=== PATIENT | female | born 1995 | race Caucasian/White ===

== ENCOUNTER 2019-08-25 16:43 | Emergency (ER) | payer OTHER, SELFPAY ==
[2019-08-25 16:43] VITALS: BP 146/80; PULSE 95; RESP 16; TEMP 36.7; O2SAT 99; BMI 40.5
[2019-08-25] MEDS: Oxymetazoline 0.05% 1 SPRAY SPRAY.BTL 2 SPRAY NASAL (17:22)
[2019-08-25] MEDS: 0.9% Normal Saline 1,000 ML 999 ML IV (17:22)
--- NOTE | 2019-08-25 17:24 | ED.VIS.GEN ---
History of Present Illness Informant: Patient Onset: Today Context: Sudden Onset Timing: Lasts - 30 minutes Quality: nosebleed Location: left nostril Current Severity: - - gone. Maximum Severity: Severe Worsened by: nothing Relieved by: manual pressure Associated Symptoms: lightheadedness Narrative: 23-year-old female who denies any significant past medical history presents to the emergency department with lightheadedness. She had a nosebleed prior to arrival that lasted 30 minutes out of her left nostril resolved with manual pressure. Since that time she has felt continually lightheaded and dizzy feeling like she is going to pass out. She has not actually lost consciousness. Prior to the nosebleed she felt well. She has no headache. She denies trauma. She is not on anticoagulation. She has no other symptoms of bleeding. No family history of coagulopathy. Denies chest pain or shortness of breath. Denies any recent illness or hospitalization. She has not had fevers chills night sweats or weight loss. No rash. Rest review of systems negative Prior similar symptoms: No Recent Illness/Hospitalization: No <Checo Esposito - Last Filed: 08/25/19 18:09> <Bry Simmons - Last Filed: 08/26/19 00:45> Chief Complaint: Nosebleed Past Medical History Prior records reviewed: Yes Past Medical History: None Surgical History: no surgical history Lives: With Family Smoking Status: Never smoker Alcohol: Occasional Drugs: None <Checo Esposito - Last Filed: 08/25/19 18:09> <Bry Simmons - Last Filed: 08/26/19 00:45> - Allergies and Home Meds Allergies/Adverse Reactions: Allergies No Known Allergies Allergy (Verified 08/25/19 16:44) Primary Care Physician: Howard Arana MD [STAFF PHYSICIAN] - As Needed Review of Systems All systems negative except as indicated General: Denies: Chills, Fever, Malaise Eyes: Denies: Visual changes - bilaterally, Blurred Vision - bilaterally, Diplopia ENT: Reports: - - epistaxis. Denies: Bilateral ear pain, Left ear pain, Right ear pain, Rhinorrhea, Sore throat Cardiovascular: Denies: Chest pain, Palpitations, Heart racing Respiratory: Denies: Dyspnea, Cough, Sputum Gastrointestinal: Denies: Abdominal pain, Nausea, Vomiting, Diarrhea Genitourinary: Denies: Dysuria, Hematuria, Frequency Musculoskeletal: Denies: Swelling, Extremity Pain Skin: Denies: Rash, Abscess, Abrasions, Wounds Neurological: Denies: Headache, Weakness, Parasthesia, Numbness Hematologic: Denies: Easy bruising, Easy bleeding, Lymphadenopathy Allergy: Denies: Uticaria, Swelling of the mouth, Swelling of the tongue <Checo Esposito - Last Filed: 08/25/19 18:09> Physical Exam Vital Signs/Narrative: Vital Signs Temp Pulse Resp BP Pulse Ox 08/25/19 16:43 98.1 F 95 16 146/80 H 99 Inital Vital Signs reviewed: Yes General: Well nourished, Well developed, No Acute Distress Head: Normocephalic, Atraumatic Eyes: Perrl, EOMI ENT: Moist mucous membranes, No rhinorrhea, TM's clear, - - She has dried blood in the left nostril. There is no active bleeding. There is no swelling. There is normal inspection of the right nostril. There is normal inspection of the posterior oropharynx. There is no facial swelling or bruising or signs of trauma or injury or rash. Neck: Supple, Nontender, No lymphadenopathy, No JVD Cardiovascular: Regular rate, Regular rhythm, No murmurs Respiratory: No distress, CTA bilaterally, Chest nontender Abdomen: Soft, Nontender, Nondistended, Normal bowel sounds, No masses Back: Nontender, Normal Inspection Extremities: Nontender, No edema Skin: Normal color, No rash, No Trauma. Negative for: Pallor Neurological: Alert, Oriented x3, Cranial nerves II-XII grossly intact, Normal Strength, Normal Sensation, Normal Gait Psychological: Normal affect, Normal Mood <Checo Esposito - Last Filed: 08/25/19 18:09> Vital Signs/Narrative: Vital Signs Temp Pulse Pulse Pulse Pulse Resp BP 08/25/19 17:43 82 94 99 08/25/19 16:43 98.1 F 95 16 146/80 H BP BP BP Pulse Ox 08/25/19 17:43 120/72 118/71 128/83 H 08/25/19 16:43 99 <Bry Simmons - Last Filed: 08/26/19 00:45> Diagnostic/Tx/Re-eval - Medical Decision Making Patient's orthostatic vital signs were negative. Patient has normal hemogram and her labs are unremarkable. She has not had any further bleeding in the ED. I did discuss with her I think this was likely a vasovagal reaction from the nosebleed. I do feel she is safe for discharge. She will use saline nasal spray and follow-up with her doctor <Checo Esposito - Last Filed: 08/25/19 18:09> - Medical Decision Making I supervised the PA and have performed my own pertinent history and physical. Results and treatment plan were discussed. HPI: Patient reports she has bloody nose tonight the last approximately 3 hours. She feels lightheaded. She is concerned that she needs to have blood transfusion. PE: Dried tissue in her nares bilaterally. There is no active bleeding. Cardiovascular regular rhythm with no murmur. Respiratory exam is clear to station bilaterally. Emergency Department course: CBC is normal. Patient is resting comfortably. Treatment Plan: Discussed methods to prevent nosebleeds in the future including humidifier and antibiotic ointment in her nose. Return to the emergency department for any worsening symptoms. This note was generated with [employer] dictation software. It may contain incorrect words, spelling, and punctuation that were not noted in review of the chart prior to signing. <Bry Simmons - Last Filed: 08/26/19 00:45> ED Disposition <Checo Esposito - Last Filed: 08/25/19 18:09> <Bry Simmons - Last Filed: 08/26/19 00:45> - Plan for ED Patient: Disposition: Home or Assisted Living Instructions: Nosebleed Referrals: Howard Arana MD [STAFF PHYSICIAN] - As Needed
[2019-08-25 17:43] VITALS: BP 118/71; BP 120/72; BP 128/83; PULSE 82; PULSE 94; PULSE 99
[2019-08-25 17:54] LABS: Absolute Neutrophil Count 4.6 X10^3/uL (2.0-7.7); Basophil# 0.03 X10^3/uL; Basophil% 0.4 % (0-1); Eosinophils% 1.2 % (0-5); Hematocrit 41.6 % (37-47); Lymphocyte % 34.5 % (19-41); Mean Corp Hgb Conc 33.7 g/dL (32-36); Mean Corpuscular Hgb 29.7 pg (27.0-32.0); Mean Corpuscular Volume 88.1 fL (81-99); Mean Platelet Vol. 9.5 fl (6.2-12.0); Monocyte# 0.56 X10^3/uL; Monocyte% 6.9 % (0-10); NRBC Flagged by Analyzer 0 % (0-5); Neutrophil # 4.59 X10^3/uL (2.7-7.7); Neutrophil % 56.6 % (47-70); Platelet Count 279 K/mm3 (150-450); RBC Distribution Width CV 11.9 % (11.6-14.6); RBC Distribution Width SD 38.2 fl (35.1-43.9); Red Blood Count 4.72 M/mm3 (4.2-5.4); White Blood Count 8.1 K/mm3 (4.4-11.0)
[2019-08-25 18:03] LABS: Anion Gap 8 (5-15); BUN 12 mg/dL (7-18); BUN/Creat Ratio 15.8 RATIO (10-20); Calcium,Total 9.2 mg/dL (8.5-10.1); Chloride 107 mmol/L (98-107); Creatinine, Serum 0.76 mg/dL (0.55-1.02); EST Glomerular Filtration Rate 101 mL/min (>60); Est Glom Filt Rate - Afr Amer 123 mL/min (>60); Estimated Creatinine Clearance 92.61 ml/min; Glucose 85 mg/dL (74-106); Potassium 3.4 mmol/L (3.5-5.1); Sodium Level 141 mmol/L (136-145)
== END 2019-08-25 18:45 | disposition home or self-care (01) ==
LOC: ED 17:55
PROVIDERS: Emergency Provider Physician Assistant Medical
DX: R04.0 Epistaxis (principal); R42 Dizziness and giddiness
CPT/HCPCS: 80048; 85025; 96360; 99283; J7030

== ENCOUNTER → 2020-06-04 | Outpatient (CLI) | payer OTHER, SELFPAY | END | disposition home or self-care (01) | LOC: MFPLAB 14:02 → LABSPEC 14:04 | PROVIDERS: PCP Family Medicine; Referring Provider Family Medicine; Visit Provider Family Medicine | DX: Z20.828 Contact with and (suspected) exposure to other viral communicable diseases (principal) | CPT/HCPCS: 87635; U0003 ==

== ENCOUNTER → 2020-12-17 | Outpatient (CLI) | payer OTHER, SELFPAY | END | disposition home or self-care (01) | LOC: LABSPEC 10:34 | PROVIDERS: PCP Family Medicine; Referring Provider Family Medicine; Visit Provider Family Medicine | DX: Z20.822 Contact with and (suspected) exposure to COVID-19 (principal) | CPT/HCPCS: 87635; U0005; U0003 ==

== ENCOUNTER → 2021-02-19 12:24 | Outpatient (CLI) | payer OTHER, SELFPAY ==
--- NOTE | 2021-02-19 12:33 | RAD_ITS ---
STUDY: X-RAY - RIGHT ANKLE REASON FOR EXAM: Female, 25 years old. Hit ankle against metal gate. Pain. TECHNIQUE: 3 view(s) of the ankle. COMPARISON: None. FINDINGS: Normal visualized distal tibia and fibula. Normal medial and lateral malleoli. Normal tibiotalar articulation and ankle mortise. Normal visualized talus and calcaneus. The visualized subtalar, talonavicular, calcaneocuboid and tarsal articulations are normal. Minimal anterior soft tissue swelling. RAD/Ankle min 3 Views IMPRESSION: No acute fracture or dislocation. Electronically Signed: Tom Sierra DO at 17:34 EDT Tel [phone], Service support ,
== END ==
PROVIDERS: PCP Family Medicine; Referring Provider Family Medicine; Visit Provider Family Medicine
DX: S93.401A Sprain of unspecified ligament of right ankle, initial encounter (principal)
CPT/HCPCS: 73610

== ENCOUNTER → 2022-12-06 | Outpatient (CLI) | payer OTHER, SELFPAY | END | disposition home or self-care (01) | LOC: LABSPEC 12:17 | PROVIDERS: PCP Family Medicine; Referring Provider Family Medicine; Visit Provider Family Medicine | DX: L03.011 Cellulitis of right finger (principal) | CPT/HCPCS: 87070; 87205 ==

== ENCOUNTER → 2024-07-09 | Outpatient (CLI) | payer OTHER, SELFPAY ==
[2024-07-09 17:46] LABS: Absolute Lymphocyte Count 2.58 X10^3/uL (0.83-4.51); Absolute Neutrophil Count 5.1 X10^3/uL (2.0-7.7); Basophil# 0.05 X10^3/uL; Basophil% 0.6 % (0-1); Eosinophil# 0.12 X10^3/uL; Eosinophils% 1.4 % (0-5); Hematocrit 41.1 % (37-47); Hemoglobin 13.7 g/dL (12.0-15.0); Lymphocyte # 2.58 X10^3/ul (0.83-4.51); Lymphocyte % 30.5 % (19-41); Mean Corp Hgb Conc 33.3 g/dL (32-36); Mean Corpuscular Volume 90.1 fL (81-99); Mean Platelet Vol. 9.8 fl (6.2-12.0); Monocyte# 0.61 X10^3/uL; Monocyte% 7.2 % (0-10); NRBC Flagged by Analyzer 0 % (0-5); Neutrophil # 5.07 X10^3/uL (2.7-7.7); Neutrophil % 59.8 % (47-70); Platelet Count 323 K/mm3 (150-450); RBC Distribution Width CV 12.5 % (11.6-14.6); RBC Distribution Width SD 40.8 fl (35.1-43.9); Red Blood Count 4.56 M/mm3 (4.2-5.4); White Blood Count 8.5 K/mm3 (4.4-11.0)
[2024-07-09 19:02] LABS: AST(SGOT) 21 U/L (15-37); Alanine Aminotransfer ALT/SGPT 43 U/L (13-56); Albumin, Serum 3.6 g/dL (3.2-5.0); Alkaline Phosphatase 97 U/L (45-117); Anion Gap 2 (5-15); BUN 12 mg/dL (7-18); BUN/Creat Ratio 16.8 RATIO (10-20); Chloride 106 mmol/L (98-107); Creatinine, Serum 0.72 mg/dL (0.55-1.02); EST Glomerular Filtration Rate 104 mL/min (>60); Est Glom Filt Rate - Afr Amer 126 mL/min (>60); Globulin 3.7 g/dL (2.2-4.2); Glucose 87 mg/dL (74-106); Potassium 3.8 mmol/L (3.5-5.1); Protein, Total 7.3 g/dL (6.4-8.2); Sodium Level 138 mmol/L (136-145)
== END | disposition home or self-care (01) ==
LOC: MFPLAB 15:12
PROVIDERS: PCP Family Medicine; Referring Provider Family Medicine; Visit Provider Family Medicine
DX: R00.2 Palpitations (principal)
CPT/HCPCS: 36415; 80053; 84443; 85025

== ENCOUNTER 2024-12-08 13:50 | Outpatient (CLI) | payer SELFPAY ==
--- OUTSIDE RECORDS SUMMARY | 2024-12-08 14:09 | XMS RPT_ITS | CCD ---
Author Organization [facility] Care Team Providers Care Supply Chain Generalist Name Role Phone Judith, Mago Sarah Primary Care Provider GAETANO PIERSON Attending Unavailable JOLLIFF, MAGO SARAH Primary Care Unavailable Jolliff, Mago Sarah Primary Care Provider Judith, Mago S Referring Unavailable Jolliff, Mago S Attending Unavailable Jolliff, Mago S Primary Care Unavailable PLOTTS, MATILDE Referring Unavailable JOLLIFF, MAGO SARAH Primary Care Unavailable PLOTTS, MATILDE Referring Unavailable JOLLIFF, MAGO SARAH Primary Care Unavailable PLOTTS, MATILDE Referring Unavailable JOLLIFF, MAGO SARAH Primary Care Unavailable PLOTTS, MATILDE Attending Unavailable JOLLIFF, MAGO SARAH Primary Care Unavailable JOLLIFF, MAGO SARAH Primary Care Unavailable ANGELIC BUTLER Attending Unavailable JOLLIFF, MAGO SARAH Primary Care Unavailable JOJO SAEZ Attending Unavailable CARRIE, ANGELIC L Referring Unavailable JOLLIFF, MAGO SARAH Primary Care Unavailable CARRIE, ANGELIC L Referring Unavailable JOLLIFF, MAGO SARAH Primary Care Unavailable JOJO SAEZ Attending Unavailable CARRIE, ANGELIC L Referring Unavailable JOLLIFF, MAGO SARAH Primary Care Unavailable CARRIE, ANGELIC L Referring Unavailable JOLLIFF, MAGO SARAH Primary Care Unavailable CARRIE, ANGELIC L Referring Unavailable JOLLIFF, MAGO SARAH Primary Care Unavailable CHRISTY HARVEY Attending Unavail able PLOTTS, MATILDE Referring Unavailable JOLLIFF, MAGO SARAH Primary Care Unavailable PLOTTS, MATILDE Referring Unavailable JOLLIFF, MAGO SARAH Primary Care Unavailable CARRIE ANGELIC L Attending Unavailable JOLLIFF, MAGO SARAH Primary Care Unavailable Medications Current Medications Medication Drug Class(es) Dates Sig (Normalized) Sig (Original) aspirin 81 mg delayed release oral tablet (15 sources) Platelet Aggregation Inhibitor, Nonsteroidal Anti-inflammatory Drug Start: 09-23-2024 End: 10-08-2024 take 2 tablets by mouth once daily aspirin, enteric coated (ECOTRIN LOW STRENGTH) 81 mg EC tablet Take 2 tablets by mouth once daily. 180 tablet 2 10/08/2024 Active Start: 08-12-2024 End: 09-23-2024 take 1 tablet by mouth once daily aspirin, enteric coated (ECOTRIN LOW STRENGTH) 81 mg EC tablet Indications: with uncertain dates, antepartum (HCC) , Encounter for care in first trimester of first (HCC) Take 1 tablet by mouth once daily. 90 tablet 3 08/12/2024 09/23/2024 Discontinued metroNIDAZOLE 500 mg oral tablet (1 source) Nitroimidazole Antimicrobial Start: 02-08-2024 End: 02-15-2024 take 1 tablet by mouth twice daily metroNIDAZOLE (FLAGYL) 500 mg tablet Take 1 tablet by mouth two times a day for 7 days. 14 tablet 0 02/08/2024 02/15/2024 Active PNV no.95/ferrous fum/folic ac ( ORAL) (14 sources) PNV no.95/ferrou s fum/folic ac ( ORAL) Take by mouth. Active Completed/Discontinued Medications Medication Drug Class(es) Dates Sig (Normalized) Sig (Original) 21 day ethinyl estradiol 0.881085 mg/hr / etonogestrel 0.005 mg/hr vaginal system (15 sources) Progestin, Estrogen Start: 08-24-2021 End: 08-12-2024 Etonogestrel-Ethiny l Estradiol (NUVARING) 0.12-0.015 mg/24 hr vaginal ring Use 1 Each vaginally as directed. leave ring for 24 days, remove and insert new ring. Take a 4 day break and insert a new ring when you get breakthrough bleeding 1 Each 11 08/30/2023 08/12/2024 Discontinued (Discontinued by Patient) Start: 08-25-2019 Etonogestrel-E thinyl Estradiol Active 1 EACH VG EVERY WEEK August 25, 2019 1:00am Comment on above: Use 1 Each vaginally as directed. leave ring for 24 days, remove and insert new ring. Take a 4 day break and insert a new ring when you get breakthrough bleeding nystatin 100 unt/mg / triamcinolone acetonide 0.001 mg/mg topical ointment (4 sources) Polyene Antifungal, Corticosteroid Start: 02-07-2024 End: 08-12-2024 nystatin-triamcinolone (MYCOLOG) ointment Indications: Vaginal itching Apply sparingly to perineum twice daily for irritation/infection. 30 g 02/07/2024 08/12/2024 Discontinued (Discontinued by Patient) Problems Active Problems Problem Classification Problem Date Documented Date Episodic/Chronic Cardiac dysrhythmias (1 source) Palpitations; Translations: [Palpitations] Onset: 09-20-2024 Episodic Contraceptive and procreative management (1 source) Contraception status; Translations: [Encounter for surveillance of vaginal ring hormonal contraceptive device] 12-15-2023 Episodic Headache; including migraine (1 source) Headache associated with sexual activity ; Translations: [Headache associated with sexual activity] 03-01-2023 Episodic Hypertension complicating ; childbirth and the puerperium (12 sources) Pre-existing hypertension in obstetric context; Translations: [Unspecified pre-existing hypertension complicating , unspecified trimester] Onset: 09-23-2024 09-23-2024 Chronic Immunizations and screening for infectious disease (4 sources) Patient encounter status; Translations: [Encounter for screening for infections with a predominantly sexual mode of transmission] Episodic Menstrual disorders (1 source) Irregular periods; Translations: [Irregular menstruation, unspecified] 01-02-2023 Chronic Other circulatory disease (1 source) Elevated blood-pressure reading without diagnosis of hypertension; Translations: [Elevated blood-pressure reading, without diagnosis of hypertension] 09-23-2024 Episodic Other circulatory disease (1 source) Elevated blood-pressure reading, without diagnosis of hypertension; Translations: [Elevated blood pressure reading without diagnosis of hypertension] Onset: 09-23-2024 Episodic Other complications of (20 sources) Maternal obesity complicating , childbirth and the puerperium, antepartum; Translations: [Obesity complicating , first trimester] Onset: 08-12-2024 08-12-2024 Chronic Other complications of (1 source) Obesity complicating , third trimester; Translations: [Obesity affecting in third trimester, unspecified obesity type (HCC)] Onset: 11-19-2024 Chronic Other complications of (1 source) Obesity complicating , first trimester; Translations: [Obesity affecting in first trimester, unspecified obesity type (HCC)] Onset: 08-12-2024 Chronic Other complications of (9 sources) High risk ; Translations: [Supervision of high risk , unspecified, first trimester] 09-10-2024 Episodic Other complications of (1 source) Supervision of high risk , unspecified, second trimester; Translations: [Supervision of high risk in second trimester ([facility])] Onset: 11-19-2024 Episodic Other complications of (1 source) Supervision of high risk , unspecified, third trimester; Translations: [Supervision of high risk in third trimester ([facility])] Onset: 11-19-2024 Episodic Other complications of (1 source) Supervision of high risk , unspecified, first trimester; Translations: [Supervision of high risk in first trimester (HCC)] Onset: 10-22-2024 Episodic Other endocrine disorders (1 source) Polycystic ovary syndrome; Translations: [Polycystic ovarian syndrome] 12-15-2023 Chronic Other female genital disorders (1 source) Pruritus of vagina; Translations: [Other specified noninflammatory disorders of vagina] 02-07-2024 Episodic Other female genital disorders (1 source) Vaginal discharge; Translations: [Other specified noninflammatory disorders of vagina] 02-07-2024 Episodic Other nutritional; endocrine; and metabolic disorders (1 source) Severe obesity; Translations: [Morbid (severe) obesity due to excess calories] 12-15-2023 Chronic Other nutritional; endocrine; and metabolic disorders (5 sources) Body mass index 40+ - severely obese; Translations: [Body mass index (BMI) 40.0-44.9, adult] 09-10-2024 Chronic Other nutritional; endocrine; and metabolic disorders (1 source) Body mass index (BMI) 40.0-44.9, adult; Translations: [BMI 40.0-44.9, adult ([facility])] Onset: 11-19-2024 Chronic Other screening for suspected conditions (not mental disorders or infectious disease) (2 sources) Cancer cervix screening status; Translations: [Encounter for screening for malignant neoplasm of cervix] Onset: 11-19-2024 12-15-2023 Episodic Residual codes; unclassified (2 sources) Gestation period, 10 weeks; Translations: [10 weeks gestation of ] 09-10-2024 Episodic Residual codes; unclassified (2 sources) Gestation period, 11 weeks; Translations: [11 weeks gestation of ] 09-23-2024 Episodic Residual codes; unclassified (2 sources) Gestation period, 16 weeks; Translations: [16 weeks gestation of ] 10-22-2024 Episodic Residual codes; unclassified (2 sources) Gestation period, 20 weeks; Translations: [20 weeks gestation of ] 11-19-2024 Episodic Residual codes; unclassified (1 source) 20 weeks gestation of ; Translations: [20 weeks gestation of (HCC)] Onset: 11-19-2024 Episodic Residual codes; unclassified (1 source) 16 weeks gestation of ; Translations: [16 weeks gestation of (HCC)] Onset: 10-22-2024 Episodic Residual codes; unclassified (1 source) 10 weeks gestation of ; Translations: [10 weeks gestation of (HCC)] Onset: 09-23-2024 Episodic Sexually transmitted infections (not HIV or hepatitis) (1 source) Human papilloma virus deoxyribonucleic acid test positive, high risk on vaginal specimen; Translations: [Vaginal high risk human papillomavirus (HPV) DNA test positive] 12-15-2023 Episodic Skin and subcutaneous tissue infections (1 source) Cellulitis of right upper limb; Translations: [Cellulitis of right upper extremity] Onset: 12-06-2022 Episodic Unclassified (14 sources) [facility] Onset: 08-12-2024 08-12-2024 Past or Other Problems Problem Classification Problem Date Documented Da te Episodic/Chronic Appendicitis and other appendiceal conditions (19 sources) Acute appendicitis; Translations: [Unspecified acute appendicitis] Onset: 01-01-2009 Resolved: 08-24-2021 08-24-2021 Episodic Hemorrhage during ; abruptio placenta; placenta previa (15 sources) Threatened miscarriage in first trimester; Translations: [Threatened ] Onset: 08-12-2024 08-12-2024 Episodic Other and delivery including normal (20 sources) with uncertain dates; Translations: [First trimester ] Onset: 08-12-2024 Resolved: 09-10-2024 08-12-2024 Episodic Results Test Name Value Interpretation Reference Range Facil ity Examination level ultrasound on 11-19-2024 Indication Detailed anatomic survey Maternal obesity, BMI >40 Impression The patient is referred for a detailed anatomic survey. - Single, live, intrauterine . - biometry is consistent with the established gestational age. - No malformations were visualized on a complete detailed anatomic survey. - The amniotic fluid volume is normal amount. - The placenta is posterior, fundal. - The Transabdominal cervical length measures 41.5 mm with no evidence of funneling or other dynamic changes. - Not all structural malformations can be detected by ultrasound examination. Recommendations - growth every 4 weeks starting at 28 weeks. - Additional follow up as clinically indicated. Maternal Assessment Height 160 cm Height (ft) 5 ft Height (in) 3 in Physical Exam Initial weight (lb) 227 lb Initial BMI 40.21 kg/m Maternal assessment other: 1 Para 0 Method Transabdominal ultrasound examination. View: Suboptimal view: limited by maternal body habitus Melgoza . Number of fetuses: 1 Dating LMP on: 06/15/2024 GA by LMP 22 w + 3 d SPENCER by LMP: 03/22/2025 GA by prior assessment 20 w + 0 d SPENCER by prior assessment: 04/08/2025 Ultrasound examination on: 11/19/2024 GA by U/S based upon: AC, BPD, Femur, HC GA by U/S 19 w + 5 d SPENCER by U/S: 04/10/2025 Assigned: based on stated SPENCER, selected on 11/19/2024 Assigned GA 20 w + 0 d Assigned SPENCER: 04/08/2025 General Evaluation Cardiac activity present. FHR 149 bpm. movements: present. Presentation: transverse head left Placenta: Placental site: posterior, fundal Umbilical cord: Cord vessels: 3 vessel cord Amniotic fluid: Amount of AF: normal amount. MVP 5.4 cm Growth Overview Exam date GA BPD (mm) HC (mm) AC (mm) FL (mm) HL (mm) EFW (g) 10/22/2024 16w 0d 33.5 66% 124.2 45% 102.1 59% 22 79% 19.2 37% 152 62% 11/19/2024 20w 0d 44 22% 169.9 37% 148.7 49% 31.4 55% 31.2 69% 318 39% Biometry Standard BPD 44.0 mm 19w 2d 22% Hadlock OFD 61.4 mm 19w 6d 64% Nicolaides HC 169.9 mm 19w 4d 37% Devonte Cerebellum tr 21.7 mm 20w 3d 87% Hill Nuchal fold 4.9 mm AC 148.7 mm 20w 1d 49% Hadlock Femur 31.4 mm 19w 6d 55% Devonte Humerus 31.2 mm 20w 3d 69% Devonte EFW 318 g 19w 5d 39% Hadlock EFW (lb) 0 lb EFW (oz) 11 oz EFW by: Hadlock (HC-AC-FL) Extended Manager Of Finance 6.6 mm CM 4.3 mm 28% Nicolaides Extremities / Bony Struc FL / HC 0.18 26% Hadlock Other Structures FHR 149 bpm Anatomy Cranium: normal Lateral ventricles: normal Choroid plexus: normal Midline falx: normal Cavum septi pellucidi: normal Cerebellum: normal Cisterna magna: normal Head / Neck Vermis: normal Neck: normal Nuchal fold: normal Lips: normal Profile: normal Nose: normal Face Maxilla: normal Mandible: normal Orbits: normal Lens: normal 4-chamber view: normal RVOT view: normal LVOT view: normal 3-vessel view: normal [id number] view: normal Heart / Thorax Situs: situs solitus (normal) Aortic arch view: normal SVC: normal IVC: normal Cardiac axis: normal Rt lung: normal Lt lung: normal Diaphragm: normal Cord insertion: normal Stomach: normal Kidneys: normal Bladder: normal Genitals: normal Abdomen Abdom. wall: normal Cervical spine: normal Thoracic spine: normal Lumbar spine: normal Sacral spine: normal Arms: normal Legs: normal Rt upper arm: normal Rt forearm: normal Rt hand: normal Rt fingers: normal Lt upper arm: normal Lt forearm: normal Lt hand: normal Lt fingers: normal Rt upper leg: normal Rt lower leg: normal Rt foot: normal Lt upper leg: normal Lt lower leg: normal Lt foot: normal sex: male Wants to know sex: yes Maternal Structures Uterus / Cervix Uterus: Visualized Cervix: Visualized Approach: Transabdominal Cervical length 41.5 mm Other: Patient declined transvaginal ultrasound for cervical length. Ovaries / Tubes / Adnexa Rt ovary: Visualized Lt ovary: Visualized Performed By: Rita Martinez RDMS, RVT Read By: Antonia Michelle, M.D. MATERNAL MEDICINE [facility] Radiology Study observation (narrative) [facility] Examination level ultrasound on 10-22-2024 Indication Early anatomic survey Maternal obesity, BMI >40 Impression The patient is referred for an early anatomic survey because of identified risk factors. - Single, live, intrauterine . - biometry is consistent with the established gestational age. - No malformations were visualized on an early anatomic assessment, although some anatomical structures were suboptimally seen as detailed below. - The amniotic fluid volume is normal amount. - The placenta is posterior, fundal. - Not all structural malformations can be detected by ultrasound examination. Recommendations Return around 20 weeks for anatomic survey Maternal Assessment Height 160 cm Height (ft) 5 ft Height (in) 3 in Physical Exam Initial weight (lb) 227 lb Initial BMI 40.21 kg/m Maternal assessment other: 1 Para 0 Method Transabdominal ultrasound examination Melgoza . Number of fetuses: 1 Dating LMP on: 06/15/2024 GA by LMP 18 w + 3 d SPENCER by LMP: 03/22/2025 GA by prior assessment 16 w + 0 d SPENCER by prior assessment: 04/08/2025 Ultrasound examination on: 10/22/2024 GA by U/S based upon: AC, BPD, Femur, HC GA by U/S 16 w + 2 d SPENCER by U/S: 04/06/2025 Assigned: based on stated SPENCER, selected on 10/22/2024 Assigned GA 16 w + 0 d Assigned SPENCER: 04/08/2025 General Evaluation Cardiac activity present. FHR 152 bpm. movements: present. Presentation: cephalic Placenta: Placental site: posterior, fundal Umbilical cord: Cord vessels: 3 vessel cord Amniotic fluid: Amount of AF: normal amount. MVP 3.8 cm Biometry Standard BPD 33.5 mm 16w 3d 66% Hadlock OFD 43.8 mm 15w 3d 43% Nicolaides HC 124.2 mm 15w 6d 45% Devonte Cerebellum tr 15.7 mm 16w 2d 38% Hill Nuchal fold 2.8 mm AC 102.1 mm 16w 1d 59% Hadlock Femur 22.0 mm 16w 4d 79% Devonte Humerus 19.2 mm 15w 4d 37% Devonte EFW 152 g 16w 1d 62% Hadlock EFW (lb) 0 lb EFW (oz) 5 oz EFW by: Hadlock (HC-AC-FL) Extended Manager Of Finance 5.8 mm CM 3.5 mm 34% Nicolaides Extremities / Bony Struc FL / HC 0.18 95% Hadlock Other Structures FHR 152 bpm Anatomy Cranium: normal Lateral ventricles: normal Choroid plexus: normal Midline falx: normal Cerebellum: normal Cisterna magna: normal Lips: normal 4-chamber view: normal RVOT view: normal LVOT view: normal 3-vessel view: suboptimally visualized 8-[id number] view: suboptimally visualized Heart / Thorax Diaphragm: normal Cord insertion: normal Stomach: normal Kidneys: normal Bladder: normal Cervical spine: normal Thoracic spine: normal Lumbar spine: normal Sacral spine: normal Arms: normal Legs: normal Rt upper arm: normal Rt forearm: normal Rt hand: normal Lt upper arm: normal Lt forearm: normal Lt hand: normal Rt upper leg: normal Rt lower leg: normal Rt foot: normal Lt upper leg: normal Lt lower leg: normal Lt foot: normal sex: male Wants to know sex: yes Maternal Structures Uterus / Cervix Uterus: Visualized Cervix: Visualized Approach: Transabdominal Cervical length 35.9 mm Ovaries / Tubes / Adnexa Rt ovary: Visualized Lt ovary: Visualized Performed By: Rita Martinez RDMS, RVT Read By: Antonia Michelle M.D. MATERNAL MEDICINE [facility] Radiology Study observation (narrative) [facility] metabolic 2000 panelOrdered By: Eliza Sparks on 09-23-2024 Albumin [Mass/Vol] 4 g/dL 3.9 - 4.9 g/dL [facility] ALP [Catalytic activity/Vol] 72 U/L 34 - 123 U/L [facility] ALT [Catalytic activity/Vol] 14 U/L 7 - 38 U/L [facility] Anion gap [Moles/Vol] 11 mmol/L 8 - 15 mmol/L [facility] AST [Catalytic activity/Vol] 15 U/L 13 - 35 U/L [facility] Bilirubin [Mass/Vol] mg/dL Low 0.2 - 1.3 mg/dL [facility] Calcium [Mass/Vol] 9.5 mg/dL 8.5 - 10.2 mg/dL [facility] Chloride [Moles/Vol] 104 mmol/L 98 - 107 mmol/L [facility] CO2 [Moles/Vol] 22 mmol/L 22 - 30 mmol/L [place] Creatinine [Mass/Vol] 0.49 mg/dL Low 0.58 - 0.96 mg/dL [facility] GFR/1.73 sq M.predicted among non-blacks MDRD (S/P/Bld) [Vol rate/Area] 133 mL/min/{1.73_m2} - PINF [facility] Comment on above: Estimated Glomerular Filtration Rate (eGFR) is calculated using the 2020 CKD-EPI creatinine equation. This equation utilizes serum creatinine, sex, and age as parameters. The creatinine assay has traceable calibration to isotope dilution-mass spectrometry. Refer to KDIGO guidelines for clinical interpretation. In patients with unstable renal function, e.g. those with acute kidney injury, the eGFR may not accurately reflect actual GFR. Glucose [Mass/Vol] 96 mg/dL 74 - 99 mg/dL [facility] Comment on above: The Stateless Diabete s Association (ADA) provides guidance for cutoff values for fasting glucose and random glucose. The ADA defines fasting as no caloric intake for at least 8 hours. Fasting plasma glucose results between 100 to 125 mg/dL indicate increased risk for diabetes (prediabetes). Fasting plasma glucose results greater than or equal to 126 mg/dL meet the criteria for diagnosis of diabetes. In the absence of unequivocal hyperglycemia, results should be confirmed by repeat testing. In a patient with classic symptoms of hyperglycemia or hyperglycemic crisis, random plasma glucose results greater than or equal to 200 mg/dL meet the criteria for diagnosis of diabetes. Reference: Standards of Medical Care in Diabetes 2016, Stateless Diabetes Association. Diabetes Care. 2016.39(Suppl 1). Interpretation and review of laboratory results Abnormal [facility] Potassium [Moles/Vol] 3.9 mmol/L 3.7 - 5.1 mmol/L [facility] Protein [Mass/Vol] 6.9 g/dL 6.3 - 8.0 g/dL [facility] Sodium [Moles/Vol] 137 mmol/L 136 - 144 mmol/L [facility] Urea nitrogen [Mass/Vol] 9 mg/dL 7 - 21 mg/dL [facility] Comprehensive metabolic 2000 panelon 09-23-2024 Albumin [Mass/Vol] 4.0 g/dL Normal 3.9-4.9 [facility] Comment on above: Order Comment: Speci men Type: BLOOD SPECIMENOrdering Facility: [facility] Address: [address] [place] [address] Performed By: #### 2 4323-8 ####[facility] MILLTOWNCLIA [id number] [place] [address] [place] ALP [Catalytic activity/Vol] 72 U/L Normal 34-123 [facility] Comment on above: Order Comment: Speci men Type: BLOOD SPECIMENOrdering Facility: [facility] Address: [address] [place] [address] Performed By: #### 2 4323-8 ####[facility] MILLTOWNCLIA [id number] [place] [address] [place] ALT [Catalytic activity/Vol] 14 U/L Normal 7-38 [facility] Comment on above: Order Comment: Speci men Type: BLOOD SPECIMENOrdering Facility: [facility] Address: [address] [place] [address] Performed By: #### 2 4323-8 ####[facility] MILLTOWNCLIA [id number] [place] [address] [place] Anion gap [Moles/Vol] 11 mmol/L Normal 8-15 [facility] Comment on above: Order Comment: Speci men Type: BLOOD SPECIMENOrdering Facility: [facility] Address: [address] [place] [address] Performed By: #### 2 4323-8 ####[facility] MILLTOWNCLIA [id number] [place] [address] [place] AST [Catalytic activity/Vol] 15 U/L Normal 13-35 [facility] Comment on above: Order Comment: Speci men Type: BLOOD SPECIMENOrdering Facility: [facility] Address: [address] [place] [address] Performed By: #### 2 4323-8 ####[facility] MILLTOWNCLIA [id number] [place] [address] [place] Bilirubin [Mass/Vol] mg/dL Low 0.2-1.3 [facility] Comment on above: Order Comment: Speci men Type: BLOOD SPECIMENOrdering Facility: [facility] Address: [address] [place] [address] Performed By: #### 2 4323-8 ####[facility] MILLWNCLIA [id number] [place] [address] [place] Calcium [Mass/Vol] 9.5 mg/dL Normal 8.5-10.2 [facility] Comment on above: Order Comment: Speci men Type: BLOOD SPECIMENOrdering Facility: [facility] Address: [address] [place] [address] Performed By: #### 2 4323-8 ####[facility] [id number] [place] [address] [place] Chloride [Moles/Vol] 104 mmol/L Normal 98-107 [facility] Comment on above: Order Comment: Speci men Type: BLOOD SPECIMENOrdering Facility: [facility] Address: [address] [place] [address] Performed By: #### 2 4323-8 ####[facility] [id number] [place] [address] [place] CO2 [Moles/Vol] 22 mmol/L Normal 22-30 [facility] Comment on above: Order Comment: Speci men Type: BLOOD SPECIMENOrdering Facility: [facility] Address: [address] [place] [address] Performed By: #### 2 4323-8 ####[facility] MILLTOWNCLIA [id number] [place] [address] [place] Creatinine [Mass/Vol] 0.49 mg/dL Low 0.58-0.96 [facility] Comment on above: Order Comment: Sheryl reyes Type: BLOOD SPECIMENOrdering Facility: [facility] Address: [address] [place] [address] Performed By: #### 2 4323-8 ####[facility] [id number] [place] [address] [place] Creatinine and Glomerular filtration rate.predicted panel (S/P/Bld) 133 mL/min/1.73m??? Normal >=60 [facility] Comment on above: Order Comment: Sheryl reyes Type: BLOOD SPECIMENOrdering Facility: [facility] Address: [address] [place] [address] Result Comment: Jossie mated Glomerular Filtration Rate (eGFR) is calculated using the 2020 CKD-EPI creatinine equation. This equation utilizes serum creatinine, sex, and age as parameters. The creatinine assay has traceable calibration to isotope dilution-mass spectrometry. Refer to KDIGO guidelines for clinical interpretation. In patients with unstable renal function, e.g. those with acute kidney injury, the eGFR may not accurately reflect actual GFR. Performed By: #### 2 4323-8 ####[facility] [id number] [place] [address] [place] Glucose [Mass/Vol] 96 mg/dL Normal 74-99 [facility] Comment on above: Order Comment: Sheryl reyes Type: BLOOD SPECIMENOrdering Facility: [facility] Address: [address] [place] [address] Result Comment: The Stateless Diabetes Association (ADA) provides guidance for cutoff values for fasting glucose and random glucose. The ADA defines fasting as no caloric intake for at least 8 hours. Fasting plasma glucose results between 100 to 125 mg/dL indicate increased risk for diabetes (prediabetes). Fasting plasma glucose results greater than or equal to 126 mg/dL meet the criteria for diagnosis of diabetes. In the absence of unequivocal hyperglycemia, results should be confirmed by repeat testing. In a patient with classic symptoms of hyperglycemia or hyperglycemic crisis, random plasma glucose results greater than or equal to 200 mg/dL meet the criteria for diagnosis of diabetes. Reference: Standards of Medical Care in Diabetes 2016, Stateless Diabetes Association. Diabetes Care. 2016.39(Suppl 1). Performed By: #### 2 4323-8 ####[facility] MILLTOWNCLIA [id number] [place] [address] [place] Potassium [Moles/Vol] 3.9 mmol/L Normal 3.7-5.1 [facility] Comment on above: Order Comment: Speci men Type: BLOOD SPECIMENOrdering Facility: [facility] Address: [address] [place] [address] Performed By: #### 2 4323-8 ####[facility] [id number] [place] [address] [place] Protein [Mass/Vol] 6.9 g/dL Normal 6.3-8.0 [facility] Comment on above: Order Comment: Speci men Type: BLOOD SPECIMENOrdering Facility: [facility] Address: [address] [place] [address] Performed By: #### 2 4323-8 ####[facility]ITAL[facility] [id number] [place] [address] [place] Sodium [Moles/Vol] 137 mmol/L Normal 136-144 [facility] Comment on above: Order Comment: Speci men Type: BLOOD SPECIMENOrdering Facility: [facility] Address: [address] [place] [address] Performed By: #### 2 4323-8 ####[facility] MILLTOWNCLIA [id number] [place] [address] [place] Urea nitrogen [Mass/Vol] 9 mg/dL Normal 7-21 [facility] Comment on above: Order Comment: Speci men Type: BLOOD SPECIMENOrdering Facility: [facility] Address: [address] [place] [address] Performed By: #### 2 4323-8 ####[facility] MILLTOWNCLIA [id number] [place] [address] [place] Examination level ultrasound on 09-23-2024 Indication First trimester anatomic survey Maternal obesity, BMI >40 Impression REMOTE READ The patient is referred for a first trimester anatomy scan including nuchal translucency measurement as clinically indicated. - Single, live, intrauterine . - [place] rump length measurement is consistent with the established gestational age. - A qualitative screen of the nuchal translucency and other anatomic structures was unremarkable on an incomplete first trimester anatomic assessment. - Not all structural malformations can be detected by ultrasound examination. Maternal Structures: Right Ovary: Size 23 mm x 24 mm x 23 mm Left Ovary: Size 31 mm x 22 mm x 19 mm Recommendations - A standard anatomic survey at 16 weeks can be offered and a detailed exam at 20 weeks is recommended for increased risk. Maternal Assessment Height 160 cm Height (ft) 5 ft Height (in) 3 in Physical Exam Initial weight (lb) 227 lb Initial BMI 40.21 kg/m Maternal assessment other: 1 Para 0 Method Transabdominal ultrasound examination Melgoza . Number of fetuses: 1 Dating LMP on: 06/15/2024 GA by LMP 14 w + 2 d SPENCER by LMP: 03/22/2025 GA by prior assessment 11 w + 6 d SPENCER by prior assessment: 04/08/2025 Ultrasound examination on: 09/23/2024 GA by U/S based upon: CRL GA by U/S 12 w + 0 d SPENCER by U/S: 04/07/2025 Assigned: based on stated SPENCER, selected on 09/23/2024 Assigned GA 11 w + 6 d Assigned SPENCER: 04/08/2025 General Evaluation Cardiac activity present Placenta: posterior Cord vessels: 3 vessel cord Amniotic fluid: normal amount Biometry Standard FHR 167 bpm CRL 52.4 mm 12w 0d 36% Hadlock First Trimester Anatomy Calvarium: normal Falx cerebri: normal Choroid plexus: normal Profile: normal Nasal bone: normal Retronasal triangle: normal Maxilla: normal Mandible: normal Nuchal translucency: Unremarkable Situs: normal Cardiac position: normal Cardiac axis: normal 4-chamber view: suboptimal 4-chamber view with color: suboptimal 6-[id number] view: suboptimal Abdominal cord insertion: normal Stomach: normal Kidneys: normal Bladder: normal Color doppler of perivesical umbilical arteries: normal Vertebral alignment: normal Arms: normal Hands: normal Legs: normal Feet: normal Maternal Structures Uterus / Cervix Uterus: Visualized Uterus length 131 mm Uterus width 80 mm Uterus height 68 mm Uterus Vol 371.3 cm Ovaries / Tubes / Adnexa Rt ovary: Visualized Rt ovary D1 23 mm Rt ovary D2 24 mm Rt ovary D3 23 mm Rt ovary Vol 6.6 cm Lt ovary: Visualized Lt ovary D1 31 mm Lt ovary D2 22 mm Lt ovary D3 19 mm Lt ovary Vol 6.9 cm Performed By: Rita Martinez RDMS, RVT Read By: Antonia Michelle M.D. MATERNAL MEDICINE [facility] Radiology Study observation (narrative) [facility] [id number] PLUSon 09-23-2024 Cell-free DNA./Cell-free DNA.total Dosage of chromosome-specific cfDNA (cfDNA) [Molar fraction] 12% Normal [facility] Comment on above: Order Comment: Speci men Type: BLOOD SPECIMENOrdering Facility: [facility] Address: [address] [place] [address] Performed By: #### M AT21 ####[facility] LABCLIA [id number] [place] [address] Chr 13+18+21+X+Y aneuploidy Dosage of chromosome-specific cfDNA Ql (cfDNA) Negative Normal [facility] Comment on above: Order Comment: Speci men Type: BLOOD SPECIMENOrdering Facility: [facility] Address: [address] [place] [address] Performed By: #### M AT21 ####[facility] LABCLIA [id number] [place] [address] Chr 21 trisomy Dosage of chromosome-specific cfDNA Ql (cfDNA) Negative Normal [facility] Comment on above: Order Comment: Speci men Type: BLOOD SPECIMENOrdering Facility: [facility] Address: [address] [place] [address] Performed By: #### M AT21 ####[facility] LABCLIA [id number] [place] [address] Chr X and Y aneuploidy risk Sequencing Ql (cfDNA) [Interp] Not detected Normal [facility] Comment on above: Order Comment: Speci men Type: BLOOD SPECIMENOrdering Facility: [facility] Address: [address] [place] [address] Result Comment: Not Detected Not Detected Performed By: #### M AT21 ####[facility] LABCLIA [id number] [place] [address] Citation Shaquille (Reference lab test) Comment Normal [facility] Comment on above: Order Comment: Speci men Type: BLOOD SPECIMENOrdering Facility: [facility] Address: [address] [place] [address] Result Comment: 1. P maik ALEXIS, et al. Krystle Med. 2012;14(3):296-305. 2. Adamaris SONG et al. Prenat Diag. 2013;33(6):591-597. 3. Anjel Rodriguez, et al. Clin Chem. 2015 Apr;61(4):608-616. 4. Ailyn ALEXIS, et al. Krystle Med. 2011;13(11):913-920. 5. ACOG/SMFM Practice Bulletin No. 226, Mar 2020. Performed By: #### M AT21 ####[facility] LABCLIA [id number] [place] [address] Gestational age Estimated from conception date Melgoza Normal [facility] Comment on above: Order Comment: Speci men Type: BLOOD SPECIMENOrdering Facility: [facility] Address: [address] [place] [address] Performed By: #### M AT21 ####[facility] LABCLIA [id number] [place] [address] GESTATIONALAGE AGE > OR = 9W Yes Normal [facility] Comment on above: Order Comment: Speci men Type: BLOOD SPECIMENOrdering Facility: [facility] Address: [address] [place] [address] Performed By: #### M AT21 ####[facility] LABCLIA [id number] [place] [address] Laboratory comment Shaquille (Report) Comment Normal [facility] Comment on above: Order Comment: Speci men Type: BLOOD SPECIMENOrdering Facility: [facility] Address: [address] [place] [address] Result Comment: The MaterniT(R) 21 PLUS laboratory-developed test (LDT) analyzes circulating cell-free DNA from a maternal blood sample. This test is used for screening purposes and not diagnostic. Clinical correlation is recommended. Validation data on twin pregnancies is limited and the ability of this test to detect aneuploidy in higher multiple gestations has not yet been validated. Performed By: #### M AT21 ####ipsyIA [id number] [place] [address] director banking name Nom (Provider) Comment Normal [facility] Comment on above: Order Comment: Sheryl reyes Type: BLOOD SPECIMENOrdering Facility: [facility] Address: [address] [place] [address] Result Comment: This specimen showed an expected representation of chromosome 21, 18 and 13 material. Clinical correlation is suggested. Comment Kendell Real MD, PhD, Director, [employer] Performed By: #### M AT21 ####[facility] LABCLIA [id number] [place] [address] LIMITATIONS OF THE TEST Comment Normal [facility] Comment on above: Order Comment: Sheryl reyes Type: BLOOD SPECIMENOrdering Facility: [facility] Address: [address] [place] [address] Result Comment: Donte roque the results of these tests are highly reliable, discordant results, including inaccurate sex prediction, may occur due to placental, maternal, or mosaicism or neoplasm; vanishing twin; prior maternal organ transplant; or other causes. These tests are screening tests and not diagnostic; they do not replace the accuracy and precision of diagnosis with CVS or amniocentesis. A patient with a positive test result should be referred for genetic counseling and offered invasive diagnosis for confirmation of test results.[5] The results of this testing, including the benefits and limitations, should be discussed with a qualified healthcare provider. management decisions, including termination of the , should not be based on the results of these tests alone. The healthcare provider is responsible for the use of this information in the management of their patient. Sex chromosomal aneuploidies are not reportable for known multiple gestations. A negative result does not ensure an unaffected nor does it exclude the possibility of other chromosomal abnormalities or defects which are not a part of these tests. An uninformative result may be reported, the causes of which may include, but are not limited to, insufficient sequencing coverage, noise or artifacts in the region, amplification or sequencing bias, or insufficient fraction. These tests are not intended to identify pregnancies at risk for neural tube defects or ventral wall defects. Testing for whole chromosome abnormalities (including sex chromosomes) and for subchromosomal abnormalities could lead to the potential discovery of both and maternal genomic abnormalities that could have major, minor, or no, clinical significance. Evaluating the significance of a positive or a non-reportable result may involve both invasive testing and additional studies on the mother. Such investigations may lead to a diagnosis of maternal chromosomal or subchromosomal abnormalities, which on occasion may be associated with benign or malignant maternal neoplasms. These tests may not accurately identify triploidy, balanced rearrangements, or the precise location of subchromosomal duplications or deletions; these may be detected by diagnosis with CVS or amniocentesis. The ability to report results may be impacted by maternal BMI, maternal weight, maternal systemic lupus erythematosus (SLE) and/or by certain pharmaceutical agents such as low molecular weight heparin (for example: Lovenox(R), Xaparin(R), Clexane(R) and Fragmin(R)). Performed By: #### M AT21 ####[employer] LABConcorde SolutionsIA [id number] [place] [address] Monosomy X risk Dosage of chromosome-specific cfDNA Ql (Plasma cell-free+WBC DNA) [Interp] Not detected Normal [facility] Comment on above: Order Comment: Speci men Type: BLOOD SPECIMENOrdering Facility: [facility] Address: [address] [place] [address] Performed By: #### M AT21 ####[facility] LABCLIA [id number] [place] [address] NEGATIVE PREDICTIVE VALUE Note Normal [facility] Comment on above: Order Comment: Speci men Type: BLOOD SPECIMENOrdering Facility: [facility] Address: [address] [id number] Result Comment: The Negative Predictive Value (NPV) for trisomy 21, 18, and 13 is greater than 99%. The NPV for SCA and ESS cannot be calculated as SCA and ESS are only reported when an abnormality is detected. Performed By: #### M AT21 ####[facility] LABCLIA [id number] [place] [address] PERFORMANCE CHARACTERISTICS Note Normal [facility] Comment on above: Order Comment: Sheryl reyes Type: BLOOD SPECIMENOrdering Facility: [facility] Address: [address] [place] [address] Result Comment: ! Sex ! Accuracy: 99.4% ! ! ! ! Region (associated syndrome) ! Est. Sens# ! Est. Spec ! ! ! ! Trisomy 21 (Down Syndrome) ! 99.1% ! 99.9% ! ! ! ! Trisomy 18 (Pierre Syndrome) ! >99.9% ! 99.6% ! ! ! ! Trisomy 13 ([place]u Syndrome) ! 91.7% ! 99.7% ! ! ! ! Sex Chromosome Aneuploidies## ! 96.2% ! 99.7% ! ! ! * As reported in [facility] database nstd37 [https://www.ncbi.nlm.nih.gov/dbvar/studies/nstd37/ ] # Estimated Sensitivity. Sensitivity estimated across the observed size distribution of each syndrome [per ISCA database nstd37] and across the range of fractions observed in routine clinical NIPT. Actual sensitivity can also be influenced by other factors such as the size of the event, total sequence counts, amplification bias, or sequence bias. ## Melgoza gestation only. Performed By: #### M AT21 ####[employer] [id number] [place] [address] POSITIVE PREDICTIVE VALUE N/A Normal [facility] Comment on above: Order Comment: Sheryl reyes Type: BLOOD SPECIMENOrdering Facility: [facility] Address: [address] [id number] Performed By: #### M AT21 ####ipsyIA [id number] [place] [address] Reference Lab Test Method Comment Normal [facility] Comment on above: Order Comment: Sheryl reyes Type: BLOOD SPECIMENOrdering Facility: [facility] Address: [address] [id number] Result Comment: See Notes Circulating cell-free DNA was purified from the plasma component of maternal blood. The extracted DNA was then converted into a genomic DNA library for aneuploidy analysis of chromosomes 21, 18, and 13 via next generation sequencing.[1] Optional findings based on the test order include sex chromosome aneuploidy (SCA)[2], and enhanced sequencing series (ESS)[3], which will only be reported on as an additional finding when an abnormality is detected. SCA testing includes information on X and Y representation, while ESS testing includes deletions in selected regions (22q, 15q, 11q, 8q, 5p, 4p, 1p) and trisomy of chromosomes 16 and 22. Performed By: #### M AT21 ####[facility] LABCLIA [id number] [place] [address] Service comment (Unsp spec) [Interp] Comment Normal [facility] Comment on above: Order Comment: Speci men Type: BLOOD SPECIMENOrdering Facility: [facility] Address: [address] [place] [address] Result Comment: See Notes [employer] is a subsidiary of [employer], using the brand [employer]. This test was developed and its performance characteristics determined by [employer]. It has not been cleared or approved by the Food and Drug Administration. This laboratory is certified under the Clinical Laboratory Improvement Amendments (CLIA) as qualified to perform high complexity clinical laboratory testing and accredited by the College of Stateless Pathologists (CAP). If there is future clinical need for adding MaterniT GENOME testing, this specimen will be available until term. [facility] samples will not be retained beyond 60 days. [facility] patients will have to send a new sample for re-sequencing ([facility] Test Code: [id number]). Performed By: #### M AT21 ####[facility] LABCLIA [id number] [place] [address] Sex Dosage of chromosome-specific cfDNA Nom (cfDNA) Comment Normal [facility] Comment on above: Order Comment: Speci men Type: BLOOD SPECIMENOrdering Facility: [facility] Address: [address] [place], [place] [id number] Result Comment: Cons istent with Male Performed By: #### M AT21 ####[facility] LABCLIA [id number] [place] [address] Test performance information Shaquille (Unsp spec) Comment Normal [facility] Comment on above: Order Comment: Speci men Type: BLOOD SPECIMENOrdering Facility: [facility] Address: [address] [place] [address] Result Comment: The performance characteristics of the MaterniT(R) 21 PLUS laboratory-developed test (LDT) have been determined in a clinical validation study with women at increased risk for chromosomal aneuploidy.[1-4] Performed By: #### M AT21 ####[facility] LABCLIA [id number] [place] [address] Trisomy 13 risk Dosage of chromosome-specific cfDNA Ql (cfDNA) [Interp] Negative Normal [facility] Comment on above: Order Comment: Speci men Type: BLOOD SPECIMENOrdering Facility: [facility] Address: [address] [place] [address] Performed By: #### M AT21 ####[facility] LABCLIA [id number] [place] [address] Trisomy 18 risk Dosage of chromosome-specific cfDNA Ql (Plasma cell-free+WBC DNA) [Interp] Negative Normal [facility] Comment on above: Order Comment: Michellei amy Type: BLOOD SPECIMENOrdering Facility: [facility] Address: [address] [place] [address] Performed By: #### M AT21 ####[facility] LABCLIA [id number] [place] [address] Prot/Creat Uron 09-23-2024 Protein/Creatinine (U) [Mass ratio] 0.07 mg/mg Normal <0.15 [facility] Comment on above: Order Comment: Speci men Type: URINE SPECIMENOrdering Facility: [facility] Address: [address] [place] [address] Result Comment: Adul t Proteinuria Categories: <0.15 mg/mg is considered normal to mildly increased 0.15 - 0.50 mg/mg is considered moderately increased >0.50 mg/mg is considered severely increased KDIGO. (2013). KDIGO 2012 Clinical Practice Guideline for the Evaluation and Management of Chronic Kidney Disease. Official Journal of the International Society of Nephrology, 3(1), 1-150. Performed By: #### 2 890-2 ####[facility] LABIA [id number] [address] [id number] [place] Protein/Creatinine (U) [Mass ratio]on 09-23-2024 Creatinine (U) [Mass/Vol] 82.1 mg/dL Normal 20.0-300.0 [facility] Comment on above: Order Comment: Speci men Type: URINE SPECIMENOrdering Facility: [facility] Address: [address] [place] [address] Performed By: #### 2 890-2 ####[facility] LABIA [id number] [place] [id number] [facility] Protein (U) [Mass/Vol] 6 mg/dL Normal 0-20 [facility] Comment on above: Order Comment: Speci men Type: URINE SPECIMENOrdering Facility: [facility] Address: [address] [place] [address] Performed By: #### 2 890-2 ####[facility] LABIA [id number] [place] [id number] [facility] Examination level ultrasound on 08-31-2024 Indication dating Impression - Single, live, intrauterine . - An intrauterine gestational sac with a yolk sac and pole is present. - [place] rump length measurement is NOT consistent with the dating provided. Therefore, dating is now based on today?s crown rump length. The final EDC is 04/08/2025 - heart rate is within normal limits. Recommendations - First trimester anatomic survey at 13 weeks with nuchal translucency measurement as clinically indicated. - Additional follow up as clinically indicated. Method Transabdominal ultrasound examination. View: Adequate visualization Melgoza . Number of embryos: 1 Dating LMP on: 06/15/2024 GA by LMP 10 w + 6 d SPENCER by LMP: 03/22/2025 GA by prior assessment 8 w + 3 d SPENCER by prior assessment: 04/08/2025 Ultrasound examination on: 08/30/2024 GA by U/S based upon: CRL GA by U/S 8 w + 3 d SPENCER by U/S: 04/08/2025 Assigned: based on ultrasound (CRL), selected on 08/30/2024 Assigned GA 8 w + 3 d Assigned SPENCER: 04/08/2025 Assessment Gestational sac: visualized Location: intrauterine Yolk sac: visualized YS 2.9 mm <1% Gr[place] Embryo: visualized CRL 18.6 mm 8w 3d 69% Hadlock Cardiac activity: present FHR 167 bpm Placenta: posterior Maternal Structures Uterus / Cervix Uterus: Visualized Uterus position: anteverted Description of uterine malformations: none Myometrium: normal Uterus length 126 mm Uterus width 76 mm Uterus height 53 mm Uterus Vol 265.0 cm Endometrium: normal Cervix: Visualized Cervix details: normal Ovaries / Tubes / Adnexa Rt ovary: Visualized Rt ovary D1 29 mm Rt ovary D2 31 mm Rt ovary D3 21 mm Rt ovary Vol 9.7 cm Rt ovarian corpus luteum: hemorrhagic Lt ovary: Visualized Lt ovary morphology: premenopausal normal follicular Lt ovary D1 33 mm Lt ovary D2 13 mm Lt ovary D3 17 mm Lt ovary Vol 3.8 cm Cul de Sac / Bladder / Kidneys / Other Cul de Sac: Visualized Free fluid: no free fluid visualized Performed By: Dolores Monahan RDMS Read By: Bianca Melo M.D. MATERNAL MEDICINE [facility] Examination level ultrasound on 08-30-2024 Radiology Study observation (narrative) [facility]CG [facility] 5 [place] [address].0 m[IU]/mL High <5.0 [facility] Comment on above: Order Comment: Speci men Type: BLOOD SPECIMENOrdering Facility: [facility] Address: [address] [place] [address] Result Comment: EN TITATIVE HCG NORMAL RANGES Weeks of Gestation (Weeks Since LMP) 3 Weeks (5.8-71.2 mIU/mL) 4 Weeks (9.5-750 mIU/mL) 5 Weeks (217-7138 mIU/mL) 6 Weeks (158-91231 mIU/mL) 7 Weeks (3697-915832 mIU/mL) 8 Weeks (31032-345621 mIU/mL) 9 Weeks (84715-876104 mIU/mL) 10 Weeks (10082-423466 mIU/mL) 12 Weeks (34630-215680 mIU/mL) Referenced to 4th IS of BS Performed By: #### 2 1198-7 ####[facility] LABIA [id number] [place] [address] [place] B-HCG SerPl-[place]Cncon 5 [place] [address].0 m[IU]/mL High <5.0 [facility] Comment on above: Order Comment: Speci men Type: BLOOD SPECIMENOrdering Facility: [facility] Address: [address] [place] [address] Result Comment: EN TITATIVE HCG NORMAL RANGES Weeks of Gestation (Weeks Since LMP) 3 Weeks (5.8-71.2 mIU/mL) 4 Weeks (9.5-750 mIU/mL) 5 Weeks (217-7138 mIU/mL) 6 Weeks (158-29915 mIU/mL) 7 Weeks (3697-890107 mIU/mL) 8 Weeks (98592-316365 mIU/mL) 9 Weeks (76301-598985 mIU/mL) 10 Weeks (97609-728917 mIU/mL) 12 Weeks (70947-323270 mIU/mL) Referenced to 4th IS of [facility] Performed By: #### 2 1198-7 ####[facility] LABIA [id number] [place] [address] [place] Bacteria Ur Culton 5 Bacteria identified Cx Nom (U) ORGANISM ID: 1 50,000-<100,000 CFU/ml Normal urogenital dejah Normal [facility] Comment on above: Performed By: #### 6 30-4 ####[facility] [id number] [place] [address] [place] C. trachomatis+N. gonorrhoea e DNA HADLEY+probe Ql (Unsp spec)on 08-12-2024 C. trachomatis rRNA HADLEY+probe Ql (Unsp spec) Not detected Normal Not detected [facility] Comment on above: Order Comment: Speci men Type: SWABOrdering Facility: [facility] Address: [address] [place] [address] Performed By: #### 3 6902-5, TRVAMP ####[facility] LABIA [id number] [place] [address] [place] N. gonorrhoeae rRNA HADLEY+probe Ql (Unsp spec) Not detected Normal Not detected [facility] Comment on above: Order Comment: Speci men Type: SWABOrdering Facility: [facility] Address: [address] [place] [address] Performed By: #### 3 6902-5, TRVAMP ####[facility] LABIA [id number] [place] [address] [place] CBC W Auto Differential pane l (Bld)on 08-12-2024 Basophils (Bld) [#/Vol] 0.03 10*3/uL Normal <0.11 [facility] Comment on above: Order Comment: Speci men Type: BLOOD SPECIMENOrdering Facility: [facility] Address: [address] [place] [address] Performed By: #### 5 7021-8 ####[facility] [id number] [place] [address] [place] Basophils/100 WBC (Bld) 0.3 % Normal [facility] Comment on above: Order Comment: Speci men Type: BLOOD SPECIMENOrdering Facility: [facility] Address: [address] [place] [address] Performed By: #### 5 7021-8 ####[facility] [id number] [place] [address] [place] Differential cell count method Nom (Bld) Auto Normal [facility] Comment on above: Order Comment: Speci men Type: BLOOD SPECIMENOrdering Facility: [facility] Address: [address] [place] [address] Performed By: #### 5 7021-8 ####[facility]WNJLIA [id number] [place] [address] [place] Eosinophils (Bld) [#/Vol] 0.06 10*3/uL Normal <0.46 [facility] Comment on above: Order Comment: Speci men Type: BLOOD SPECIMENOrdering Facility: [facility] Address: [address] [place] [address] Performed By: #### 5 7021-8 ####[facility]ENTERLIA [id number] [place] [address] [place] Eosinophils/100 WBC (Bld) 0.6 % Normal [facility] Comment on above: Order Comment: Speci men Type: BLOOD SPECIMENOrdering Facility: [facility] Address: [address] [place] [address] Performed By: #### 5 7021-8 ####[facility] [id number] [place] [address] [place] Erythrocyte distribution width (RBC) [Ratio] 12.5 % Normal 11.5-15.0 [facility] Comment on above: Order Comment: Speci men Type: BLOOD SPECIMENOrdering Facility: [facility] Address: [address] [place] [address] Performed By: #### 5 7021-8 ####[facility] [id number] [place] [address] [place] Hematocrit (Bld) [Volume fraction] 41.8 % Normal 36.0-46.0 [facility] Comment on above: Order Comment: Speci men Type: BLOOD SPECIMENOrdering Facility: [facility] Address: [address] [place] [address] Performed By: #### 5 7021-8 ####[facility]ITAL[facility]CLIA [id number] [place] [address] [place] Hemoglobin (Bld) [Mass/Vol] 14.5 g/dL Normal 11.5-15.5 [facility] Comment on above: Order Comment: Speci men Type: BLOOD SPECIMENOrdering Facility: [facility] Address: [address] [place] [address] Performed By: #### 5 7021-8 ####[facility]ITALN[facility] [id number] [place] [address] [place] Immature granulocytes (Bld) [#/Vol] 0.09 10*3/uL Normal <0.10 [facility] Comment on above: Order Comment: Speci men Type: BLOOD SPECIMENOrdering Facility: [facility] Address: [address] [place] [address] Performed By: #### 5 7021-8 ####[facility] [id number] [place] [address] [place] Immature granulocytes/100 WBC (Bld) 0.9 % Normal [facility] Comment on above: Order Comment: Speci men Type: BLOOD SPECIMENOrdering Facility: [facility] Address: [address] [place] [address] Performed By: #### 5 7021-8 ####[facility] [id number] [place] [address] [place] Lymphocytes (Bld) [#/Vol] 2.44 10*3/uL Normal 1.00-4.00 [facility] Comment on above: Order Comment: Speci men Type: BLOOD SPECIMENOrdering Facility: [facility] Address: [address] [place] [address] Performed By: #### 5 7021-8 ####[facility] [id number] [place] [address] [place] Lymphocytes/100 WBC (Bld) 24.6 % Normal [facility] Comment on above: Order Comment: Speci men Type: BLOOD SPECIMENOrdering Facility: [facility] Address: [address] [place] [address] Performed By: #### 5 7021-8 ####[facility] [id number] [address] MCH (RBC) [Entitic mass] 30.0 pg Normal 26.0-34.0 [facility] Comment on above: Order Comment: Speci men Type: BLOOD SPECIMENOrdering Facility: [facility] Address: [address] [place] [address] Performed By: #### 5 7021-8 ####[facility] [id number] [address] [place] MCHC (RBC) [Mass/Vol] 34.7 g/dL Normal 30.5-36.0 [facility] Comment on above: Order Comment: Speci men Type: BLOOD SPECIMENOrdering Facility: [facility] Address: [address] [place] [address] Performed By: #### 5 7021-8 ####[facility] [id number] [place] [address] [place] MCV (RBC) [Entitic vol] 86.4 fL Normal 80.0-100.0 [facility] Comment on above: Order Comment: Speci men Type: BLOOD SPECIMENOrdering Facility: [facility] Address: [address] [place] [address] Performed By: #### 5 7021-8 ####[facility] [id number] [place] [address] [facility] [place] Monocytes (Bld) [#/Vol] 0.48 10*3/uL Normal <0.87 [facility] Comment on above: Order Comment: Speci men Type: BLOOD SPECIMENOrdering Facility: [facility] Address: [address] [place] [address] Performed By: #### 5 7021-8 ####[facility] SIMAWNCLIA [id number] [place] [address] [place] Monocytes/100 WBC (Bld) 4.8 % Normal [facility] Comment on above: Order Comment: Speci men Type: BLOOD SPECIMENOrdering Facility: [facility] Address: [address] [place] [address] Performed By: #### 5 7021-8 ####[facility] [id number] [place] [address] [place] Neutrophils (Bld) [#/Vol] 6.83 10*3/uL Normal 1.45-7.50 [facility] Comment on above: Order Comment: Speci men Type: BLOOD SPECIMENOrdering Facility: [facility] Address: [address] [place] [address] Performed By: #### 5 7021-8 ####[facility] [id number] [place] [address] [place] Neutrophils/100 WBC (Bld) 68.8 % Normal [facility] Comment on above: Order Comment: Speci men Type: BLOOD SPECIMENOrdering Facility: [facility] Address: [address] [place] [address] Performed By: #### 5 7021-8 ####[facility] HOSPITALNCA [id number] [place] [address] [place] Nucleated RBC (Bld) [#/Vol] 10*3/uL Normal <0.01 [facility] Comment on above: Order Comment: Speci men Type: BLOOD SPECIMENOrdering Facility: [facility] Address: [address] [place] [address] Performed By: #### 5 7021-8 ####[facility]ITALNCLIA [id number] [place] [address] [place] Nucleated RBC/100 WBC (Bld) [Ratio] 0.0 /100 WBC Normal [facility] Comment on above: Order Comment: Speci men Type: BLOOD SPECIMENOrdering Facility: [facility] Address: [address] [place] [address] Performed By: #### 5 7021-8 ####[facility]ITALNCP[facility] [id number] [place] [address] [place] Platelet mean volume (Bld) [Entitic vol] 9.1 fL Normal 9.0-12.7 [facility] Comment on above: Order Comment: Speci men Type: BLOOD SPECIMENOrdering Facility: [facility] Address: [address] [place] [address] Performed By: #### 5 7021-8 ####[facility] [id number] [place] [address] [place] Platelets (Bld) [#/Vol] 292 10*3/uL Normal 150-400 [facility] Comment on above: Order Comment: Speci men Type: BLOOD SPECIMENOrdering Facility: [facility] Address: [address] [place] [address] Performed By: #### 5 7021-8 ####[facility] [id number] [place] [address] [place] WBC (Bld) [#/Vol] 9.93 10*3/uL Normal 3.70-11.00 [facility] Comment on above: Order Comment: Speci men Type: BLOOD SPECIMENOrdering Facility: [facility] Address: [address] [place] [address] Performed By: #### 5 7021-8 ####[facility]ENTERLI [id number] [place] [address] [place] Vlad 08-12-2024 SAFIA Telephone (OBGYWM) OTILIA MEZA ([id number]) 1995 F Date Time Provider Department 08/12/24 MATILDE SOSA During your visit today, we recorded the following information about you: Manda Delgado, GERALD 08/12/2024 12:28 PM Signed Pt saw CP 08/12/24-----POC US completed. US tech to room for verification. Gestational sac and yolk sac visible. Small pole measuring 5 w 6 days. HCG levels ordered-1st drawn 08/12/24. Leave open for f/u on results. GERALD Lugo Trisha, RN 08/16/2024 12:02 PM Signed [employer] message was sent to patient by CP on 08/15, stating levels increased appropriately. hCG Quantitative, Blood (mIU/mL) Date Value 08/14/2024 35,704.0 08/12/2024 21,796.0 Nadiya Bernard RN Allergies As of Date: 08/12/2024 (No Known Allergies) Date Reviewed: 08/12/2024 Reviewed by: Matilde Sosa APRN.CNM - Fully Assessed Prescriptions as of 08/16/2024 - PNV no.95/ferrous fum/folic ac ( ORAL) Take by mouth. - aspirin, enteric coated (ECOTRIN LOW STRENGTH) 81 mg EC tablet Take 1 tablet by mouth once daily. Problem List As Of Date 08/12/2024 Noted Resolved APPENDICITIS ACUTE [K35.80] 01/01/2009 08/24/2021 Threatened miscarriage in early [O20.*08/12/2024 with uncertain dates, antepartum [Z34*08/12/2024 Encounter for care in first trimester *08/12/2024 Obesity complicating , first trimester*08/12/2024 Encounter Status:Closed by NADIYA BERNARD on 08/16/24 [facility] HBV surface Ag Ser Qlon 07-27 HBV surface Ag Ql (S) Negative Normal Negative [facility] Comment on above: Order Comment: Speci men Type: BLOOD SPECIMENOrdering Facility: [facility] Address: [address] [place] [address] Performed By: #### 5 195-3, 38845-3, 44119-1 ####[facility] LABCLIA [id number] [place] [address] [place] HCV Ab Ser Qlon 08-12-2024 HCV Ab Ql (S) Negative Normal Negative [facility] Comment on above: Order Comment: Speci men Type: BLOOD SPECIMENOrdering Facility: [facility] Address: [address] [place] [address] Result Comment: The result suggests no evidence of active infection with Hepatitis C virus. Should recent infection be suspected, repeat testing may be considered 4-6 weeks after this draw. Performed By: #### 1 6128-1 ####[facility] LABCLIA [id number] [place] [address] [place] HGB ELECTROPHORESIS FOR EVAL (LAB ORDER)on 08-12-2024 Hemoglobin A (Bld) [Mass fraction] 97.7 % Normal 96.2-98.0 [facility] Comment on above: Order Comment: Speci men Type: BLOOD SPECIMENOrdering Facility: [facility] Address: [address] [place] [address] Performed By: #### L [id number], HGBELEV ####[facility] LABCLIA [id number] [place] [address] [place] Hemoglobin A2 (Bld) [Mass fraction] 2.3 % Normal 2.0-3.1 [facility] Comment on above: Order Comment: Speci men Type: BLOOD SPECIMENOrdering Facility: [facility] Address: [address] [place] [address] Performed By: #### L [id number], HGBELEV ####[facility] LABCLIA [id number] [place] [address] [place] Hemoglobin Unsp Elph (Bld) [Mass fraction] No abnormal hemoglobin identified. Normal No abnormal hemoglobin identified. [facility] Comment on above: Order Comment: Speci men Type: BLOOD SPECIMENOrdering Facility: [facility] Address: [address] [place] [address] Performed By: #### L [id number], HGBELEV ####[facility] LABCLIA [id number] [place] [address] [place] HGB EVALUATION CASCADE INTER Howard 08-12-2024 Hemoglobin pattern (Bld) [Interp] Reviewed by Bertha Joseph MD, PhD Normal [facility] Comment on above: Order Comment: Speci men Type: BLOOD SPECIMENOrdering Facility: [facility] Address: [address] [place] [address] Performed By: #### L [id number], HGBELEV ####[facility] LABIA [id number] [place] [address] [place] INTERPRETATION (HGB EVAL) Normal [facility] Comment on above: Order Comment: Speci men Type: BLOOD SPECIMENOrdering Facility: [facility] Address: [address] [place] [address] Result Comment: Hemo globins were analyzed by capillary electrophoresis and CBC red cell parameters were reviewed. No abnormal hemoglobin is identified. There is a normal hemoglobin capillary electrophoresis pattern. Performed By: #### L [id number], HGBELEV ####[facility] LABCLIA [id number] [place] [address] [place] HIV 1+2 Ab IA Qlon 5 HIV 1 and 2 Ab IA.rapid Nom (S/P/Bld) Normal [facility] Comment on above: Order Comment: Speci men Type: BLOOD SPECIMENOrdering Facility: [facility] Address: [address] [place] [address] Result Comment: Test not indicated. Performed By: #### 5 195-3, 82919-4, 86896-0 ####[facility] [id number] [place] [address] [place] HIV 1+2 Ab+HIV1 p24 Ag IA Ql Non-Reactive Normal Nonreactive [facility] Comment on above: Order Comment: Speci men Type: BLOOD SPECIMENOrdering Facility: [facility] Address: [address] [place] [address] Performed By: #### 5 195-3, 25618-0, 02626-9 ####[facility] [id number] [place] [address] [place] HIV immunoassay testing algorithm interpretation (S/P/Bld) [Interp] Normal [facility] Comment on above: Order Comment: Speci men Type: BLOOD SPECIMENOrdering Facility: [facility] Address: [address] [place] [address] Result Comment: No e vidence of HIV-1 or HIV-2 infection. Should recent infection be suspected, repeat testing may be considered 2-3 weeks after this draw. [place] Rev. Code 3701.243(E): This information has been disclosed to you from confidential records protected from disclosure by state law. ???You shall make no further disclosure of this information without the specific, written, and informed release of the individual to whom it pertains or as otherwise permitted by state law. A general authorization for the release of medical or other information is not sufficient for the purpose of the release of HIV test results or diagnoses. Performed By: #### 5 195-3, 08873-6, 18243-5 ####[facility] [id number] [place] [address] [place] HbA1c (Bld)on 08-12-2024 Average glucose Estimated from glycated hemoglobin (Bld) [Mass/Vol] 85 mg/dL Normal [facility] Comment on above: Order Comment: Speci men Type: BLOOD SPECIMENOrdering Facility: [facility] Address: [address] [place] [address] Result Comment: eAG: (Estimated average glucose) is a calculated value from HgbA1c and is nutrition representative of the average blood glucose level in the last 2-3 month period. Performed By: #### 5 5454-3 ####[facility] LABIA [id number] [address] [place] [facility] HbA1c (Bld) [Mass fraction] 4.6 % Normal 4.3-5.6 [facility] Comment on above: Order Comment: Speci men Type: BLOOD SPECIMENOrdering Facility: [facility] Address: [address] [place] [address] Result Comment: [place] Diabetes Association guidelines indicate that patients with HgbA1c in the range 5.7-6.4% are at increased risk for development of diabetes, and intervention by lifestyle modification may be beneficial. HgbA1c greater or equal to 6.5% is considered diagnostic of diabetes. Performed By: #### 5 5454-3 ####[facility] LABIA [id number] [address] [place] POC PASTRY COOK APPRENTICE ULTRASOUNDon 08-12-19 25 Indication Viability; confirm cardiac activity Impression Single intrauterine gestational sac, CRL indicates discrepancy from clinical dates, SPENCER based on today's ultrasound Recommendations Follow up for repeat ultrasound in at least 14 days to confirm viability Method Transvaginal ultrasound examination Melgoza . Number of fetuses: 1 Dating LMP on: 06/15/2024 GA by LMP 8 w + 2 d SPENCER by LMP: 03/22/2025 Ultrasound examination on: 08/12/2024 GA by U/S based upon: CRL GA by U/S 5 w + 6 d SPENCER by U/S: 04/08/2025 Biometry Standard CRL 2.6 mm 5w 6d Hadlock Assessment CRL 2.6 mm 5w 6d Hadlock Performed By: Matilde Sosa CNM Read By: Matilde Sosa CNM MATERNAL MEDICINE [facility] Radiology Study observation (narrative) [facility] RBC PARAMETERS FOR HB IDon 0 08-12-2024 Erythrocyte distribution width (RBC) [Ratio] 12.6 % Normal 11.5-15.0 [facility] Comment on above: Order Comment: Michellei men Type: BLOOD SPECIMENOrdering Facility: [facility] Address: [address] [place] [address] Performed By: #### L [id number] ####[facility] LABCLIA [id number] [place] [address] [place] Hematocrit (Bld) [Volume fraction] 42.9 % Normal 36.0-46.0 [facility] Comment on above: Order Comment: Speci men Type: BLOOD SPECIMENOrdering Facility: [facility] Address: [address] [place] [address] Performed By: #### L [id number] ####[facility] LABIA [id number] [place] [address] [place] Hemoglobin (Bld) [Mass/Vol] 14.4 g/dL Normal 11.5-15.5 [facility] Comment on above: Order Comment: Speci men Type: BLOOD SPECIMENOrdering Facility: [facility] Address: [address] [place] [address] Performed By: #### L [id number] ####[facility] LABCLIA [id number] [place] [address] [place] MCH (RBC) [Entitic mass] 29.8 pg Normal 26.0-34.0 [facility] Comment on above: Order Comment: Speci men Type: BLOOD SPECIMENOrdering Facility: [facility] Address: [address] [place] [address] Performed By: #### L [id number] ####[facility] LABCLIA [id number] [place] [address] [place] MCHC (RBC) [Mass/Vol] 33.6 g/dL Normal 30.5-36.0 [facility] Comment on above: Order Comment: Speci men Type: BLOOD SPECIMENOrdering Facility: [facility] Address: [address] [place] [address] Performed By: #### L [id number] ####[facility] LABCLIA [id number] [place] [address] [place] MCV (RBC) [Entitic vol] 88.6 fL Normal 80.0-100.0 [facility] Comment on above: Order Comment: Speci men Type: BLOOD SPECIMENOrdering Facility: [facility] Address: [address] [place] [address] Performed By: #### L [id number] ####[facility] [id number] [place] [address] [place] RBC (Bld) [#/Vol] 4.84 10*6/uL Normal 3.90-5.20 [facility] Comment on above: Order Comment: Speci men Type: BLOOD SPECIMENOrdering Facility: [facility] Address: [address] [place] [address] Performed By: #### L [id number] ####[facility] [id number] [address] [place] Performed By: #### 5 7021-8 ####[facility] [id number] [place] [address] [place] RUBELLA IGG ANTIBODYon 08-12 RUBELLA IGG AB, QUAL Positive Normal Positive [facility] Comment on above: Order Comment: Speci men Type: BLOOD SPECIMENOrdering Facility: [facility] Address: [address] [place] [address] Result Comment: The result suggests recent or past exposure to Rubella virus or history of Rubella vaccination. Positive result may also be seen due to presence of passively-transferred antibodies. Please correlate with patient's history. Performed By: #### R UBIGG ####[facility] LABIA [id number] [address] [place] Reagin and Treponema pallidu m IgG and IgM [Interp]on 08-12-2024 T. pallidum IgG+IgM IA Ql (S) Non-Reactive Normal Nonreactive [facility] Comment on above: Order Comment: Speci men Type: BLOOD SPECIMENOrdering Facility: [facility] Address: [address] [place] [address] Performed By: #### 5 195-3, 31157-4, 52141-6 ####[facility] LABCLIA [id number] [place] [address] [place] Reagin+T pallidum IgG+IgM Se rPl-Impon 08-12-2024 Reagin and Treponema pallidum IgG and IgM [Interp] Cannot exclude recent Treponemal infection if specimen collected within 7-10 days after appearance of suspect lesions or 2-3 weeks after an exposure. Clinical correlation is required. Normal [facility] Comment on above: Order Comment: Speci men Type: BLOOD SPECIMENOrdering Facility: [facility] Address: [address] [place] [address] Performed By: #### 5 195-3, 51859-0, 97478-6 ####[facility] LABCLIA [id number] [place] [address] [place] TRICHOMONAS VAGINALIS NAATon 08-12-2024 T. vaginalis DNA HADLEY+probe Ql (Unsp spec) Not detected Normal Not detected [facility] Comment on above: Order Comment: Speci men Type: SWABOrdering Facility: [facility] Address: [address] [place] [address] Performed By: #### 3 6902-5, TRVAMP ####[facility] LABCLIA [id number] [place] [address] [place] TYPE + SCREEN PRENATALon ABO O Normal [facility] Comment on above: Order Comment: Speci men Type: BLOOD SPECIMEN Ordering Facility: [facility] Address: [address] [place] [address] Performed By: #### T SPN #### [facility] CLIA [id number] [address] [place] [id number] [place] Rh Nom (Bld) Negative Normal [facility] Comment on above: Order Comment: Speci men Type: BLOOD SPECIMEN Ordering Facility: [facility] Address: [address] [place] [address] Performed By: #### T SPN #### [facility] CLIA [id number] [address] [place] [address] [place] TYPE AND SCREEN EXPIRATION 08/15/2024 23:59 Normal [facility] Comment on above: Order Comment: Speci men Type: BLOOD SPECIMEN Ordering Facility: [facility] Address: [address] [place] [address] Performed By: #### T SPN #### [facility] CLIA [id number] [address] [place] [address] [place] CBC W/Diff, Automatedon 06-26 Absolute Lymph 2.58 X10 3/uL Normal 0.83-4.51 [facility] Comment on above: Performed By: #### L 501.9520, L500.4050, L100.0100 #### [facility] [address] [place], [address] Absolute Neut 5.1 X10 3/uL Normal 2.0-7.7 [facility] Comment on above: Performed By: #### L 501.9520, L500.4050, L100.0100 #### [facility] [address] [place], [address] Basophils/100 WBC (Bld) 0.6 % Normal 0-1 [facility] Comment on above: Performed By: #### L 501.9520, L500.4050, L100.0100 #### [facility] [address] [place], [address] Eosinophils/100 WBC (Bld) 1.4 % Normal 0-5 [facility] Comment on above: Performed By: #### L 501.9520, L500.4050, L100.0100 #### [facility] [address] [place], [address] Erythrocyte distribution width (RBC) [Ratio] 12.5 % Normal 11.6-14.6 [facility] Comment on above: Performed By: #### L 501.9520, L500.4050, L100.0100 #### [facility] [address] [place], [address] Hematocrit (Bld) [Volume fraction] 41.1 % Normal 37-47 [facility] Comment on above: Performed By: #### L 501.9520, L500.4050, L100.0100 #### [facility] [address] [place], [address] Hemoglobin (Bld) [Mass/Vol] 13.7 g/dL Normal 12.0-15.0 [facility] Comment on above: Performed By: #### L 501.9520, L500.4050, L100.0100 #### [facility] [address] [place], [address] IG% 0.500 Normal 0.0-0.9 [facility] Comment on above: Result Comment: IG% - Immature Granulocytes (promyelocytes, myelocytes and metamyelocytes) > 1% indicates that a LEFT SHIFT is Present. Performed By: #### L 501.9520, L500.4050, L100.0100 #### [facility] [address] [place], [address] Lymphocytes/100 WBC (Bld) 30.5 % Normal 19-41 [facility] Comment on above: Performed By: #### L 501.9520, L500.4050, L100.0100 #### [facility] [address] [place], [address] MCH (RBC) [Entitic mass] 30.0 pg Normal 27.0-32.0 [facility] Comment on above: Performed By: #### L 501.9520, L500.4050, L100.0100 #### [facility] [address] [place], [address] MCHC (RBC) [Mass/Vol] 33.3 g/dL Normal 32-36 [facility] Comment on above: Performed By: #### L 501.9520, L500.4050, L100.0100 #### [facility] [address] [place], [address] MCV (RBC) [Entitic vol] 90.1 fL Normal 81-99 [facility] Comment on above: Performed By: #### L 501.9520, L500.4050, L100.0100 #### [facility] [address] [place], [address] Monocytes/100 WBC (Bld) 7.2 % Normal 0-10 [facility] Comment on above: Performed By: #### L 501.9520, L500.4050, L100.0100 #### [facility] [address] [place], [address] Neutrophils/100 WBC (Bld) 59.8 % Normal 47-70 [facility] Comment on above: Performed By: #### L 501.9520, L500.4050, L100.0100 #### [facility] [address] [place], [address] Nucleated RBC (Bld) [#/Vol] 0 10*3/uL Normal 0-5 [facility] Comment on above: Performed By: #### L 501.9520, L500.4050, L100.0100 #### [facility] [address] [place], [address] Platelet mean volume (Bld) [Entitic vol] 9.8 fL Normal 6.2-12.0 [facility] Comment on above: Performed By: #### L 501.9520, L500.4050, L100.0100 #### [facility] [address] [place], [address] Platelets (Bld) [#/Vol] 323 10*3/uL Normal 150-450 [facility] Comment on above: Performed By: #### L 501.9520, L500.4050, L100.0100 #### [facility] [address] [place], [address] RBC (Bld) [#/Vol] 4.56 10*6/uL Normal 4.2-5.4 [facility] Comment on above: Performed By: #### L 501.9520, L500.4050, L100.0100 #### [facility] [address] [place], [address] RDW SD 40.8 fl Normal 35.1-43.9 [facility] Comment on above: Performed By: #### L 501.9520, L500.4050, L100.0100 #### [facility] [address] [place], [address] WBC (Bld) [#/Vol] 8.5 10*3/uL Normal 4.4-11.0 [facility] Comment on above: Performed By: #### L 501.9520, L500.4050, L100.0100 #### [facility] [address] [place], [address] Comprehensive Metabolic Prof ilon 07-09-2024 Albumin [Mass/Vol] 3.6 g/dL Normal 3.2-5.0 [facility] Comment on above: Performed By: #### L 501.9520, L500.4050, L100.0100 #### [facility] [address] [place], [address] Albumin/Globulin [Mass ratio] 1.0 {ratio} Normal 0.9-2.4 [facility] Comment on above: Performed By: #### L 501.9520, L500.4050, L100.0100 #### [facility] [address] [place], [address] ALK P 97 U/L Normal 45-117 [facility] Comment on above: Performed By: #### L 501.9520, L500.4050, L100.0100 #### [facility] [address] [place], [address] ALT [Catalytic activity/Vol] 43 U/L Normal 13-56 [facility] Comment on above: Performed By: #### L 501.9520, L500.4050, L100.0100 #### [facility] [address] [place], [address] AST [Catalytic activity/Vol] 21 U/L Normal 15-37 [facility] Comment on above: Performed By: #### L 501.9520, L500.4050, L100.0100 #### [facility] [address] [place], [address] Bilirubin [Mass/Vol] 0.30 mg/dL Normal 0.20-1.00 [facility] Comment on above: Result Comment: For patients on eltrombopag therapy, use of Dimension [place] TBIL is not recommended. Performed By: #### L 501.9520, L500.4050, L100.0100 #### [facility] [address] [place], [address] BUN/CRE 16.8 RATIO Normal 10-20 [facility] Comment on above: Performed By: #### L 501.9520, L500.4050, L100.0100 #### [facility] [address] [place], [address] CA,Total 9.0 mg/dL Normal 8.5-10.1 [facility] Comment on above: Performed By: #### L 501.9520, L500.4050, L100.0100 #### [facility] [address] [place], [address] Chloride [Moles/Vol] 106 mmol/L Normal 98-107 [facility] Comment on above: Performed By: #### L 501.9520, L500.4050, L100.0100 #### [facility] [address] [place], [address] CO2 [Moles/Vol] 30.0 mmol/L Normal 21.0-32.0 [facility] Comment on above: Performed By: #### L 501.9520, L500.4050, L100.0100 #### [facility] [address] [place], [address] Creatinine [Mass/Vol] 0.72 mg/dL Normal 0.55-1.02 [facility] Comment on above: Result Comment: The validity of the calculated GFR GFRAA in patients over 70 years has not been determined. Clinical correlation is essential. Performed By: #### L 501.9520, L500.4050, L100.0100 #### [facility] [address] [place], [address] EST GFR - AA 126 mL/min Normal >60 [facility] Comment on above: Result Comment: Afri can Stateless GFR Calc Performed By: #### L 501.9520, L500.4050, L100.0100 #### [facility] [address] [place], [address] GAP 2 Low 5-15 [facility] Comment on above: Performed By: #### L 501.9520, L500.4050, L100.0100 #### [facility] [address] [place], [address] GFR/1.73 sq M.predicted among non-blacks MDRD (S/P/Bld) [Vol rate/Area] 104 mL/min/{1.73_m2} Normal >60 [facility] Comment on above: Result Comment: Non- GFR Calc Performed By: #### L 501.9520, L500.4050, L100.0100 #### [facility] [address] [place], [address] Globulin (S) [Mass/Vol] 3.7 g/dL Normal 2.2-4.2 [facility] Comment on above: Performed By: #### L 501.9520, L500.4050, L100.0100 #### [facility] [address] [place], [address] Glucose [Mass/Vol] 87 mg/dL Normal 74-106 [facility] Comment on above: Performed By: #### L 501.9520, L500.4050, L100.0100 #### [facility] [address] [place], [address] Potassium [Moles/Vol] 3.8 mmol/L Normal 3.5-5.1 [facility] Comment on above: Performed By: #### L 501.9520, L500.4050, L100.0100 #### [facility] [address] [place], [address] Sodium [Moles/Vol] 138 mmol/L Normal 136-145 [facility] Comment on above: Performed By: #### L 501.9520, L500.4050, L100.0100 #### [facility] [address] [place], [address] T PROT 7.3 g/dL Normal 6.4-8.2 [facility] Comment on above: Performed By: #### L 501.9520, L500.4050, L100.0100 #### [facility] [address] [place], [place], [address] Urea nitrogen [Mass/Vol] 12 mg/dL Normal 7-18 [facility] Comment on above: Performed By: #### L 501.9587, L500.4050, L100.0100 #### [facility] [address] [place], [place], [address] Thyroid Stim Hormone (TSH)on 07-09-2024 TSH 1.470 uIU/mL Normal 0.358-3.740 [facility] Comment on above: Performed By: #### L 501.9520, L500.4050, L100.0100 #### [facility] [address] [place], [place], [address] CNPNon 06-17-2024 CNPN Telephone (OBGYWM) OTILIA MEZA ([id number]) 1995 F Date Time Provider Department 06/17/24 ANGELIC BUTLER OBGYWM During your visit today, we recorded the following information about you: Rita Bernal RN 06/17/2024 1:42 PM Signed Patient calling with concerns of heavy vaginal bleeding and pain. Patient has not had a period since October. She was using Nuvaring and she would keep in for 24 days and remove for 4 days and then insert a new ring. While doing this she never had a period. Patient removed her last Nuvaring in March and never inserted a new one as she no longer wanted control and she had not had a period until yesterday. Patient states she is changing a regular tampon every 2-3 hours. States she is having abdominal cramping and lower back pain that she rates at a 7-8 out of 10. Patient states she has tried heat and that help. Patient has also taken Tylenol. Discussed with patient trying Motrin and alternating with Tylenol as well with the heat. Discussed with patient bleeding precautions and when to go to the ER. Patient is going to switch to pads to measure bleeding more accurately. Patient aware Dr. Butler is out of the office this afternoon. Do you have any other recommendations for the patient? GERALD Chow Jessica, APRN.CNM 06/17/2024 3:58 PM Signed Recommend Ibuprofen 600mg PO every 6 hr, warm bath/heating pad. Continue to monitor at this time. If bleeding does no stop and no improvement in pain after this period recommend follow up visit in office. Otherwise see how she does with next menses as her body adjusts after stopping control. BRIDGETT Lombardo Jennifer, RN 06/17/2024 4:07 PM Signed Patient notified. Ofelia Driscoll RN Allergies As of Date: 06/17/2024 (No Known Allergies) Date Reviewed: 02/07/2024 Reviewed by: Fifi Lovelace LPN - Fully Assessed Reason for Visit: Irregular Menstrual Cycle [278] Prescriptions as of 06/20/2024 - nystatin-triamcinolo ne (MYCOLOG) ointment Apply sparingly to perineum twice daily for irritation/infection . - Etonogestrel-Ethinyl Estradiol (NUVARING) 0.12-0.015 mg/24 hr vaginal ring Use 1 Each vaginally as directed. leave ring for 24 days, remove and insert new ring. Take a 4 day break and insert a new ring when you get breakthrough bleeding Problem List As Of Date 06/17/2024 Noted Resolved APPENDICITIS ACUTE [K35.80] 01/01/2009 08/24/2021 Encounter Status:Closed by OFELIA DRISCOLL on 06/17/24 Normal [facility] BACTERIAL VAGINOSIS NAATon 0 - Lactobacillus crispatus+gasseri+je nsenii + Gardnerella vaginalis + Atopobium vaginae rRNA HADLEY+probe Ql (Vag fld) Positive Abnormal Negative for bacterial vaginosis [facility] Comment on above: Order Comment: Speci men Type: SWABOrdering Facility: [facility] Address: [address] [place] [address] Performed By: #### C VTV, BVAMP ####[facility] LABCLIA [id number] [place] [address] [place] KATIE/TRICHOMONAS NAATon 0 02-07-2024 C. glabrata RNA HADLEY+probe Ql (Vag fld) Negative Normal Negative for Katie glabrata [facility] Comment on above: Order Comment: Speci men Type: SWABOrdering Facility: [facility] Address: [address] [place] [address] Performed By: #### C VTV, BVAMP ####[facility] LABCLIA [id number] [address] OF [place] Katie sp DNA HADLEY+probe Ql (Vag fld) Positive Abnormal Negative for Katie species [facility] Comment on above: Order Comment: Speci men Type: SWABOrdering Facility: [facility] Address: [address] [place] [address] Performed By: #### C VTV, BVAMP ####[facility] LABCLIA [id number] [place] [address] [place] T. vaginalis DNA HADLEY+probe Ql (Unsp spec) Negative Normal Negative for Trichomonas vaginalis by amplification [facility] Comment on above: Order Comment: Speci men Type: SWABOrdering Facility: [facility] Address: [address] [place] [address] Performed By: #### C VTV, BVAMP ####[facility] LABCLIA [id number] [place] [address] [place] CNOVon 02-07-2024 CNOV Office Visit (UCWSTR) OTILIA MEZA ([id number]) 1995 F Date Time Provider Department 02/07/24 12:45 PM NOLAN JARA [facility] During your visit today, we recorded the following information about you: Temperature Pulse Respiration Blood pressure 98.9 degrees 101/minute 18/minute 110/72 Weight 98.3 kg Nolan Jara APRN.[facility] 02/07/2024 12:57 PM Signed CC: Patient presents with: Vaginal Problem: Possible yeast infection with itching, discharge and odor x 3 days Patient did take a Diflucan at home. Says it has alleviated some symptoms just not all the symptoms. HPI Otilia Meza is a 28 year old female who presents with complaint of possible UTI. These symptoms have been present for 3 days. Associated symptoms: abnormal vaginal discharge and vaginal itching Denies: burning, backpain, hematuria, pressure, chills, sweats, and abdominal pain Treatments: nothing The ROS was otherwise negative. PMH, Medications, labs, allergies, and recent past visits with PCP were reviewed and updated as able. PHYSICAL EXAM: BP 110/72 Pulse 101 Temp 37.2 ?C (98.9 ?F) (Tympanic) Resp 18 Wt 98.3 kg (216 lb 11.4 oz) LMP 11/08/2023 (Within Days) SpO2 98% BMI 38.39 kg/m? General: Well appearing and alert CV: Regular rate and rhythm without obvious murmur Lungs: clear to auscultation bilaterally Back: straight and symmetric Abdomen: soft, nontender, nondistended Patient wants to self swab does not want a pelvic exam. PAST MEDICAL HISTORY 01/01/2009: APPENDICITIS ACUTE 07/17/2019: Pap smear abnormality of cervix/human papillomavirus (HPV) positive 07/17/2019: Pap smear of cervix with ASCUS, cannot exclude HGSIL PAST SURGICAL HISTORY 12/23/08: LAPAROSCOPIC APPENDECTOMY 2006: TONSILLECTOMY AND ADENOIDECTOMY HX ALLERGIES Patient has no known allergies. MEDICATIONS Etonogestrel-Ethinyl Estradiol (NUVARING) 0.12-0.015 mg/24 hr vaginal ring Use 1 Each vaginally as directed. leave ring for 24 days, remove and insert new ring. Take a 4 day break and insert a new ring when you get breakthrough bleeding nystatin-triamcinolo ne (MYCOLOG) ointment Apply sparingly to perineum twice daily for irritation/infection . FAMILY HISTORY Problem Relation Age of Onset Hypertension Father Heart Sister WPW Social History Tobacco Use Smoking status: Never Smokeless tobacco: Never Vaping Use Vaping Use: Never used Substance Use Topics Alcohol use: Not Currently Drug use: No ASSESSMENT/PLAN: 1. Vaginal itching - ICD9: 698.1, ICD10: N89.8 (primary diagnosis) - BACTERIAL VAGINOSIS NAAT - KATIE/TRICHOMONAS NAAT - NYSTATIN-TRIAMCINOLO NE 100,000 UNIT/GRAM-0.1 % TOPICAL OINTMENT 2. Vaginal discharge - ICD9: 623.5, ICD10: N89.8 - BACTERIAL VAGINOSIS NAAT - KATIE/TRICHOMONAS NAAT Patient was educated that the Diflucan she took at home could take a few days to have full effects. If anything else comes back positive please treat accordingly. If patient is still having symptoms of yeast infection we can call in 1 more Diflucan for her to take 3 days after she took the initial Diflucan. Prescription instructions reviewed with patient as applicable. Potential red flag symptoms discussed with the patient. Reviewed appropriate action plan to take if red flag symptoms occur. Patient agreeable to treatment plan. Nolan Jara APRN.CELL OPERATOR Allergies As of Date: 02/07/2024 (No Known Allergies) Date Reviewed: 02/07/2024 Reviewed by: Fifi Lovelace LPN - Fully Assessed Reason for Visit: Vaginal Problem [117] Cmt: Possible yeast infection with itching, discharge and odor x 3 days Primary Visit Diagnosis:Vaginal itching [N89.8] Other Visit Diagnosis:Vaginal discharge [N89.8] Order(s):BACTERIAL VAGINOSIS NAAT [SQBVAMP] Order #: [id number]. #:[id number] KATIE/TRICHOMONAS NAAT [SQCVTV] Order #: [id number]. #:[id number] nystatin-triamcinolo ne (MYCOLOG) ointmentApply sparingly to perineum twice daily for irritation/infection .Disp: 30 gRfl: 0 Prescriptions as of 02/07/2024 - nystatin-triamcinolo ne (MYCOLOG) ointment Apply sparingly to perineum twice daily for irritation/infection . - Etonogestrel-Ethinyl Estradiol (NUVARING) 0.12-0.015 mg/24 hr vaginal ring Use 1 Each vaginally as directed. leave ring for 24 days, remove and insert new ring. Take a 4 day break and insert a new ring when you get breakthrough bleeding Problem List As Of Date 02/07/2024 Noted Resolved APPENDICITIS ACUTE [K35.80] 01/01/2009 08/24/2021 Prescriptions ordered this encounter Disp Refills Start End NYSTATIN-TRIAMCINOLO NE 100,000 UNIT/* 30 g 0 02/07/2024 Sig: Apply sparingly to perineum twice daily for irritation/infection . Encounter Status:Closed by NOLAN JARA on 02/07/24 Normal [facility] CNOVon 12-15-2023 CNOV Office Visit (OBGYWM) OTILIA MEZA ([id number]) 1995 F Date Time Provider Department 12/15/23 8:40 AM ANGELIC BUTLER OBGYWM During your visit today, we recorded the following information about you: Blood pressure Weight Height Last Period 124/82 98.4 kg 1.6 m 11/08/23 Angelic Butler MD 12/15/2023 9:06 AM Signed Otilia is a 28 year old who presents for an annual gynecologic exam without complaints. Considiring in the future so some questions there. Menses: rare w/ nuvaring. 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 Director History Comments: Sexual Activity: Yes; Male; nuvaring Contraception: Inserts PAST MEDICAL HISTORY Diagnosis Date APPENDICITIS ACUTE 01/01/2009 Pap smear abnormality of cervix/human papillomavirus (HPV) positive 07/17/2019 Pap smear of cervix with ASCUS, cannot exclude HGSIL 07/17/2019 PAST SURGICAL HISTORY Procedure Laterality Date LAPAROSCOPIC APPENDECTOMY 12/23/08 TONSILLECTOMY AND ADENOIDECTOMY HX 2006 FAMILY HISTORY Problem Relation Age of Onset Hypertension Father Heart Sister WPW SOCIAL HISTORY Social History Tobacco Use Smoking status: Never Smokeless tobacco: Never Vaping Use Vaping Use: Never used Substance Use Topics Alcohol use: Not Currently Drug use: No REVIEW OF SYSTEMS Abdomen: No abdominal pain, nausea, vomiting, diarrhea, or constipation. No bloating, early satiety, indigestion, or increased flatulence. Bladder: No dysuria, gross hematuria, urinary frequency, urinary urgency, or incontinence. Breast: No breast lumps, nipple d/c, overlying skin changes, redness or skin retraction. Allergies and current medication updated:Yes EXAM: BP 124/82 Ht 5' 3 (1.60m) Wt 217 lb (98.4kg) LMP 11/08/2023 BMI 38.45 kg/(m2). GENERAL: pleasant, female in no apparent distress HEENT: Normocephalic, atraumatic, mucus membranes moist, and no lesions NECK: Supple, full range of motion, no adenopathy, and thyroid normal DERMATOLOGY: Normal, without lesions, non-icteric, and non-hirsute BREAST: soft, non-tender, symmetric, no dominant mass, normal nipple-areolar complex, no lymphadenopathy, and no nipple discharge CHEST: Normal inspiratory effort ABDOMEN: soft, non-tender, and no masses PELVIC: external genitalia normal, normal Bartholin's glands, urethra, Natoma's glands, no vulvar lesions, no cervical lesions, good vaginal support, physiologic discharge present, normal appearing perineal body and perianal region BIMANUAL: uterus normal size, shape and consistency, no adnexal masses, and non-tender RECTOVAGINAL: deferred. NEURO: alert and oriented x3,exam grossly non-focal EXTREMITIES: normal ASSESSMENT/PLAN: 1) Health maintenance: Pap done with reflex HPV. Mammogram starting age 40. 2) Contraception: Nuva Ring. Contraceptive options reviewed and information provided. 3) STD screening: Declined STD check. 4) Follow up one year or sooner as needed PReconceptual counseling. D/ wher recommendations, strt PNV, offered rubella titer and carrier screen panel. Will consider Recommend wt loss. Angelic Butler MD Allergies As of Date: 12/15/2023 (No Known Allergies) Date Reviewed: 12/15/2023 Reviewed by: Angelic Butler MD - Fully Assessed Reason for Visit: Yearly Exam [187] Primary Visit Diagnosis:Encounter for gynecological examination (general) (routine) without abnormal findings [Z01.419] Other Visit Diagnoses:Screening for cervical cancer [Z12.4] Vaginal high risk human papillomavirus (HPV) DNA test positive [R87.811] Encounter for surveillance of vaginal ring hormonal contraceptive device [Z30.44] Order(s):PAP TEST [[id number]] Order #: [id number] Prescriptions as of 12/15/2023 - Etonogestrel-Ethinyl Estradiol (NUVARING) 0.12-0.015 mg/24 hr vaginal ring Use 1 Each vaginally as directed. leave ring for 24 days, remove and insert new ring. Take a 4 day break and insert a new ring when you get breakthrough bleeding Problem List As Of Date 12/15/2023 Noted Resolved APPENDICITIS ACUTE [K35.80] 01/01/2009 08/24/2021 Disposition: Return in 1 year (on 12/14/2024) for Annual Exam. Follow-up and Disposition History for Encounter Date Provider Department Center 12/15/2023 [id number] BUTLER Encounter Status:Closed by ANGELIC BUTLER on 12/15/23 Normal [facility] PAP TESTon 12-15-2023 ADEQUACY Satisfactory for interpretation. Normal [facility] Comment on above: Order Comment: Speci men Type: FLUID SPECIMENOrdering Facility: [facility] Address: [address] [place] [address] Performed By: #### L [id number] ####[facility] LABCLIA [id number] [facility] [id number], [place] [address] [place] CASE REPORT Normal [facility] Comment on above: Order Comment: Speci men Type: FLUID SPECIMENOrdering Facility: [facility] Address: [address] [place] [address] Result Comment: Gyne cologic Cytology Report Case: [id number] Authorizing Provider: Angelic Butler MD Collected: 12/15/2023 09:24 AM Ordering Location: OB/Gynecology Received: 12/15/2023 12:26 PM First Screen: Brian, Jojo, CT, ASCP Specimen: Pap Test, ThinPrep, Cervix Performed By: #### L [id number] ####[facility] LABCLIA [id number] [place] [address] [place] CLINICAL HISTORY, CYTOLOGY, GASOLINE TESTER Previous ASCUS Normal [facility] Comment on above: Order Comment: Speci men Type: FLUID SPECIMENOrdering Facility: [facility] Address: [address] [place] [address] Result Comment: Posi tive HPV Performed By: #### L [id number] ####[facility] LABCLIA [id number] [place] [address] [place] FINAL PERFORMING LAB Normal [facility] Comment on above: Order Comment: Speci men Type: FLUID SPECIMENOrdering Facility: [facility] Address: [address] [place] [address] Result Comment: Tech nical component, wreath and garland maker hand screening performed at [facility], [address] [place] [address] CLIA# [id number] Diagnostic interpretation performed at [facility], [address] [place], [place] [id number] CLIA# [id number] Body Trimmer: Vic Rubin M.D. Performed By: #### L [id number] ####[facility] LABCLIA [id number] [place] [address] [place] HPV REFLEX HPV if Atypical Normal [facility] Comment on above: Order Comment: Speci men Type: FLUID SPECIMENOrdering Facility: [facility] Address: [address] [place] [address] Performed By: #### L [id number] ####[facility] LABCLIA [id number] [place] [address] [place] INTERPRETATION, CYTOLOGY, GASOLINE TESTER Normal [facility] Comment on above: Order Comment: Speci men Type: FLUID SPECIMENOrdering Facility: [facility] Address: [address] [place] [address] Result Comment: Nega tive for intraepithelial lesion or malignancy. Performed By: #### L [id number] ####[facility] LABCLIA [id number] [place] [address] [place] LMP 11/08/2023 Normal [facility] Comment on above: Order Comment: Speci men Type: FLUID SPECIMENOrdering Facility: [facility] Address: [address] [place] [address] Performed By: #### L [id number] ####[facility] LABCLIA [id number] [place] [address] [place] PAP DISCLAIMER COMMENT The Pap Smear is a screening test for cervical cancer. False negative results occur with all screening tests, emphasizing the need for rescreening at recommended intervals, and clinical correlation. Normal [facility] Comment on above: Order Comment: Speci men Type: FLUID SPECIMENOrdering Facility: [facility] Address: [address] [place] [address] Performed By: #### L [id number] ####[facility] LABCLIA [id number] [place] [id number] [place] Routine wound cultureOrdered By: Dr. Wong on 12-09-2022 Bacteria identified Cx Nom (Wound) No growth aerobically. [facility] Gram stain for investigation of transfusion reactionOrdered By: Dr. Wong on 12-07-2022 Microscopic observation Gram stain Nom (Unsp spec) [facility] ALLIED HEALTHon 12-06-2022 ALLIED HEALTH HNO ID: [id number] Author: RT Bree(R) Service: Radiology Author Type: Technologist Type: Allied Health Filed: 12/06/2022 3:43 PM Note Text: Radiology Service Progress Note PATIENT NAME: Otilia Meza DATE OF SERVICE: December 06, 2022 TIME: 3:43 PM PATIENT IDENTITY VERIFICATION COMPLETED USING TWO (2) IDENTIFIERS: Name and Date of confirmed by patient verbally and Name and Date of confirmed by identification band. FALL SCREENING: Has the patient had 2 falls in the last year or 1 fall with injury or currently using an Ambulatory Assistive Device (Walker, Cane, Wheelchair, Crutches, etc.)? Emergency Room Patient: Screened in ED PATIENT GENDER DATA: Female. status: : No status: NO. PATIENT RELEVANT IMPLANT DATA REVIEWED: Not Applicable RADIOLOGY DEPARTMENT: General X-ray: Exam(s) Completed: Upper Extremity X-Ray(s): Fingers/Thumb, right PERIPHERAL IV DATA: Not applicable SIGNED BY: RT Bree(R) December 06, 2022 3:43 PM Normal [facility] Basic metabolic 2000 panelon 12-06-2022 Anion gap [Moles/Vol] 8 mmol/L Low 9-18 [facility] Comment on above: Order Comment: Sheryl reyes Type: BLOOD SPECIMEN Ordering Facility: [facility] Address: [address] [place] [address] Performed By: #### 2 4321-2 #### [facility] CLIA [id number] [address] [place] [address] [place] Calcium [Mass/Vol] 9.6 mg/dL Normal 8.6-10.3 [facility] Comment on above: Order Comment: Sheryl reyes Type: BLOOD SPECIMEN Ordering Facility: [facility] Address: [address] [place] [address] Performed By: #### 2 4321-2 #### [facility] CLIA [id number] [address] [place], [place] [address] [place] Chloride [Moles/Vol] 106 mmol/L Normal 101-111 [facility] Comment on above: Order Comment: Speci men Type: BLOOD SPECIMEN Ordering Facility: [facility] Address: [address] [address] Performed By: #### 2 4321-2 #### [facility] CLIA [id number] [address] [place], [place] [address] [place] CO2 [Moles/Vol] 25 mmol/L Normal 21-31 [facility] Comment on above: Order Comment: Speci men Type: BLOOD SPECIMEN Ordering Facility: [facility] Address: [address] [address] Performed By: #### 2 4321-2 #### [facility] CLIA [id number] [address] [place] [address] STATES [facility] Creatinine [Mass/Vol] 0.68 mg/dL Normal 0.60-1.30 [facility] Comment on above: Order Comment: Speci men Type: BLOOD SPECIMEN Ordering Facility: [facility] Address: [address] [place] [address] Result Comment: Use of this assay is not recommended for patients undergoing treatment with phenindione, due to the potential for falsely depressed results. Performed By: #### 2 4321-2 #### [facility] CLIA [id number] [address] [place] [address] STATES OF [facility] ESTIMATED GLOMERULAR FILTRATION RATE 124 mL/min/1.73m??? Normal >=60 [facility] Comment on above: Order Comment: Speccyn reyes Type: BLOOD SPECIMEN Ordering Facility: [facility] Address: [address] [place] [address] Result Comment: Jossie mated Glomerular Filtration Rate (eGFR) is calculated using the 2020 CKD-EPI creatinine equation. This equation utilizes serum creatinine, sex, and age as parameters. The creatinine assay has traceable calibration to isotope dilution-mass spectrometry. Refer to KDIGO guidelines for clinical interpretation. In patients with unstable renal function, e.g. those with acute kidney injury, the eGFR may not accurately reflect actual GFR. Performed By: #### 2 4321-2 #### [facility] CLIA [id number] [address] [place] [address] [place] Glucose [Mass/Vol] 79 mg/dL Normal 74-99 [facility] Comment on above: Order Comment: Sheryl reyes Type: BLOOD SPECIMEN Ordering Facility: [facility] Address: [address] [place] [address] Result Comment: The Stateless Diabetes Association (ADA) provides guidance for cutoff values for fasting glucose and random glucose. The ADA defines fasting as no caloric intake for at least 8 hours. Fasting plasma glucose results between 100 to 125 mg/dL indicate increased risk for diabetes (prediabetes). Fasting plasma glucose results greater than or equal to 126 mg/dL meet the criteria for diagnosis of diabetes. In the absence of unequivocal hyperglycemia, results should be confirmed by repeat testing. In a patient with classic symptoms of hyperglycemia or hyperglycemic crisis, random plasma glucose results greater than or equal to 200 mg/dL meet the criteria for diagnosis of diabetes. Reference: Standards of Medical Care in Diabetes 2016, Stateless Diabetes Association. Diabetes Care. 2016.39(Suppl 1). Performed By: #### 2 4321-2 #### [facility] CLIA [id number] [address] [place] [address] [place] Potassium [Moles/Vol] 3.7 mmol/L Normal 3.6-5.1 [facility] Comment on above: Order Comment: Sheryl reyes Type: BLOOD SPECIMEN Ordering Facility: [facility] Address: [address] [place] [address] Performed By: #### 2 4321-2 #### [facility] CLIA [id number] [address] [place], [place] [address] [place] Sodium [Moles/Vol] 139 mmol/L Normal 136-144 [facility] Comment on above: Order Comment: Sheryl reyes Type: BLOOD SPECIMEN Ordering Facility: [facility] Address: [address] [place] [address] Performed By: #### 2 4321-2 #### [facility] CLIA [id number] [address] [place] [address] [place] Urea nitrogen [Mass/Vol] 12 mg/dL Normal 7-25 [facility] Comment on above: Order Comment: Speci men Type: BLOOD SPECIMEN Ordering Facility: [facility] Address: [address] [address] Performed By: #### 2 4321-2 #### [facility] CLIA [id number] [address] [place] [address] [place] CBC W Auto Differential pane l (Bld)on 12-06-2022 Basophils (Bld) [#/Vol] 10*3/uL Normal <0.11 [facility] Comment on above: Order Comment: Speci men Type: BLOOD SPECIMEN Ordering Facility: [facility] Address: [address] [address] Performed By: #### 5 7021-8 #### [facility] CLIA [id number] [address] [place] [address] [place] Basophils/100 WBC (Bld) 0.3 % Normal [facility] Comment on above: Order Comment: Speci men Type: BLOOD SPECIMEN Ordering Facility: [facility] Address: [address] [address] Performed By: #### 5 7021-8 #### [facility] CLIA [id number] [address] [place] [address] [place] Differential cell count method Nom (Bld) Auto Normal [facility] Comment on above: Order Comment: Speci men Type: BLOOD SPECIMEN Ordering Facility: [facility] Address: [address] [address] Performed By: #### 5 7021-8 #### [facility] CLIA [id number] [address] [place], [place] [id number] [place] Eosinophils (Bld) [#/Vol] 0.14 10*3/uL Normal <0.46 [facility] Comment on above: Order Comment: Speci men Type: BLOOD SPECIMEN Ordering Facility: [facility] Address: [address] [address] Performed By: #### 5 7021-8 #### [facility] CLIA [id number] [address] [place] [address] [place] Eosinophils/100 WBC (Bld) 1.9 % Normal [facility] Comment on above: Order Comment: Speci men Type: BLOOD SPECIMEN Ordering Facility: [facility] Address: [address] [place] [address] Performed By: #### 5 7021-8 #### [facility] CLIA [id number] [address] [place] [address] [place] Erythrocyte distribution width (RBC) [Ratio] 11.7 % Normal 11.5-15.0 [facility] Comment on above: Order Comment: Speci men Type: BLOOD SPECIMEN Ordering Facility: [facility] Address: [address] [place] [address] Performed By: #### 5 7021-8 #### [facility] CLIA [id number] [address] [place] [address] [place] Hematocrit (Bld) [Volume fraction] 43.1 % Normal 36.0-46.0 [facility] Comment on above: Order Comment: Speci men Type: BLOOD SPECIMEN Ordering Facility: [facility] Address: [address] [place] [address] Performed By: #### 5 7021-8 #### [facility] CLIA [id number] [address] [place] [address] [place] Hemoglobin (Bld) [Mass/Vol] 14.5 g/dL Normal 11.5-15.5 [facility] Comment on above: Order Comment: Speci men Type: BLOOD SPECIMEN Ordering Facility: [facility] Address: [address] [address] Performed By: #### 5 7021-8 #### [facility] CLIA [id number] [address] [place] [address] [place] Immature granulocytes (Bld) [#/Vol] 10*3/uL Normal <0.10 [facility] Comment on above: Order Comment: Speci men Type: BLOOD SPECIMEN Ordering Facility: [facility] Address: [address] [place] [address] Performed By: #### 5 7021-8 #### [facility] CLIA [id number] [address] [place], [place] [id number] [place] Immature granulocytes/100 WBC (Bld) 0.3 % Normal [facility] Comment on above: Order Comment: Speci men Type: BLOOD SPECIMEN Ordering Facility: [facility] Address: [address] [place] [address] Performed By: #### 5 7021-8 #### [facility] CLIA [id number] [address] [place] [address] [place] Lymphocytes (Bld) [#/Vol] 2.97 10*3/uL Normal 1.00-4.00 [facility] Comment on above: Order Comment: Speci men Type: BLOOD SPECIMEN Ordering Facility: [facility] Address: [address] [place] [address] Performed By: #### 5 7021-8 #### [facility] CLIA [id number] [address] [place] [address] Lymphocytes/100 WBC (Bld) 40.4 % Normal [facility] Comment on above: Order Comment: Speci men Type: BLOOD SPECIMEN Ordering Facility: [facility] Address: [address] [place] [address] Performed By: #### 5 7021-8 #### [facility] CLIA [id number] [address] [place], [place] [phone] [place] MCH (RBC) [Entitic mass] 29.8 pg Normal 26.0-34.0 [facility] Comment on above: Order Comment: Speci men Type: BLOOD SPECIMEN Ordering Facility: [facility] Address: [address] [place] [address] Performed By: #### 5 7021-8 #### [facility] CLIA [id number] [address] [place] [address] [place] MCHC (RBC) [Mass/Vol] 33.6 g/dL Normal 30.5-36.0 [facility] Comment on above: Order Comment: Speci men Type: BLOOD SPECIMEN Ordering Facility: [facility] Address: [address] [address] Performed By: #### 5 7021-8 #### [facility] CLIA [id number] [address] [place] [address] [place] MCV (RBC) [Entitic vol] 88.5 fL Normal 80.0-100.0 [facility] Comment on above: Order Comment: Speci men Type: BLOOD SPECIMEN Ordering Facility: [facility] Address: [address] [place] [address] Performed By: #### 5 7021-8 #### [facility] CLIA [id number] [address] [place] [address] [place] Monocytes (Bld) [#/Vol] 0.60 10*3/uL Normal <0.87 [facility] Comment on above: Order Comment: Speci men Type: BLOOD SPECIMEN Ordering Facility: [facility] Address: [address] [place] [address] Performed By: #### 5 7021-8 #### [facility] CLIA [id number] [address] [place] [address] [place] Monocytes/100 WBC (Bld) 8.2 % Normal [facility] Comment on above: Order Comment: Speci men Type: BLOOD SPECIMEN Ordering Facility: [facility] Address: [address] [place] [address] Performed By: #### 5 7021-8 #### [facility] CLIA [id number] [address] [place] [address] [place] Neutrophils (Bld) [#/Vol] 3.60 10*3/uL Normal 1.45-7.50 [facility] Comment on above: Order Comment: Speci men Type: BLOOD SPECIMEN Ordering Facility: [facility] Address: [address] [place] [address] Performed By: #### 5 7021-8 #### [facility] CLIA [id number] [address] [place], [place] [id number] [place] Neutrophils/100 WBC (Bld) 48.9 % Normal [facility] Comment on above: Order Comment: Speci men Type: BLOOD SPECIMEN Ordering Facility: [facility] Address: [address] [address] Performed By: #### 5 7021-8 #### [facility] CLIA [id number] [address] [place] [address] [place] Nucleated RBC (Bld) [#/Vol] Normal [facility] Comment on above: Order Comment: Speci men Type: BLOOD SPECIMEN Ordering Facility: [facility] Address: [address] Performed By: #### 5 7021-8 #### [facility] CLIA [id number] [address] [place] [address] [place] Nucleated RBC/100 WBC (Bld) [Ratio] Normal [facility] Comment on above: Order Comment: Speci men Type: BLOOD SPECIMEN Ordering Facility: [facility] Address: [address] Performed By: #### 5 7021-8 #### [facility] CLIA [id number] [address] [place], [place] [id number] [place] Platelet mean volume (Bld) [Entitic vol] 9.1 fL Normal 9.0-12.7 [facility] Comment on above: Order Comment: Speci men Type: BLOOD SPECIMEN Ordering Facility: [facility] Address: [address] Performed By: #### 5 7021-8 #### [facility] CLIA [id number] [address] [place], [place] [address] [place] Platelets (Bld) [#/Vol] 285 10*3/uL Normal 150-400 [facility] Comment on above: Order Comment: Speci men Type: BLOOD SPECIMEN Ordering Facility: [facility] Address: [address] Performed By: #### 5 7021-8 #### [facility] CLIA [id number] [address] [place] [address] [place] RBC (Bld) [#/Vol] 4.87 10*6/uL Normal 3.90-5.20 [facility] Comment on above: Order Comment: Speccyn reyes Type: BLOOD SPECIMEN Ordering Facility: [facility] Address: [address] [place], [place] [address] Performed By: #### 5 7021-8 #### [facility] CLIA [id number] [address] [place], [place] [address] [facility] WBC (Bld) [#/Vol] 7.35 10*3/uL Normal 3.70-11.00 [facility] Comment on above: Order Comment: Speccyn reyes Type: BLOOD SPECIMEN Ordering Facility: [facility] Address: [address] [place] [address] Performed By: #### 5 7021-8 #### [facility] CLIA [id number] [address] [place], [place] [id number] [facility] ED NOTEon 12-06-2022 ED NOTE HNO ID: [id number] Author: Loren Rodríguez RN Service: ? Author Type: Registered Nurse Type: ED Notes Filed: 12/06/2022 1:31 PM Note Text: Pt to ED for infection to R ring finger x 1-2 weeks, redness and swelling worsened overnight, pt currently on Doxy. Normal [facility] ED PROV NOTEon 12-06-2022 ED PROV NOTE HNO ID: [id number] Author: Gaetano Pierson DO Service: Emergency Medicine Author Type: Physician Type: ED Provider Notes Filed: 12/15/2022 9:25 AM Note Text: Attending Note I have personally performed a face to face assessment of the patient and have reviewed the YI note. I performed a substantive portion of the visit including all aspects of the following. My rivas findings include: 27-year-old presenting with a lesion to her right fourth digit. Started about a week ago with what looked like a small pustule. Has gradually enlarged with some hemorrhagic area surrounding it particularly over the last few days. 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 There is a viral illness they get called orf that they think this may be. They consulted the CDC website. She saw her PCP this morning who tried to IANDD the area but really did not get any drainage from it. They did do a swab to send for culture. Patient's had some very mild expanding erythema from the area. No symptoms at the wrist elbow or shoulder. A mild area of soreness at the medial right bicep without any erythema or tenderness to palpation that she has noticed. No fevers. No nausea or vomiting. Patient was recently started on doxycycline but has only taken 2 doses. Patient afebrile blood pressure 135/80 pulse 95 respirations 18 sat 100% on room air Heart regular no murmurs rubs or gallops Lungs clear Focused exam right upper extremity shows a lesion on the right ring finger with a central pustular looking area surrounded by a hemorrhagic base. No real tenderness with range of motion but unable to fully flex the digit due to stiffness. Cap refill good. Full range of motion otherwise in the wrist elbow and shoulder. Some mild surrounding erythema that extends past to the MCP joint. No further streaking up the arm. No tenderness to palpation. Plan labs, dose of IV antibiotics and discuss with hand GAETANO PIERSON 12/15/22 0925 Normal [facility] ED PROV NOTE HNO ID: [id number] Author: Gaetano Pierson DO Service: Emergency Medicine Author Type: Physician Type: ED Provider Notes Filed: 12/15/2022 9:25 AM Note Text: ED Provider Note Patient Name: Otilia Meza : 1995 SERVICE DATE: 12/06/22 History Patient presents with: Finger Pain: R ring HPI 27-year-old female presents for a wound check. Patient states that about 2 weeks ago she noticed a papular lesion over the dorsum of her right ring finger. States that it started to grow larger and over the past 2 days has become more painful. She states that she had a virtual visit with urgent care yesterday and was prescribed doxycycline. She has had 2 doses of the doxycycline but her symptoms have not improved. She was seen by her PCP today and they try to take a culture from the lesion and also outlined the area of redness over her hand but she states that the erythema is spreading slightly beyond the marked region. The patient denies fever, chills, nausea or vomiting. 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 PAST MEDICAL HISTORY Diagnosis Date APPENDICITIS ACUTE 01/01/2009 Pap smear abnormality of cervix/human papillomavirus (HPV) positive 07/17/2019 Pap smear of cervix with ASCUS, cannot exclude HGSIL 07/17/2019 PAST SURGICAL HISTORY Procedure Laterality Date LAPAROSCOPIC APPENDECTOMY 12/23/08 TONSILLECTOMY AND ADENOIDECTOMY HX 2006 FAMILY HISTORY Problem Relation Age of Onset Hypertension Father Heart Sister WPW Social History Tobacco Use Smoking status: Never Smokeless tobacco: Never Vaping Use Vaping Use: Never used Substance and Sexual Activity Alcohol use: Not Currently Drug use: No Sexual activity: Yes Partners: Male control/protection: Inserts Comment: nuvaring ALLERGIES No Known Allergies Review of Systems Constitutional: Negative for appetite change, chills and fever. Respiratory: Negative for cough and shortness of breath. Cardiovascular: Negative for chest pain and leg swelling. Gastrointestinal: Negative for abdominal pain, diarrhea, nausea and vomiting. Musculoskeletal: Positive for arthralgias and joint swelling. Skin: Positive for color change. + wound check Neurological: Negative for dizziness, syncope, weakness, light-headedness, numbness and headaches. All other systems reviewed and are negative. Physical Exam Vitals BP Pulse Temp Temp src Resp SpO2 Weight Height 12/06/22 1330 12/06/22 1330 12/06/22 1329 12/06/22 1329 12/06/22 1330 12/06/22 1330 12/06/22 1330 -- 135/80 (!) 95 36.2 ?C (97.2 ?F) Temporal 18 100 % 93.9 kg (207 lb) Physical Exam Vitals and nursing note reviewed. Constitutional: General: She is not in acute distress. Appearance: Normal appearance. She is well-developed. She is not ill-appearing or toxic-appearing. HENT: Head: Normocephalic and atraumatic. Right Ear: External ear normal. Left Ear: External ear normal. Nose: Nose normal. Mouth/Throat: Mouth: Mucous membranes are moist. Eyes: Conjunctiva/sclera: Conjunctivae normal. Pupils: Pupils are equal, round, and reactive to light. Cardiovascular: Rate and Rhythm: Normal rate and regular rhythm. Pulses: Normal pulses. Heart sounds: Normal heart sounds. No murmur heard. Pulmonary: Effort: Pulmonary effort is normal. No respiratory distress. Breath sounds: Normal breath sounds. No stridor. No wheezing, rhonchi or rales. Abdominal: General: There is no distension. Palpations: Abdomen is soft. Tenderness: There is no abdominal tenderness. Musculoskeletal: General: No deformity. Normal range of motion. Cervical back: Normal range of motion and neck supple. Comments: Right ring finger: papular lesion over the dorsal PIP joint without fluctuance or drainage with swelling of the digit and red streaking extending into the hand. ROM slightly limited. No pain with palpation over the flexor tendon. 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 Skin: General: Skin is warm and dry. Capillary Refill: Capillary refill takes less than 2 seconds. Neurological: General: No focal deficit present. Mental Status: She is alert and oriented to person, place, and time. Gait: Gait normal. Psychiatric: Mood and Affect: Mood normal. Behavior: Behavior normal. Thought Content: Thought content normal. Judgment: Judgment normal. Diagnostic Testing ED Labs Ordered and Reviewed - No data to display Procedures ED Course / Clinical Impression Pt presents with right ring finger pain. On exam she has a papular lesion over the right ring finger with findings concerning for cellulitis. 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 Although Orf is a self-limiting disease, given findings concerning for secondary cellulitis, workup was obtained and labs are unremarkable (more content not included)... Normal [facility] XR DIGIT 3V FRONTAL/LAT/OBL RTon 12-06-2022 XR DIGIT 3V FRONTAL/LAT/OBL RT * * *Final Report* * * DATE OF EXAM: Dec 06 2022 3:43PM [id number] - XR DIGIT 3V FRONTAL/LAT/OBL RT / PROCEDURE REASON: Fracture, hand * * * * Physician Interpretation * * * * EXAMINATION: XR DIGIT 3V FRONTAL/LAT/OBL RT HISTORY: Fracture, hand, right ring finger infection x 1-2 weeks, worsening TECHNIQUE: XR DIGIT 3V FRONTAL/LAT/OBL RT Laterality: RIGHT Number of different views (projections): 3 COMPARISON: None RESULT: Mild soft tissue edema about the proximal interphalangeal joint, more so on the dorsal aspect. No underlying periosteal reaction. No cortical erosion. No acute fracture or dislocation. Joint spaces are maintained. No destructive osseous lesion. No unexpected radiopaque foreign object. IMPRESSION: Mild soft tissue edema about the proximal interphalangeal joint. No acute osseous finding or radiographic findings of osteomyelitis. Personnel Worker: PSCB Transcribe Date/Time: Dec 06 2022 3:44P Dictated by : DAVID WILLIAMSON MD This examination was interpreted and the report reviewed and electronically signed by: DAVID WILLIAMSON MD on Dec 06 2022 3:46PM EST [id number] CN Normal [facility] Vital Signs Date Time Vital Sign Value Performing Clinician Faci lity 11-19-2024 14:04-0400 Body mass index (BMI) [Ratio] 41.98 kg/m2 Jojo Saez DRAFTER REFRIGERATION.CNM Work Phone: [facility] 11-19-2024 14:04-0400 Body weight 107.5 kg Jojo Saez DRAFTER REFRIGERATION.CNM Work Phone: [facility] 11-19-2024 14:04-0400 Diastolic blood pressure 74 mm[Hg] Jojo Saez DRAFTER REFRIGERATION.CNM Work Phone: [facility] 11-19-2024 14:04-0400 Systolic blood pressure 126 mm[Hg] Jojo Saez DRAFTER REFRIGERATION.CNM Work Phone: [facility] 10-22-2024 13:39-0400 Body mass index (BMI) [Ratio] 41.45 kg/m2 Jojo Saez DRAFTER REFRIGERATION.CNM Work Phone: [facility] 10-22-2024 13:39-0400 Body weight 106.14 kg Jojo Saez DRAFTER REFRIGERATION.CNM Work Phone: [facility] 10-22-2024 13:39-0400 Diastolic blood pressure 74 mm[Hg] Jojo Saez DRAFTER REFRIGERATION.CNM Work Phone: [facility] 10-22-2024 13:39-0400 Systolic blood pressure 124 mm[Hg] Jojo Saez DRAFTER REFRIGERATION.CNM Work Phone: [facility] 09-23-2024 11:38-0400 Body mass index (BMI) [Ratio] 40.57 kg/m2 Christy aFirchild MD Work Phone: [facility] 09-23-2024 11:38-0400 Body weight 103.87 kg Christy Fairchild MD Work Phone: [facility] 09-23-2024 11:38-0400 Diastolic blood pressure 80 mm[Hg] Christy Fairchild MD Work Phone: [facility] 09-23-2024 11:38-0400 Systolic blood pressure 138 mm[Hg] Christy Fairchild MD Work Phone: [facility] 09-10-2024 10:32-0400 Body mass index (BMI) [Ratio] 41.1 kg/m2 Angelic Butler MD Work Phone: [facility] 09-10-2024 10:32-0400 Body weight 105.23 kg Angelic Butler MD Work Phone: [facility] 09-10-2024 10:32-0400 Diastolic blood pressure 84 mm[Hg] Angelic Butler MD Work Phone: [facility] 09-10-2024 10:32-0400 Systolic blood pressure 132 mm[Hg] Angelic Butler MD Work Phone: [facility] 08-12-2024 08:40-0500 Body height 160 cm Matilde Sosa DRAFTER REFRIGERATION.CNM Work Phone: [facility] 08-12-2024 08:40-0500 Body mass index (BMI) [Ratio] 40.39 kg/m2 Matilde Sosa DRAFTER REFRIGERATION.CNM Work Phone: [facility] 08-12-2024 08:40-0500 Body weight 103.42 kg Matilde Sosa DRAFTER REFRIGERATION.CNM Work Phone: [facility] 08-12-2024 08:40-0500 Diastolic blood pressure 78 mm[Hg] Matilde Sosa DRAFTER REFRIGERATION.CNM Work Phone: [facility] 08-12-2024 08:40-0500 Systolic blood pressure 126 mm[Hg] Matilde Sosa ALYCEM Work Phone: [facility] 02-07-2024 12:43-0400 Body mass index (BMI) [Ratio] 38.39 kg/m2 Nolan Jara APRN.CELL OPERATOR Work Phone: [facility] 02-07-2024 12:43-0400 Body temperature 98.91 [degF] Nolan Jara APRN.CELL OPERATOR Work Phone: [facility] 02-07-2024 12:43-0400 Body weight 98.3 kg Nolan Jara APRN.CELL OPERATOR Work Phone: [facility] 02-07-2024 12:43-0400 Diastolic blood pressure 72 mm[Hg] Nolan Jara APRN.CELL OPERATOR Work Phone: [facility] 02-07-2024 12:43-0400 Heart rate 101 /min Nolan Jara APRN.CELL OPERATOR Work Phone: [facility] 02-07-2024 12:43-0400 Respiratory rate 18 /min Nolan Jara APRN.CELL OPERATOR Work Phone: [facility] 02-07-2024 12:43-0400 SaO2% (BldA) [Mass fraction] 98 % Nolan Jara APRN.CELL OPERATOR Work Phone: [facility] 02-07-2024 12:43-0400 Systolic blood pressure 110 mm[Hg] Nolan Jara APRN.CELL OPERATOR Work Phone: [facility] 12-15-2023 08:35-0400 Body height 160 cm Angelic Butler MD Work Phone: [facility] 12-15-2023 08:35-0400 Body mass index (BMI) [Ratio] 38.44 kg/m2 Angelic Butler MD Work Phone: [facility] 12-15-2023 08:35-0400 Body weight 98.43 kg Angelic Butler MD Work Phone: [facility] 12-15-2023 08:35-0400 Diastolic blood pressure 82 mm[Hg] Angelic Butler MD Work Phone: [facility] 12-15-2023 08:35-0400 Systolic blood pressure 124 mm[Hg] Angelic Butler MD Work Phone: [facility] 09-08-2022 08:39-0400 Body height 160 cm Angelic Butler MD Work Phone: [facility] 09-08-2022 08:39-0400 Body weight 94.35 kg Angelic Butler MD Work Phone: [facility] 09-08-2022 08:39-0400 Diastolic blood pressure 78 mm[Hg] Angelic Butler MD Work Phone: [facility] 09-08-2022 08:39-0400 Systolic blood pressure 122 mm[Hg] Angelic Butler MD Work Phone: [facility] Encounters Encounter Date Encounter Type Care Provider Facility Start: 11-19-2024 End: 11-19-2024 ambulatory ANGELIC BUTLER Facility:[facility] Start: 11-19-2024 End: 11-19-2024 Patient encounter procedure Whi Tech 1 Electrochemist Mfm [facility]str [facility] Comment on above: Encounter for anatomic survey (HCC) (Primary Dx); Obesity affecting in first trimester, unspecified obesity type (HCC); BMI 40.0-44.9, adult (HCC); 20 weeks gestation of (HCC) Supervision of high risk in second trimester (HCC) (Primary Dx); 20 weeks gestation of (HCC); Supervision of high risk in third trimester (HCC); Obesity affecting in third trimester, unspecified obesity type (HCC) Start: 11-04-2024 End: 11-25-2024 ambulatory Jojo Saez APRN.CNM Work Phone: OB/Gynecology Comment on above: Blood pressure readi ngs Start: 10-22-2024 End: 10-22-2024 Patient encounter procedure Jojo Saez APRN.CNM Work Phone: OB/Gynecology Comment on above: Supervision of high risk in second trimester (HCC) (Primary Dx); 16 weeks gestation of (HCC); Chronic hypertension in (HCC) Encounter for anatomic survey (HCC) (Primary Dx); Obesity affecting in first trimester, unspecified obesity type (HCC); BMI 40.0-44.9, adult ([facility]); 16 weeks gestation of (HCC) Start: 10-22-2024 End: 10-22-2024 ambulatory ANGELIC BUTLER Facility:[facility] Start: 10-08-2024 End: 10-08-2024 Refill Christy Fairchild MD Work Phone: OB/Gynecology Comment on above: Refill Request Start: 09-30-2024 End: 11-30-2024 Follow-up encounter Karlee Owen APRN.CNP Work Phone: OB/Gynecology Start: 09-23-2024 End: 09-23-2024 ambulatory ANGELIC BUTLER Facility:[facility] Start: 09-23-2024 End: 09-23-2024 Patient encounter procedure Christy Fairchild MD Work Phone: OB/Gynecology Comment on above: Supervision of high risk in first trimester (Primary Dx); Elevated blood pressure reading without diagnosis of hypertension; Chronic hypertension in ; 11 weeks gestation of Encounter for antena miguel screening for malformation using ultrasound (Primary Dx); 11 weeks gestation of Start: 09-10-2024 End: 09-10-2024 ambulatory ANGELIC BUTLER Facility:[facility] Start: 09-10-2024 End: 09-10-2024 Patient encounter procedure Angelic Butler MD Work Phone: OB/Gynecology Comment on above: Supervision of high risk in first trimester (Primary Dx); Obesity affecting in first trimester, unspecified obesity type; 10 weeks gestation of ; BMI 40.0-44.9, adult (HCC) Start: 08-30-2024 End: 08-30-2024 ambulatory MATILDE SOSA Facility:[facility] Start: 08-30-2024 End: 08-30-2024 Patient encounter procedure Electrochemist Wstr [facility] Work Phone: OB/Gynecology Comment on above: with uncer tain dates, antepartum Start: 08-14-2024 End: 08-14-2024 ambulatory [facility] Facility:[facility] Start: 08-12-2024 End: 09-05-2024 Follow-up encounter Matilde Sosa DRAFTER REFRIGERATION.CNM Work Phone: OB/Gynecology Start: 08-12-2024 End: 08-16-2024 Telephone encounter Matilde Sosa DRAFTER REFRIGERATION.CNM Work Phone: OB/Gynecology Start: 08-12-2024 End: 08-12-2024 ambulatory [facility] Facility:[facility] Start: 08-12-2024 End: 08-12-2024 ambulatory [facility] Facility:[facility] Start: 08-12-2024 End: 08-12-2024 Patient encounter procedure Matilde Sosa DRAFTER REFRIGERATION.CNM Work Phone: OB/Gynecology Comment on above: with uncer tain dates, antepartum (Primary Dx); Encounter for care in first trimester of first ; Threatened miscarriage in early ; Obesity affecting in first trimester, unspecified obesity type Start: 07-09-2024 End: 07-09-2024 ambulatory Mago Wong Facility:[facility] Start: 06-17-2024 End: 06-17-2024 Telephone encounter Angelic Butler MD Work Phone: OB/Gynecology Comment on above: Irregular Menstrual Cycle Start: 02-08-2024 Orders Only Becki solis DRAFTER REFRIGERATION.CELL OPERATOR Work Phone: [facility] Start: 02-07-2024 End: 02-07-2024 ambulatory MAGO WONG Facility:[facility] Start: 02-07-2024 End: 02-07-2024 Patient encounter procedure Nolan Jara DRAFTER REFRIGERATION.CELL OPERATOR Work Phone: [facility] Comment on above: Vaginal itching (Almita luis Dx); Vaginal discharge Start: 12-15-2023 End: 12-15-2023 ambulatory Angelic Butler MD Work Phone: OB/Gynecology Comment on above: PCOS Assistance Start: 12-15-2023 End: 12-15-2023 Patient encounter procedure Angelic Butler MD Work Phone: OB/Gynecology Comment on above: Encounter for gyneco logical examination (general) (routine) without abnormal findings (Primary Dx); Screening for cervical cancer; Vaginal high risk human papillomavirus (HPV) DNA test positive; Encounter for surveillance of vaginal ring hormonal contraceptive device Start: 12-15-2023 End: 12-15-2023 Patient encounter status Angelic Butler MD Work Phone: [facility] Start: 08-29-2023 Refill Angelic nj MD Work Phone: OB/Gynecology Comment on above: Refill Request Start: 03-01-2023 ambulatory Angelic nj MD Work Phone: OB/Gynecology Comment on above: Headache During Sex Start: 01-01-2023 ambulatory Angelic nj MD Work Phone: OB/Gynecology Comment on above: Possible Start: 12-06-2022 End: 12-06-2022 Emergency department patient visit [facility] Facility:[facility] Start: 12-06-2022 End: 12-06-2022 ambulatory [facility] Work Phone: Start: 12-06-2022 End: 12-06-2022 Patient encounter procedure [facility], Specimen Start: 09-08-2022 End: 09-08-2022 Patient encounter procedure Angelic Butler MD Work Phone: OB/Gynecology Comment on above: Encounter for gyneco logical examination (general) (routine) without abnormal findings (Primary Dx); Screen for STD (sexually transmitted disease) Start: 09-08-2022 End: 09-08-2022 Patient encounter status Angelic Butler MD Work Phone: OB/Gynecology Start: 09-05-2022 Refill Angelic nj MD Work Phone: OB/Gynecology Comment on above: Refill Request Procedures Date Procedure Procedure Detail Performing Clinician Start: 11-19-2024 Us preg uterus after 1st trimest 1/ gestation Angelic Butler MD Work Phone: Start: 10-22-2024 Us preg uterus after 1st trimest 1/ gestation Angelic Butler MD Work Phone: Start: 09-23-2024 Us preg uterus after 1st trimest 1/ gestation Matilde Sosa DRAFTER REFRIGERATION.CNM Work Phone: Start: 08-30-2024 Us preg uterus after 1st trimest 1/1st gestation Matilde oSsa DRAFTER REFRIGERATION.CNM Work Phone: Start: 08-12-2024 Antibody screen LORY SOSA Comment on above: Order Comment: Speci men Type: BLOOD SPECIMEN Ordering Facility: [facility] Address: [address] [place] [address] Performed By: #### T SPN #### [facility] CLIA [id number] [address] [place] [address] [place] Start: 08-12-2024 Us uterus l imited 1/> fetuses Matilde Sosa DRAFTER REFRIGERATION.CNM Work Phone: Investigation of transfusion reaction Microbial culture, routine Plan of Treatment Date Care Activity Detail Author Start: 09-28-2039 PAP TESTING PAP TESTING [facility] Start: 05-04-2030 Urine microalbumin profile [facility] Start: 12-14-2026 Screening for malign ant neoplasm of cervix Cervical Cancer Screening [facility] Start: 03-25-2025 End: 03-25-2025 Patient encounter procedure OB/Gynecology Comment on above: NST NST/OB Start: 03-18-2025 End: 03-18-2025 Patient encounter procedure OB/Gynecology Comment on above: NST NST/OB Start: 03-11-2025 End: 03-11-2025 Patient encounter procedure [facility] Comment on above: Growth Growth/ OB Start: 03-04-2025 End: 03-04-2025 Patient encounter procedure OB/Gynecology Comment on above: NST/OB Start: 02-25-2025 End: 02-25-2025 Patient encounter procedure OB/Gynecology Comment on above: NST/OB Start: 02-24-2025 Influenza vaccination Influenz a Vaccine (Season Ended) [facility] Start: 02-24-2025 RSV Vaccine (1 - Ris k 1-dose series) RSV Vaccine (1 - Risk 1-dose series) [facility] Start: 02-18-2025 End: 02-18-2025 Patient encounter procedure OB/Gynecology Comment on above: NST/ OB Start: 02-11-2025 End: 02-11-2025 Patient encounter procedure [facility]aternal [facility] Comment on above: Growth OB Start: 01-28-2025 End: 01-28-2025 Patient encounter procedure 01/28/2025 1:30 PM EDT Routine Office Visit OB/Gynecology [address] [place] [address] Angelic Butler MD [address] [place] [address] OB OB/Gynecology Comment on above: OB Start: 01-15-2025 End: 01-15-2025 Patient encounter procedure [facility]aternal [facility] Comment on above: Growth/ Glucose OB/ Glucose Start: 12-17-2024 End: 12-17-2024 Patient encounter procedure 12/17/2024 1:30 PM EDT Routine Office Visit OB/Gynecology [address] [place] [address] Laine Jara MD [address] [place] [address] OB OB/Gynecology Comment on above: OB Start: 12-16-2024 End: 12-16-2024 Patient encounter procedure 12/16/2024 8:40 AM EDT Office Visit OB/Gynecology [address] [place] [address] Angelic Butler MD [address] [place] [address] Annual OB/Gynecology Comment on above: Annual Start: 11-19-2024 End: 11-19-2024 Patient encounter procedure [facility]aternal [facility] Comment on above: Anatomy Anatomy/OB Start: 10-22-2024 End: 10-22-2024 Patient encounter procedure [facility] Comment on above: Early Anatomy Early Anatomy/OB Start: 09-23-2024 End: 12-23-2024 Protein/Creatinine [Mass Ratio] in Urine [facility] Work Phone: Comment on above: Expected: 09/23/2024 , Expires: 12/23/2024 Start: 09-23-2024 End: 09-23-2024 Patient encounter procedure [facility]aternal Medicine Comment on above: Nuchal OB Routine Start: 09-10-2024 End: 12-10-2024 Chromosome 21 trisomy [Presence] in Blood or Tissue by Cytogenetics [id number] PLUS Lab Routine Obesity affecting in first trimester, unspecified obesity type 10 weeks gestation of Expected: 09/10/2024, Expires: 12/10/2024 [facility] Work Phone: Comment on above: Expected: 09/10/2024 , Expires: 12/10/2024 Start: 09-10-2024 End: 09-10-2025 OBSTETRIC ULTRASOUND WHI OBSTETRIC ULTRASOUND [facility]I Anc Imaging Routine Obesity affecting in first trimester, unspecified obesity type Supervision of high risk in first trimester BMI 40.0-44.9, adult (HCC) Expected: 09/10/2024, Expires: 09/10/2025 [facility] Comment on above: Expected: 09/10/2024 , Expires: 09/10/2025 Start: 09-10-2024 End: 09-10-2024 Patient encounter procedure 09/10/2024 10:20 AM EDT Routine Office Visit OB/Gynecology [address] [place], [place] [id number] Angelic Butler MD [address] [place] [id number] 1st OB - LMP 06/15/25 OB/Gynecology Comment on above: 1st OB - LMP 5 Start: 08-30-2024 End: 08-30-2024 Patient encounter procedure 08/30/2024 1:00 PM EST Routine Office Visit [facility]aternal Medicine [address] [place] [address] Early OB US [facility] Comment on above: Early OB US Start: 08-24-2024 PAP TESTING PAP TESTING [facility] Start: 08-24-2024 Screening for malign ant neoplasm of cervix [facility] Start: 08-12-2024 End: 11-11-2024 ANEMIA REFLEX PANEL [facility] Work Phone: Comment on above: Expected: 08/12/2024 , Expires: 11/11/2024 Start: 08-12-2024 End: 11-11-2024 Hemoglobin A1c in Blood [facility] Comment on above: Expected: 08/12/2024 , Expires: 11/11/2024 Start: 08-12-2024 End: 11-11-2024 HEMOGLOBIN EVALUATION CASCADE [facility] Comment on above: Expected: 08/12/2024 , Expires: 11/11/2024 Start: 08-12-2024 End: 11-11-2024 Hepatitis B virus surface Ag [Presence] in Serum [facility] Comment on above: Expected: 08/12/2024 , Expires: 11/11/2024 Start: 08-12-2024 End: 11-11-2024 Hepatitis C virus Ab [Presence] in Serum [facility] Comment on above: Expected: 08/12/2024 , Expires: 11/11/2024 Start: 08-12-2024 End: 11-11-2024 HIV 1+2 Ab [Presence] in Serum or Plasma by Immunoassay [facility] Comment on above: Expected: 08/12/2024 , Expires: 11/11/2024 Start: 08-12-2024 End: 08-12-2025 OBSTETRIC ULTRASOUND WHI [facility] Comment on above: Expected: 08/12/2024 , Expires: 08/12/2025 Start: 08-12-2024 End: 11-11-2024 RUBELLA IGG ANTIBODY [facility] Comment on above: Expected: 08/12/2024 , Expires: 11/11/2024 Start: 08-12-2024 End: 11-11-2024 SYPHILIS TREPONEMAL W/REFLEX [facility] Comment on above: Expected: 08/12/2024 , Expires: 11/11/2024 Start: 08-12-2024 End: 11-11-2024 TYPE + SCREEN [facility] Comment on above: Expected: 08/12/2024 , Expires: 11/11/2024 Start: 03-08-2024 End: 03-08-2024 Patient encounter procedure 03/08/2024 8:00 AM EDT Office Visit OB/Gynecology [address] [place] [address] Mago Nunez APRN.CELL OPERATOR [address] [place] [address] Weight management OB/Gynecology Comment on above: Weight management Start: 02-25-2024 Covid-19 Vaccine ( season) Covid-19 Vaccine () [facility] Start: 02-25-2024 Influenza vaccination [facility] Start: 06-26-2023 Behavioral Health Screening Behavioral Health Screening [facility] Start: 06-26-2023 [facility] Start: 02-24-2023 Covid-19 Vaccine ( season) Covid-19 Vaccine ( season) [facility] Start: 02-24-2023 Influenza vaccination [facility] Start: 01-02-2023 End: 03-04-2023 Choriogonadotropin.beta subunit [Units/volume] in Serum or Plasma HCG QUANTITATIVE Lab Routine Irregular menstrual cycle Expected: 01/02/2023, Expires: 03/04/2023 [facility] Work Phone: Comment on above: Expected: 01/02/2023 , Expires: 03/04/2023 Start: 06-26-2022 DEPRESSION ASSESSMENT DEPRESSION ASS ESSMENT [facility] Start: 02-24-2022 Influenza vaccination INFLUENZA (#1) [facility] Start: 09-28-2015 Anxiety Screening Anxiety Screening [facility] Start: 09-28-2015 Depression Screening Depression Scre ening [facility] Start: 09-28-2015 HEPATITIS C SCREENING HEPATITIS C SC JOCE [facility] Start: 09-28-2015 Hepatitis C screening Hepatitis C Sc joce [facility] Start: 09-28-2015 HIV SCREENING HIV SCREENING [facility] Start: 09-28-2015 HIV screening HIV Screening [facility] Start: 2012 HPV Vaccine (1 - 3-d ose series) HPV Vaccine (1 - 3-dose series) [facility] Start: 09-28-2011 PEDS TO ADULT TRANSITION ANNUAL ASSESSMENT PEDS TO ADULT TRANSITION ANNUAL ASSESSMENT [facility] Start: 2009 PEDS TO ADULT TRANSITION INITIAL DISCUSSION PEDS TO ADULT TRANSITION INITIAL DISCUSSION [facility] Start: 2008 HPV VACCINE (1 - 2-d ose series) HPV VACCINE (1 - 2-dose series) [facility] Start: 09-28-2007 MENINGOCOCCAL B: Consider based on risk (1 of 2 - Risk Bexsero 2-dose series) MENINGOCOCCAL B: Consider based on risk (1 of 2 - Risk Bexsero 2-dose series) [facility] Start: 2006 HPV VACCINE (1 - 2-d ose series) HPV VACCINE (1 - 2-dose series) [facility] Start: 03-29-1998 COVID-19 VACCINE (#1) COVID-19 VACCI NE (#1) [facility] Bacteria identified in Urine by Culture BACTERIAL CULTURE, URINE Microbiology Routine with uncertain dates, antepartum Encounter for care in first trimester of first 08/12/2024 9:57 AM EST [facility] BACTERIAL VAGINOSIS NAAT BACTERIAL VAGINOSIS NAAT Lab Routine Vaginal itching Vaginal discharge 02/07/2024 1:07 PM EDT [facility] Work Phone: KATIE/TRICHOMONAS NAAT KATIE/TRICHOMONAS NAAT Lab Routine Vaginal itching Vaginal discharge 02/07/2024 1:07 PM EDT [facility] Chlamydia trachomatis+Neisseria gonorrhoeae DNA [Presence] in Unspecified specimen by HADLEY with probe detection GC/CHLAMYDIA DNA DET Lab Routine Encounter for gynecological examination (general) (routine) without abnormal findings Screen for STD (sexually transmitted disease) Ordered: 09/08/2022 [facility] Work Phone: Comment on above: Ordered: 09/08/2022 Chlamydia trachomatis+Neisseria gonorrhoeae DNA [Presence] in Unspecified specimen by HADLEY with probe detection GONORRHEA/CHLAMYDIA NAAT Lab Routine with uncertain dates, antepartum Encounter for care in first trimester of first 08/12/2024 9:57 AM [facility]: 09-09-2024 Choriogonadotropin.beta subunit [Units/volume] in Serum or Plasma HCG QUANTITATIVE Lab Routine with uncertain dates, antepartum Encounter for care in first trimester of first 2x per week for 8 Occurrences starting 08/12/2024 until 09/09/2024 [facility] Comment on above: 2x per week for 8 Oc currences starting 08/12/2024 until 09/09/2024 Choriogonadotropin.b eta subunit [Units/volume] in Serum or Plasma HCG QUANTITATIVE Lab Routine with uncertain dates, antepartum Encounter for care in first trimester of first 08/12/2024 9:55 AM [facility]: 11-09-2025 nonstress test NON-STRESS TEST Procedures Routine Supervision of high risk in third trimester (HCC) Obesity affecting in third trimester, unspecified obesity type (HCC) Once per week for 7 Occurrences starting 11/19/2024 until 11/09/2025 [facility] Work Phone: Comment on above: Once per week for 7 Occurrences starting 11/19/2024 until 11/09/2025 End: 03-29-2025 OBSTETRIC ULTRASOUND WHI OBSTETRIC ULTRASOUND WHI Anc Imaging Routine Obesity affecting in first trimester, unspecified obesity type 10 weeks gestation of Supervision of high risk in first trimester BMI 40.0-44.9, adult (HCC) Once per month for 6 Occurrences starting 09/10/2024 until 03/29/2025 [facility] Comment on above: Once per month for 6 Occurrences starting 09/10/2024 until 03/29/2025 End: 11-03-2025 OBSTETRIC ULTRASOUND WHI OBSTETRIC ULTRASOUND WHI Anc Imaging Routine Supervision of high risk in third trimester (HCC) Obesity affecting in third trimester, unspecified obesity type (HCC) Once per month for 3 Occurrences starting 11/19/2024 until 11/03/2025 [facility] Comment on above: Once per month for 3 Occurrences starting 11/19/2024 until 11/03/2025 PAP TEST PAP TEST Lab Radha parisi Encounter for gynecological examination (general) (routine) without abnormal findings Screening for cervical cancer Vaginal high risk human papillomavirus (HPV) DNA test positive 12/15/2023 9:24 AM EDT [facility] Work Phone: T VAGINALIS AMPLIFICATION T VAGINALIS AMPLIFICATION Lab Routine Encounter for gynecological examination (general) (routine) without abnormal findings Screen for STD (sexually transmitted disease) Ordered: 09/08/2022 [facility] Work Phone: Comment on above: Ordered: 09/08/2022 TRICHOMONAS VAGINALI S NAAT TRICHOMONAS VAGINALIS NAAT Lab Routine with uncertain dates, antepartum 08/12/2024 9:57 AM EST [facility] Immunizations Immunization Date Immunization Notes Care Provider Fa cili 05-04-2020 tetanus toxoid, redu basilio diphtheria toxoid, and acellular pertussis vaccine, adsorbed Angelic Butler MD Work Phone: [facility] Work Phone: 01-25-2010 tetanus toxoid, redu basilio diphtheria toxoid, and acellular pertussis vaccine, adsorbed Angelic Butler MD Work Phone: [facility] Work Phone: 11-11-2002 diphtheria, tetanus toxoids and acellular pertussis vaccine, unspecified formulation Angelic Butler MD Work Phone: [facility] Work Phone: 11-11-2002 measles, mumps and rubella virus vaccine Angelic Butler MD Work Phone: [facility] Work Phone: 11-11-2002 poliovirus vaccine, inactivated Angelic Butler MD Work Phone: [facility] Work Phone: 05-29-2000 varicella virus vaccine Maryanne Butler MD Work Phone: [facility] Work Phone: 01-04-1999 diphtheria, tetanus toxoids and acellular pertussis vaccine, unspecified formulation Angelic Butler MD Work Phone: [facility] Work Phone: 01-04-1999 haemophilus influenz ae type b vaccine, HbOC conjugate Angelic Butler MD Work Phone: [facility] Work Phone: 01-04-1999 trivalent poliovirus vaccine, live, oral Angelic Butler MD Work Phone: [facility] Work Phone: 09-28-1998 measles, mumps and rubella virus vaccine Angelic Butler MD Work Phone: [facility] Work Phone: 04-01-1998 diphtheria, tetanus toxoids and acellular pertussis vaccine, unspecified formulation Angelic Butler MD Work Phone: [facility] Work Phone: 04-01-1998 haemophilus influenz ae type b vaccine, HbOC conjugate Angelic Butler MD Work Phone: [facility] Work Phone: 04-01-1998 hepatitis B vaccine, pediatric or pediatric/adolescent dosage Angelic Butler MD Work Phone: [facility] Work Phone: 01-21-1998 diphtheria, tetanus toxoids and acellular pertussis vaccine, unspecified formulation Angelic Butler MD Work Phone: [facility] Work Phone: 01-21-1998 haemophilus influenz ae type b vaccine, HbOC conjugate Angelic Butler MD Work Phone: [facility] Work Phone: 01-21-1998 trivalent poliovirus vaccine, live, oral Angelic Butler MD Work Phone: [facility] Work Phone: 1997 diphtheria, tetanus toxoids and acellular pertussis vaccine, unspecified formulation Angelic Butler MD Work Phone: [facility] Work Phone: 1997 haemophilus influenz ae type b vaccine, HbOC conjugate Angelic Butler MD Work Phone: [facility] Work Phone: 1997 hepatitis B vaccine, pediatric or pediatric/adolescent dosage Angelic Butler MD Work Phone: [facility] Work Phone: 1997 trivalent poliovirus vaccine, live, oral Angelic Butler MD Work Phone: [facility] Work Phone: 1997 hepatitis B vaccine, pediatric or pediatric/adolescent dosage Angelic Butler MD Work Phone: [facility] Work Phone: Payers Date Payer Category Payer Blue [facility] PPO [id number] 2024 Unknown [id number] 2024 Self-pay [id number] 2023 Private Health Insurance [id number] 2023 Unknown [id number] 2017 Unknown [id number] 2017 Unknown [id number] Unknown [id number] Social History Date Type Detail Facility Start: 03-06-2018 End: 09-08-2022 Tobacco smoking status NHIS Never smoked tobacco [facility] Start: 03-06-2018 End: 09-08-2022 Tobacco use and exposure Smokeless tobacco non-user [facility] Start: 08-24-2021 Alcohol intake Current drinke r of alcohol (finding) [facility] Start: 07-17-2019 Alcohol Comment social [facility] Start: 1997 Sex Assigned At Female [facility] Start: 09-08-2022 End: 09-23-2024 Alcohol intake Ex-drinker (finding) [facility] Start: 08-25-2019 Tobacco smoking stat us NHIS Unknown if ever smoked [facility] Start: 08-25-2019 Occasional [facility] Start: 08-25-2019 None [facility] Start: 08-25-2019 With Family [facility] Start: 10-11-2022 End: 08-12-2024 History of Social function [facility] Start: 10-11-2022 End: 08-12-2024 Tobacco use panel [facility] National Score (1-10 0), lower number is lower risk 51 [facility] Start: 08-05-2019 Gender identity Identifies as female gender (finding) [facility] Start: 08-05-2019 Sexual orientation Heterosexual (jurgen singh) [facility] Start: 08-09-2024 Education 17 [facility] Start: 07-16-2024 [facility] Goals Date Patient Goal Desired Activity /State Personal health goal Functional Status Date Assessment Result Facility 06-27-2014 Are you deaf, or do you have serious difficulty hearing No 06/27/2014 4:36 PM Merna Rayo RN No [facility] 06-27-2014 Are you blind, or do you have serious difficulty seeing, even when wearing glasses No 06/27/2014 4:36 PM Merna Rayo RN No [facility] 06-27-2014 Do you have serious difficulty walking or climbing stairs No 06/27/2014 4:36 PM Merna Rayo RN No [facility] 06-27-2014 Because of a physica l, mental, or emotional condition, do you have difficulty doing errands alone such as visiting a physician's office or shopping No 06/27/2014 4:36 PM Merna Rayo RN No [facility] Mental Status Date Assessment Result Facility 06-27-2014 Because of a physica l, mental, or emotional condition, do you have serious difficulty concentrating, remembering, or making decisions No 06/27/2014 4:36 PM Merna Rayo RN No [facility] Clinical Notes 01-01-2009 to 11-25-2024 Telephone Encounter - Lita Reeves MD - 11/25/2024 1:07 PM EDTTelephone Encounter - Lita Reeves MD - 11/25/2024 1:07 PM EDTTelephone Encounter - Nadiya Bernard RN - 11/25/2024 9:35 AM EDT Note Date & Type Note Facility 11-25-2024 Telephone encounter Note BP's normal thanks [facility] Work Phone: 11-25-2024 Miscellaneous Notes BP's normal thanks 20w6d Next visit 12/17 with KJ. Nadiya Bernard RN Patient has appointment in office today. Rita Bernal RN 18w0d Next appointment is 11/19 BP's normal keep scheduled follow up 17w6d Next OB visit 11/19 with JC. Nadiya Bernard RN documented in this encounter [facility] 11-25-2024 Telephone encounter Note 20w6d Next visit 12/17 with KJ. Nadiya Bernard RN [facility] 11-19-2024 Progress note Formatting of t his note might be different from the original. Anatomy ultrasound reviewed. No abnormalities identified. Follow up as clinically indicated. Please place copy in ob chart. Angelic Butler MD [facility] 11-19-2024 Miscellaneous Notes Anatomy ultrasound reviewed. No abnormalities identified. Follow up as clinically indicated. Please place copy in ob chart. Angelic Butler MD documented in this encounter [facility] 11-19-2024 Telephone encounter Note Patient has appointment in office today. Rita Bernal RN [facility] 11-19-2024 Instructions Tori Merchant MA - 11/19/2024 2:04 PM EDT SEQUENTIAL SCREENINGS The [facility] offers sequential screenings for women who are interested in screenings for chromosomal abnormalities and certain defects during a . The sequential screen combines ultrasound and blood tests to determine the risk of chromosomal abnormalities, including Down's Syndrome (Trisomy 21) and Trisomy 18, as well as open neural tube defects including spina bifida. Ultrasound examination is performed between 11 weeks and 13 weeks gestational age. Blood tests are drawn after the ultrasound and again later in the between 15 and 21 weeks gestational age. Please let your physician know if you are interested in this testing. It will require an appointment with our automobile technician. This is not an ultrasound performed by a physician in our office during a routine visit. SIGNS AND SYMPTOMS OF LABOR 1. Contractions every 10 minutes or more often 2. Clear, pink, or brownish fluid (water) leaking from vagina 3. Feeling that baby is pushing down, pressure 4. Low, dull backache 5. Cramps that feel like a period 6. Cramps with or without diarrhea If you notice any of the above symptoms, contact our office at [phone] and ask to speak with a nurse. After hours, you can call doctors registry at [phone] OR call [facility] at [phone] and ask to have the doctor marketing automation specialist paged. If you consider this an emergency, dial 2-4-1 or go to your nearest emergency department. NEED HELP? Are you dealing with a violent or abusive relationship? Are you a victim of rape or sexual assult? Call [facility] ([place]) 24 hour Crisis Hotline: 351.588.2761 or 332-848-2112. MANUAL Your Guide to a Healthy manual is now on-line. Visit [email or web address] to download your free copy documented in this encounter [facility] 11-19-2024 Progress note Formatting of t his note might be different from the original. COSME-S: Oitlia Meza is a 29 year old female who presents at 20w0d with SPENCER:04/08/2025, by Ultrasound for a routine visit. Denies headache, visual changes, chest pain, shortness of breath, vaginal bleeding, leakage of fluid, or dysuria. Feeling well, no complaints. O: See flow sheet Gen: No apparent distress Abd: Gravid, nontender BP log for review, all normal range ASSESSMENT/PLAN: 1. Supervision of high risk in first trimester -Continue PNV 2. 20 weeks gestation of 3. Chronic hypertension in -Growth US every 4 weeks at 28 weeks per new [facility] guidelines -No testing as long as BP remains stable -IOL 38-39 weeks -Keep BP log weekly and send via [employer] -Continue ASA 162mg PO once daily -Baseline labs normal 4. Obesity affecting in first trimester, unspecified obesity type -Growth US every 4 weeks at 32 weeks -NST weekly at 32 weeks -IOL at 39 weeks PTL precautions reviewed and when to call RTO in 4 weeks Jojo Saez APRN.CNM [facility] 11-19-2024 Miscellaneous Notes COSME-S: Otilia Meza is a 29 year old female who presents at 20w0d with SPENCER:04/08/2025, by Ultrasound for a routine visit. Denies headache, visual changes, chest pain, shortness of breath, vaginal bleeding, leakage of fluid, or dysuria. Feeling well, no complaints. O: See flow sheet Gen: No apparent distress Abd: Gravid, nontender BP log for review, all normal range ASSESSMENT/PLAN: 1. Supervision of high risk in first trimester -Continue PNV 2. 20 weeks gestation of 3. Chronic hypertension in -Growth US every 4 weeks at 28 weeks per new [facility] guidelines -No testing as long as BP remains stable -IOL 38-39 weeks -Keep BP log weekly and send via [employer] -Continue ASA 162mg PO once daily -Baseline labs normal 4. Obesity affecting in first trimester, unspecified obesity type -Growth US every 4 weeks at 32 weeks -NST weekly at 32 weeks -IOL at 39 weeks PTL precautions reviewed and when to call RTO in 4 weeks Jojo Saez APRN.CNM documented in this encounter [facility] 11-05-2024 Telephone encounter Note 18w0d Next appointment is 11/19 [facility] 11-04-2024 Telephone encounter Note BP's normal keep scheduled follow up [facility] 11-04-2024 Telephone encounter Note 17w6d Next OB visit 11/19 with JC. Nadiya Bernard, RN [facility] 10-22-2024 Progress note Formatting of t his note might be different from the original. COSME-S: Otilia Meza is a 29 year old female who presents at 16w0d with SPENCER:04/08/2025, by Ultrasound for a routine visit. Denies headache, visual changes, chest pain, shortness of breath, vaginal bleeding, leakage of fluid, or dysuria. Feeling well, no complaints. O: See flow sheet Gen: No apparent distress Abd: Gravid, nontender ASSESSMENT/PLAN: 1. Supervision of high risk in first trimester -Continue PNV 2. 16 weeks gestation of 3. Chronic hypertension in -Growth US every 4 weeks at 32 weeks -No testing as long as BP remains stable -IOL 38-39 weeks -Keep BP log weekly and send via [employer] -Continue ASA 162mg PO once daily -Baseline labs normal 4. Obesity affecting in first trimester, unspecified obesity type -Growth US every 4 weeks at 32 weeks -NST weekly at 32 weeks -IOL at 39 weeks PTL precautions reviewed and when to call RTO in 4 weeks Jojo Saez APRN.CNM [facility] 10-22-2024 Miscellaneous Notes COSME-S: Otilia Meza is a 29 year old female who presents at 16w0d with SPENCER:04/08/2025, by Ultrasound for a routine visit. Denies headache, visual changes, chest pain, shortness of breath, vaginal bleeding, leakage of fluid, or dysuria. Feeling well, no complaints. O: See flow sheet Gen: No apparent distress Abd: Gravid, nontender ASSESSMENT/PLAN: 1. Supervision of high risk in first trimester -Continue PNV 2. 16 weeks gestation of 3. Chronic hypertension in -Growth US every 4 weeks at 32 weeks -No testing as long as BP remains stable -IOL 38-39 weeks -Keep BP log weekly and send via [employer] -Continue ASA 162mg PO once daily -Baseline labs normal 4. Obesity affecting in first trimester, unspecified obesity type -Growth US every 4 weeks at 32 weeks -NST weekly at 32 weeks -IOL at 39 weeks PTL precautions reviewed and when to call RTO in 4 weeks Jojo Saez APRN.CNM COSME- documented in this encounter [facility] 10-22-2024 Progress note Formatting of t his note might be different from the original. COSME- [facility] 10-22-2024 Note HNO ID: [id number] Author: JOJO SAEZ APRN.CNM Service: ? Author Type: Conduit Worker Type: Progress Notes Filed: 10/22/2024 13:52 Note Text: COSME- [facility] 10-22-2024 History of Presen t illness Narrative COSME- documented in this encounter [facility] 10-08-2024 Telephone encounter Note 14w0d Aspirin increased to 162mg at last visit per DM's note and only updated via med update. New rx was not sent in. Please file. Requested Prescriptions Pending Prescriptions Disp Refills aspirin, enteric coated (ECOTRIN LOW STRENGTH) 81 mg EC tablet 180 tablet 3 Sig: Take 2 tablets by mouth once daily. Nadiya Bernard RN [facility] 10-08-2024 Miscellaneous Notes 14w0d Aspirin increased to 162mg at last visit per DM's note and only updated via med update. New rx was not sent in. Please file. Requested Prescriptions Pending Prescriptions Disp Refills aspirin, enteric coated (ECOTRIN LOW STRENGTH) 81 mg EC tablet 180 tablet 3 Sig: Take 2 tablets by mouth once daily. Nadiya Bernard RN documented in this encounter [facility] 09-23-2024 Note HNO ID: [id number] Author: CHRISTY HARVEY MD Service: ? Author Type: Physician Type: Progress Notes Filed: 09/23/2024 11:58 Note Text: DM-Pt doing well. Denies vaginal Bleeding, Leaking fluid, or regular Cramping. Physical Exam: Gen: female in no apparent distress Abd: soft, Gravid. Non tender to palpation. See flow sheet @ 11.6 weeks Assessment AND Plan Supervision of high risk in first trimester (HCC) Elevated blood pressure reading without diagnosis of hypertension Orders: COMPREHENSIVE METABOLIC PANEL; Future PROTEIN / CREATININE RATIO; Future Chronic hypertension in (HCC) Based on two elevated BP >130/80s suspect CHTN in . Increased ASA to 162mg in evening. 11 weeks gestation of ([facility]) Anatomy us scheduled RTO 4 wks Maternity 21 to be drawn Christy Zimmerman MD [facility] 09-23-2024 History of Presen t illness Narrative DM-Pt doing well. Denies vaginal Bleeding, Leaking fluid, or regular Cramping. Physical Exam: Gen: female in no apparent distress Abd: soft, Gravid. Non tender to palpation. See flow sheet @ 11.6 weeks Assessment & Plan Supervision of high risk in first trimester (HCC) Elevated blood pressure reading without diagnosis of hypertension Orders: COMPREHENSIVE METABOLIC PANEL; Future PROTEIN / CREATININE RATIO; Future Chronic hypertension in (HCC) Based on two elevated BP >130/80s suspect CHTN in . Increased ASA to 162mg in evening. 11 weeks gestation of ([facility]) Anatomy us scheduled RTO 4 wks Maternity 21 to be drawn Christy Zimmerman MD documented in this encounter [facility] 09-23-2024 Instructions Marion Benton MA - 09/23/2024 11:10 AM EDT SEQUENTIAL SCREENINGS The [facility] offers sequential screenings for women who are interested in screenings for chromosomal abnormalities and certain defects during a . The sequential screen combines ultrasound and blood tests to determine the risk of chromosomal abnormalities, including Down's Syndrome (Trisomy 21) and Trisomy 18, as well as open neural tube defects including spina bifida. Ultrasound examination is performed between 11 weeks and 13 weeks gestational age. Blood tests are drawn after the ultrasound and again later in the between 15 and 21 weeks gestational age. Please let your physician know if you are interested in this testing. It will require an appointment with our automobile technician. This is not an ultrasound performed by a physician in our office during a routine visit. SIGNS AND SYMPTOMS OF LABOR 1. Contractions every 10 minutes or more often 2. Clear, pink, or brownish fluid (water) leaking from vagina 3. Feeling that baby is pushing down, pressure 4. Low, dull backache 5. Cramps that feel like a period 6. Cramps with or without diarrhea If you notice any of the above symptoms, contact our office at [phone] and ask to speak with a nurse. After hours, you can call doctors registry at [phone] OR call [facility] at [phone] and ask to have the doctor marketing automation specialist paged. If you consider this an emergency, dial 9-1-5 or go to your nearest emergency department. NEED HELP? Are you dealing with a violent or abusive relationship? Are you a victim of rape or sexual assult? Call [facility] 24 hour Crisis Hotline: 791.865.8997 or 655-884-5747. MANUAL Your Guide to a Healthy manual is now on-line. Visit [email or web address] Claudine to download your free copy documented in this encounter [facility] 09-10-2024 Note Addended by: ANGELIC BUTLER on: 09/10/2024 04:05 PM Modules accepted: Orders [facility] 09-10-2024 Miscellaneous Notes Addended by: ANGELIC BUTLER on: 09/10/2024 04:05 PM Modules accepted: Orders Addended by: ANGELIC BUTLER on: 09/10/2024 04:04 PM Modules accepted: Orders Addended by: TORI MERCHANT on: 09/10/2024 11:13 AM Modules accepted: Orders RR- VB No. LOF No. CTXS No. Movement: present. Other c/o: No. Medication list reviewed. SENSITIVE EXAM: Sensitive exam not performed. Physical Exam See Flow Sheet Abd: soft, nontender, gravid A/P 10w0d Estimated Date of Delivery: 04/08/25 Assessment & Plan Obesity affecting in first trimester, unspecified obesity type Orders: [id number] PLUS; Future OBSTETRIC ULTRASOUND WHI; Future 10 weeks gestation of Orders: [id number] PLUS; Future Supervision of high risk in first trimester Orders: OBSTETRIC ULTRASOUND WHI; Future BMI 40.0-44.9, adult (HCC) Orders: OBSTETRIC ULTRASOUND WHI; Future 16 and 20 week US, first trimester scan aneuploidy screening next visit start asa porophylaxis after next visit Angelic Butler M.D. documented in this encounter [facility] 09-10-2024 Note Addended by: ANGELIC BUTLER on: 09/10/2024 04:04 PM Modules accepted: Orders [facility] 09-10-2024 Note Addended by: Maryanne MERCHANT on: 09/10/2024 11:13 AM Modules accepted: Orders T [facility] 09-10-2024 Progress note Formatting of maryanne his note might be different from the original. RR- VB No. LOF No. CTXS No. Movement: present. Other c/o: No. Medication list reviewed. SENSITIVE EXAM: Sensitive exam not performed. Physical Exam See Flow Sheet Abd: soft, nontender, gravid A/P 10w0d Estimated Date of Delivery: 04/08/25 Assessment & Plan Obesity affecting in first trimester, unspecified obesity type Orders: [id number] PLUS; Future OBSTETRIC ULTRASOUND WHI; Future 10 weeks gestation of Orders: [id number] PLUS; Future Supervision of high risk in first trimester Orders: OBSTETRIC ULTRASOUND WHI; Future BMI 40.0-44.9, adult (HCC) Orders: OBSTETRIC ULTRASOUND WHI; Future 16 and 20 week US, first trimester scan aneuploidy screening next visit start asa porophylaxis after next visit Angelic Butler M.D. T [facility] 09-10-2024 Instructions Tori Merchant MA - 09/10/2024 10:20 AM EDT SEQUENTIAL SCREENINGS The [facility] offers sequential screenings for women who are interested in screenings for chromosomal abnormalities and certain defects during a . The sequential screen combines ultrasound and blood tests to determine the risk of chromosomal abnormalities, including Down's Syndrome (Trisomy 21) and Trisomy 18, as well as open neural tube defects including spina bifida. Ultrasound examination is performed between 11 weeks and 13 weeks gestational age. Blood tests are drawn after the ultrasound and again later in the between 15 and 21 weeks gestational age. Please let your physician know if you are interested in this testing. It will require an appointment with our automobile technician. This is not an ultrasound performed by a physician in our office during a routine visit. SIGNS AND SYMPTOMS OF LABOR 1. Contractions every 10 minutes or more often 2. Clear, pink, or brownish fluid (water) leaking from vagina 3. Feeling that baby is pushing down, pressure 4. Low, dull backache 5. Cramps that feel like a period 6. Cramps with or without diarrhea If you notice any of the above symptoms, contact our office at [phone] and ask to speak with a nurse. After hours, you can call doctors registry at [phone] OR call [facility] at [phone] and ask to have the doctor marketing automation specialist paged. If you consider this an emergency, dial 9-1-4 or go to your nearest emergency department. NEED HELP? Are you dealing with a violent or abusive relationship? Are you a victim of rape or sexual assult? Call [facility] ([place]) 24 hour Crisis Hotline: 729.146.1357 or 063-650-9408. MANUAL Your Guide to a Healthy manual is now on-line. Visit the [email or web address] to download your free copy documented in this encounter [facility] 08-31-2024 Note HNO ID: [id number] Author: BIANCA MELO MD Service: ? Author Type: Physician Type: Progress Notes Filed: 08/31/2024 03:35 Note Text: The patient presents for requested ultrasound. Full report available in the Imaging tab in Liquid Grids. Bianca Melo MD [facility] 08-31-2024 History of Presen t illness Narrative The patient presents for requested ultrasound. Full report available in the Imaging tab in [employer]. Bianca Melo MD documented in this encounter [facility] 08-16-2024 Telephone encounter Note [employer]asc[employer] message was sent to patient by CP on 08/15, stating levels increased appropriately. hCG Quantitative, Blood (mIU/mL) Date Value 08/14/2024 35,704.0 08/12/2024 21,796.0 Nadiya Bernard RN [facility] 08-16-2024 Miscellaneous Notes At[employer] message was sent to patient by CP on 08/15, stating levels increased appropriately. hCG Quantitative, Blood (mIU/mL) Date Value 08/14/2024 35,704.0 08/12/2024 21,796.0 Nadiya Bernard RN Pt saw CP 08/12/24-----POC US completed. US tech to room for verification. Gestational sac and yolk sac visible. Small pole measuring 5 w 6 days. HCG levels ordered-1st drawn 08/12/24. Leave open for f/u on results. Manda Delgado RN documented in this encounter [facility] 08-12-2024 Telephone encounter Note Pt saw CP 08/12/24-----POC US completed. US tech to room for verification. Gestational sac and yolk sac visible. Small pole measuring 5 w 6 days. HCG levels ordered-1st drawn 08/12/24. Leave open for f/u on results. Manda Delgado RN [facility] 08-12-2024 Note HNO ID: [id number] Author: TORI MERCHANT MA Service: ? Author Type: Pulverizer Operator Type: Progress Notes Filed: 08/12/2024 10:09 Note Text: OB point of care ultrasound was performed. See imaging tab for details. Tori Merchant MA [facility] 08-12-2024 History of Presen t illness Narrative OB point of care ultrasound was performed. See imaging tab for details. Tori Merchant MA INITIAL OB ASSESSMENT HPI: Otilia is a 28 year old White Female here to establish Obstetrical Care. Patient's last menstrual period was 06/15/2024. from OB Dating Form. was unplanned but accepted Complaints: (!) Abdominal pain; Heart racing or skipping beats OB History Gravida1 Para0 Term0 Preterm0 AB0 Living0 SAB0 IAB0 Ectopic0 Multiple0 Live Births0 Previous history: Prior : never History of 4th degree laceration: NA History of shoulder dystocia: No History of Hypertensive disorders including pre-eclampsia or gestational hypertension: NA History of gestational diabetes: NA Patient's Risk Screening for delivery: Have you had a prior melgoza between 20w and 36w6d? No How many pregnancies have you had before? 0 Did you have a previous baby with a GBS Infection? No Please select all that apply for any prior : N/A MEDICAL/PSYCHOSOCIAL HISTORY: History of hemorrhage or bleeding concerns: No Thyroid Disease: No History of chronic hypertension: No History of pre-existing diabetes: No No results found for: ABORHD BMI 40.39 kg/(m^2) Last Pap: 12/27/2023 History of abnormal pap: Yes Prior treatment for cervical dysplasia: Colposcopy 2019 Last HPV: 07/24/2019 History of STDs: Chlamydia Partner History of STDs: None Did you have a partner with Herpes? No Tobacco use: No E-Cigarette/Vaping Use: No Caffeine use: Yes Drug use: No Alcohol use: No Multivitamin with Folic acid: No Would refuse blood transfusion if medically necessary: No Social Needs: How often does this describe you? I don't have enough money to pay my bills: Never Within the past 12 months, have you worried that your food would run out before you had money to buy more? Never In the past 12 months, has lack of reliable transportation kept you from going to medical appointments or work, or from getting things needed for daily living? Never In the past 12 months, have you had any concerns about having a place to live, or about the condition or quality of your housing? Never Would you like more information on any of the following (please check all that apply)? Centering (group care classes) Social History: Do you have any history of depression, anxiety, PTSD, or other mood problems? No Do you have a history of abuse or trauma that may impact your experience? No Are you currently employed? Yes Depression/Anxiety Screening: denies symptoms of depression. OB Depression and Anxiety Screening- This Encounter (since 08/11/2024) Over the past 2 weeks have you felt down, depressed, or hopeless? Negative Over the past two weeks, have you felt little interest or pleasure in doing things? Negative Feeling nervous, anxious or on edge 1-Several days Not being able to stop or control worrying 1-Several days Anxiety Pre-Screening Total (If >/= 3 additional questions will be reviewed) 2 Genetic Screening: Partner present: No Patient verbalized knowledge of partner family health history: Yes Do you or your partner have any personal or family history of defects not previously discussed: No Do you have history of a complicated by anomaly, genetic condition, or demise: No Preeclampsia Risk Screening: Screening for prevention of preeclampsia: High risk factors: None Moderate risk ractors: Obesity (body mass index greater than 30) OB Risk Screening: Completed, no positive findings documented. 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 nystatin-triamcinolone (MYCOLOG) ointment Apply sparingly to perineum twice daily for irritation/infection. (Patient not taking: Reported on 08/12/2024) 30 g 0 Etonogestrel-Ethinyl Estradiol (NUVARING) 0.12-0.015 mg/24 hr vaginal ring Use 1 Each vaginally as directed. leave ring for 24 days, remove and insert new ring. Take a 4 day break and insert a new ring when you get breakthrough bleeding (Patient not taking: Reported on 08/12/2024) 1 Each 11 No current facility-administered medications for this visit. Allergies As of Date: 08/12/2024 (No Known Allergies) Fully Assessed 08/12/2024 Does patient have penicillin allergy: No REVIEW OF SYSTEMS: GENERAL: Negative for: Fever or Chills HEENT: Negative for: Headache, Impaired Vision, Ringing in Ears, Nosebleeds NECK: Negative for: Swelling, Pain, Stiffness RESPIRATORY: Negative for: Cough, Shortness of breath, Wheezing GASTROINTESTINAL: Positive for: Constipation, Positive for: Nausea and Vomiting, and Positive for: Heartburn MUSCULOSKELETAL: Negative for: Muscle or joint pain, stiffness, Joint swelling NEUROLOGIC/PSYCHIATRIC: Negative for: Weakness, Paralysis, Numbness, Tingling, Tremor, Anxiety, Depression, Memory loss SKIN: Negative for: Rash, Itching GENITOURINARY: Negative for: vaginal itching, vaginal discharge, hematuria or dysuria and Positive for: urinary frequency SENSITIVE EXAM: The sensitive examination was discussed with the Patient or Patient's Authorized Shrub Grower. As applicable, any other physician, advance practice provider, medical student, or other health professional student that will be observing or involved in the sensitive examination for educational or training purposes was discussed with the Patient or Authorized Shrub Grower. The Patient or Authorized Shrub Grower has agreed to proceed with the sensitive examination. (Sensitive examination includes inspection and/or palpation of the breasts, pelvis, prostate and anorectal regions). PHYSICAL EXAM: BP 126/78 Ht 5' 3 (1.60m) Wt 228 lb (103.4kg) LMP 06/15/2024 BMI 40.40 kg/(m^2). GENERAL: pleasant in no apparent distress DERMATOLOGY: Normal, without lesions, non-icteric, and non-hirsute NECK: Supple and full range of motion CHEST: Normal inspiratory effort BREAST: soft, non-tender, symmetric, no dominant mass, normal nipple-areolar complex, no lymphadenopathy, and no nipple discharge ABDOMEN: soft, non-tender, and no masses NEURO: alert and oriented x3,exam grossly non-focal PELVIS: External genitalia normal without lesions. Perineal body intact. No vaginal or cervical lesions. No adnexal masses or tenderness. Clinical Pelvimetry: Pelvimetry clinically assessed as adequate TVUS- Gestational sac, Yolk sac, and small pole measuring 5w6d. LCira SwiftMatrinez to room for verification and TVUS. ASSESSMENT/PLAN: 1. with uncertain dates, antepartum - ICD9: V22.1, ICD10: Z34.90 (primary diagnosis) 2. Encounter for care in first trimester of first 3. Threatened miscarriage in early 4. Obesity affecting in first trimester, unspecified obesity type PLAN: 1) Patient oriented to practice. Discussed nutrition, folic acid supplementation, dietary guidelines, exercise, smoking, alcohol, caffeine, and drug use. Discussed routine OB labs including STD/HIV. Discussed how to access Your guide to a health and the Linen Manager. Discussed hemoglobin electrophoresis. Patient: Accepts 2) Screening: Hemoglobin A1C: ordered Baby Aspirin: The patient has been counseled about the potential benefits of low dose aspirin in and our recommendation that this be offered to all patients, regardless of whether they meet the high risk criteria specified above. She Accepts Aneuploidy Screening: Discussed aneuploidy screening, nuchal translucency/first trimester early anatomy ultrasound and NIPT. The risks/benefits and limitations of NIPT/aneuploidy screening were reviewed including the potential for false negative and false positive results. The availability of genetic counseling was reviewed. Information on aneuploidy screening was provided. The patient chooses to proceed with First trimester early anatomy ultrasound (12-13w6d) and NIPT (10 weeks) Myriad Carrier Screening: Discussed myriad carrier screening. We discussed the availability of professional-society guided carrier screening and reviewed the conditions screened and limitations of screening. The availability of genetic counseling was reviewed. Information on carrier screening was provided. The patient Declines 3) Patient offered option of Virtual Visits. Patient prefers in person visits. - Reviewed TVUS findings with patient and partner. Discussed possibility of early dates vs. Miscarriage. HGC levels ordered. Bleeding precautions reviewed and when to call office. Follow up in 2 weeks for dating US and JT or sooner prn. Matilde Sosa APRN.CNM documented in this encounter [facility] 08-09-2024 Note HNO ID: [id number] Author: MATILDE SOSA APRN.CNM Service: ? Author Type: Conduit Worker Type: Progress Notes Filed: 08/12/2024 10:47 Note Text: INITIAL OB ASSESSMENT HPI: Otilia is a 28 year old White Female here to establish Obstetrical Care. Patient's last menstrual period was 06/15/2024. from OB Dating Form. was unplanned but accepted Complaints: (!) Abdominal pain; Heart racing or skipping beats OB History Gravida1 Para0 Term0 Preterm0 AB0 Living0 SAB0 IAB0 Ectopic0 Multiple0 Live Births0 Previous history: Prior : never History of 4th degree laceration: NA History of shoulder dystocia: No History of Hypertensive disorders including pre-eclampsia or gestational hypertension: NA History of gestational diabetes: NA Patient's Risk Screening for delivery: Have you had a prior melgoza between 20w and 36w6d? No How many pregnancies have you had before? 0 Did you have a previous baby with a GBS Infection? No Please select all that apply for any prior : N/A MEDICAL/PSYCHOSOCIAL HISTORY: History of hemorrhage or bleeding concerns: No Thyroid Disease: No History of chronic hypertension: No History of pre-existing diabetes: No No results found for: ABORHD BMI 40.39 kg/(m2) Last Pap: 12/27/2023 History of abnormal pap: Yes Prior treatment for cervical dysplasia: Colposcopy 2019 Last HPV: 07/24/2019 History of STDs: Chlamydia Partner History of STDs: None Did you have a partner with Herpes? No Tobacco use: No E-Cigarette/Vaping Use: No Caffeine use: Yes Drug use: No Alcohol use: No Multivitamin with Folic acid: No Would refuse blood transfusion if medically necessary: No Social Needs: How often does this describe you? I don't have enough money to pay my bills: Never Within the past 12 months, have you worried that your food would run out before you had money to buy more? Never In the past 12 months, has lack of reliable transportation kept you from going to medical appointments or work, or from getting things needed for daily living? Never In the past 12 months, have you had any concerns about having a place to live, or about the condition or quality of your housing? Never Would you like more information on any of the following (please check all that apply)? Centering (group care classes) Social History: Do you have any history of depression, anxiety, PTSD, or other mood problems? No Do you have a history of abuse or trauma that may impact your experience? No Are you currently employed? Yes Depression/Anxiety Screening: denies symptoms of depression. OB Depression and Anxiety Screening- This Encounter (since 08/11/2024) Over the past 2 weeks have you felt down, depressed, or hopeless? Negative Over the past two weeks, have you felt little interest or pleasure in doing things?? Negative Feeling nervous, anxious or on edge 1-Several days Not being able to stop or control worrying 1-Several days Anxiety Pre-Screening Total (If >/= 3 additional questions will be reviewed) 2 Genetic Screening: Partner present: No Patient verbalized knowledge of partner family health history: Yes Do you or your partner have any personal or family history of defects not previously discussed: No Do you have history of a complicated by anomaly, genetic condition, or demise: No Preeclampsia Risk Screening: Screening for prevention of preeclampsia: High risk factors: None Moderate risk ractors: Obesity (body mass index greater than 30) OB Risk Screening: Completed, no positive findings documented. 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 nystatin-triamcinolone (MYCOLOG) ointment Apply sparingly to perineum twice daily for irritation/infection. (Patient not taking: Reported on 08/12/2024) 30 g 0 Etonogestrel-Ethinyl Estradiol (NUVARING) 0.12-0.015 mg/24 hr vaginal ring Use 1 Each vaginally as directed. leave ring for 24 days, remove and insert new ring. Take a 4 day break and insert a new ring when you get breakthrough bleeding (Patient not taking: Reported on 08/12/2024) 1 Each 11 No current facility-administered medications for this visit. Allergies As of Date: 08/12/2024 (No Known Allergies) Fully Assessed 08/12/2024 Does patient have pe (more content not included)... [facility] 08-09-2024 Instructions Tori Merchant MA - 08/09/2024 1:32 PM EST Please select the following link to access the [facility] Your Guide to a Healthy . [email or web address] Please select the following link to access the [facility] Your Guide to a Healthy . [email or web address] documented in this encounter [facility] 06-17-2024 Telephone encounter Note Patient notified. Ofelia Driscoll RN [facility] 06-17-2024 Miscellaneous Notes Patient notified. Ofelia Driscoll RN Recommend Ibuprofen 600mg PO every 6 hr, warm bath/heating pad. Continue to monitor at this time. If bleeding does no stop and no improvement in pain after this period recommend follow up visit in office. Otherwise see how she does with next menses as her body adjusts after stopping control. Jojo Saez APRN.CNM Patient calling with concerns of heavy vaginal bleeding and pain. Patient has not had a period since October. She was using Nuvaring and she would keep in for 24 days and remove for 4 days and then insert a new ring. While doing this she never had a period. Patient removed her last Nuvaring in March and never inserted a new one as she no longer wanted control and she had not had a period until yesterday. Patient states she is changing a regular tampon every 2-3 hours. States she is having abdominal cramping and lower back pain that she rates at a 7-8 out of 10. Patient states she has tried heat and that help. Patient has also taken Tylenol. Discussed with patient trying Motrin and alternating with Tylenol as well with the heat. Discussed with patient bleeding precautions and when to go to the ER. Patient is going to switch to pads to measure bleeding more accurately. Patient aware Dr. Butler is out of the office this afternoon. Do you have any other recommendations for the patient? Rita Bernal RN documented in this encounter [facility] 06-17-2024 Telephone encounter Note Recommend Ibuprofen 600mg PO every 6 hr, warm bath/heating pad. Continue to monitor at this time. If bleeding does no stop and no improvement in pain after this period recommend follow up visit in office. Otherwise see how she does with next menses as her body adjusts after stopping control. Jojo Saez APRN.CNM [facility] Work Phone: 06-17-2024 Telephone encounter Note Patient calling with concerns of heavy vaginal bleeding and pain. Patient has not had a period since October. She was using Nuvaring and she would keep in for 24 days and remove for 4 days and then insert a new ring. While doing this she never had a period. Patient removed her last Nuvaring in March and never inserted a new one as she no longer wanted control and she had not had a period until yesterday. Patient states she is changing a regular tampon every 2-3 hours. States she is having abdominal cramping and lower back pain that she rates at a 7-8 out of 10. Patient states she has tried heat and that help. Patient has also taken Tylenol. Discussed with patient trying Motrin and alternating with Tylenol as well with the heat. Discussed with patient bleeding precautions and when to go to the ER. Patient is going to switch to pads to measure bleeding more accurately. Patient aware Dr. Butler is out of the office this afternoon. Do you have any other recommendations for the patient? Rita Bernal RN [facility] 02-07-2024 Note HNO ID: [id number] Author: NOLAN JARA APRN.CELL OPERATOR Service: ? Author Type: Nurse Practitioner Type: Progress Notes Filed: 02/07/2024 12:57 Note Text: CC: Patient presents with: Vaginal Problem: Possible yeast infection with itching, discharge and odor x 3 days Patient did take a Diflucan at home. Says it has alleviated some symptoms just not all the symptoms. HPI Otilia Meza is a 28 year old female who presents with complaint of possible UTI. These symptoms have been present for 3 days. Associated symptoms: abnormal vaginal discharge and vaginal itching Denies: burning, backpain, hematuria, pressure, chills, sweats, and abdominal pain Treatments: nothing The ROS was otherwise negative. PMH, Medications, labs, allergies, and recent past visits with PCP were reviewed and updated as able. PHYSICAL EXAM: BP 110/72 Pulse 101 Temp 37.2 ?C (98.9 ?F) (Tympanic) Resp 18 Wt 98.3 kg (216 lb 11.4 oz) LMP 11/08/2023 (Within Days) SpO2 98% BMI 38.39 kg/m? General: Well appearing and alert CV: Regular rate and rhythm without obvious murmur Lungs: clear to auscultation bilaterally Back: straight and symmetric Abdomen: soft, nontender, nondistended Patient wants to self swab does not want a pelvic exam. PAST MEDICAL HISTORY 01/01/2009: APPENDICITIS ACUTE 07/17/2019: Pap smear abnormality of cervix/human papillomavirus (HPV) positive 07/17/2019: Pap smear of cervix with ASCUS, cannot exclude HGSIL PAST SURGICAL HISTORY 12/23/08: LAPAROSCOPIC APPENDECTOMY 2006: TONSILLECTOMY AND ADENOIDECTOMY HX ALLERGIES Patient has no known allergies. MEDICATIONS Etonogestrel-Ethinyl Estradiol (NUVARING) 0.12-0.015 mg/24 hr vaginal ring Use 1 Each vaginally as directed. leave ring for 24 days, remove and insert new ring. Take a 4 day break and insert a new ring when you get breakthrough bleeding nystatin-triamcinolone (MYCOLOG) ointment Apply sparingly to perineum twice daily for irritation/infection. FAMILY HISTORY Problem Relation Age of Onset Hypertension Father Heart Sister WPW Social History Tobacco Use Smoking status: Never Smokeless tobacco: Never Vaping Use Vaping Use: Never used Substance Use Topics Alcohol use: Not Currently Drug use: No ASSESSMENT/PLAN: 1. Vaginal itching - ICD9: 698.1, ICD10: N89.8 (primary diagnosis) - BACTERIAL VAGINOSIS NAAT - KATIE/TRICHOMONAS NAAT - NYSTATIN-TRIAMCINOLONE 100,000 UNIT/GRAM-0.1 % TOPICAL OINTMENT 2. Vaginal discharge - ICD9: 623.5, ICD10: N89.8 - BACTERIAL VAGINOSIS NAAT - KATIE/TRICHOMONAS NAAT Patient was educated that the Diflucan she took at home could take a few days to have full effects. If anything else comes back positive please treat accordingly. If patient is still having symptoms of yeast infection we can call in 1 more Diflucan for her to take 3 days after she took the initial Diflucan. Prescription instructions reviewed with patient as applicable. Potential red flag symptoms discussed with the patient. Reviewed appropriate action plan to take if red flag symptoms occur. Patient agreeable to treatment plan. Nolan Jara APRN.[facility] 02-07-2024 History of Presen t illness Narrative CC: Patient presents with: Vaginal Problem: Possible yeast infection with itching, discharge and odor x 3 days Patient did take a Diflucan at home. Says it has alleviated some symptoms just not all the symptoms. HPI Otilia Meza is a 28 year old female who presents with complaint of possible UTI. These symptoms have been present for 3 days. Associated symptoms: abnormal vaginal discharge and vaginal itching Denies: burning, backpain, hematuria, pressure, chills, sweats, and abdominal pain Treatments: nothing The ROS was otherwise negative. PMH, Medications, labs, allergies, and recent past visits with PCP were reviewed and updated as able. PHYSICAL EXAM: BP 110/72 Pulse 101 Temp 37.2 C (98.9 F) (Tympanic) Resp 18 Wt 98.3 kg (216 lb 11.4 oz) LMP 11/08/2023 (Within Days) SpO2 98% BMI 38.39 kg/m General: Well appearing and alert CV: Regular rate and rhythm without obvious murmur Lungs: clear to auscultation bilaterally Back: straight and symmetric Abdomen: soft, nontender, nondistended Patient wants to self swab does not want a pelvic exam. PAST MEDICAL HISTORY 01/01/2009: APPENDICITIS ACUTE 07/17/2019: Pap smear abnormality of cervix/human papillomavirus (HPV) positive 07/17/2019: Pap smear of cervix with ASCUS, cannot exclude HGSIL PAST SURGICAL HISTORY 12/23/08: LAPAROSCOPIC APPENDECTOMY 2005: TONSILLECTOMY AND ADENOIDECTOMY HX ALLERGIES Patient has no known allergies. MEDICATIONS Etonogestrel-Ethinyl Estradiol (NUVARING) 0.12-0.015 mg/24 hr vaginal ring Use 1 Each vaginally as directed. leave ring for 24 days, remove and insert new ring. Take a 4 day break and insert a new ring when you get breakthrough bleeding nystatin-triamcinolone (MYCOLOG) ointment Apply sparingly to perineum twice daily for irritation/infection. FAMILY HISTORY Problem Relation Age of Onset Hypertension Father Heart Sister WPW Social History Tobacco Use Smoking status: Never Smokeless tobacco: Never Vaping Use Vaping Use: Never used Substance Use Topics Alcohol use: Not Currently Drug use: No ASSESSMENT/PLAN: 1. Vaginal itching - ICD9: 698.1, ICD10: N89.8 (primary diagnosis) - BACTERIAL VAGINOSIS NAAT - KATIE/TRICHOMONAS NAAT - NYSTATIN-TRIAMCINOLONE 100,000 UNIT/GRAM-0.1 % TOPICAL OINTMENT 2. Vaginal discharge - ICD9: 623.5, ICD10: N89.8 - BACTERIAL VAGINOSIS NAAT - KATIE/TRICHOMONAS NAAT Patient was educated that the Diflucan she took at home could take a few days to have full effects. If anything else comes back positive please treat accordingly. If patient is still having symptoms of yeast infection we can call in 1 more Diflucan for her to take 3 days after she took the initial Diflucan. Prescription instructions reviewed with patient as applicable. Potential red flag symptoms discussed with the patient. Reviewed appropriate action plan to take if red flag symptoms occur. Patient agreeable to treatment plan. Nolan Jara APRN.TANA documented in this encounter [facility] 12-15-2023 Note HNO ID: [id number] Author: ANGELIC BUTLER MD Service: ? Author Type: Physician Type: Progress Notes Filed: 12/15/2023 09:06 Note Text: Otilia is a 28 year old who presents for an annual gynecologic exam without complaints. Considiring in the future so some questions there. Menses: rare w/ nuvaring. 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 Director History Comments: Sexual Activity: Yes; Male; nuvaring Contraception: Inserts PAST MEDICAL HISTORY Diagnosis Date APPENDICITIS ACUTE 01/01/2009 Pap smear abnormality of cervix/human papillomavirus (HPV) positive 07/17/2019 Pap smear of cervix with ASCUS, cannot exclude HGSIL 07/17/2019 PAST SURGICAL HISTORY Procedure Laterality Date LAPAROSCOPIC APPENDECTOMY 12/23/08 TONSILLECTOMY AND ADENOIDECTOMY HX 2006 FAMILY HISTORY Problem Relation Age of Onset Hypertension Father Heart Sister WPW SOCIAL HISTORY Social History Tobacco Use Smoking status: Never Smokeless tobacco: Never Vaping Use Vaping Use: Never used Substance Use Topics Alcohol use: Not Currently Drug use: No REVIEW OF SYSTEMS Abdomen: No abdominal pain, nausea, vomiting, diarrhea, or constipation. No bloating, early satiety, indigestion, or increased flatulence. Bladder: No dysuria, gross hematuria, urinary frequency, urinary urgency, or incontinence. Breast: No breast lumps, nipple d/c, overlying skin changes, redness or skin retraction. Allergies and current medication updated:Yes EXAM: BP 124/82 Ht 5' 3 (1.60m) Wt 217 lb (98.4kg) LMP 11/08/2023 BMI 38.45 kg/(m2). GENERAL: pleasant, female in no apparent distress HEENT: Normocephalic, atraumatic, mucus membranes moist, and no lesions NECK: Supple, full range of motion, no adenopathy, and thyroid normal DERMATOLOGY: Normal, without lesions, non-icteric, and non-hirsute BREAST: soft, non-tender, symmetric, no dominant mass, normal nipple-areolar complex, no lymphadenopathy, and no nipple discharge CHEST: Normal inspiratory effort ABDOMEN: soft, non-tender, and no masses PELVIC: external genitalia normal, normal Bartholin's glands, urethra, Natoma's glands, no vulvar lesions, no cervical lesions, good vaginal support, physiologic discharge present, normal appearing perineal body and perianal region BIMANUAL: uterus normal size, shape and consistency, no adnexal masses, and non-tender RECTOVAGINAL: deferred. NEURO: alert and oriented x3,exam grossly non-focal EXTREMITIES: normal ASSESSMENT/PLAN: 1) Health maintenance: Pap done with reflex HPV. Mammogram starting age 40. 2) Contraception: Nuva Ring. Contraceptive options reviewed and information provided. 3) STD screening: Declined STD check. 4) Follow up one year or sooner as needed PReconceptual counseling. D/ wher recommendations, strt PNV, offered rubella titer and carrier screen panel. Will consider Recommend wt loss. Angelic Butler MD [facility] 12-15-2023 History of Presen t illness Narrative Otilia is a 28 year old who presents for an annual gynecologic exam without complaints. Considiring in the future so some questions there. Menses: rare w/ nuvaring. 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 Director History Comments: Sexual Activity: Yes; Male; nuvaring Contraception: Inserts PAST MEDICAL HISTORY Diagnosis Date APPENDICITIS ACUTE 01/01/2009 Pap smear abnormality of cervix/human papillomavirus (HPV) positive 07/17/2019 Pap smear of cervix with ASCUS, cannot exclude HGSIL 07/17/2019 PAST SURGICAL HISTORY Procedure Laterality Date LAPAROSCOPIC APPENDECTOMY 12/23/08 TONSILLECTOMY AND ADENOIDECTOMY HX 2006 FAMILY HISTORY Problem Relation Age of Onset Hypertension Father Heart Sister WPW SOCIAL HISTORY Social History Tobacco Use Smoking status: Never Smokeless tobacco: Never Vaping Use Vaping Use: Never used Substance Use Topics Alcohol use: Not Currently Drug use: No REVIEW OF SYSTEMS Abdomen: No abdominal pain, nausea, vomiting, diarrhea, or constipation. No bloating, early satiety, indigestion, or increased flatulence. Bladder: No dysuria, gross hematuria, urinary frequency, urinary urgency, or incontinence. Breast: No breast lumps, nipple d/c, overlying skin changes, redness or skin retraction. Allergies and current medication updated:Yes EXAM: BP 124/82 Ht 5' 3 (1.60m) Wt 217 lb (98.4kg) LMP 11/08/2023 BMI 38.45 kg/(m^2). GENERAL: pleasant, female in no apparent distress HEENT: Normocephalic, atraumatic, mucus membranes moist, and no lesions NECK: Supple, full range of motion, no adenopathy, and thyroid normal DERMATOLOGY: Normal, without lesions, non-icteric, and non-hirsute BREAST: soft, non-tender, symmetric, no dominant mass, normal nipple-areolar complex, no lymphadenopathy, and no nipple discharge CHEST: Normal inspiratory effort ABDOMEN: soft, non-tender, and no masses PELVIC: external genitalia normal, normal Bartholin's glands, urethra, Natoma's glands, no vulvar lesions, no cervical lesions, good vaginal support, physiologic discharge present, normal appearing perineal body and perianal region BIMANUAL: uterus normal size, shape and consistency, no adnexal masses, and non-tender RECTOVAGINAL: deferred. NEURO: alert and oriented x3,exam grossly non-focal EXTREMITIES: normal ASSESSMENT/PLAN: 1) Health maintenance: Pap done with reflex HPV. Mammogram starting age 40. 2) Contraception: Nuva Ring. Contraceptive options reviewed and information provided. 3) STD screening: Declined STD check. 4) Follow up one year or sooner as needed PReconceptual counseling. D/ wher recommendations, strt PNV, offered rubella titer and carrier screen panel. Will consider Recommend wt loss. Angelic Butler MD documented in this encounter [facility] 08-29-2023 Miscellaneous Notes Pt calling and stated that she is needing a refill on below medication sent to her pharmacy. Pt has scheduled upcoming yearly exam. Call only if problems. Margret Flores LPN documented in this encounter [facility] 09-08-2022 Miscellaneous Notes Addended by: ANGELIC BUTLER on: 09/08/2022 11:09 AM Modules accepted: Orders Addended by: TORI MERCHANT MA on: 09/08/2022 10:49 AM Modules accepted: Orders Addended by: TORI MERCHANT MA on: 09/08/2022 09:25 AM Modules accepted: Orders documented in this encounter [facility] 09-08-2022 History of Presen t illness Narrative Otilia is a 26 year old who presents for an annual gynecologic exam without complaints. 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 Director History Comments: Sexual Activity: Yes; Male; nuvaring Contraception: Inserts PAST MEDICAL HISTORY Diagnosis Date APPENDICITIS ACUTE 01/01/2009 Pap smear abnormality of cervix/human papillomavirus (HPV) positive 07/17/2019 Pap smear of cervix with ASCUS, cannot exclude HGSIL 07/17/2019 PAST SURGICAL HISTORY Procedure Laterality Date LAPAROSCOPIC APPENDECTOMY 12/23/08 TONSILLECTOMY AND ADENOIDECTOMY HX 2006 FAMILY HISTORY Problem Relation Age of Onset Hypertension Father Heart Sister WPW SOCIAL HISTORY Social History Tobacco Use Smoking status: Never Smokeless tobacco: Never Vaping Use Vaping Use: Never used Substance Use Topics Alcohol use: Not Currently Drug use: No REVIEW OF SYSTEMS Abdomen: No abdominal pain, nausea, vomiting, diarrhea, or constipation. No bloating, early satiety, indigestion, or increased flatulence. Bladder: No dysuria, gross hematuria, urinary frequency, urinary urgency, or incontinence. Breast: No breast lumps, nipple d/c, overlying skin changes, redness or skin retraction. Allergies and current medication updated:Yes EXAM: BP 122/78 Ht 5' 3 (1.60m) Wt 208 lb (94.3kg) LMP 08/10/2022 BMI 36.85 kg/(m^2). GENERAL: pleasant, female in no apparent distress HEENT: Normocephalic, atraumatic, mucus membranes moist, and no lesions NECK: Supple, full range of motion, no adenopathy, and thyroid normal DERMATOLOGY: Normal, without lesions, non-icteric, and non-hirsute BREAST: soft, non-tender, symmetric, no dominant mass, normal nipple-areolar complex, no lymphadenopathy, and no nipple discharge CHEST: Normal inspiratory effort ABDOMEN: soft, non-tender, and no masses PELVIC: external genitalia normal, normal Bartholin's glands, urethra, Natoma's glands, no vulvar lesions, no cervical lesions, good vaginal support, physiologic discharge present, normal appearing perineal body and perianal region BIMANUAL: uterus normal size, shape and consistency, no adnexal masses, and non-tender RECTOVAGINAL: deferred. NEURO: alert and oriented x3,exam grossly non-focal EXTREMITIES: normal ASSESSMENT/PLAN: 1) Health maintenance: pap up to date reviewed and encouraged HPV vaccine, will contact office if desires to get this 2) Contraception: Nuva Ring. Contraceptive options reviewed and information provided. 3) STD screening: Accepted STD check for Gonorrhea and Chlamydia. and trich 4) Follow up one year or sooner as needed Angelic Butler MD documented in this encounter [facility] 09-05-2022 Miscellaneous Notes Patient had appointment on 09/08/2022 & called stating that she will need 1 refill of Nuvaring prior to appointment documented in this encounter [facility] 01-01-2009 History of Past i llness Narrative Problem Noted Date Resolved Date APPENDICITIS ACUTE 01/01/2009 08/24/2021 documented as of this encounter (statuses as of 09/05/2022) [facility] History of Past illness Narrative* Problem Noted Date Resolved Date APPENDICITIS ACUTE 01/01/2009 08/24/2021 documented as of this encounter (statuses as of 09/08/2022) [facility] History of Past illness Narrative* Problem Noted Date Diagnosed Date Resolved Date APPENDICITIS ACUTE 01/01/2009 2 documented as of this encounter (statuses as of 01/02/2023) [facility] History of Past illness Narrative* Problem Noted Date Diagnosed Date Resolved Date APPENDICITIS ACUTE 01/01/2009 2 documented as of this encounter (statuses as of 03/02/2023) [facility] History of Past illness Narrative* Problem Noted Date Diagnosed Date Resolved Date APPENDICITIS ACUTE 01/01/2009 2 documented as of this encounter (statuses as of 08/30/2023) [facility] Diagnosis Encounter for gynecological examination (general) (routine) without abnormal findings- Primary Screen for STD (sexually transmitted disease) Screening examination for venereal disease [facility] noteNo assessment information availableWAs[facility] Work Phone: Evaluation note* Diagnosis Irregular menstrual cycle- Primary [facility] Diagnosis Orgasmic headache- Primary Headache associated with sexual activity documented in this encounter [facility] note* Diagnosis Encounter for gynecological examination (general) (routine) without abnormal findings- Primary Screening for cervical cancer Screening for malignant neoplasm of the cervix Vaginal high risk human papillomavirus (HPV) DNA test positive Encounter for surveillance of vaginal ring hormonal contraceptive device documented in this encounter [facility] note* Diagnosis Class 2 severe obesity due to excess calories with serious comorbidity and body mass index (BMI) of 38.0 to 38.9 in adult ([facility])- Primary PCOS (polycystic ovarian syndrome) Polycystic ovaries documented in this encounter [facility] note* Diagnosis Vaginal itching- Primary Pruritus of genital organs Vaginal discharge Leukorrhea, not specified as infective documented in this encounter [facility] note* Diagnosis with uncertain dates, antepartum- Primary state, incidental Encounter for care in first trimester of first Threatened miscarriage in early Threatened , unspecified as to episode of care Obesity affecting in first trimester, unspecified obesity type documented in this encounter [facility] note* Diagnosis with uncertain dates, antepartum state, incidental documented in this encounter [facility] note* Diagnosis Supervision of high risk in first trimester- Primary Unspecified high-risk Obesity affecting in first trimester, unspecified obesity type 10 weeks gestation of state, incidental BMI 40.0-44.9, adult ([facility]) Body Mass Index 40.0-44.9, adult * Assessment & Plan Note - Angelic Butler MD - 09/10/2024 10:48 AM EDT Associated Problem(s): Obesity complicating , first trimester Orders: [id number] PLUS; Future OBSTETRIC ULTRASOUND WHI; Future documented in this encounter [facility] note* Diagnosis Supervision of high risk in first trimester (HCC)- Primary Unspecified high-risk Obesity affecting in first trimester, unspecified obesity type ([facility]) 10 weeks gestation of ([facility]) state, incidental BMI 40.0-44.9, adult ([facility]) Body Mass Index 40.0-44.9, adult Supervision of high risk in first trimester ([facility])- Primary Unspecified high-risk Elevated blood pressure reading without diagnosis of hypertension Chronic hypertension in (HCC) Benign essential hypertension complicating , childbirth, and the puerperium, unspecified as to episode of care 11 weeks gestation of ([facility]) state, incidental * Assessment & Plan Note - Christy Harvey MD - 09/23/2024 11:58 AM EDTAssociated Problem(s): Chronic hypertension in Based on two elevated BP >130/80s suspect CHTN in . Increased ASA to 162mg in evening. documented in this encounter [facility] note* Diagnosis Supervision of high risk in first trimester ([facility])- Primary Unspecified high-risk Obesity affecting in first trimester, unspecified obesity type ([facility]) 10 weeks gestation of ([facility]) state, incidental BMI 40.0-44.9, adult ([facility]) Body Mass Index 40.0-44.9, adult Encounter for screening for malformation using ultrasound ([facility])- Primary 11 weeks gestation of ([facility]) state, incidental Supervision of high risk in first trimester ([facility])- Primary Unspecified high-risk Elevated blood pressure reading without diagnosis of hypertension Chronic hypertension in (HCC) Benign essential hypertension complicating , childbirth, and the puerperium, unspecified as to episode of care 11 weeks gestation of ([facility]) state, incidental documented in this encounter [facility] note* Diagnosis Supervision of high risk in first trimester (HCC)- Primary Unspecified high-risk Obesity affecting in first trimester, unspecified obesity type (HCC) 10 weeks gestation of ([facility]) state, incidental BMI 40.0-44.9, adult ([facility]) Body Mass Index 40.0-44.9, adult Supervision of high risk in first trimester ([facility])- Primary Unspecified high-risk Elevated blood pressure reading without diagnosis of hypertension Chronic hypertension in (HCC) Benign essential hypertension complicating , childbirth, and the puerperium, unspecified as to episode of care 11 weeks gestation of ([facility]) state, incidental Supervision of high risk in second trimester ([facility])- Primary Unspecified high-risk 16 weeks gestation of ([facility]) state, incidental Chronic hypertension in ([facility]) Benign essential hypertension complicating , childbirth, and the puerperium, unspecified as to episode of care [facility] Diagnosis Supervision of high risk in first trimester ([facility])- Primary Unspecified high-risk Obesity affecting in first trimester, unspecified obesity type ([facility]) 10 weeks gestation of ([facility]) state, incidental BMI 40.0-44.9, adult ([facility]) Body Mass Index 40.0-44.9, adult Supervision of high risk in first trimester ([facility])- Primary Unspecified high-risk Elevated blood pressure reading without diagnosis of hypertension Chronic hypertension in ([facility]) Benign essential hypertension complicating , childbirth, and the puerperium, unspecified as to episode of care 11 weeks gestation of ([facility]) state, incidental Encounter for anatomic survey ([facility])- Primary Encounter for anatomic survey Obesity affecting in first trimester, unspecified obesity type ([facility]) BMI 40.0-44.9, adult ([facility]) Body Mass Index 40.0-44.9, adult 16 weeks gestation of ([facility]) state, incidental documented in this encounter [facility]* Diagnosis Supervision of high risk in first trimester ([facility])- Primary Unspecified high-risk Obesity affecting in first trimester, unspecified obesity type ([facility]) 10 weeks gestation of ([facility]) state, incidental BMI 40.0-44.9, adult ([facility]) Body Mass Index 40.0-44.9, adult Supervision of high risk in first trimester ([facility])- Primary Unspecified high-risk Elevated blood pressure reading without diagnosis of hypertension Chronic hypertension in ([facility]) Benign essential hypertension complicating , childbirth, and the puerperium, unspecified as to episode of care 11 weeks gestation of ([facility]) state, incidental Encounter for anatomic survey ([facility])- Primary Encounter for anatomic survey Obesity affecting in first trimester, unspecified obesity type ([facility]) BMI 40.0-44.9, adult ([facility]) Body Mass Index 40.0-44.9, adult 20 weeks gestation of ([facility]) state, incidental documented in this encounter [facility] note* Diagnosis Supervision of high risk in first trimester (HCC)- Primary Unspecified high-risk Obesity affecting in first trimester, unspecified obesity type (HCC) 10 weeks gestation of (HCC) state, incidental BMI 40.0-44.9, adult (HCC) Body Mass Index 40.0-44.9, adult Supervision of high risk in first trimester (HCC)- Primary Unspecified high-risk Elevated blood pressure reading without diagnosis of hypertension Chronic hypertension in ([facility]) Benign essential hypertension complicating , childbirth, and the puerperium, unspecified as to episode of care 11 weeks gestation of (HCC) state, incidental Supervision of high risk in second trimester (HCC)- Primary Unspecified high-risk 20 weeks gestation of (HCC) state, incidental Supervision of high risk in third trimester (HCC) Unspecified high-risk Obesity affecting in third trimester, unspecified obesity type ([facility]) [facility]* Diagnostic Procedure Only (Routine) - Closed Specialty Diagnoses / Procedures Referred By Lew madden Referred To Contact [facility] [place] Diagnoses with uncertain dates, antepartum Procedures OBSTETRIC ULTRASOUND WHI US PREG UTERUS AFTER 1ST TRIMEST GESTATION Matilde Sosa APRN.[facility] [address] [place] [address] Phone: tel: fax: [address] [phone] Referral ID Status Reason Start Date Expiration Date V isits Requested Visits Authorized [id number] Closed Auto-Generate d Referral 08/12/2024 08/12/2025 1 1 [facility] Chief Complaint and Reason for Visit Chief Complaint Cellulitis of right finger Advance Directives Advance Directive Response Recorded Date/ Time Living Will No August 25, 2019 6:25pm Power of Ecmo Specialist No August 24 6:25pm Summary Purpose Family History No Family History Records FoundNo Family History Records FoundNo Family History Records Found Reason for Referral Specialty Diagnoses / Procedures Referred By Lew madden Referred To Contact Neurology Diagnoses Orgasmic headache Procedures CONSULT TO NEUROLOGY OFFICE/OUTPATIENT NEW HIGH MDM 60-74 MINUTES Angelic Butler MD [address] [place] [address] Referral ID Status Reason Start Date Expiration Date Visits Requested Visits Authorized [id number] Authorized PCP Requested Referral 03/01/2023 02/29/2024 1 1 Specialty Diagnoses / Procedures Referred By Lew madden Referred To Contact Diagnoses Class 2 severe obesity due to excess calories with serious comorbidity and body mass index (BMI) of 38.0 to 38.9 in adult (HCC) PCOS (polycystic ovarian syndrome) Procedures CONSULT TO [facility] PRO[facility] OFFICE/OUTPATIENT [facility] 60 MINUTES Angelic Butler MD [address] [place] [address] Referral ID Status Reason Start Date Expiration Date Visits Requested Visits Authorized [id number] Authorized PCP Requested Referral Auto-Generate d Referral 12/15/2023 12/14/2024 1 1 Additional Source Comments Source Comments (unrecognize d section and content) In the event this informatio n is protected by the Federal Confidentiality of Alcohol and Drug Abuse Patient Records regulations: The Federal rules restrict any use of the information to criminally investigate or prosecute any alcohol or drug abuse patient.[facility] the event this information is protected by the Federal Confidentiality of Alcohol and Drug Abuse Patient Records regulations: The Federal rules restrict any use of the information to criminally investigate or prosecute any alcohol or drug abuse patient.[facility] HospitalIn the event this information is protected by the Federal Confidentiality of Alcohol and Drug Abuse Patient Records regulations: The Federal rules restrict any use of the information to criminally investigate or prosecute any alcohol or drug abuse patient.[facility] HospitalIn the event this information is protected by the Federal Confidentiality of Alcohol and Drug Abuse Patient Records regulations: The Federal rules restrict any use of the information to criminally investigate or prosecute any alcohol or drug abuse patient.[facility] HospitalIn the event this information is protected by the Federal Confidentiality of Alcohol and Drug Abuse Patient Records regulations: The Federal rules restrict any use of the information to criminally investigate or prosecute any alcohol or drug abuse patient.[facility] HospitalIn the event this information is protected by the Federal Confidentiality of Alcohol and Drug Abuse Patient Records regulations: The Federal rules restrict any use of the information to criminally investigate or prosecute any alcohol or drug abuse patient.[facility] HospitalIn the event this information is protected by the Federal Confidentiality of Alcohol and Drug Abuse Patient Records regulations: The Federal rules restrict any use of the information to criminally investigate or prosecute any alcohol or drug abuse patient.[facility] HospitalIn the event this information is protected by the Federal Confidentiality of Alcohol and Drug Abuse Patient Records regulations: The Federal rules restrict any use of the information to criminally investigate or prosecute any alcohol or drug abuse patient.[facility] HospitalIn the event this information is protected by the Federal Confidentiality of Alcohol and Drug Abuse Patient Records regulations: The Federal rules restrict any use of the information to criminally investigate or prosecute any alcohol or drug abuse patient.[facility] HospitalIn the event this information is protected by the Federal Confidentiality of Alcohol and Drug Abuse Patient Records regulations: The Federal rules restrict any use of the information to criminally investigate or prosecute any alcohol or drug abuse patient.[facility] HospitalIn the event this information is protected by the Federal Confidentiality of Alcohol and Drug Abuse Patient Records regulations: The Federal rules restrict any use of the information to criminally investigate or prosecute any alcohol or drug abuse patient.[facility] HospitalIn the event this information is protected by the Federal Confidentiality of Alcohol and Drug Abuse Patient Records regulations: The Federal rules restrict any use of the information to criminally investigate or prosecute any alcohol or drug abuse patient.[facility] HospitalIn the event this information is protected by the Federal Confidentiality of Alcohol and Drug Abuse Patient Records regulations: The Federal rules restrict any use of the information to criminally investigate or prosecute any alcohol or drug abuse patient.[facility] HospitalIn the event this information is protected by the Federal Confidentiality of Alcohol and Drug Abuse Patient Records regulations: The Federal rules restrict any use of the information to criminally investigate or prosecute any alcohol or drug abuse patient.[facility] HospitalIn the event this information is protected by the Federal Confidentiality of Alcohol and Drug Abuse Patient Records regulations: The Federal rules restrict any use of the information to criminally investigate or prosecute any alcohol or drug abuse patient.[facility] HospitalIn the event this information is protected by the Federal Confidentiality of Alcohol and Drug Abuse Patient Records regulations: The Federal rules restrict any use of the information to criminally investigate or prosecute any alcohol or drug abuse patient.[facility] HospitalIn the event this information is protected by the Federal Confidentiality of Alcohol and Drug Abuse Patient Records regulations: The Federal rules restrict any use of the information to criminally investigate or prosecute any alcohol or drug abuse patient.[facility] HospitalIn the event this information is protected by the Federal Confidentiality of Alcohol and Drug Abuse Patient Records regulations: The Federal rules restrict any use of the information to criminally investigate or prosecute any alcohol or drug abuse patient.[facility] HospitalIn the event this information is protected by the Federal Confidentiality of Alcohol and Drug Abuse Patient Records regulations: The Federal rules restrict any use of the information to criminally investigate or prosecute any alcohol or drug abuse patient.[facility] HospitalIn the event this information is protected by the Federal Confidentiality of Alcohol and Drug Abuse Patient Records regulations: The Federal rules restrict any use of the information to criminally investigate or prosecute any alcohol or drug abuse patient.[facility] HospitalIn the event this information is protected by the Federal Confidentiality of Alcohol and Drug Abuse Patient Records regulations: The Federal rules restrict any use of the information to criminally investigate or prosecute any alcohol or drug abuse patient.[facility] HospitalIn the event this information is protected by the Federal Confidentiality of Alcohol and Drug Abuse Patient Records regulations: The Federal rules restrict any use of the information to criminally investigate or prosecute any alcohol or drug abuse patient.[facility] HospitalIn the event this information is protected by the Federal Confidentiality of Alcohol and Drug Abuse Patient Records regulations: The Federal rules restrict any use of the information to criminally investigate or prosecute any alcohol or drug abuse patient.[facility] HospitalIn the event this information is protected by the Federal Confidentiality of Alcohol and Drug Abuse Patient Records regulations: The Federal rules restrict any use of the information to criminally investigate or prosecute any alcohol or drug abuse patient.[facility] Reason for Visit (unrecogniz ed section and content) Reason Onset Date Comments Refill Request 09/05/2022 Reason Onset Date Comments Refill Request 08/29/2023 Reason Comments Yearly Exam Reason Comments Vaginal Problem Possible yeast infec tion with itching, discharge and odor x 3 days Reason Comments Irregular Menstrual Cycle Reason Comments Initial OB Visit Reason Onset Date Comments Care 09/10/2024 Reason Onset Date Comments Care 09/23/2024 Reason Comments US Specialty Diagnoses / Procedures Referred By Lew madden Referred To Contact [facility] Diagnoses with uncertain dates, antepartum (HCC) Encounter for care in first trimester of first (HCC) Procedures OBSTETRIC ULTRASOUND WHI US PREG UTERUS AFTER 1ST TRIMEST GESTATION Matilde Sosa APRN.CNChloe [address] [place] [address] Phone: tel: fax: [address] [phone] Referral ID Status Reason Start Date Expiration Date V isits Requested Visits Authorized [id number] Closed Auto-Generate d Referral 08/12/2024 08/12/2025 1 1 Reason Onset Date Comments Refill Request 10/08/2024 Reason Comments Care Specialty Diagnoses / Procedures Referred By Contac t Referred To Contact [facility] Diagnoses Obesity affecting in first trimester, unspecified obesity type (HCC) 10 weeks gestation of (HCC) Supervision of high risk in first trimester (HCC) BMI 40.0-44.9, adult (HCC) Procedures OBSTETRIC ULTRASOUND WHI OBSTETRIC ULTRASOUND WHI US PREG UTERUS AFTER 1ST TRIMEST GESTATION Angelic Butler MD [address] [place] [address] Phone: tel: fax: [address] [phone] Referral ID Status Reason Start Date Expiration Date V isits Requested Visits Authorized [id number] Closed Auto-Generate d Referral 09/10/2024 09/10/2025 6 1 Specialty Diagnoses / Procedures Referred By Lew t Referred To Contact [facility] Diagnoses Obesity affecting in first trimester, unspecified obesity type (HCC) Supervision of high risk in first trimester (HCC) BMI 40.0-44.9, adult (HCC) Procedures OBSTETRIC ULTRASOUND WHI US PREG UTERUS AFTER 1ST TRIMEST GESTATION Angelic Butler MD [address] [place] [address] Phone: tel: fax: [address] [phone] Referral ID Status Reason Start Date Expiration Date V isits Requested Visits Authorized [id number] Closed Auto-Generate d Referral 09/10/2024 09/10/2025 1 1 Reason Onset Date Comments Care 11/19/2024 Care Teams (unrecognized sec tion and content) Supply Chain Generalist Relationship Specialty Start Date End Date Mago Wong PCP - General 01/01/09 Supply Chain Generalist Relationship Specialty Start Date End Date Mago Wong PCP - General 01/01/09 Team Status: Active Member Role Status Dates Dr. Mago Wong MD Primary Care Provider Active Team Status: Inactive Member Role Status Dates Dr. Mago Wong MD Primary Care Prov ider, Attending Provider, Referring Provider Active Supply Chain Generalist Relationship Specialty Start Date End Date Mago Wong Sarah PCP - General 01/01/09 Supply Chain Generalist Relationship Specialty Start Date End Date Mago Wong PCP - General 01/01/09 Supply Chain Generalist Relationship Specialty Start Date End Date Mago Wong Sarah PCP - General 01/01/09 Supply Chain Generalist Relationship Specialty Start Date End Date Mago Wong PCP - General 01/01/09 Supply Chain Generalist Relationship Specialty Start Date End Date Mago Wong Sarah PCP - General 01/01/09 Supply Chain Generalist Relationship Specialty Start Date End Date Mago Wong Sarah PCP - General 01/01/09 Supply Chain Generalist Relationship Specialty Start Date End Date Mago Wong Sarah PCP - General 01/01/09 Supply Chain Generalist Relationship Specialty Start Date End Date Leeleestuart Mago Sarah PCP - General 01/01/09 Supply Chain Generalist Relationship Specialty Start Date End Date Mago Wong PCP - General 01/01/09 Supply Chain Generalist Relationship Specialty Start Date End Date Mago Wong PCP - General 01/01/09 Supply Chain Generalist Relationship Specialty Start Date End Date Mago Wong PCP - General 01/01/09 Supply Chain Generalist Relationship Specialty Start Date End Date Mago Wong PCP - General 01/01/09 Supply Chain Generalist Relationship Specialty Start Date End Date Mago Wong PCP - General 01/01/09 Supply Chain Generalist Relationship Specialty Start Date End Date Mago Wong PCP - General 01/01/09 Supply Chain Generalist Relationship Specialty Start Date End Date Mago Wong PCP - General 01/01/09 Supply Chain Generalist Relationship Specialty Start Date End Date Mago Wong PCP - General 01/01/09 Supply Chain Generalist Relationship Specialty Start Date End Date Mago Wong PCP - General 01/01/09 Supply Chain Generalist Relationship Specialty Start Date End Date Mago Wong PCP - General 01/01/09 Supply Chain Generalist Relationship Specialty Start Date End Date Mago Wong PCP - General 01/01/09 Supply Chain Generalist Relationship Specialty Start Date End Date Mago Wong PCP - General 01/01/09 Supply Chain Generalist Relationship Specialty Start Date End Date Mago Wong PCP - General 01/01/09 Goals (unrecognized section and content) Goals may be documented in a n alternate section INFORMATION SOURCE (unrecogn ized section and content) DATE CREATED AUTHOR 12/16/2022 [facility] DATE CREATED AUTHOR AUTHOR'S ORGANIZ ATION 09/21/2024 [facility] DATE CREATED AUTHOR AUTHOR'S ORGANIZ ATION 11/22/2024 [facility] FOR RECORDS PERTAINING TO PATIENTS WHO ARE OR HAVE BEEN ENROLLED IN A CHEMICAL DEPENDENCY/SUBSTANCEABUSE PROGRAM, SOME INFORMATION MAY BE OMITTED. This clinical summary was aggregated from multiple sources. Caution should be exercised in using it in the provision of clinical care. This summary normalizes information from multiple sources, and as a consequence, information in this document may materially change the coding, format and clinical context of patient data. In addition, data may be omitted in some cases. CLINICAL DECISIONS SHOULD BE BASED ON THE PRIMARY CLINICAL RECORDS. [employer] [facility]. provides no warranty or guarantee of the accuracy or completeness of information in this document.
[2024-12-08 14:17] VITALS: BMI 42.5
[2024-12-08 14:21] VITALS: PULSE 52; O2SAT 96
[2024-12-08 14:22] VITALS: BP 136/66; PULSE 105; RESP 18; TEMP 37.2
[2024-12-08 14:41] LABS: Bacteria 0 SEEN /hpf (None Seen); Mucous, Urine 0 SEEN /hpf (<or=2+); Squamous Epithelial Cells - UA 0 SEEN /hpf (5-10)
[2024-12-08 15:17] LABS: Color, Urine Red (Yellow); Glucose, Dipstick Normal (Normal); Ketone-Dipstick 150 mg/dl (Negative); Leukocyte Esterase-Dipstick 100 /ul (Negative); Nitrite-Dipstick Negative (Negative); Occult Blood-Urine 250 /ul (Negative); Protein-Dipstick 500 mg/dl (Negative); Urine Bilirubin Dipstick Negative (Negative); Urine Clarity Turbid (Clear); Urine Urobilinogen Normal (Normal); Urine pH 6.5 (5.0 - 8.0)
[2024-12-08 15:23] LABS: Red Blood Cells-Urine > 100 SEEN /hpf (0-5); White Blood Cells 0-5 SEEN /hpf (0-5)
[2024-12-08] MEDS: Nitrofurantoin Macrocrystals 100 MG Capsule PO (15:31)
--- NOTE | 2024-12-08 19:29 | OB.TRI.NOTE ---
HPI - General HPI Narrative OTILIA MEZA, is a 29 F who presents at 22w5d G1. Presents with blood in urine that started today. Denies any vaginal bleeding, leakage of fluid, or pain. PFSH PFSH Home Medications ?Medication ?Instructions ?Recorded ?Last Taken ?Type aspirin 81 mg chewable tablet 2 tab PO DAILY 12/08/24 12/07/24 21:00 History (Children's Aspirin) 2 tabs vits no.130-ferrous fum 1 tab PO DAILY 12/08/24 12/08/24 08:00 History 27 mg iron-folic acid 800 mcg 1 TAB tablet ( Vitamin) Allergy/AdvReac Type Severity Reaction Status Date / Time No Known Allergies Allergy Verified 12/08/24 14:13 Social History Smoking Status: Never smoker NST FHR Rate Baby A Baseline: 152, no NST due to gestational age Assessment & Plan (1) Hematuria: (2) 22 weeks gestation of : PLAN: Plan 1) Hematuria, no signs of acute pain for pyelonephritis or kidney stones. Will get urine culture. Macrobid 100mg PO x1 and will send prescription to pharmacy. 2) Follow up outpatient 3) Macrobid 100mg PO x1 and will send prescription
== END 2024-12-08 15:44 | disposition home or self-care (01) ==
LOC: WPOUT 14:06 → WP 14:07
PROVIDERS: PCP Family Medicine; Visit Provider Advanced Practice Midwife
DX: O99.891 Other specified diseases and conditions complicating pregnancy (principal); R31.9 Hematuria, unspecified; Z3A.22 22 weeks gestation of pregnancy; Z79.82 Long term (current) use of aspirin
CPT/HCPCS: 81001; 87086; 87088; 99221; G0378

== ENCOUNTER 2025-03-12 17:57 | Inpatient (IN) | payer BC, SELFPAY ==
[2025-03-12] VITALS (54 sets, daily range): BP systolic 137–181; BP diastolic 73–100; PULSE 82–109; RESP 12–20; TEMP 36.3–37.1; O2SAT 77–100; BMI 50.3
[2025-03-12 16:39] LABS: Hematocrit 32.6 % (37-47); Hemoglobin 11.0 g/dL (12.0-15.0); Mean Corp Hgb Conc 33.7 g/dL (32-36); Mean Corpuscular Volume 88.1 fL (81-99); Mean Platelet Vol. 11.1 fl (6.2-12.0); Platelet Count 226 K/mm3 (150-450); RBC Distribution Width CV 13.7 % (11.6-14.6); RBC Distribution Width SD 43.8 fl (35.1-43.9); Red Blood Count 3.70 M/mm3 (4.2-5.4); White Blood Count 8.7 K/mm3 (4.4-11.0)
[2025-03-12 17:09] LABS: Creatinine, Urine (random) 113.00 mg/dL (28.00-217.00); Protein, Urine (Random) 42.9 mg/dL (0.0-12.0); Protein:Creat Ratio 380 mg/g CRE (0-200)
[2025-03-12 17:12] LABS: AST(SGOT) 24 U/L (<=31); Alanine Aminotransfer ALT/SGPT 16 U/L (<=34)
[2025-03-12] MEDS: Magnesium Sulfate 4gm/100mL 4 GM/100 ML IV.SOLN. IV (17:55)
[2025-03-12] MEDS: Lactated Ringers 1,000 ML 25 ML IV (18:00)
[2025-03-12 18:06] LABS: Uric Acid 6.2 mg/dL (2.6-6.0)
[2025-03-12] MEDS: Magnesium Sulfate 20 GM/500 ML BAG IV (18:23)
--- NOTE | 2025-03-12 18:53 | PCM.HP.OB ---
HPI - General General Date of Admission: 03/12/25 Date of Service: 03/12/25 Chief Complaint: Swelling and high BP HPI Narrative OTILIA MEZA, is a 29 F who presents excessive swelling and elevated BP. Sent from office with mild range BPs. No POTTER or vision changes. Has CHTN on labetalol. BP in triage in severe range. Pr/ cr 380. LFTs normal. Planned induction next week. Admit for severe pre E. Difficulty getting IV access. Procardia protocol started. Switched to labetalol once IV access established Maternal Data Information Final SPENCER: 04/08/25 Gestational age: 36+1 [facility] Medical History no medical history Home Medications ?Medication ?Instructions ?Recorded ?Last Taken ?Type aspirin 81 mg chewable tablet 2 tab PO DAILY 12/08/24 12/07/24 21:00 History (Children's Aspirin) 2 tabs vits no.130-ferrous fum 1 tab PO DAILY 12/08/24 12/08/24 08:00 History 27 mg iron-folic acid 800 mcg 1 TAB tablet ( Vitamin) Allergy/AdvReac Type Severity Reaction Status Date / Time No Known Allergies Allergy Verified 12/08/24 14:13 Family History Father Hypertension Mother Heart disease Family History no significant family his Surgical History no surgical history Social History Smoking Status: Never smoker History 1 Elective abortions Hx Para 0 Spontaneous abortions Hx # Term Pregnancies Ectopic pregnancies Hx # Pregnancies Multiple births # of living children NST FHR Rate Baby A Baseline: 140 Variability:: Moderate Decelerations:: None NST Reactive:: Yes ROS Constitutional Constitutional: Denies fatigue, fever(s) or malaise Eyes Eyes: Denies change in vision ENT HEENT: Denies dizziness or headache(s) Cardiovascular Cardiovascular: Denies chest pain, dyspnea or lightheadedness Respiratory/Chest Respiratory/Chest: Denies cough or dyspnea Gastrointestinal Gastrointestinal: Denies change in bowel habits Genitourinary Genitourinary: Denies burning urination or genital lesions Integumentary Integumentary: Denies rash Neurologic Neurologic: Denies confusion, dizziness, headache(s), numbness or weakness Vital Signs Vital Signs Vital Signs: 03/12/25 16:04 03/12/25 16:04 03/12/25 16:26 Temperature Temperature Source Pulse Rate 86 Respiratory Rate Respiratory Effort Respiratory Depth Respiratory Pattern Blood Pressure 164/97 H 166/93 H Blood Pressure Mean BP Systolic 164 166 BP Diastolic 97 93 Blood Pressure Source Blood Pressure Position Blood Pressure Location Pulse Ox Oxygen Delivery Method 03/12/25 16:26 03/12/25 16:45 03/12/25 16:45 Temperature Temperature Source Pulse Rate 93 91 Respiratory Rate Respiratory Effort Respiratory Depth Respiratory Pattern Blood Pressure 171/90 H Blood Pressure Mean BP Systolic 171 BP Diastolic 90 Blood Pressure Source Blood Pressure Position Blood Pressure Location Pulse Ox Oxygen Delivery Method 03/12/25 17:09 03/12/25 17:09 03/12/25 17:43 Temperature Temperature Source Temporal Pulse Rate 103 H Respiratory Rate Respiratory Effort Respiratory Depth Respiratory Pattern Blood Pressure 181/97 H Blood Pressure Mean BP Systolic 181 BP Diastolic 97 Blood Pressure Source Blood Pressure Position Blood Pressure Location Pulse Ox Oxygen Delivery Method 03/12/25 17:43 03/12/25 17:45 03/12/25 17:45 Temperature 98.1 F Temperature Source Temporal Pulse Rate 93 Respiratory Rate 18 Respiratory Effort Normal Respiratory Depth Normal Respiratory Pattern Normal Blood Pressure 174/100 H Blood Pressure Mean BP Systolic 174 BP Diastolic 100 Blood Pressure Source Monitor Blood Pressure Position Semi-Fowlers Blood Pressure Location Left Arm Pulse Ox Oxygen Delivery Method Room Air 03/12/25 18:09 03/12/25 18:09 03/12/25 18:13 Temperature Temperature Source Pulse Rate 95 Respiratory Rate Respiratory Effort Respiratory Depth Respiratory Pattern Blood Pressure 147/93 H Blood Pressure Mean BP Systolic 147 BP Diastolic 93 Blood Pressure Source Blood Pressure Position Blood Pressure Location Pulse Ox 97 Oxygen Delivery Method 03/12/25 18:13 03/12/25 18:13 03/12/25 18:13 Temperature 98.8 F Temperature Source Temporal Temporal Pulse Rate 94 93 Respiratory Rate 20 H Respiratory Effort Respiratory Depth Respiratory Pattern Blood Pressure 163/98 H Blood Pressure Mean 119 BP Systolic BP Diastolic Blood Pressure Source Monitor Blood Pressure Position Sitting Blood Pressure Location Left Arm Pulse Ox Oxygen Delivery Method Room Air 03/12/25 18:14 03/12/25 18:14 03/12/25 18:19 Temperature Temperature Source Pulse Rate 94 94 Respiratory Rate Respiratory Effort Respiratory Depth Respiratory Pattern Blood Pressure Blood Pressure Mean BP Systolic BP Diastolic Blood Pressure Source Blood Pressure Position Blood Pressure Location Pulse Ox 98 Oxygen Delivery Method 03/12/25 18:19 03/12/25 18:24 03/12/25 18:24 Temperature Temperature Source Pulse Rate 99 Respiratory Rate Respiratory Effort Respiratory Depth Respiratory Pattern Blood Pressure 163/98 H Blood Pressure Mean BP Systolic 163 BP Diastolic 98 Blood Pressure Source Blood Pressure Position Blood Pressure Location Pulse Ox 99 Oxygen Delivery Method 03/12/25 18:24 03/12/25 18:24 03/12/25 18:28 Temperature Temperature Source Temporal Pulse Rate 94 Respiratory Rate Respiratory Effort Respiratory Depth Respiratory Pattern Blood Pressure Blood Pressure Mean BP Systolic BP Diastolic Blood Pressure Source Blood Pressure Position Blood Pressure Location Pulse Ox 99 Oxygen Delivery Method 03/12/25 18:28 03/12/25 18:29 03/12/25 18:29 Temperature 98.8 F Temperature Source Temporal Pulse Rate 86 85 Respiratory Rate 18 Respiratory Effort Respiratory Depth Respiratory Pattern Blood Pressure 160/89 H 160/89 H Blood Pressure Mean 112 BP Systolic 160 BP Diastolic 89 Blood Pressure Source Monitor Blood Pressure Position Sitting Blood Pressure Location Left Arm Pulse Ox Oxygen Delivery Method Room Air 03/12/25 18:29 03/12/25 18:29 03/12/25 18:42 Temperature Temperature Source Pulse Rate 96 Respiratory Rate Respiratory Effort Respiratory Depth Respiratory Pattern Blood Pressure 163/91 H Blood Pressure Mean BP Systolic 163 BP Diastolic 91 Blood Pressure Source Blood Pressure Position Blood Pressure Location Pulse Ox 99 Oxygen Delivery Method 03/12/25 18:42 Temperature Temperature Source Pulse Rate 88 Respiratory Rate Respiratory Effort Respiratory Depth Respiratory Pattern Blood Pressure Blood Pressure Mean BP Systolic BP Diastolic Blood Pressure Source Blood Pressure Position Blood Pressure Location Pulse Ox Oxygen Delivery Method Weight Weight: 128.82 kg Body Mass Index (BMI) 50.3 Physical Exam Const alert and no apparent distress General Appearance: cooperative HEENT normocephalic Resp normal respiratory effort Cardio regular rate GI soft to palpation GI Narrative: gravid, nontender, appropriate for gestational age Extremity no calf tenderness Skin no wounds Rashes: No rashes noted Psych activity/motor behavior normal Labs Labs Labs: Blood Type Pending Antibody Screen Pending Hct, (37-47) 32.6 % L Hgb, (12.0-15.0) 11.0 g/dL L Syphilis Total Ab Pending Assessment & Plan (1) Severe pre-eclampsia affecting first : (2) 36 weeks gestation of : PLAN: Plan Magnesium IOL of labor cartwright/maribeth labetalol IV
[2025-03-12 19:35] LABS: Syphilis Antibodies Nonreactive (Nonreactive)
--- NOTE | 2025-03-12 19:58 | PCM.PN.OB ---
Subjective Subjective Attempted to place cartwright bulb. Cervix very high. Vtx verified. Unable to pass cartwright through cervix. Will try cytotec first. BP improved. Starting labetalol 300mg bid Objective Data Objective Data Vital Signs: Vital Signs Temp Pulse Resp BP Pulse Ox O2 Del Method 98.8 F 91 18 152/86 H 99 Room Air 03/12/25 18:28 03/12/25 19:24 03/12/25 18:28 03/12/25 19:24 03/12/25 18:29 03/12/25 18:28 Oxygen Delivery Method Room Air Weight: 128.82 kg Body Mass Index (BMI) 50.3 Intake & Output: Intake and Output for Last 24 Hours 03/10/25 03/11/25 03/12/25 23:59 23:59 23:59 Intake Total 21.67 / 21.67 Output Total 0 / 0 Balance 21.67 / 21.67 Lab / Micro Data 03/12/25 16:00 03/12/25 16:00 Labs: Laboratory Results - last 24 hr 03/12/25 16:00: WBC 8.7, RBC 3.70 L, Hgb 11.0 L, Hct 32.6 L, MCV 88.1, MCH 29.7, MCHC 33.7, RDW Std Deviation 43.8, RDW Coeff of Zoila 13.7, Plt Count 226, MPV 11.1, Creatinine 0.96, Est GFR (MDRD) Non-Af 84, Uric Acid 6.2 H, AST 24, ALT 16, U Random Total Protein 42.9 H, Urine Creatinine 113.00, Protein/Creatinin Ratio 380 H 03/12/25 18:20: Syphilis Total Ab Nonreactive, Blood Type O NEGATIVE NST FHR Rate Baby A Baseline: 150 Variability:: Moderate Accelerations:: 15 x 15 Decelerations:: None FHR Category:: Category I Assessment & Plan (1) Polyhydramnios affecting in third trimester: (2) 36 weeks gestation of : (3) Severe pre-eclampsia affecting first : PLAN: Plan Magnesium therapy Labetalol BID cytotec vaginal
--- OUTSIDE RECORDS SUMMARY | 2025-03-12 21:25 | XMS RPT_ITS | CCD ---
Author Organization [facility] Care Team Providers Care Lime Boiler Name Role Phone Trayiff, Mago Sarah Primary Care Provider GAETANO MATTHEW Attending Unavailable JOLLIFF, MAGO SARAH Primary Care Unavailable Jolliff, Mago Sarah Primary Care Provider [phone] Dr. Mago Wong MD Primary Care Provider Jojo Saez CNM Attending Provider [phone] Judith, Mago S Primary Care Unavailable Jojo Saez Attending Unavailable Jolliff, Mago S Referring Unavailable Jolliff, Mago S Attending Unavailable Jolliff, Mago S Primary Care Unavailable MATILDE ADLER Attending Unavailable JOLLIFF, MAGO SARAH Primary Care Unavailable JOLLIFF, MAGO SARAH Primary Care Unavailable CHRISTY RAMESH Referring Unavail able JOLLIFF, MAGO SARAH Primary Care Unavailable ANGELIC BUTLER Attending Unavailable JOLLIFF, MAGO SARAH Primary Care Unavailable KEYON JARA Attending Unavailable JOLLIFF, MAGO SARAH Primary Care Unavailable MATILDE ADLER Referring Unavailable CARRIE ANGELIC Rose Referring Unavailable JOJO SAEZ Attending Unavailable JOLLIFF, MAGO SARAH Primary Care Unavailable JOLLIFF, MAGO SARAH Primary Care Unavailable KEYON JARA Attending Unavailable JOLLIFF, MAGO SARAH Primary Care Unavailable JOJO SAEZ Referring Unavailable CARRIE ANGELIC Rose Referring Unavailable JOLLIFF, MAGO SARAH Primary Care Unavailable CARRIE ANGELIC Rose Referring Unavailable JOJO SAEZ Attending Unavailable JOLLIFF, MAGO SARAH Primary Care Unavailable JOLLIFF, MAGO SARAH Primary Care Unavailable JOJO SAEZ Referring Unavailable JOLLIFF, MAGO SARAH Primary Care Unavailable KEYON JARA Attending Unavailable JOLLIFF, MAGO SARAH Primary Care Unavailable JOJO SAEZ Referring Unavailable JOLLIFF, MAGO SARAH Primary Care Unavailable NEYHART PAVON, CHRISTY Attending Unavail able SAEZ, JOJO Referring Unavailable SAEZ, JOJO Referring Unavailable JOLLIFF, MAGO SARAH Primary Care Unavailable KEYON JARA Attending Unavailable SAEZ, JOJO Referring Unavailable JOLLIFF, MAGO SARAH Primary Care Unavailable JOLLIFF, MAGO SARAH Primary Care Unavailable KEYON JARA Referring Unavailable SAEZ, JOJO Referring Unavailable JOLLIFF, MAGO SARAH Primary Care Unavailable SAEZ, JOJO Referring Unavailable JOLLIFF, MAGO SARAH Primary Care Unavailable OFELIA VELEZ Attending Unavailable JOLLIFF, MAGO SARAH Primary Care Unavailable KEYON JARA Attending Unavailable SAEZ, JOJO Referring Unavailable SAEZ, JOJO Attending Unavailable SAEZ, JOJO Referring Unavailable JOLLIFF, MAGO SARAH Primary Care Unavailable SEAZ, JOJO Referring Unavailable JOLLIFF, MAGO SARAH Primary Care Unavailable PLOTMATILDE RICO Referring Unavailable JOLLIFF, MAGO SARAH Primary Care Unavailable JOLLIFF, MAGO SARAH Primary Care Unavailable KEYON JARA Referring Unavailable OFELIA VELEZ Attending Unavailable JOLLIFF, MAGO SARAH Primary Care Unavailable JOLLIFF, MAGO SARAH Primary Care Unavailable ANGELIC BUTLER Attending Unavailable JOLLIFF, MAGO SARAH Primary Care Unavailable PLOTMATILDE RICO Referring Unavailable CHRISTY RAMESH Attending Unavail able JOLLIFF, MAGO SARAH Primary Care Unavailable PLOTMATILDE RICO Referring Unavailable REGINA BUTLERCA Rose Referring Unavailable JOLLIFF, MAGO SARAH Primary Care Unavailable ANGELIC BUTLER Referring Unavailable JOLLIFF, MAGO SARAH Primary Care Unavailable JOLLIFF, MAGO SARAH Primary Care Unavailable MATILDE ADLER Referring Unavailable Medications Current Medications Medication Drug Class(es) Dates Sig (Normalized) Sig (Original) aspirin 81 mg delayed release oral tablet (20 sources) Platelet Aggregation Inhibitor, Nonsteroidal Anti-inflammatory Drug Start: 01-28-2025 take 2 tablets by mouth once daily aspirin, enteric coated (ECOTRIN LOW STRENGTH) 81 mg EC tablet Take 2 tablets by mouth once daily. 180 tablet 2 01/28/2025 Active Start: 12-08-2024 take 1 tablet by oleksandr th once daily Aspirin (Children's Aspirin) 81 mg tablet,chewable Active 2 {tbl} PO DAILY December 08, 2024 12:00am Start: 09-23-2024 End: 10-08-2024 take 2 tablets [...] daily. 90 tablet 3 08/12/2024 09/23/2024 Discontinued famotidine 20 mg oral tablet (8 sources) Histamine-2 Receptor Antagonist Start: 02-11-2025 take 1 tablet by mouth twice daily famotidine (PEPCID) 20 mg tablet Take 1 tablet by mouth two times a day. 60 tablet 1 02/11/2025 Active labetalol hydrochloride 100 mg oral tablet (11 sources) beta-Adrenergic Jessica Start: 01-21-2025 take 1 tablet by mouth twice daily labetalol (TRANDATE) 100 mg tablet Take 1 tablet by mouth two times a day. 60 tablet 3 01/21/2025 Active metroNIDAZOLE 500 mg oral tablet (1 source) Nitroimidazole Antimicrobial Start: 02-08-2024 End: 02-15-2024 take 1 tablet by mouth twice daily metroNIDAZOLE (FLAGYL) 500 mg tablet Take 1 tablet by mouth two times a day for 7 days. 14 tablet 0 02/08/2024 02/15/2024 Active PNV no.95/ferrous fum/folic ac ( ORAL) (20 sources) PNV no.95/ferrou s fum/folic ac ( ORAL) Take by mouth. Active Vit No.474-Ndoj-Ouiex ( Vitamin) 27 mg iron- 800 mcg tablet (1 source) Start: 12-08-2024 Vit No.436-Ssvj-Nhkjs ( Vitamin) 27 mg iron- 800 mcg tablet Active 1 {tbl} PO DAILY December 08, 2024 12:00am Completed/Discontinued Medications Medication Drug Class(es) Dates Sig (Normalized) Sig (Original) 21 day ethinyl estradiol 0.695299 mg/hr / etonogestrel 0.005 mg/hr vaginal system (16 sources) Progestin, Estrogen Start: 08-24-2021 End: 08-12-2024 Etonogestrel-Ethiny l Estradiol (NUVARING) 0.12-0.015 mg/24 hr vaginal ring Use 1 Each vaginally as directed. leave ring for 24 days, remove and insert new ring. Take a 4 day break and insert a new ring when you get breakthrough bleeding 1 Each 11 08/30/2023 08/12/2024 Discontinued (Discontinued by Patient) Start: 08-25-2019 End: 12-08-2024 Etonogestrel-Ethinyl Estradi ol 1 EACH ring Discontinued 1 NMA VG EVERY WEEK August 25, 2019 1:00am December 08, 2024 2:15pm Comment on above: Use 1 Each vaginally as directed. leave ring for 24 days, remove and insert new ring. Take a 4 day break and insert a new ring when you get breakthrough bleeding nitrofurantoin, macrocrystals 25 mg / nitrofurantoin, monohydrate 75 mg oral capsule (2 sources) Nitrofuran Antibacterial Start: End: take 1 capsule by mouth twice daily nitrofurantoin monohydrate and macrocrystal (MACROBID) 100 mg capsule Take 1 capsule by mouth two times a day for 7 days. 14 capsule 12/09/2024 12/16/2024 nystatin 100 unt/mg / triamcinolone acetonide 0.001 mg/mg topical ointment (4 sources) Polyene Antifungal, Corticosteroid Start: End: nystatin-triamcinolon e (MYCOLOG) ointment Indications: Vaginal itching Apply sparingly to perineum twice daily for irritation/infection. 30 g 02/07/2024 08/12/2024 Discontinued (Discontinued by Patient) Problems Active Problems Problem Classification Problem Date Documented Date Episodic/Chronic Contraceptive and procreative management (1 source) Contraception status; Translations: [Encounter for surveillance of vaginal ring hormonal contraceptive device] 12-15-2023 Episodic Genitourinary symptoms and ill-defined conditions (1 source) Hematuria, unspecified; Translations: [Hematuria, unspecified] Onset: 01-07-2025 Episodic Headache; including migraine (1 source) Headache associated with sexual activity ; Translations: [Headache associated with sexual activity] 03-01-2023 Episodic Hypertension complicating ; childbirth and the puerperium (20 sources) Pre-existing hypertension in obstetric context; Translations: [Unspecified pre-existing hypertension complicating , unspecified trimester] Onset: 09-23-2024 09-23-2024 Chronic Immunizations and screening for infectious disease (6 sources) Patient encounter status; Translations: [Encounter for screening for infections with a predominantly sexual mode of transmission] Episodic Menstrual disorders (1 source) Irregular periods; Translations: [Irregular menstruation, unspecified] 01-02-2023 Chronic Other circulatory disease (1 source) Elevated blood-pressure reading without diagnosis of hypertension; Translations: [Elevated blood-pressure reading, without diagnosis of hypertension] 09-23-2024 Episodic Other complications of (20 sources) Maternal obesity complicating , childbirth and the puerperium, antepartum; Translations: [Obesity complicating , first trimester] Onset: 08-12-2024 08-12-2024 Chronic Other complications of (1 source) Obesity complicating , third trimester; Translations: [Obesity affecting in third trimester, unspecified obesity type (HCC)] Onset: 01-28-2025 Chronic Other complications of (1 source) Obesity complicating , first trimester; Translations: [Obesity affecting in first trimester, unspecified obesity type (HCC)] Onset: 08-12-2024 Chronic Other complications of (16 sources) High risk ; Translations: [Supervision of high risk , unspecified, first trimester] 09-10-2024 Episodic Other complications of (2 sources) RhD negative; Translations: [Other specified related conditions, unspecified trimester] 12-17-2024 Episodic Other complications of (6 sources) Excessive growth affecting management of mother; Translations: [Maternal care for excessive growth, third trimester, not applicable or unspecified] Onset: 02-25-2025 02-25-2025 Episodic Other complications of (1 source) Maternal care for excessive growth, third trimester, not applicable or unspecified; Translations: [Excessive growth affecting management of in third trimester, single or unspecified fetus (HCC)] Onset: 02-25-2025 Episodic Other complications of (1 source) Supervision of high risk , unspecified, third trimester; Translations: [Supervision of high risk in third trimester ([facility])] Onset: 01-28-2025 Episodic Other complications of (1 source) Other specified related conditions, unspecified trimester; Translations: [Rh negative state in antepartum period ([facility])] Onset: 12-17-2024 Episodic Other endocrine disorders (1 source) Polycystic [...] (BMI) 40.0-44.9, adult; Translations: [BMI 40.0-44.9, adult ([facility])] Onset: 10-22-2024 Chronic Other screening for suspected conditions (not mental disorders or infectious disease) (3 sources) Cancer cervix screening status; Translations: [Encounter for screening for malignant neoplasm of cervix] Onset: 10-22-2024 12-15-2023 Episodic Polyhydramnios and other problems of amniotic cavity (20 sources) Polyhydramnios; Translations: [Polyhydramnios, third trimester, not applicable or unspecified] Onset: 01-15-2025 01-15-2025 Episodic Residual codes; unclassified (2 sources) Gestation [...] 11-19-2024 Episodic Residual codes; unclassified (1 source) Gestation period, 24 weeks; Translations: [24 weeks gestation of ] 12-17-2024 Episodic Residual codes; unclassified (1 source) Gestation period, 27 weeks; Translations: [27 weeks gestation of ] 01-10-2025 Episodic Residual codes; unclassified (1 source) 22 weeks gestation of ; Translations: [22 weeks gestation of ] Onset: 01-07-2025 Episodic Residual codes; unclassified (2 sources) Gestation period, 28 weeks; Translations: [28 weeks gestation of ] 01-15-2025 Episodic Residual codes; unclassified (2 sources) Gestation period, 32 weeks; Translations: [32 weeks gestation of ] 02-11-2025 Episodic Residual codes; unclassified (1 source) Gestation period, 33 weeks; Translations: [33 weeks gestation of ] 02-18-2025 Episodic Residual codes; unclassified (1 source) Gestation period, 34 weeks; Translations: [34 weeks gestation of ] 02-25-2025 Episodic Residual codes; unclassified (1 source) Gestation period, 35 weeks; Translations: [35 weeks gestation of ] 03-04-2025 Episodic Residual codes; unclassified (2 sources) Gestation period, 36 weeks; Translations: [36 weeks gestation of ] 03-11-2025 Episodic Residual codes; unclassified (1 source) 36 weeks gestation of ; Translations: [36 weeks gestation of (HCC)] Onset: 03-11-2025 Episodic Residual codes; unclassified (1 source) 35 weeks gestation of ; Translations: [35 weeks gestation of (HCC)] Onset: 03-04-2025 Episodic Residual codes; unclassified (1 source) 34 weeks gestation of ; Translations: [34 weeks gestation of (HCC)] Onset: 02-25-2025 Episodic Residual codes; unclassified (1 source) 33 weeks gestation of ; Translations: [33 weeks gestation of (HCC)] Onset: 02-18-2025 Episodic Residual codes; unclassified (1 source) 32 weeks gestation of ; Translations: [32 weeks gestation of (HCC)] Onset: 02-11-2025 Episodic Residual codes; unclassified (1 source) 30 weeks gestation of ; Translations: [30 weeks gestation of (HCC)] Onset: 01-28-2025 Episodic Residual codes; unclassified (1 source) 28 weeks gestation of ; Translations: [28 weeks gestation of (HCC)] Onset: 01-15-2025 Episodic Residual codes; unclassified (1 source) 27 weeks gestation of ; Translations: [27 weeks gestation of ([facility])] Onset: 01-10-2025 Episodic Residual codes; unclassified (1 source) 24 weeks gestation of ; Translations: [24 weeks gestation of ([facility])] Onset: 12-17-2024 Episodic Residual codes; unclassified (1 source) Unspecified blood type, Rh negative; Translations: [Rh negative state in antepartum period ([facility])] Onset: 12-17-2024 Episodic Sexually transmitted infections (not HIV or hepatitis) (1 source) Human papilloma virus deoxyribonucleic acid test positive, high risk on vaginal specimen; Translations: [Vaginal high risk human papillomavirus (HPV) DNA test positive] 12-15-2023 Episodic Skin and subcutaneous tissue infections (1 source) Cellulitis of right upper limb; Translations: [Cellulitis of right upper extremity] Onset: 12-06-2022 Episodic Unclassified (20 sources) [facility] - [facility]ON Onset: 08-12-2024 08-12-2024 Unclassified (1 source) Other specified diseases and conditions complicating ; Translations: [Other specified diseases and conditions complicating ] Onset: 01-07-2025 Past or Other Problems Problem Classification Problem Date Documented Da te Episodic/Chronic Appendicitis and other appendiceal conditions (20 sources) Acute appendicitis; Translations: [Unspecified acute appendicitis] Onset: 01-01-2009 Resolved: 08-24-2021 08-24-2021 Episodic Cardiac dysrhythmias (1 source) Palpitations; Translations: [Palpitations] Onset: 09-20-2024 Episodic Hemorrhage during ; abruptio placenta; placenta previa (20 sources) Threatened miscarriage in first trimester; Translations: [Threatened ] Onset: 08-12-2024 08-12-2024 Episodic Malposition; malpresentation (13 sources) Breech presentation; Translations: [Maternal care for breech presentation, not applicable or unspecified] Onset: 01-15-2025 Resolved: 02-11-2025 01-15-2025 Episodic Other circulatory disease (1 source) Elevated blood-pressure reading, without diagnosis of hypertension; Translations: [Elevated blood pressure reading without diagnosis of hypertension] Onset: 09-23-2024 Episodic Other complications of (1 source) Supervision of high risk , unspecified, second trimester; Translations: [Supervision of high risk in second trimester ([facility])] Onset: 11-19-2024 Episodic Other complications of (1 source) Supervision of high risk , unspecified, first trimester; Translations: [Supervision of high risk in first trimester ([facility])] Onset: 10-22-2024 Episodic Other and delivery including normal (20 sources) with uncertain dates; Translations: [First trimester ] Onset: 08-12-2024 Resolved: 09-10-2024 08-12-2024 Episodic Residual codes; unclassified (1 source) 20 weeks gestation of ; Translations: [20 weeks gestation of ([facility])] Onset: 11-19-2024 Episodic Residual codes; unclassified (1 source) 16 weeks gestation of ; Translations: [16 weeks gestation of ([facility])] Onset: 10-22-2024 Episodic Residual codes; unclassified (1 source) 10 weeks gestation of ; Translations: [10 weeks gestation of ([facility])] Onset: 09-23-2024 Episodic Results Test Name Value Interpretation Reference Range Facility Examination level ultrasound on 03-11-2025 [facility] Radiology Study observation (narrative) [facility] URINE OB DIP B/Oon Glucose Ql (U) Negative Neg mg/dL [facility] Interpretation and review of laboratory results Normal [facility] Protein.monoclonal (U) [Mass/Vol] trace Neg mg/dL [facility] CNPNon 03-10-2025 CNPN Telephone (OBGYWM) OTILIA MEZA ([id number]) 1995 F Date Time Provider Department 03/10/25 TIAN REEVES During your visit today, we recorded the following information about you: Nadiya Dela Cruz RN 03/10/2025 12:02 PM Signed 35w6d Patient calling in c/o sore throat, congestion and cough. Asking what she can take. Advised to review med list in Your Guide to Health Book. She has the link for that already and will review. Advised to go to PCP or urgent care if symptoms worsen and/or persistent since she has induction scheduled at [facility] 03/18. Only call with further advice. GERALD Perry Sara, MD 03/10/2025 12:21 PM Signed Noted and agree thanks Allergies As of Date: 03/10/2025 (No Known Allergies) Date Reviewed: 03/04/2025 Reviewed by: Ofelia Velez MD - Fully Assessed Reason for Visit: Question (OB Question) [1552] Prescriptions as of 03/10/2025 - famotidine (PEPCID) 20 mg tablet Take 1 tablet by mouth two times a day. - aspirin, enteric coated (ECOTRIN LOW STRENGTH) 81 mg EC tablet Take 2 tablets by mouth once daily. - labetalol (TRANDATE) 100 mg tablet Take 1 tablet by mouth two times a day. - PNV no.95/ferrous fum/folic ac ( ORAL) Take by mouth. Problem List As Of Date 03/10/2025 Noted Resolved APPENDICITIS ACUTE [K35.80] 01/01/2009 08/24/2021 Threatened miscarriage in early [O20.*08/12/2024 with uncertain dates, antepartum [Z34*08/12/2024 09/10/2024 Encounter for care in first trimester *08/12/2024 Obesity complicating , first trimester*08/12/2024 Chronic hypertension in (HCC) [O10.91*09/23/2024 Polyhydramnios in third trimester (HCC) [O40.3X*01/15/2025 Breech presentation (HCC) [O32.1XX0] 01/15/2025 02/11/2025 Excessive growth affecting management of *02/25/2025 Encounter Status:Closed by NADIYA DELA CRUZ on 03/10/25 Normal [facility] ROUTINE, GROUP B ST REPTOCOCCUS BY PCRon 03-04-2025 ROUTINE, GROUP B STREPTOCOCCUS BY PCR Not detected Normal [facility] Comment on above: Performed By: #### G BPCR ####[facility] LABCLIA [id number] [place] [address] [place] URINE OB DIP B/Oon 5 Glucose Ql (U) Negative Neg mg/dL [facility] Interpretation and review of laboratory results Normal [facility] Protein.monoclonal (U) [Mass/Vol] trace Neg mg/dL [facility] URINE OB DIP B/Oon 5 Glucose Ql (U) Negative Neg mg/dL [facility] Interpretation and review of laboratory results Normal [facility] Protein.monoclonal (U) [Mass/Vol] trace Neg mg/dL [facility] ALANINE AMINOTRANSFERASE / S GPTOrdered By: Eliza Sparks on 02-18-2025 ALT [Catalytic activity/Vol] 12 U/L 7 - 38 U/L [facility] ALT SerPl-cCncon 02-18-2025 ALT [Catalytic activity/Vol] 12 U/L Normal 7-38 [facility] Comment on above: Order Comment: Speci men Type: BLOOD SPECIMENOrdering Facility: [facility] Address: [address] [place] [address] Performed By: #### 1 920-8, 3084-1, 1742-6 ####[facility] [id number] [place] [address] [place] ASPARTATE AMINOTRANSFERASE/S GOTon 02-18-2025 AST [Catalytic activity/Vol] 15 U/L 13 - 35 U/L [facility] AST SerPl-cCncon 02-18-2025 AST [Catalytic activity/Vol] 15 U/L Normal 13-35 [facility] Comment on above: Order Comment: Speci men Type: BLOOD SPECIMENOrdering Facility: [facility] Address: [address] [place] [address] [place] [id number] Performed By: #### 1 920-8, 3084-1, 1742-6 ####[facility] [id number] [address] [place] BUN SerPl-mCncon 02-18-2025 Urea nitrogen [Mass/Vol] 8 mg/dL Normal 7-21 [facility] Comment on above: Order Comment: Speci men Type: BLOOD SPECIMENOrdering Facility: [facility] Address: [facility] [address] Performed By: #### 4 5066-8, 3094-0 ####[facility] SIMAWNCLIA [id number] [address] [place] CBC panel Auto (Bld)on 02-18 Erythrocyte distribution width (RBC) [Ratio] 13.4 % 11.5 - 15.0 % [facility] Hematocrit (Bld) [Volume fraction] 33.4 % Low 36.0 - 46.0 % [facility] Hemoglobin (Bld) [Mass/Vol] 11.3 g/dL Low 11.5 - 15.5 g/dL [facility] Interpretation and review of laboratory results Abnormal [facility] MCH (RBC) [Entitic mass] 29.8 pg 26.0 - 34.0 pg [facility] MCHC (RBC) [Mass/Vol] 33.8 g/dL 30.5 - 36.0 g/dL [facility] MCV (RBC) [Entitic vol] 88.1 fL 80.0 - 100.0 fL [facility] Nucleated RBC (Bld) [#/Vol] NINF [facility] Platelet mean volume (Bld) [Entitic vol] 9.5 fL 9.0 - 12.7 fL [facility] Platelets (Bld) [#/Vol] 246 10*3/uL [facility] RBC (Bld) [#/Vol] 3.79 10*6/uL Low 3.90 - 5.2 0 m/uL [facility] WBC (Bld) [#/Vol] 11.43 10*3/uL [facility] Erythrocyte distribution width (RBC) [Ratio] 13.4 % Normal 11.5-15.0 [facility] Comment on above: Order Comment: Speci men Type: BLOOD SPECIMENOrdering Facility: [facility] Address: [address] [place] [address] Performed By: #### 5 8410-2 ####[facility]ITALNCESPERANZA [id number] [place] [address] [place] Hematocrit (Bld) [Volume fraction] 33.4 % Low 36.0-46.0 [facility] Comment on above: Order Comment: Speci men Type: BLOOD SPECIMENOrdering Facility: [facility] Address: [address] [place] [address] Performed By: #### 5 8410-2 ####[facility]ITAL[facility]CR[facility] [id number] [place] [address] [place] Hemoglobin (Bld) [Mass/Vol] 11.3 g/dL Low 11.5-15.5 [facility] Comment on above: Order Comment: Speci men Type: BLOOD SPECIMENOrdering Facility: [facility] Address: [address] [place] [address] Performed By: #### 5 8410-2 ####[facility]ITAL[facility]CLIA [id number] [place] [address] [place] MCH (RBC) [Entitic mass] 29.8 pg Normal 26.0-34.0 [facility] Comment on above: Order Comment: Speci men Type: BLOOD SPECIMENOrdering Facility: [facility] Address: [address] [place] [address] Performed By: #### 5 8410-2 ####[facility]ITAL[facility]CLIA [id number] [place] [address] [place] MCHC (RBC) [Mass/Vol] 33.8 g/dL Normal 30.5-36.0 [facility] Comment on above: Order Comment: Speci men Type: BLOOD SPECIMENOrdering Facility: [facility] Address: [address] [place] [address] Performed By: #### 5 8410-2 ####[facility] JR BERNARDONCKYLAH [id number] [place] [address] [place] MCV (RBC) [Entitic vol] 88.1 fL Normal 80.0-100.0 [facility] Comment on above: Order Comment: Speci men Type: BLOOD SPECIMENOrdering Facility: [facility] Address: [address] [place] [address] Performed By: #### 5 8410-2 ####[facility]OS[facility]ITALNCA [id number] [place] [address] [place] Nucleated RBC (Bld) [#/Vol] 10*3/uL Normal <0.01 [facility] Comment on above: Order Comment: Speci men Type: BLOOD SPECIMENOrdering Facility: [facility] Address: [address] [place] [address] Performed By: #### 5 8410-2 ####[facility] [id number] [place] [address] [place] Platelet mean volume (Bld) [Entitic vol] 9.5 fL Normal 9.0-12.7 [facility] Comment on above: Order Comment: Speci men Type: BLOOD SPECIMENOrdering Facility: [facility] Address: [address] [place] [address] Performed By: #### 5 8410-2 ####[facility] [id number] [place] [address] [place] Platelets (Bld) [#/Vol] 246 10*3/uL Normal 150-400 [facility] Comment on above: Order Comment: Speci men Type: BLOOD SPECIMENOrdering Facility: [facility] Address: [address] [place] [address] Performed By: #### 5 8410-2 ####[facility] [id number] [place] [address] [place] RBC (Bld) [#/Vol] 3.79 10*6/uL Low 3.90-5.20 [facility] Comment on above: Order Comment: Speci men Type: BLOOD SPECIMENOrdering Facility: [facility] Address: [address] [place] [address] Performed By: #### 5 8410-2 ####[facility] [id number] [place] [address] [place] WBC (Bld) [#/Vol] 11.43 10*3/uL High 3.70-11.00 [facility] Comment on above: Order Comment: Speci men Type: BLOOD SPECIMENOrdering Facility: [facility] Address: [address] [place] [address] Performed By: #### 5 8410-2 ####[facility] [id number] [place] [address] [place] Creatinine and Glomerular fi ltration rate.predicted panel (S/P/Bld)on 02-18-2025 Creatinine [Mass/Vol] 0.73 mg/dL 0.58 - 0.96 mg/dL [facility] GFR/1.73 sq M.predicted among non-blacks MDRD (S/P/Bld) [Vol rate/Area] 116 mL/min/{1.73_m2} - PINF [facility] Comment on above: Estimated Glomerular Filtration Rate (eGFR) is calculated using the 2020 CKD-EPI creatinine equation. This equation utilizes serum creatinine, sex, and age as parameters. The creatinine assay has traceable calibration to isotope dilution-mass spectrometry. Refer to KDIGO guidelines for clinical interpretation. In patients with unstable renal function, e.g. those with acute kidney injury, the eGFR may not accurately reflect actual GFR. Creatinine [Mass/Vol] 0.73 mg/dL Normal 0.58-0.96 [facility] Comment on above: Order Comment: Speci men Type: BLOOD SPECIMENOrdering Facility: [facility] Address: [address] [place] [address] Performed By: #### 4 5066-8, 3094-0 ####[facility] [id number] [address] [place] eGFRcr SerPlBld CKD-EPI 2020 116 mL/min/1.73m??? Normal >=60 [facility] Comment on above: Order Comment: Speci men Type: BLOOD SPECIMENOrdering Facility: [facility] Address: [address] [place] [address] Result Comment: Jossie mated Glomerular Filtration Rate [...] accurately reflect actual GFR. Performed By: #### 4 5066-8, 3094-0 ####[facility] [id number] [address] [place] No Panel InformationOrdered By: Eliza Sparks on 02-18-2025 Interpretation and review of laboratory results Normal [facility] Prot/Creat Uron 02-18-2025 Protein/Creatinine (U) [Mass ratio] 0.13 mg/mg Normal <0.15 [facility] Comment on above: Order Comment: Speci men Type: URINE SPECIMENOrdering Facility: [facility] Address: [address] [place] [address] Result Comment: Adul t Proteinuria Categories: <0.15 mg/mg is considered normal to mildly increased 0.15 - 0.50 mg/mg is considered moderately increased >0.50 mg/mg is considered severely increased KDIGO. (2013). KDIGO 2012 Clinical Practice Guideline for the Evaluation and Management of Chronic Kidney Disease. Official Journal of the International Society of Nephrology, 3(1), 1-150. Performed By: #### 2 890-2 ####[facility] [id number] [place] [address] [place] Protein/Creatinine (U) [Mass ratio]on 02-18-2025 Creatinine (U) [Mass/Vol] 38.4 mg/dL Normal 20.0-300.0 [facility] Comment on above: Order Comment: Speci men Type: URINE SPECIMENOrdering Facility: [facility] Address: [address] [place] [address] Performed By: #### 2 890-2 ####[facility] [id number] [place] [address] [place] Protein (U) [Mass/Vol] 5 mg/dL Normal 0-20 [facility] Comment on above: Order Comment: Speci men Type: URINE SPECIMENOrdering Facility: [facility] Address: [address] [place] [address] Performed By: #### 2 890-2 ####[facility] [id number] [place] [address] [place] UREA NITROGENon 02-18-2025 Urea nitrogen [Mass/Vol] 8 mg/dL 7 - 21 mg/d L [facility] URIC ACIDon 02-18-2025 Urate [Mass/Vol] 4.6 mg/dL 2.5 - 6.6 mg/dL [facility] URINE OB DIP B/Oon 5 Glucose Ql (U) Negative Neg mg/dL [facility] Interpretation and review of laboratory results Normal [facility] Protein.monoclonal (U) [Mass/Vol] Negative Neg mg/dL [facility] Urate SerPl-mCncon 5 Urate [Mass/Vol] 4.6 mg/dL Normal 2.5-6.6 [facility] Comment on above: Order Comment: Speci men Type: BLOOD SPECIMENOrdering Facility: [facility] Address: [facility] [place] [address] Performed By: #### 1 920-8, 3084-1, 1742-6 ####[facility] MILLWNCLIA [id number] [place] [address] [place] Examination level ultrasound on 02-11-2025 [facility] Radiology Study observation (narrative) [facility] URINE OB DIP B/Oon Glucose Ql (U) Negative Neg mg/dL [facility] Interpretation and review of laboratory results Normal [facility] Protein.monoclonal (U) [Mass/Vol] Negative Neg mg/dL [facility] CBC W Auto Differential pane l (Bld)on 01-15-2025 Basophils (Bld) [#/Vol] 0.04 10*3/uL Normal <0.11 [facility] Comment on above: Order Comment: Speci men Type: BLOOD SPECIMEN Ordering Facility: [facility] Address: [address] [place] [address] Performed By: #### 5 7021-8 #### [facility] CLIA [id number] [address] [place] [address] [place] Basophils/100 WBC (Bld) 0.3 % Normal C [facility] Comment on above: Order Comment: Speci men Type: BLOOD SPECIMEN Ordering Facility: [facility] Address: [address] [place] [address] Performed By: #### 5 7021-8 #### [facility] CLIA [id number] [address] [place] [address] [place] Differential cell count method Nom (Bld) Auto Normal [facility] Comment on above: Order Comment: Speci men Type: BLOOD SPECIMEN Ordering Facility: [facility] Address: [address] [place] [address] Performed By: #### 5 7021-8 #### [facility] CLIA [id number] [address] [place] [address] [place] Eosinophils (Bld) [#/Vol] 0.08 10*3/uL Normal <0.46 [facility] Comment on above: Order Comment: Speci men Type: BLOOD SPECIMEN Ordering Facility: [facility] Address: [address] [place] [address] Performed By: #### 5 7021-8 #### [facility] CLIA [id number] [address] [place] [address] [place] Eosinophils/100 WBC (Bld) 0.5 % Normal [facility] Comment on above: Order Comment: Speci men Type: BLOOD SPECIMEN Ordering Facility: [facility] Address: [address] [place] [address] Performed By: #### 5 7021-8 #### [facility] CLIA [id number] [address] [place] [address] [place] Erythrocyte distribution width (RBC) [Ratio] 12.9 % Normal 11.5-15.0 [facility] Comment on above: Order Comment: Speci men Type: BLOOD SPECIMEN Ordering Facility: [facility] Address: [address] [place] [address] Performed By: #### 5 7021-8 #### [facility] CLIA [id number] [address] [place] [address] [place] Hematocrit (Bld) [Volume fraction] 34.9 % Low 36.0-46.0 [facility] Comment on above: Order Comment: Speci men Type: BLOOD SPECIMEN Ordering Facility: [facility] Address: [address] [place] [address] Performed By: #### 5 7021-8 #### [facility] [id number] [address] [place] [address] [place] Hemoglobin (Bld) [Mass/Vol] 12.0 g/dL Normal 11.5-15.5 [facility] Comment on above: Order Comment: Speci men Type: BLOOD SPECIMEN Ordering Facility: [facility] Address: [address] [place] [id number] Performed By: #### 5 7021-8 #### [facility] CLIA [id number] [address] [place] [address] [place] Immature granulocytes (Bld) [#/Vol] 0.31 10*3/uL High <0.10 [facility] Comment on above: Order Comment: Speci men Type: BLOOD SPECIMEN Ordering Facility: [facility] Address: [address] [place] [address] Performed By: #### 5 7021-8 #### [facility] CLIA [id number] [address] [place] [address] [place] Immature granulocytes/100 WBC (Bld) 2.1 % Normal [facility] Comment on above: Order Comment: Speci men Type: BLOOD SPECIMEN Ordering Facility: [facility] Address: [address] [place] [address] Performed By: #### 5 7021-8 #### [facility] CLIA [id number] [address] [place] [address] [place] Lymphocytes (Bld) [#/Vol] 2.02 10*3/uL Normal 1.00-4.00 [facility] Comment on above: Order Comment: Speci men Type: BLOOD SPECIMEN Ordering Facility: [facility] Address: [address] [place], [place] [address] Performed By: #### 5 7021-8 #### [facility] CLIA [id number] [address] [place] [address] [place] Lymphocytes/100 WBC (Bld) 13.8 % Normal [facility] Comment on above: Order Comment: Speci men Type: BLOOD SPECIMEN Ordering Facility: [facility] Address: [address] [place] [address] Performed By: #### 5 7021-8 #### [facility] CLIA [id number] [address] [place] [address] [place] MCH (RBC) [Entitic mass] 29.9 pg Normal 26.0-34.0 [facility] Comment on above: Order Comment: Speci men Type: BLOOD SPECIMEN Ordering Facility: [facility] Address: [address] [place] [address] Performed By: #### 5 7021-8 #### [facility] CLIA [id number] [address] [place] [address] [place] MCHC (RBC) [Mass/Vol] 34.4 g/dL Normal 30.5-36.0 [facility] Comment on above: Order Comment: Speci men Type: BLOOD SPECIMEN Ordering Facility: [facility] Address: [address] [place] [address] Performed By: #### 5 7021-8 #### [facility] CLIA [id number] [address] [place] [address] [place] MCV (RBC) [Entitic vol] 87.0 fL Normal 80.0-100.0 C [facility] Comment on above: Order Comment: Speci men Type: BLOOD SPECIMEN Ordering Facility: [facility] Address: [address] [place] [address] Performed By: #### 5 7021-8 #### [facility] CLIA [id number] [address] [place] [address] [place] Monocytes (Bld) [#/Vol] 0.62 10*3/uL Normal <0.87 [facility] Comment on above: Order Comment: Speci men Type: BLOOD SPECIMEN Ordering Facility: [facility] Address: [address] [place] [address] Performed By: #### 5 7021-8 #### [facility] CLIA [id number] [address] [place] [address] [place] Monocytes/100 WBC (Bld) 4.2 % Normal C [facility] Comment on above: Order Comment: Speci men Type: BLOOD SPECIMEN Ordering Facility: [facility] Address: [address] [place] [address] Performed By: #### 5 7021-8 #### [facility] CLIA [id number] [address] [place] [address] [place] Neutrophils (Bld) [#/Vol] 11.61 10*3/uL High 1.45-7.50 [facility] Comment on above: Order Comment: Speci men Type: BLOOD SPECIMEN Ordering Facility: [facility] Address: [address] [place] [address] Performed By: #### 5 7021-8 #### [facility] CLIA [id number] [address] [place] [address] [place] Neutrophils/100 WBC (Bld) 79.1 % Normal [facility] Comment on above: Order Comment: Speci men Type: BLOOD SPECIMEN Ordering Facility: [facility] Address: [address] [place] [address] Performed By: #### 5 7021-8 #### [facility] CLIA [id number] [address] [place] [address] [place] Nucleated RBC (Bld) [#/Vol] 10*3/uL Normal <0.01 [facility] Comment on above: Order Comment: Speci men Type: BLOOD SPECIMEN Ordering Facility: [facility] Address: [address] [place] [address] Performed By: #### 5 7021-8 #### [facility] CLIA [id number] [address] [place] [address] [place] Nucleated RBC/100 WBC (Bld) [Ratio] 0.0 /100 WBC Normal [facility] Comment on above: Order Comment: Speci men Type: BLOOD SPECIMEN Ordering Facility: [facility] Address: [address] [place] [address] Performed By: #### 5 7021-8 #### [facility] CLIA [id number] [address] [place] [address] [place] Platelet mean volume (Bld) [Entitic vol] 9.5 fL Normal 9.0-12.7 [facility] Comment on above: Order Comment: Speci men Type: BLOOD SPECIMEN Ordering Facility: [facility] Address: [address] [place] [address] Performed By: #### 5 7021-8 #### [facility] CLIA [id number] [address] [place] [address] [place] Platelets (Bld) [#/Vol] 247 10*3/uL Normal 150-400 [facility] Comment on above: Order Comment: Speci men Type: BLOOD SPECIMEN Ordering Facility: [facility] Address: [address] [place] [address] Performed By: #### 5 7021-8 #### [facility] CLIA [id number] [address] [place] [address] [place] RBC (Bld) [#/Vol] 4.01 10*6/uL Normal 3.90-5.20 [facility] Comment on above: Order Comment: Speci men Type: BLOOD SPECIMEN Ordering Facility: [facility] Address: [address] [place] [address] Performed By: #### 5 7021-8 #### [facility] CLIA [id number] [address] [place] [address] [place] WBC (Bld) [#/Vol] 14.68 10*3/uL High 3.70-11.00 [facility] Comment on above: Order Comment: Speci men Type: BLOOD SPECIMEN Ordering Facility: [facility] Address: [address] [place] [address] Performed By: #### 5 7021-8 #### [facility] CLIA [id number] [address] [place] [address] [place] Comprehensive metabolic 2000 panelOrdered By: Eliza Sparks on 01-15-2025 Albumin [Mass/Vol] 3.8 g/dL Low 3.9 - 4.9 g/dL [facility] ALP [Catalytic activity/Vol] 104 U/L 34 - 123 U/L [facility] ALT [Catalytic activity/Vol] 10 U/L 7 - 38 U/L [facility] Anion gap [Moles/Vol] 14 mmol/L 8 - 15 mmol/L [facility] AST [Catalytic activity/Vol] 15 U/L 13 - 35 U/L [facility] Bilirubin [Mass/Vol] 0.2 mg/dL 0.2 - 1 .3 mg/dL [facility] Calcium [Mass/Vol] 9.4 mg/dL 8.5 - 10. 2 mg/dL [facility] Chloride [Moles/Vol] 103 mmol/L 98 - 10 7 mmol/L [facility] CO2 [Moles/Vol] 19 mmol/L Low 22 - 30 mmol/L [facility] Creatinine [Mass/Vol] 0.58 mg/dL 0.58 - 0.96 mg/dL [facility] GFR/1.73 sq M.predicted among non-blacks MDRD (S/P/Bld) [Vol rate/Area] 127 mL/min/{1.73_m2} - PINF [facility] Comment on above: Estimated Glomerular Filtration Rate [...] not accurately reflect actual GFR. Glucose [Mass/Vol] 121 mg/dL High 74 - 99 mg/dL [facility] Comment on above: The [place] Diabete s Association (ADA) provides guidance for [...] Standards of Medical Care in Diabetes 2016, [place] [employer] Association. Diabetes Care. 2016.39(Suppl 1). Interpretation and review of laboratory results Abnormal [facility] Potassium [Moles/Vol] 3.3 mmol/L Low 3.7 - 5.1 mmol/L [facility] Protein [Mass/Vol] 6.8 g/dL 6.3 - 8.0 g/dL [facility] Sodium [Moles/Vol] 136 mmol/L 136 - 144 mmol/L [facility] Urea nitrogen [Mass/Vol] 11 mg/dL 7 - 21 mg/d L [facility] Comprehensive metabolic 2000 panelon 01-15-2025 Albumin [Mass/Vol] 3.8 g/dL Low 3.9-4.9 [facility] Comment on above: Order Comment: Sheryl reyes Type: BLOOD SPECIMEN Ordering Facility: [facility] Address: [address] [place] [address] Performed By: #### 5 7021-8 #### [facility] [id number] [address] [place] [address] [place] ALP [Catalytic activity/Vol] 104 U/L Normal 34-123 [facility] Comment on above: Order Comment: Sheryl reyes Type: BLOOD SPECIMEN Ordering Facility: [facility] Address: [address] [place] [address] Performed By: #### 5 7021-8 #### [facility] CLIA [id number] [address] [place] [address] [place] ALT [Catalytic activity/Vol] 10 U/L Normal 7-38 [facility] Comment on above: Order Comment: Sheryl reyes Type: BLOOD SPECIMEN Ordering Facility: [facility] Address: [address] [place] [address] Performed By: #### 5 7021-8 #### [facility] [id number] [address] [place] [address] [place] Anion gap [Moles/Vol] 14 mmol/L Normal 8-15 [facility] Comment on above: Order Comment: Speci men Type: BLOOD SPECIMEN Ordering Facility: [facility] Address: [address] [place] [address] Performed By: #### 5 7021-8 #### [facility] CLIA [id number] [address] [place] [address] [place] AST [Catalytic activity/Vol] 15 U/L Normal 13-35 [facility] Comment on above: Order Comment: Speci men Type: BLOOD SPECIMEN Ordering Facility: [facility] Address: [address] [place] [address] Performed By: #### 5 7021-8 #### [facility] CLIA [id number] [address] [place] [address] [place] Bilirubin [Mass/Vol] 0.2 mg/dL Normal 0.2-1.3 [facility] Comment on above: Order Comment: Speci men Type: BLOOD SPECIMEN Ordering Facility: [facility] Address: [address] [place] [address] Performed By: #### 5 7021-8 #### [facility] CLIA [id number] [address] [place] [address] [place] Calcium [Mass/Vol] 9.4 mg/dL Normal 8.5-10.2 [facility] Comment on above: Order Comment: Speci men Type: BLOOD SPECIMEN Ordering Facility: [facility] Address: [address] [place] [address] Performed By: #### 5 7021-8 #### [facility] CLIA [id number] [address] [place] [address] [place] Chloride [Moles/Vol] 103 mmol/L Normal 98-107 [facility] Comment on above: Order Comment: Speci men Type: BLOOD SPECIMEN Ordering Facility: [facility] Address: [address] [place] [address] Performed By: #### 5 7021-8 #### [facility] CLIA [id number] [address] [place] [address] [place] CO2 [Moles/Vol] 19 mmol/L Low 22-30 [facility] Comment on above: Order Comment: Speci men Type: BLOOD SPECIMEN Ordering Facility: [facility] Address: [address] [place], [place] [address] Performed By: #### 5 7021-8 #### [facility] CLIA [id number] [address] [place] [address] [place] Creatinine [Mass/Vol] 0.58 mg/dL Normal 0.58-0.96 [facility] Comment on above: Order Comment: Speci men Type: BLOOD SPECIMEN Ordering Facility: [facility] Address: [address] [place] [address] Performed By: #### 5 7021-8 #### [facility] [id number] [address] [place] [address] [place] eGFRcr SerPlBld CKD-EPI 2020 127 mL/min/1.73m??? Normal >=60 [facility] Comment on above: Order Comment: Speci men Type: BLOOD SPECIMEN Ordering Facility: [facility] Address: [address] [place] [address] Result Comment: Jossie mated Glomerular Filtration Rate [...] accurately reflect actual GFR. Performed By: #### 5 7021-8 #### [facility] CLIA [id number] [address] [place] [address] [place] Glucose [Mass/Vol] 121 mg/dL High 74-99 [facility] Comment on above: Order Comment: Sheryl reyes Type: BLOOD SPECIMEN Ordering Facility: [facility] Address: [address] [place], [place] [address] Result Comment: The [place] Diabetes Association (ADA) provides guidance for cutoff [...] Standards of Medical Care in Diabetes 2016, [place] [employer]. Diabetes Care. 2016.39(Suppl 1). Performed By: #### 5 7021-8 #### [facility] CLIA [id number] [address] [place] [address] [place] Potassium [Moles/Vol] 3.3 mmol/L Low 3.7-5.1 [facility] Comment on above: Order Comment: Sheryl reyes Type: BLOOD SPECIMEN Ordering Facility: [facility] Address: [address] [place], [place] [address] Performed By: #### 5 7021-8 #### [facility] CLIA [id number] [address] [place] [address] [place] Protein [Mass/Vol] 6.8 g/dL Normal 6.3-8.0 [facility] Comment on above: Order Comment: Sheryl reyes Type: BLOOD SPECIMEN Ordering Facility: [facility] Address: [address] [place] [address] Performed By: #### 5 7021-8 #### [facility] CLIA [id number] [address] [place] [address] [place] Sodium [Moles/Vol] 136 mmol/L Normal 136-144 [facility] Comment on above: Order Comment: Speci men Type: BLOOD SPECIMEN Ordering Facility: [facility] Address: [address] [place], [place] [address] Performed By: #### 5 7021-8 #### [facility] CLIA [id number] [address] [place] [address] [place] Urea nitrogen [Mass/Vol] 11 mg/dL Normal 7-21 [facility] Comment on above: Order Comment: Speci men Type: BLOOD SPECIMEN Ordering Facility: [facility] Address: [address] [place] [address] Performed By: #### 5 7021-8 #### [facility] CLIA [id number] [address] [place] [address] [place] Examination level ultrasound on 01-15-2025 [facility] Radiology Study observation (narrative) [facility] GESTATIONAL GLUCOSE SCREEN, 1-HOUR, 50 GRAM, NON-FASTINGon 01-15-2025 Glucose [Mass/Vol] 120 mg/dL Normal 74-134 [facility] Comment on above: Order Comment: Speci men Type: BLOOD SPECIMENOrdering Facility: [facility] Address: [address] [place] [address] Result Comment: [facility] Congress of Obstetricians and Gynecologists (Munira/Lisy) guidelines state a gestational diabetes mellitus positive screen is made, in women not previously diagnosed with overt diabetes, when the 1 hr plasma glucose level is equal to or above 140 mg/dL. The [facility] Mechanism Inspector and Women's [facility] [employer] recommends a 135 mg/dL cutoff. Performed By: #### G LTGST ####[facility] [id number] [place] [address] [place] Prot/Creat Uron 01-15-2025 Protein/Creatinine (U) [Mass ratio] 0.13 mg/mg Normal <0.15 [facility] Comment on above: Order Comment: Speci men Type: URINE SPECIMENOrdering Facility: [facility] Address: [address] [place] [address] Result Comment: Adul t Proteinuria Categories: <0.15 mg/mg is considered normal to mildly increased 0.15 - 0.50 mg/mg is considered moderately increased >0.50 mg/mg is considered severely increased KDIGO. (2013). KDIGO 2012 Clinical Practice Guideline for the Evaluation and Management of Chronic Kidney Disease. Official Journal of the International Society of Nephrology, 3(1), 1-150. Performed By: #### 2 890-2 ####[facility] LABIA [id number] [place] [address] [place] Protein/Creatinine (U) [Mass ratio]on 01-15-2025 Creatinine (U) [Mass/Vol] 38.8 mg/dL Normal 20.0-300.0 [facility] Comment on above: Order Comment: Speci men Type: URINE SPECIMENOrdering Facility: [facility] Address: [address] [place] [address] Performed By: #### 2 890-2 ####[facility] [id number] [place] [address] [place] Protein (U) [Mass/Vol] 5 mg/dL Normal 0-20 [facility] Comment on above: Order Comment: Speci men Type: URINE SPECIMENOrdering Facility: [facility] Address: [address] [place] [address] Performed By: #### 2 890-2 ####[facility] LABIA [id number] [place] [id number] [place] Reagin and Treponema pallidu m IgG and IgM [Interp]on 01-15-2025 T. pallidum IgG+IgM IA Ql (S) Non-Reactive Normal Nonreactive [facility] Comment on above: Order Comment: Speci men Type: BLOOD SPECIMENOrdering Facility: [facility] Address: [address] [place] [address] Performed By: #### 7 3752-8 ####[facility] LABIA [id number] [place] [address] [place] Reagin+T pallidum IgG+IgM Se rPl-Impon 01-15-2025 Reagin and Treponema pallidum IgG and IgM [Interp] Cannot exclude recent Treponemal infection if specimen collected within 7-10 days after appearance of suspect lesions or 2-3 weeks after an exposure. Clinical correlation is required. Normal [facility] Comment on above: Order Comment: Speci men Type: BLOOD SPECIMENOrdering Facility: [facility] Address: [address] [place] [address] Performed By: #### 7 3752-8 ####[facility] [id number] [address] STATES [facility] TYPE + SCREEN PRENATALon ABO O Normal [facility] Comment on above: Order Comment: Speci men Type: BLOOD SPECIMENOrdering Facility: [facility] Address: [address] [place] [address] Performed By: #### T SPN ####[facility] BLOOD BANKIA [id number] [place] [address] [place] Rh Nom (Bld) Negative Normal [facility] Comment on above: Order Comment: Speci men Type: BLOOD SPECIMENOrdering Facility: [facility] Address: [address] [place] [address] Performed By: #### T SPN ####[facility] B[facility] BANKIA [id number] [place] [address] [place] TYPE AND SCREEN EXPIRATION 01/18/2025 23:59 Normal [facility] Comment on above: Order Comment: Speci men Type: BLOOD SPECIMENOrdering Facility: [facility] Address: [address] [place] [address] Performed By: #### T SPN ####[facility] BANKIA [id number] [place] [address] [place] URINE OB DIP B/Oon Glucose Ql (U) Negative Neg mg/dL [facility] Protein.monoclonal (U) [Mass/Vol] Negative Neg mg/dL [facility] Urine Cultureon 12-10-2024 [facility] Mixed Gram Positive Organisms Canby Count 25,000-50,000 MIXC Mixed contaminants. Submit a new specimen if indicated. Normal [facility] Comment on above: Performed By: #### M 100.0730 #### [facility] [address] [place], [address] CNPNon 12-09-2024 CNPN Telephone (OBGYWM) OTILIA MEZA ([id number]) 1995 F Date Time Provider Department 12/09/24 JOJO SAEZ During your visit today, we recorded the following information about you: Rita Bernal RN 12/09/2024 12:36 PM Signed Patient 22w6d went to [facility] ER for blood in her urine and then was sent to [facility]. Patient states she was given a dose of Macrobid on [facility] and was told that a prescription was going to be sent to her pharmacy. Patient states pharmacy has not received anything. Per patient she is not having any hematuria today, but urine is very cloudy. Denies any pain, odor, leaking cramping, bleeding. Do you see this patient on LANDD yesterday? Can you address? GERALD Chow Jessica, APRN.CNM 12/09/2024 1:02 PM Signed I just sent another phone note asking for urine culture. I was trying to await culture but sent prescription for now. Thank you, Jojo Saez APRN.Ofelia Friend RN 12/09/2024 1:51 PM Signed Patient notified that Macrobid was sent in. Awaiting urine culture results. Not back at this time. Ofelia Driscoll RN Allergies As of Date: 12/09/2024 (No Known Allergies) Date Reviewed: 11/19/2024 Reviewed by: Tori Lim MA - Fully Assessed Reason for Visit: Medication Question [1478] Prescriptions as of 12/09/2024 - nitrofurantoin monohydrate and macrocrystal (MACROBID) 100 mg capsule Take 1 capsule by mouth two times a day for 7 days. - aspirin, enteric coated (ECOTRIN LOW STRENGTH) 81 mg EC tablet Take 2 tablets by mouth once daily. - PNV no.95/ferrous fum/folic ac ( ORAL) Take by mouth. Problem List As Of Date 12/09/2024 Noted Resolved APPENDICITIS ACUTE [K35.80] 01/01/2009 08/24/2021 Threatened miscarriage in early [O20.*08/12/2024 with uncertain dates, antepartum [Z34*08/12/2024 09/10/2024 Encounter for care in first trimester *08/12/2024 Obesity complicating , first trimester*08/12/2024 Chronic hypertension in [O10.919] 09/23/2024 Encounter Status:Closed by OFELIA DRISCOLL on 12/09/24 [facility] OTILIA ME[facility] ([id number]) 1995 F Date Time Provider Department 12/09/24 JOJO SAEZ During your visit today, we recorded the following information about you: Jojo Saez APRN.CNM 12/09/2024 1:02 PM Signed Can you please see if urine culture is back from [facility]? Thank you, BRIDGETT Lombardo Jennifer, RN 12/09/2024 1:49 PM Signed Urine culture is still pending. Will keep watch for it. Ofelia Driscoll RN Ofelia Driscoll RN 12/10/2024 4:01 PM Signed Urine culture results from [facility] given to COSME to review. GERALD Flores Jessica, APRN.CNM 12/16/2024 4:30 PM Signed Yes, ok to close, results negative. Thank you, Jojo Saez APRN.CN Allergies As of Date: 12/09/2024 (No Known Allergies) Date Reviewed: 11/19/2024 Reviewed by: Tori Lim MA - Fully Assessed Reason for Visit: Results [95] Order(s):nitrofurant oin monohydrate and macrocrystal (MACROBID) 100 mg capsuleTake 1 capsule by mouth two times a day for 7 days.Disp: 14 capsuleRfl: 0 Prescriptions as of 12/16/2024 - nitrofurantoin monohydrate and macrocrystal (MACROBID) 100 mg capsule Take 1 capsule by mouth two times a day for 7 days. - aspirin, enteric coated (ECOTRIN LOW STRENGTH) 81 mg EC tablet Take 2 tablets by mouth once daily. - PNV no.95/ferrous fum/folic ac ( ORAL) Take by mouth. Problem List As Of Date 12/09/2024 Noted Resolved APPENDICITIS ACUTE [K35.80] 01/01/2009 08/24/2021 Threatened miscarriage in early [O20.*08/12/2024 with uncertain dates, antepartum [Z34*08/12/2024 09/10/2024 Encounter for care in first trimester *08/12/2024 Obesity complicating , first trimester*08/12/2024 Chronic hypertension in [O10.919] 09/23/2024 Prescriptions ordered this encounter Disp Refills Start End NITROFURANTOIN MONOHYDRATE AND MACROCR* 14 c* 0 12/09/2024 12/16/2024 Route: PO Sig: Take 1 capsule by mouth two times a day for 7 days. Encounter Status:Closed by OFELIA DRISCOLL on 12/16/24 Normal [facility] Bilirubin Test strip Ql (U)O rdered By: Jojo Saez on 12-08-2024 Bilirubin Ql (U) Negative Negative [facility] Ketones Test strip Ql (U)Ord ered By: Jojo Saez on 12-08-2024 Ketones Ql (U) 150 mg/dl Abnormal Negative [facility] Comment on above: CRITICAL VALUE *H Microscopic analysis of urin e for red blood cells (RBC)Ordered By: Jojo Saez on 12-08-2024 Microscopic analysis of urine for red blood cells (RBC) > 100 SEEN /hpf 0-5 [facility] Mucus LM Ql (Urine sed)Order ed By: Jojo Saez on 12-08-2024 Mucus Ql (Urine sed) 0 SEEN /hpf [facility] Nitrite Test strip Ql (U)Ord ered By: Jojo Saez on 12-08-2024 Nitrite Ql (U) Negative Negative [facility] OB Triage Physician Noteon 0 12-08-2024 OB Triage Physician Note [facility] Medical Records Department [address] [place] [address] OB Triage Physician Note 12/08/241928 MR#: [id number] Acct: [id number] Name: OTILIA MEZA Rep #: [id number] : 1995 29 From: Jojo Saez CNM PCP: Dr. Mago Wong MD Status:DEP [facility] Y Location: [facility] HPI - General HPI Narrative OTILIA MEZA, is a 29 F who presents at 22w5d G1. Presents with blood in urine that started today. Denies any vaginal bleeding, leakage of fluid, or pain. PFSH PFS Home Medications ???Medication ???Instructions ???Recorded ???Last Taken ???Type aspirin 81 mg chewable tablet 2 tab PO DAILY 12/08/24 12/07/24 2 1:00 History (Children's Aspirin) 2 tabs vits no.130-ferrous fum 1 tab PO DAILY 12/08/24 12/08/24 0 8:00 History 27 mg iron-folic acid 800 mcg 1 TAB tablet ( Vitamin) Allergy/AdvReac Type Severity Reaction Status Date / Time No Known Allergies Allergy Verified 12/08/24 14:13 Social History Smoking Status: Never smoker NST FHR Rate Baby A Baseline: 152, no NST due to gestational age Assessment Plan (1) Hematuria: (2) 22 weeks gestation of : PLAN: Plan 1) Hematuria, no signs of acute pain for pyelonephritis or kidney stones. Will get urine culture. Macrobid 100mg PO x1 and will send prescription to pharmacy. 2) Follow up outpatient 3) Macrobid 100mg PO x1 and will send prescription 12/11/24 0756 Date Jojo Saez CNM Cosigner Signature (if applicable): Date _ CC: ESTEPHANIE Saez; Dr. Mago Wong MD Signed ADDENDUM by ESTEPHANIE Saez on 12/23/24 at 1555 Addendum D/C home 12/23/24 1555 Date Jojo Saez CNM cc: ESTEPHANIE Saez; Dr. Mago Wong MD * Signed Normal [facility] Protein Test strip Ql (U)Ord ered By: Jojo Saez on 12-08-2024 Protein Ql (U) 500 mg/dl High Negative [facility] Squamous epithelial cells de tection in urine sediment by light microscopyOrdered By: Jojo Saez on 12-08-2024 Epithelial cells.squamous LM Ql (Urine sed) 0 SEEN /hpf 5-10 [facility] Urinalysis, Completeon 12-08 RBC > 100 SEEN Normal 0-5 [facility] Comment on above: Order Comment: COLOR OF URINE MAY AFFECT DIPSTICK RESULTS. CRITICAL VALUE CALLED TO davida barr 12/08/24 Scarlet Giles. RESULTS READ BACK BY same. CLEAN CATCH Performed By: #### L 400.0001 #### [facility] [address] [place], [address] WBC 0-5 SEEN Normal 0-5 [facility] Comment on above: Order Comment: COLOR OF URINE MAY AFFECT DIPSTICK RESULTS. CRITICAL VALUE CALLED TO davida barr 12/08/24 [facility] Devika Giles. RESULTS READ BACK BY same. CLEAN CATCH Performed By: #### L 400.0001 #### [facility] [address] [place], [address] BACTERIA 0 SEEN Normal None Seen [facility] Comment on above: Order Comment: COLOR OF URINE MAY AFFECT DIPSTICK RESULTS. CRITICAL VALUE CALLED TO davida barr 12/08/24 [facility] Devika Giles. RESULTS READ BACK BY same. CLEAN CATCH Performed By: #### L 400.0001 #### [facility] [address] [place], [address] EPI,SQUAMOUS 0 SEEN Normal 5-10 [facility] Comment on above: Order Comment: COLOR OF URINE MAY AFFECT DIPSTICK RESULTS. CRITICAL VALUE CALLED TO davida barr 12/08/24 [facility] Devika Giles. RESULTS READ BACK BY same. CLEAN CATCH Performed By: #### L 400.0001 #### [facility] [address] [place], [address] Mucus Ql (Urine sed) 0 SEEN Normal [facility] Comment on above: Order Comment: COLOR OF URINE MAY AFFECT DIPSTICK RESULTS. [facility]08[facility]24 [facility] Devika Giles. RESULTS READ BACK BY same. CLEAN CATCH Performed By: #### L 400.0001 #### [facility] [address] [place], [address] Urine clarityOrdered By: Francisca Saez on 12-08-2024 Clarity (U) Turbid Clear [facility] Urine color determinationOrd ered By: Jojo Saez on 12-08-2024 Color (U) Red Yellow [facility] Urine glucose detectionOrder ed By: Jojo Saez on 12-08-2024 Glucose Ql (U) Normal mg/dl Normal [facility] Urine leukocyte esterase det ection by dipstickOrdered By: Jojo Saez on 12-08-2024 Leukocyte esterase Test strip Ql (U) 100 /ul High Negative [facility] Urine pHOrdered By: Jojo Saez on 12-08-2024 pH (U) 6.5 [pH] 5.0 - 8.0 [facility] Urine sediment bacteria coun t by microscopy (number/high power field)Ordered By: Jojo Saez on 12-08-2024 Bacteria LM.HPF (Urine sed) [#/Area] 0 /[HPF] None Seen [facility] Urine specific gravity measu rementOrdered By: Jojo Saez on 12-08-2024 Specific gravity (U) [Rel density] 1.020 1.002-1.030 [facility] Urine urobilinogen measureme ntOrdered By: Jojo Saez on 12-08-2024 Urobilinogen Ql (U) Normal mg/dl Normal [facility] White blood cell countOrdere d By: Jojo Saez on 12-08-2024 White blood cell count 0-5 SEEN /hpf 0-5 [facility] Examination level ultrasound on 11-19-2024 Indication Detailed [...] 11 oz EFW by: Hadlock (HC-AC-FL) Extended World History Teacher 6.6 mm CM 4.3 mm 28% Nicolaides [...] normal LVOT view: normal 3-vessel view: normal 8-hyskly-lopltpg view: normal Heart / Thorax Situs: situs [...] Read By: Antonia Michelle M.D. MATERNAL MEDICINE [facility] Radiology Study observation (narrative) Luz laura [facility] Examination level ultrasound on 10-22-2024 Indication Early [...] 5 oz EFW by: Hadlock (HC-AC-FL) Extended World History Teacher 5.8 mm CM 3.5 mm 34% Nicolaides Extremities / Bony Struc FL / HC 0.18 95% Hadlock Other Structures FHR 152 bpm Anatomy Cranium: normal Lateral ventricles: normal Choroid plexus: normal Midline falx: normal Cerebellum: normal Cisterna magna: normal Lips: normal 4-chamber view: normal RVOT view: normal LVOT view: normal 3-vessel view: suboptimally visualized 4-rbmmje-olpdtyu view: suboptimally visualized Heart / Thorax Diaphragm: [...] Read By: Antonia Michelle M.D. MATERNAL MEDICINE [facility] Radiology Study observation (narrative) [facility] Comprehensive metabolic 2000 panelOrdered By: Eliza Sparks on 09-23-2024 Albumin [Mass/Vol] 4 g/dL 3.9 - 4.9 g/dL [facility] ALP [Catalytic activity/Vol] 72 U/L 34 - 123 U/L [facility] ALT [Catalytic activity/Vol] 14 U/L 7 - 38 U/L [facility] Anion gap [Moles/Vol] 11 mmol/L 8 - 15 mmol/L [facility] AST [Catalytic activity/Vol] 15 U/L 13 - 35 U/L [facility] Bilirubin [Mass/Vol] mg/dL Low 0.2 - 1 .3 mg/dL [facility] Calcium [Mass/Vol] 9.5 mg/dL 8.5 - 10. 2 mg/dL [facility] Chloride [Moles/Vol] 104 mmol/L 98 - 10 7 mmol/L [facility] CO2 [Moles/Vol] 22 mmol/L 22 - 30 mmol/L [facility] Creatinine [Mass/Vol] 0.49 mg/dL Low 0.58 - 0.96 mg/dL [facility] GFR/1.73 sq M.predicted among non-blacks MDRD (S/P/Bld) [Vol rate/Area] 133 mL/min/{1.73_m2} - PINF [facility] Comment on above: Estimated Glomerular Filtration Rate [...] [Mass/Vol] 96 mg/dL 74 - 99 mg/dL [facility] Comment on above: The [place] Diabete s Association (ADA) provides guidance for [...] Standards of Medical Care in Diabetes 2016, [place] Diabetes Association. Diabetes Care. 2016.39(Suppl 1). Interpretation and review of laboratory results Abnormal [facility] Potassium [Moles/Vol] 3.9 mmol/L 3.7 - 5.1 mmol/L [facility] Protein [Mass/Vol] 6.9 g/dL 6.3 - 8.0 g/dL [facility] Sodium [Moles/Vol] 137 mmol/L 136 - 144 mmol/L [facility] Urea nitrogen [Mass/Vol] 9 mg/dL 7 - 21 mg/d L [facility] Comprehensive metabolic 2000 panelon 09-23-2024 Albumin [Mass/Vol] 4.0 g/dL Normal 3.9-4.9 [facility] Comment on above: Order Comment: Speci men Type: BLOOD SPECIMENOrdering Facility: [facility] Address: [address] [place] [address] Performed By: #### 2 4323-8 ####[facility] [id number] [place] [address] [place] ALP [Catalytic activity/Vol] 72 U/L Normal 34-123 [facility] Comment on above: Order Comment: Speci men Type: BLOOD SPECIMENOrdering Facility: [facility] Address: [address] [place] [address] Performed By: #### 2 4323-8 ####[facility] [id number] [place] [address] [place] ALT [Catalytic activity/Vol] 14 U/L Normal 7-38 [facility] Comment on above: Order Comment: Speci men Type: BLOOD SPECIMENOrdering Facility: [facility] Address: [address] [place] [address] Performed By: #### 2 4323-8 ####[facility] BERNARD[facility]CL[facility] [id number] [place] [address] [place] Anion gap [Moles/Vol] 11 mmol/L Normal 8-15 [facility] Comment on above: Order Comment: Speci men Type: BLOOD SPECIMENOrdering Facility: [facility] Address: [address] [place] [address] Performed By: #### 2 4323-8 ####[facility] SIMAWNCLIA [id number] [place] [address] [place] AST [Catalytic activity/Vol] 15 U/L Normal 13-35 [facility] Comment on above: Order Comment: Speci men Type: BLOOD SPECIMENOrdering Facility: [facility] Address: [address] [place] [address] Performed By: #### 2 4323-8 ####[facility] SIMAWNCLIA [id number] [place] [address] [place] Bilirubin [Mass/Vol] mg/dL Low 0.2-1.3 [facility] Comment on above: Order Comment: Speci men Type: BLOOD SPECIMENOrdering Facility: [facility] Address: [address] [place] [address] Performed By: #### 2 4323-8 ####[facility] MILLWNCLIA [id number] [place] [address] [place] Calcium [Mass/Vol] 9.5 mg/dL Normal 8.5-10.2 [facility] Comment on above: Order Comment: Speci men Type: BLOOD SPECIMENOrdering Facility: [facility] Address: [address] [place] [address] Performed By: #### 2 4323-8 ####[facility] [id number] [place] [address] [place] Chloride [Moles/Vol] 104 mmol/L Normal 98-107 [facility] Comment on above: Order Comment: Speci men Type: BLOOD SPECIMENOrdering Facility: [facility] Address: [address] [place] [address] Performed By: #### 2 4323-8 ####[facility] [id number] [place] [address] [place] CO2 [Moles/Vol] 22 mmol/L Normal 22-30 [facility] Comment on above: Order Comment: Speci men Type: BLOOD SPECIMENOrdering Facility: [facility] Address: [address] [place] [address] Performed By: #### 2 4323-8 ####[facility] [id number] [place] [address] [place] Creatinine [Mass/Vol] 0.49 mg/dL Low 0.58-0.96 [facility] Comment on above: Order Comment: Speci men Type: BLOOD SPECIMENOrdering Facility: [facility] Address: [address] [place] [address] Performed By: #### 2 4323-8 ####[facility] [id number] [address] STATES OF [facility] Creatinine and Glomerular filtration rate.predicted panel (S/P/Bld) 133 mL/min/1.73m??? Normal >=60 [facility] Comment on above: Order Comment: Speci men Type: BLOOD SPECIMENOrdering Facility: [facility] Address: [address] [place] [address] Result Comment: Jossie mated Glomerular Filtration Rate [...] actual GFR. Performed By: #### 2 4323-8 ####[facility] YOWNCLIA [id number] [place] [address] [place] Glucose [Mass/Vol] 96 mg/dL Normal 74-99 [facility] Comment on above: Order Comment: Sheryl reyes Type: BLOOD SPECIMENOrdering Facility: [facility] Address: [address] [place] [address] Result Comment: The [place] [employer] (ADA) provides guidance for cutoff [...] Standards of Medical Care in Diabetes 2016, [place] [employer]. Diabetes Care. 2016.39(Suppl 1). Performed By: #### 2 4323-8 ####[facility] [id number] [place] [address] [place] Potassium [Moles/Vol] 3.9 mmol/L Normal 3.7-5.1 [facility] Comment on above: Order Comment: Sheryl reyes Type: BLOOD SPECIMENOrdering Facility: [facility] Address: [address] [place] [address] Performed By: #### 2 4323-8 ####[facility] SIMAWNCLIA [id number] [place] [address] [place] Protein [Mass/Vol] 6.9 g/dL Normal 6.3-8.0 [facility] Comment on above: Order Comment: Speci men Type: BLOOD SPECIMENOrdering Facility: [facility] Address: [address] [facility] [facility] [place] [id number] Performed By: #### 2 4323-8 ####[facility] JR RAMWNCLIA [id number] [address] STATES [facility] Sodium [Moles/Vol] 137 mmol/L Normal 136-144 [facility] Comment on above: Order Comment: Speci men Type: BLOOD SPECIMENOrdering Facility: [facility] Address: [address] [place] [address] Performed By: #### 2 4323-8 ####[facility] JR MILLTOWNCLIA [id number] [address] Urea nitrogen [Mass/Vol] 9 mg/dL Normal 7-21 [facility] Comment on above: Order Comment: Speci men Type: BLOOD SPECIMENOrdering Facility: [facility] Address: [address] [place] [address] Performed By: #### 2 4323-8 ####[facility] JR RMAWNCLIA [id number] [address] STATES OF [facility] Examination level ultrasound on 09-23-2024 Indication First trimester anatomic survey Maternal obesity, BMI >40 Impression REMOTE READ The patient is referred for a first trimester anatomy scan including nuchal translucency measurement as clinically indicated. - Single, live, intrauterine . - [place] rump length measurement is consistent with the [...] view: suboptimal 4-chamber view with color: suboptimal 6-wklzix-rwnyimx view: suboptimal Abdominal cord insertion: normal Stomach: [...] Read By: Antonia Michelle M.D. MATERNAL MEDICINE [facility] Radiology Study observation (narrative) [facility] [id number] PLUSon 09-23-2024 Cell-free DNA./Cell-free DNA.total Dosage of chromosome-specific cfDNA (cfDNA) [Molar fraction] 12% Normal [facility] Comment on above: Order Comment: Speci men Type: BLOOD SPECIMENOrdering Facility: [facility] Address: [address] [place] [address] Performed By: #### M AT21 ####[facility] LABCLIA [id number] [place] [address] Chr 13+18+21+X+Y aneuploidy Dosage of chromosome-specific cfDNA Ql (cfDNA) Negative Normal [facility] Comment on above: Order Comment: Speci men Type: BLOOD SPECIMENOrdering Facility: [facility] Address: [address] [place] [address] Performed By: #### M AT21 ####[facility] LABCLIA [id number] [place] [address] Chr 21 trisomy Dosage of chromosome-specific cfDNA Ql (cfDNA) Negative Normal [facility] Comment on above: Order Comment: Speci men Type: BLOOD SPECIMENOrdering Facility: [facility] Address: [address] [place] [address] Performed By: #### M AT21 ####[facility] LABCLIA [id number] [place] [address] Chr X and Y aneuploidy risk Sequencing Ql (cfDNA) [Interp] Not detected Normal [facility] Comment on above: Order Comment: Speci men Type: BLOOD SPECIMENOrdering Facility: [facility] Address: [address] [place] [address] Result Comment: Not Detected Not Detected Performed By: #### M AT21 ####[facility] LABCLIA [id number] [place] [address] Citation Shaquille (Reference lab test) Comment Normal [facility] Comment on above: Order Comment: Speci men Type: BLOOD SPECIMENOrdering Facility: [facility] Address: [address] [place] [address] Result Comment: 1. P maik ALEXIS, et al. Krystle Med. 2012;14(3):296-305. 2. Adamaris SONG et al. Prenat Diag. 2013;33(6):591-597. 3. Anjel C, et al. Clin Chem. 2015 Apr;61(4):608-616. 4. Ailyn ALEXIS et al. Krystle Med. 2011;13(11):913-920. 5. ACOG/SMFM Practice Bulletin No. 226, Mar 2020. Performed By: #### M AT21 ####[facility] LABCLIA [id number] [place] [address] Gestational age Estimated from conception date Melgoza Normal [facility] Comment on above: Order Comment: Speci men Type: BLOOD SPECIMENOrdering Facility: [facility] Address: [address] [place] [address] Performed By: #### M AT21 ####[facility] LABCLIA [id number] [place] [address] GESTATIONALAGE AGE > OR = 9W Yes Normal [facility] Comment on above: Order Comment: Speci men Type: BLOOD SPECIMENOrdering Facility: [facility] Address: [address] [place] [address] Performed By: #### M AT21 ####[facility] LABCLIA [id number] [place] [address] Laboratory comment Shaquille (Report) Comment Normal [facility] Comment on above: Order Comment: Speci men Type: BLOOD SPECIMENOrdering Facility: [facility] Address: [address] [place] [address] Result Comment: The MaterniT(R) 21 PLUS laboratory-developed test (LDT) analyzes circulating cell-free DNA from a maternal blood sample. This test is used for screening purposes and not diagnostic. Clinical correlation is recommended. Validation data on twin pregnancies is limited and the ability of this test to detect aneuploidy in higher multiple gestations has not yet been validated. Performed By: #### M AT21 ####[facility] LABCLIA [id number] [place] [address] director global market research name Nom (Provider) Comment Normal [facility] Comment on above: Order Comment: Speci men Type: BLOOD SPECIMENOrdering Facility: [facility] Address: [address] [place] [address] Result Comment: This specimen showed an expected representation of chromosome 21, 18 and 13 material. Clinical correlation is suggested. Comment Kendell Real MD, PhD, Director, [employer] Performed By: #### M AT21 ####[facility] LABCLIA [id number] [place] [address] LIMITATIONS OF THE TEST Comment Normal C [facility] Comment on above: Order Comment: Speci men Type: BLOOD SPECIMENOrdering Facility: [facility] Address: [address] [place] [address] Result Comment: Donte roque the results of [...] and Fragmin(R)). Performed By: #### M AT21 ####[facility]ightWorldIA [id number] [place] [id number] Monosomy X risk Dosage of chromosome-specific cfDNA Ql (Plasma cell-free+WBC DNA) [Interp] Not detected Normal [facility] Comment on above: Order Comment: Sheryl reyes Type: BLOOD SPECIMENOrdering Facility: [facility] Address: [address] [place] [address] Performed By: #### M AT21 ####[facility]ightWorldIA [id number] [place] [id number] NEGATIVE PREDICTIVE VALUE Note Normal [facility] Comment on above: Order Comment: Sheryl reyes Type: BLOOD SPECIMENOrdering Facility: [facility] Address: [address] [place] [address] Result Comment: The Negative Predictive Value (NPV) for trisomy 21, 18, and 13 is greater than 99%. The NPV for SCA and ESS cannot be calculated as SCA and ESS are only reported when an abnormality is detected. Performed By: #### M AT21 ####[facility] [id number] [place] [id number] PERFORMANCE CHARACTERISTICS Note Normal [facility] Comment on above: Order Comment: Sheryl reyes Type: BLOOD SPECIMENOrdering Facility: [facility] Address: [address] [place] [address] Result Comment: ! Sex ! Accuracy: 99.4% [...] ! ! ! * As reported in [employer] database nstd37 [https://www.ncbi.nlm.nih.gov/dbvar/studies/nstd37/ ] # Estimated Sensitivity. [...] gestation only. Performed By: #### M AT21 ####[facility] LABCLIA [id number] [place] [address] POSITIVE PREDICTIVE VALUE N/A Normal [facility] Comment on above: Order Comment: Speci men Type: BLOOD SPECIMENOrdering Facility: [facility] Address: [address] [place] [address] Performed By: #### M AT21 ####[facility] LABCLIA [id number] [place] [address] Reference Lab Test Method Comment Normal [facility] Comment on above: Order Comment: Speci men Type: BLOOD SPECIMENOrdering Facility: [facility] Address: [address] [place] [address] Result Comment: See Notes Circulating cell-free DNA [...] and 22. Performed By: #### M AT21 ####[facility] LABCLIA [id number] [place] [address] Service comment (Unsp spec) [Interp] Comment Normal [facility] Comment on above: Order Comment: Speci men Type: BLOOD SPECIMENOrdering Facility: [facility] Address: [address] [place] [address] Result Comment: See Notes [employer] is a subsidiary of [employer], using the brand [facility]. This test was developed and its performance characteristics determined by [employer]. It has not been cleared or approved by the Food and Drug Administration. This laboratory is certified under the Clinical Laboratory Improvement Amendments (CLIA) as qualified to perform high complexity clinical laboratory testing and accredited by the [employer] of [place] (CAP). If there is future clinical need for adding MaterniT GENOME testing, this specimen will be available until term. [facility] samples will not be retained beyond 60 days. [facility] patients will have to send a new sample for re-sequencing ([facility] Test Code: [id number]). Performed By: #### M AT21 ####[facility] LABCLIA [id number] [place] [address] Sex Dosage of chromosome-specific cfDNA Nom (cfDNA) Comment Normal [facility] Comment on above: Order Comment: Speci men Type: BLOOD SPECIMENOrdering Facility: [facility] Address: [address] [place] [address] Result Comment: Cons istent with Male Performed By: #### M AT21 ####[facility] LABCLIA [id number] [place] [address] Test performance information Shaquille (Unsp spec) Comment Normal [facility] Comment on above: Order Comment: Speci men Type: BLOOD SPECIMENOrdering Facility: [facility] Address: [address] [place] [address] Result Comment: The performance characteristics of the MaterniT(R) 21 PLUS laboratory-developed test (LDT) have been determined in a clinical validation study with women at increased risk for chromosomal aneuploidy.[1-4] Performed By: #### M AT21 ####[facility] LABCLIA [id number] [place] [address] Trisomy 13 risk Dosage of chromosome-specific cfDNA Ql (cfDNA) [Interp] Negative Normal [facility] Comment on above: Order Comment: Speci men Type: BLOOD SPECIMENOrdering Facility: [facility] Address: [address] [place] [address] Performed By: #### M AT21 ####[facility] LABCLIA [id number] [place] [address] Trisomy 18 risk Dosage of chromosome-specific cfDNA Ql (Plasma cell-free+WBC DNA) [Interp] Negative Normal [facility] Comment on above: Order Comment: Speci men Type: BLOOD SPECIMENOrdering Facility: [facility] Address: [address] [place] [address] Performed By: #### M AT21 ####[facility] LABCLIA [id number] [place] [address] Prot/Creat Uron 09-23-2024 Protein/Creatinine (U) [Mass ratio] 0.07 mg/mg Normal <0.15 [facility] Comment on above: Order Comment: Speci men Type: URINE SPECIMENOrdering Facility: [facility] Address: [address] [place] [address] Result Comment: Adul t Proteinuria Categories: <0.15 mg/mg is considered normal to mildly increased 0.15 - 0.50 mg/mg is considered moderately increased >0.50 mg/mg is considered severely increased KDIGO. (2013). KDIGO 2012 Clinical Practice Guideline for the Evaluation and Management of Chronic Kidney Disease. Official Journal of the International Society of Nephrology, 3(1), 1-150. Performed By: #### 2 890-2 ####[facility] LABCLIA [id number] [place] [address] [place] Protein/Creatinine (U) [Mass ratio]on 09-23-2024 Creatinine (U) [Mass/Vol] 82.1 mg/dL Normal 20.0-300.0 [facility] Comment on above: Order Comment: Speci men Type: URINE SPECIMENOrdering Facility: [facility] Address: [address] [place] [address] Performed By: #### 2 890-2 ####[facility] LABCLIA [id number] [place] [address] [place] Protein (U) [Mass/Vol] 6 mg/dL Normal 0-20 Cl [facility] Comment on above: Order Comment: Speci men Type: URINE SPECIMENOrdering Facility: [facility] Address: [address] [place] [address] Performed By: #### 2 890-2 ####[facility] LABCLIA [id number] [place] [address] [place] Examination level ultrasound on 08-31-2024 Indication dating Impression - Single, live, intrauterine . - An intrauterine gestational sac with a yolk sac and pole is present. - [place] rump length measurement is NOT consistent with [...] Read By: Bianca Melo M.D. MATERNAL MEDICINE [facility] Examination level ultrasound on 08-30-2024 Radiology Study observation (narrative) [facility] B-HCG SerPl-[place] 5 [place] [address].0 m[IU]/mL High <5.0 [facility] Comment on above: Order Comment: Speci men Type: BLOOD SPECIMENOrdering Facility: [facility] Address: [address] [place] [address] Result Comment: EN TITATIVE HCG NORMAL RANGES Weeks of Gestation (Weeks Since LMP) 3 Weeks (5.8-71.2 mIU/mL) 4 Weeks (9.5-750 mIU/mL) 5 Weeks (217-7138 mIU/mL) 6 Weeks (158-22228 mIU/mL) 7 Weeks (3697-120193 mIU/mL) 8 Weeks (96219-950670 mIU/mL) 9 Weeks (25028-584746 mIU/mL) 10 Weeks (42577-663008 mIU/mL) 12 Weeks (01542-791503 mIU/mL) Referenced to 4th IS of [facility] Performed By: #### 2 1198-7 ####[facility] LABCLIA [id number] [place] [address] [place] B-HCG SerPl-[place]Cn[place] 5 [place] [address].0 m[IU]/mL High <5.0 [facility] Comment on above: Order Comment: Speci men Type: BLOOD SPECIMENOrdering Facility: [facility] Address: [address] [place] [address] Result Comment: EN TITATIVE HCG NORMAL RANGES Weeks of Gestation (Weeks Since LMP) 3 Weeks (5.8-71.2 mIU/mL) 4 Weeks (9.5-750 mIU/mL) 5 Weeks (217-7138 mIU/mL) 6 Weeks (158-00709 mIU/mL) 7 Weeks (3697-147352 mIU/mL) 8 Weeks (59027-783864 mIU/mL) 9 Weeks (91155-306961 mIU/mL) 10 Weeks (35102-026429 mIU/mL) 12 Weeks (39699-379168 mIU/mL) Referenced to 4th IS of [facility] Performed By: #### 2 1198-7 ####[facility] LABCLIA [id number] [place] [address] [place] Bacteria Ur Culton Bacteria identified Cx Nom (U) ORGANISM ID: 1 50,000-<100,000 CFU/ml Normal urogenital dejah Normal [facility] Comment on above: Performed By: #### 6 30-4 ####[facility] LABCLIA [id number] [place] [address] [place] C. trachomatis+N. gonorrhoea e DNA HADLEY+probe Ql (Unsp spec)on 08-12-2024 C. trachomatis rRNA HADLEY+probe Ql (Unsp spec) Not detected Normal Not detected [facility] Comment on above: Order Comment: Speci men Type: BLOOD SPECIMEN [facility]ing Facility: [facility] Address: [address] [place] [address] Performed By: #### 5 7021-8 #### [facility] [id number] [address] [place] [address] [place] N. gonorrhoeae rRNA HADLEY+probe Ql (Unsp spec) Not detected Normal Not detected [facility] Comment on above: Order Comment: Speci men Type: BLOOD SPECIMEN Ordering Facility: [facility] Address: [address] [place] [address] Performed By: #### 5 7021-8 #### [facility] CLIA [id number] [address] [place] [address] [place] CBC W Auto Differential pane l (Bld)on 08-12-2024 Basophils (Bld) [#/Vol] 0.03 10*3/uL Normal <0.11 [facility] Comment on above: Order Comment: Speci men Type: BLOOD SPECIMEN Ordering Facility: [facility] Address: [address] [place] [address] Performed By: #### 5 7021-8 #### [facility] CLIA [id number] [address] [place] [address] [place] Basophils/100 WBC (Bld) 0.3 % Normal [facility] Comment on above: Order Comment: Speci men Type: BLOOD SPECIMEN Ordering Facility: [facility] Address: [address] [place] [address] Performed By: #### 5 7021-8 #### [facility] CLIA [id number] [address] [place] [address] [place] Differential cell count method Nom (Bld) Auto Normal [facility] Comment on above: Order Comment: Speci men Type: BLOOD SPECIMEN Ordering Facility: [facility] Address: [address] [place] [address] Performed By: #### 5 7021-8 #### [facility] CLIA [id number] [address] [place] [address] [place] Eosinophils (Bld) [#/Vol] 0.06 10*3/uL Normal <0.46 [facility] Comment on above: Order Comment: Speci men Type: BLOOD SPECIMEN Ordering Facility: [facility] Address: [address] [place] [address] Performed By: #### 5 7021-8 #### [facility] CLIA [id number] [address] [place] [address] [place] Eosinophils/100 WBC (Bld) 0.6 % Normal [facility] Comment on above: Order Comment: Speci men Type: BLOOD SPECIMEN Ordering Facility: [facility] Address: [address] [place] [address] Performed By: #### 5 7021-8 #### [facility] CLIA [id number] [address] [place] [address] [place] Erythrocyte distribution width (RBC) [Ratio] 12.5 % Normal 11.5-15.0 [facility] Comment on above: Order Comment: Speci men Type: BLOOD SPECIMEN Ordering Facility: [facility] Address: [address] [place] [address] Performed By: #### 5 7021-8 #### [facility] CLIA [id number] [address] [place] [address] [place] Hematocrit (Bld) [Volume fraction] 41.8 % Normal 36.0-46.0 [facility] Comment on above: Order Comment: Speci men Type: BLOOD SPECIMEN Ordering Facility: [facility] Address: [address] [place] [address] Performed By: #### 5 7021-8 #### [facility] [id number] [address] [place] [address] [place] Hemoglobin (Bld) [Mass/Vol] 14.5 g/dL Normal 11.5-15.5 [facility] Comment on above: Order Comment: Speci men Type: BLOOD SPECIMEN Ordering Facility: [facility] Address: [address] [place] [address] Performed By: #### 5 7021-8 #### [facility] [id number] [address] [place] [address] [place] Immature granulocytes (Bld) [#/Vol] 0.09 10*3/uL Normal <0.10 [facility] Comment on above: Order Comment: Speci men Type: BLOOD SPECIMEN Ordering Facility: [facility] Address: [address] [place] [address] Performed By: #### 5 7021-8 #### [facility] [id number] [address] [place] [address] [place] Immature granulocytes/100 WBC (Bld) 0.9 % Normal [facility] Comment on above: Order Comment: Speci men Type: BLOOD SPECIMEN Ordering Facility: [facility] Address: [address] [place] [address] Performed By: #### 5 7021-8 #### [facility] CLIA [id number] [address] [place] [address] [place] Lymphocytes (Bld) [#/Vol] 2.44 10*3/uL Normal 1.00-4.00 [facility] Comment on above: Order Comment: Speci men Type: BLOOD SPECIMEN Ordering Facility: [facility] Address: [address] [place], [place] [address] Performed By: #### 5 7021-8 #### [facility] CLIA [id number] [address] [place] [address] [place] Lymphocytes/100 WBC (Bld) 24.6 % Normal [facility] Comment on above: Order Comment: Speci men Type: BLOOD SPECIMEN Ordering Facility: [facility] Address: [address] [place] [address] Performed By: #### 5 7021-8 #### [facility] CLIA [id number] [address] [place] [address] [place] MCH (RBC) [Entitic mass] 30.0 pg Normal 26.0-34.0 [facility] Comment on above: Order Comment: Speci men Type: BLOOD SPECIMEN Ordering Facility: [facility] Address: [address] [place] [address] Performed By: #### 5 7021-8 #### [facility] CLIA [id number] [address] [place] [address] [place] MCHC (RBC) [Mass/Vol] 34.7 g/dL Normal 30.5-36.0 [facility] Comment on above: Order Comment: Speci men Type: BLOOD SPECIMEN Ordering Facility: [facility] Address: [address] [place] [address] Performed By: #### 5 7021-8 #### [facility] CLIA [id number] [address] [place] [address] OF [place] MCV (RBC) [Entitic vol] 86.4 fL Normal 80.0-100.0 [facility] Comment on above: Order Comment: Speci men Type: BLOOD SPECIMEN Ordering Facility: [facility] Address: [address] [place] [address] Performed By: #### 5 7021-8 #### [facility] CLIA [id number] [address] [place] [address] [place] Monocytes (Bld) [#/Vol] 0.48 10*3/uL Normal <0.87 [facility] Comment on above: Order Comment: Speci men Type: BLOOD SPECIMEN Ordering Facility: [facility] Address: [address] [place] [address] Performed By: #### 5 7021-8 #### [facility] CLIA [id number] [address] [place] [address] [place] OF [place] Monocytes/100 WBC (Bld) 4.8 % Normal C [facility] Comment on above: Order Comment: Speci men Type: BLOOD SPECIMEN Ordering Facility: [facility] Address: [address] [place] [address] Performed By: #### 5 7021-8 #### [facility] CLIA [id number] [address] [place] [address] [place] Neutrophils (Bld) [#/Vol] 6.83 10*3/uL Normal 1.45-7.50 [facility] Comment on above: Order Comment: Speci men Type: BLOOD SPECIMEN Ordering Facility: [facility] Address: [address] [place] [address] Performed By: #### 5 7021-8 #### [facility] CLIA [id number] [address] [place] [address] [place] Neutrophils/100 WBC (Bld) 68.8 % Normal [facility] Comment on above: Order Comment: Speci men Type: BLOOD SPECIMEN Ordering Facility: [facility] Address: [address] [place] [address] Performed By: #### 5 7021-8 #### [facility] CLIA [id number] [address] [place] [address] [place] Nucleated RBC (Bld) [#/Vol] 10*3/uL Normal <0.01 [facility] Comment on above: Order Comment: Speci men Type: BLOOD SPECIMEN Ordering Facility: [facility] Address: [address] [place] [address] Performed By: #### 5 7021-8 #### [facility] CLIA [id number] [address] [place] [address] [place] Nucleated RBC/100 WBC (Bld) [Ratio] 0.0 /100 WBC Normal [facility] Comment on above: Order Comment: Speci men Type: BLOOD SPECIMEN Ordering Facility: [facility] Address: [address] [place] [address] Performed By: #### 5 7021-8 #### [facility] CLIA [id number] [address] [place] [address] [place] Platelet mean volume (Bld) [Entitic vol] 9.1 fL Normal 9.0-12.7 [facility] Comment on above: Order Comment: Speci men Type: BLOOD SPECIMEN Ordering Facility: [facility] Address: [address] [place] [address] Performed By: #### 5 7021-8 #### [facility] CLIA [id number] [address] [place] [address] [place] Platelets (Bld) [#/Vol] 292 10*3/uL Normal 150-400 [facility] Comment on above: Order Comment: Speci men Type: BLOOD SPECIMEN Ordering Facility: [facility] Address: [address] [place], [place] [address] Performed By: #### 5 7021-8 #### [facility] CLIA [id number] [address] [place] [address] [place] WBC (Bld) [#/Vol] 9.93 10*3/uL Normal 3.70-11.00 [facility] Comment on above: Order Comment: Speci men Type: BLOOD SPECIMEN Ordering Facility: [facility] Address: [address] [place], [place] [address] Performed By: #### 5 7021-8 #### [facility] CLIA [id number] [address] [place] [address] OF [facility] CNPNon 08-12-2024 TANAN Telephone (OBGYWM) OTILIA MEZA ([id number]) 1995 F Date Time Provider Department 08/12/24 MATILDE ADLER During your visit today, we recorded the following information about you: Manda Delgado, GERALD 08/12/2024 12:28 PM Signed Pt saw CP 08/12/24-----POC US completed. US tech to room for verification. Gestational sac and yolk sac visible. Small pole measuring 5 w 6 days. HCG levels ordered-1st drawn 08/12/24. Leave open for f/u on results. Manda Delgado, RN Nadiya Dela Cruz RN 08/16/2024 12:02 PM Signed YR.[email or web address] message was sent to patient by CP on 08/15, stating levels increased appropriately. hCG Quantitative, Blood (mIU/mL) Date Value 08/14/2024 35,704.0 08/12/2024 21,796.0 Nadiya Dela Cruz RN Allergies As of Date: 08/12/2024 (No Known Allergies) Date Reviewed: 08/12/2024 Reviewed by: Matilde Adler APRN.CNM - Fully Assessed Prescriptions as of [...] , first trimester*08/12/2024 Encounter Status:Closed by NADIYA DELA CRUZ on 08/16/24 Normal [facility] HBV surface Ag Ser Qlon 07-27 HBV surface Ag Ql (S) Negative Normal Negative [facility] Comment on above: Order Comment: Sheryl reyes Type: BLOOD SPECIMEN Ordering Facility: [facility] Address: [address] [place] [address] Performed By: #### 5 7021-8 #### [facility] [id number] [address] [place] [address] HCV Ab Ser Qlon 08-12-2024 HCV Ab Ql (S) Negative Normal Negative [facility] Comment on above: Order Comment: Sheryl reyes Type: BLOOD SPECIMEN Ordering Facility: [facility] Address: [address] [place] [address] Result Comment: The result suggests no evidence of active infection with Hepatitis C virus. Should recent infection be suspected, repeat testing may be considered 4-6 weeks after this draw. Performed By: #### 5 7021-8 #### [facility] CLIA [id number] [address] [place] [address] [place] HGB ELECTROPHORESIS FOR EVAL (LAB ORDER)on 08-12-2024 Hemoglobin A (Bld) [Mass fraction] 97.7 % Normal 96.2-98.0 [facility] Comment on above: Order Comment: Speci men Type: BLOOD SPECIMENOrdering Facility: [facility] Address: [address] [place] [address] Performed By: #### L [id number], HGBELEV ####[facility] LABCLIA [id number] [place] [address] [place] Hemoglobin A2 (Bld) [Mass fraction] 2.3 % Normal 2.0-3.1 [facility] Comment on above: Order Comment: Speci men Type: BLOOD SPECIMENOrdering Facility: [facility] Address: [address] [place] [address] Performed By: #### L [id number], HGBELEV ####[facility] LABCLIA [id number] [place] [address] [place] Hemoglobin Unsp Elph (Bld) [Mass fraction] No abnormal hemoglobin identified. Normal No abnormal hemoglobin identified. [facility] Comment on above: Order Comment: Speci men Type: BLOOD SPECIMENOrdering Facility: [facility] Address: [address] [place] [address] Performed By: #### L [id number], HGBELEV ####[facility] LABCLIA [id number] [place] [address] [place] HGB EVALUATION CASCADE INTER Howard 08-12-2024 Hemoglobin pattern (Bld) [Interp] Reviewed by Bertha Joseph MD, PhD Normal [facility] Comment on above: Order Comment: Speci men Type: BLOOD SPECIMENOrdering Facility: [facility] Address: [address] [place] [address] Performed By: #### L [id number], HGBELEV ####[facility] LABCLIA [id number] [place] [address] [place] INTERPRETATION (HGB EVAL) Normal [facility] Comment on above: Order Comment: Speci men Type: BLOOD SPECIMENOrdering Facility: [facility] Address: [address] [place] [address] Result Comment: Hemo globins were analyzed by capillary electrophoresis and CBC red cell parameters were reviewed. No abnormal hemoglobin is identified. There is a normal hemoglobin capillary electrophoresis pattern. Performed By: #### L [id number], HGBELEV ####[facility] LABCLIA [id number] [facility] [place] [address] [place] HIV 1+2 Ab IA Qlon 5 HIV 1 and 2 Ab IA.rapid Nom (S/P/Bld) Normal [facility] Comment on above: Order Comment: Speci men Type: BLOOD SPECIMEN Ordering Facility: [facility] Address: [address] [place] [address] Result Comment: Test not indicated. Performed By: #### 5 7021-8 #### [facility] CLIA [id number] [address] [place] [address] [place] HIV 1+2 Ab+HIV1 p24 Ag IA Ql Non-Reactive Normal Nonreactive [facility] Comment on above: Order Comment: Speci men Type: BLOOD SPECIMEN Ordering Facility: [facility] Address: [address] [place] [address] Performed By: #### 5 7021-8 #### [facility] CLIA [id number] [address] [place] [address] [place] HIV immunoassay testing algorithm interpretation (S/P/Bld) [Interp] Normal [facility] Comment on above: Order Comment: Speci amy Type: BLOOD SPECIMEN Ordering Facility: [facility] Address: [address] [place] [address] Result Comment: No e vidence of HIV-1 or HIV-2 infection. Should recent infection be suspected, repeat testing may be considered 2-3 weeks after this draw. [place] Rev. Code 3701.243(E): This information has been [...] results or diagnoses. Performed By: #### 5 7021-8 #### [facility] [id number] [address] [place] [address] [place] HbA1c (Bld)on 08-12-2024 Average glucose Estimated from glycated hemoglobin (Bld) [Mass/Vol] 85 mg/dL Normal [facility] Comment on above: Order Comment: Speci men Type: BLOOD SPECIMENOrdering Facility: [facility] Address: [address] [place] [address] Result Comment: eAG: (Estimated average glucose) is a calculated value from HgbA1c and is factory representative of the average blood glucose level in the last 2-3 month period. Performed By: #### 5 5454-3 ####[facility] LABCLIA [id number] [address] [place] HbA1c (Bld) [Mass fraction] 4.6 % Normal 4.3-5.6 [facility] Comment on above: Order Comment: Speci amy Type: BLOOD SPECIMENOrdering Facility: [facility] Address: [address] [place] [address] Result Comment: [place] Diabetes Association guidelines indicate that patients with HgbA1c in the range 5.7-6.4% are at increased risk for development of diabetes, and intervention by lifestyle modification may be beneficial. HgbA1c greater or equal to 6.5% is considered diagnostic of diabetes. Performed By: #### 5 5454-3 ####[facility] LABCLIA [id number] [address] [place] POC DIRECTOR OF OCCUPATIONAL THERAPY ULTRASOUNDon 08-12-19 Indication Viability; confirm cardiac activity Impression Single [...] mm 5w 6d [place] Performed By: Matilde Adler CNM Read By: Matilde Adler CNM MATERNAL MEDICINE [facility] Radiology Study observation (narrative) [facility] RBC PARAMETERS FOR HB IDon 0 08-12-2024 Erythrocyte distribution width (RBC) [Ratio] 12.6 % Normal 11.5-15.0 [facility] Comment on above: Order Comment: Sheryl reyes Type: BLOOD SPECIMEN Ordering Facility: [facility] Address: [address] [place] [address] Performed By: #### L [id number] #### [facility] CLIA [id number] [address] [place] [address] [place] Hematocrit (Bld) [Volume fraction] 42.9 % Normal 36.0-46.0 [facility] Comment on above: Order Comment: Sheryl reyes Type: BLOOD SPECIMEN Ordering Facility: [facility] Address: [address] [place] [address] Performed By: #### L [id number] #### [facility] CLIA [id number] [address] [place] [address] [place] Hemoglobin (Bld) [Mass/Vol] 14.4 g/dL Normal 11.5-15.5 [facility] Comment on above: Order Comment: Sheryl reyes Type: BLOOD SPECIMEN Ordering Facility: [facility] Address: [address] [place] [address] Performed By: #### L [id number] #### [facility] CLIA [id number] [address] [place] [address] [place] MCH (RBC) [Entitic mass] 29.8 pg Normal 26.0-34.0 [facility] Comment on above: Order Comment: Speci men Type: BLOOD SPECIMEN Ordering Facility: [facility] Address: [address] [place] [address] Performed By: #### L [id number] #### [facility] CLIA [id number] [address] [place] [address] [place] MCHC (RBC) [Mass/Vol] 33.6 g/dL Normal 30.5-36.0 [facility] Comment on above: Order Comment: Speci men Type: BLOOD SPECIMEN Ordering Facility: [facility] Address: [address] [place] [address] Performed By: #### L [id number] #### [facility] CLIA [id number] [address] [place] [address] [place] MCV (RBC) [Entitic vol] 88.6 fL Normal 80.0-100.0 C [facility] Comment on above: Order Comment: Speci men Type: BLOOD SPECIMEN Ordering Facility: [facility] Address: [address] [place] [address] Performed By: #### L [id number] #### [facility] CLIA [id number] [address] [place] [address] [place] RBC (Bld) [#/Vol] 4.84 10*6/uL Normal 3.90-5.20 [facility] Comment on above: Order Comment: Speci men Type: BLOOD SPECIMEN Ordering Facility: [facility] Address: [address] [place] [address] Performed By: #### L [id number] #### [facility] CLIA [id number] [address] [place] [address] [place] Performed By: #### 5 7021-8 #### [facility] CLIA [id number] [address] [place] [address] [place] RUBELLA IGG ANTIBODYon 08-12 RUBELLA IGG AB, QUAL Positive Normal Positive [facility] Comment on above: Order Comment: Speci men Type: BLOOD SPECIMENOrdering Facility: [facility] Address: [address] [place] [address] Result Comment: The result suggests recent or past exposure to Rubella virus or history of Rubella vaccination. Positive result may also be seen due to presence of passively-transferred antibodies. Please correlate with patient's history. Performed By: #### R UBIGG ####[facility] LABCLIA [id number] [place] [address] [place] Reagin and Treponema pallidu m IgG and IgM [Interp]on 08-12-2024 T. pallidum IgG+IgM IA Ql (S) Non-Reactive Normal Nonreactive [facility] Comment on above: Order Comment: Speci [facility] Type: BLOOD SPECIMEN Ordering Facility: [facility] Address: [address] [place] [address] Performed By: #### 5 7021-8 #### [facility] CLIA [id number] [address] [place] [address] [place] Reagin+T pallidum IgG+IgM Se rPl-Impon 08-12-2024 Reagin and Treponema pallidum IgG and IgM [Interp] Cannot exclude recent Treponemal infection if specimen collected within 7-10 days after appearance of suspect lesions or 2-3 weeks after an exposure. Clinical correlation is required. Normal [facility] Comment on above: Order Comment: Speci [facility] Type: BLOOD SPECIMEN Ordering Facility: [facility] Address: [address] [place] [address] Performed By: #### 5 7021-8 #### [facility] [id number] [address] [place] [address] [place] TRICHOMONAS VAGINALIS NAATon 08-12-2024 T. vaginalis DNA HADLEY+probe Ql (Unsp spec) Not detected Normal Not detected [facility] Comment on above: Order Comment: Speci men Type: BLOOD SPECIMEN Ordering Facility: [facility] Address: [address] [place] [address] Performed By: #### 5 7021-8 #### [facility] CLIA [id number] [address] [place] [address] [place] TYPE + SCREEN PRENATALon ABO O Normal [facility] Comment on above: Order Comment: Speci men Type: BLOOD SPECIMENOrdering Facility: [facility] Address: [address] [place] [address] Performed By: #### T SPN ####[facility] [id number] [place] [address] [place] Rh Nom (Bld) Negative Normal [facility] Comment on above: Order Comment: Speci men Type: BLOOD SPECIMENOrdering Facility: [facility] Address: [address] [place] [address] Performed By: #### T SPN ####[facility]CL[facility] [id number] [place] [address] [place] TYPE AND SCREEN EXPIRATION 08/15/2024 23:59 Normal [facility] Comment on above: Order Comment: Speci men Type: BLOOD SPECIMENOrdering Facility: [facility] Address: [address] [place] [address] Performed By: #### T SPN ####[facility]ANKCLIA [id number] [place] [id number] [place] CBC W/Diff, Automatedon 06-26 Absolute Lymph 2.58 X10 3/uL Normal 0.83-4.51 [facility] Comment on above: Performed By: #### L 501.9520, L500.4050, L100.0100 #### [facility] [address] [place], [address] Absolute Neut 5.1 X10 3/uL Normal 2.0-7.7 [facility] Comment on above: Performed By: #### L 501.9520, L500.4050, L100.0100 #### [facility] [address] [place], [address] Basophils/100 WBC (Bld) 0.6 % Normal 0-1 [facility] Comment on above: Performed By: #### L 501.9520, L500.4050, L100.0100 #### [facility] [address] [place], [address] Eosinophils/100 WBC (Bld) 1.4 % Normal 0-5 [facility] Comment on above: Performed By: #### L 501.9520, L500.4050, L100.0100 #### [facility] [address] [place], [address] Erythrocyte distribution width (RBC) [Ratio] 12.5 % Normal 11.6-14.6 [facility] Comment on above: Performed By: #### L 501.9520, L500.4050, L100.0100 #### [facility] [address] [place], [address] Hematocrit (Bld) [Volume fraction] 41.1 % Normal 37-47 [facility] Comment on above: Performed By: #### L 501.9520, L500.4050, L100.0100 #### [facility] [address] [place], [address] Hemoglobin (Bld) [Mass/Vol] 13.7 g/dL Normal 12.0-15.0 [facility] Comment on above: Performed By: #### L 501.9520, L500.4050, L100.0100 #### [facility] [address] [place], [address] IG% 0.500 Normal 0.0-0.9 [facility] Comment on above: Result Comment: IG% - Immature Granulocytes (promyelocytes, myelocytes and metamyelocytes) > 1% indicates that a LEFT SHIFT is Present. Performed By: #### L 501.9520, L500.4050, L100.0100 #### [facility] [address] [place], [address] Lymphocytes/100 WBC (Bld) 30.5 % Normal 19-41 [facility] Comment on above: Performed By: #### L 501.9520, L500.4050, L100.0100 #### [facility] [address] [place], [address] MCH (RBC) [Entitic mass] 30.0 pg Normal 27.0-32.0 [facility] Comment on above: Performed By: #### L 501.9520, L500.4050, L100.0100 #### [facility] [address] [place], [address] MCHC (RBC) [Mass/Vol] 33.3 g/dL Normal 32-36 [facility] Comment on above: Performed By: #### L 501.9520, L500.4050, L100.0100 #### [facility] [address] [place], [address] MCV (RBC) [Entitic vol] 90.1 fL Normal 81-99 [facility] Comment on above: Performed By: #### L 501.9520, L500.4050, L100.0100 #### [facility] [address] [place], [address] Monocytes/100 WBC (Bld) 7.2 % Normal 0-10 [facility] Comment on above: Performed By: #### L 501.9520, L500.4050, L100.0100 #### [facility] [address] [place], [address] Neutrophils/100 WBC (Bld) 59.8 % Normal 47-70 [facility] Comment on above: Performed By: #### L 501.9520, L500.4050, L100.0100 #### [facility] [address] [place], [address] Nucleated RBC (Bld) [#/Vol] 0 10*3/uL Normal 0-5 [facility] Comment on above: Performed By: #### L 501.9520, L500.4050, L100.0100 #### [facility] [address] [place], [address] Platelet mean volume (Bld) [Entitic vol] 9.8 fL Normal 6.2-12.0 [facility] Comment on above: Performed By: #### L 501.9520, L500.4050, L100.0100 #### [facility] [address] [place], [address] Platelets (Bld) [#/Vol] 323 10*3/uL Normal 150-450 [facility] Comment on above: Performed By: #### L 501.9520, L500.4050, L100.0100 #### [facility] [address] [place], [address] RBC (Bld) [#/Vol] 4.56 10*6/uL Normal 4.2-5.4 [facility] Comment on above: Performed By: #### L 501.9520, L500.4050, L100.0100 #### [facility] [address] [place], [address] RDW SD 40.8 fl Normal 35.1-43.9 [facility] Comment on above: Performed By: #### L 501.9520, L500.4050, L100.0100 #### [facility] [address] [place], [address] WBC (Bld) [#/Vol] 8.5 10*3/uL Normal 4.4-11.[address] [facility] Comment on above: Performed By: #### L 501.9520, L500.4050, L100.0100 #### [facility] [address] [place], [address] Comprehensive Metabolic Prof ilon 07-09-2024 Albumin [Mass/Vol] 3.6 g/dL Normal 3.2-5.[address] [facility] Comment on above: Performed By: #### L 501.9520, L500.4050, L100.0100 #### [facility] [address] [place], [address] Albumin/Globulin [Mass ratio] 1.0 {ratio} Normal 0.9-2.4 [facility] Comment on above: Performed By: #### L 501.9520, L500.4050, L100.0100 #### [facility] [address] [place], [address] ALK P 97 U/L Normal 45-117 [facility] Comment on above: Performed By: #### L 501.9520, L500.4050, L100.0100 #### [facility] [address] [place], [address] ALT [Catalytic activity/Vol] 43 U/L Normal 13-56 [facility] Comment on above: Performed By: #### L 501.9520, L500.4050, L100.0100 #### [facility] [address] [place], [address] AST [Catalytic activity/Vol] 21 U/L Normal 15-37 [facility] Comment on above: Performed By: #### L 501.9520, L500.4050, L100.0100 #### [facility] [address] [place], [address] Bilirubin [Mass/Vol] 0.30 mg/dL Normal 0.20-1.00 [facility] Comment on above: Result Comment: For patients on eltrombopag therapy, use of Dimension [place] TBIL is not recommended. Performed By: #### L 501.9520, L500.4050, L100.0100 #### [facility] [address] [place], [address] BUN/CRE 16.8 RATIO Normal 10-20 [facility] Comment on above: Performed By: #### L 501.9520, L500.4050, L100.0100 #### [facility] [address] [place], [address] CA,Total 9.0 mg/dL Normal 8.5-10.1 [facility] [facility] Comment on above: Performed By: #### L 501.9520, L500.4050, L100.0100 #### [facility] [address] [place], [address] Chloride [Moles/Vol] 106 mmol/L Normal 98-107 [facility] Comment on above: Performed By: #### L 501.9520, L500.4050, L100.0100 #### [facility] [address] [place], [address] CO2 [Moles/Vol] 30.0 mmol/L Normal 21.0-32.0 [facility] Comment on above: Performed By: #### L 501.9520, L500.4050, L100.0100 #### [facility] [address] [place], [address] Creatinine [Mass/Vol] 0.72 mg/dL Normal 0.55-1.02 [facility] Comment on above: Result Comment: The validity of the calculated GFR GFRAA in patients over 70 years has not been determined. Clinical correlation is essential. Performed By: #### L 501.9520, L500.4050, L100.0100 #### [facility] [address] [place], [address] EST GFR - AA 126 mL/min Normal >60 [facility] Comment on above: Result Comment: Afri can Bhutanese GFR Calc Performed By: #### L 501.9520, L500.4050, L100.0100 #### [facility] [address] [place], [address] GAP 2 Low 5-15 [facility] Comment on above: Performed By: #### L 501.9520, L500.4050, L100.0100 #### [facility] [address] [place], [address] GFR/1.73 sq M.predicted among non-blacks MDRD (S/P/Bld) [Vol rate/Area] 104 mL/min/{1.73_m2} Normal >60 [facility] Comment on above: Result Comment: Non- GFR Calc Performed By: #### L 501.9520, L500.4050, L100.0100 #### [facility] [address] [place], [address] Globulin (S) [Mass/Vol] 3.7 g/dL Normal 2.2-4.2 [facility] Comment on above: Performed By: #### L 501.9520, L500.4050, L100.0100 #### [facility] [address] [place], [address] Glucose [Mass/Vol] 87 mg/dL Normal 74-[address] [facility] Comment on above: Performed By: #### L 501.9520, L500.4050, L100.0100 #### [facility] [address] [place], [address] Potassium [Moles/Vol] 3.8 mmol/L Normal 3.5-5.1 [facility] Comment on above: Performed By: #### L 501.9520, L500.4050, L100.0100 #### [facility] [address] [place], [address] Sodium [Moles/Vol] 138 mmol/L Normal 136-[address] [facility] Comment on above: Performed By: #### L 501.9520, L500.4050, L100.0100 #### [facility] [address] [place], [address] T PROT 7.3 g/dL Normal 6.4-8.2 [facility] Comment on above: Performed By: #### L 501.9520, L500.4050, L100.0100 #### [facility] [address] [place], [address] Urea nitrogen [Mass/Vol] 12 mg/dL Normal 7-18 [facility] Comment on above: Performed By: #### L 501.9520, L500.4050, L100.0100 #### [facility] [address] [place], [address] Thyroid Stim Hormone (TSH)on 07-09-2024 TSH 1.470 uIU/mL Normal 0.358-3.740 [facility] Comment on above: Performed By: #### L 501.9520, L500.4050, L100.0100 #### [facility] [address] [place], [address] Vlad 06-17-2024 TANAN Telephone (OBGYWM) OTILIA MEZA ([id number]) 1995 F Date Time Provider Department 06/17/24 ANGELIC BUTLER OBMANDO During your visit today, we recorded the [...] Status:Closed by OFELIA DRISCOLL on 06/17/24 Normal [facility] Routine wound cultureOrdered By: Dr. Wong on 12-09-2022 Bacteria identified Cx Nom (Wound) No growth aerobically. [facility] Gram stain for investigation of transfusion reactionOrdered By: Dr. Wong on 12-07-2022 Microscopic observation Gram stain Nom (Unsp spec) [facility] ALLIED HEALTHon 12-06-2022 ALLIED HEALTH HNO ID: [id number] Author: RT Bree(R) Service: Radiology Author Type: [...] IV DATA: Not applicable SIGNED BY: RT Bere(R) December 06, 2022 3:43 PM Normal [facility] Basic metabolic 2000 panelon 12-06-2022 Anion gap [Moles/Vol] 8 mmol/L Low 9-18 [facility] Comment on above: Order Comment: Speci men Type: BLOOD SPECIMEN Ordering Facility: [facility] Address: [address] [place] [address] Performed By: #### 2 4321-2 #### [facility] CLIA [id number] [address] [place] [address] [place] Calcium [Mass/Vol] 9.6 mg/dL Normal 8.6-10.3 [facility] Comment on above: Order Comment: Speci men Type: BLOOD SPECIMEN Ordering Facility: [facility] Address: [address] [place] [address] Performed By: #### 2 4321-2 #### [facility] CLIA [id number] [address] [place] [address] [place] Chloride [Moles/Vol] 106 mmol/L Normal 101-111 [facility] Comment on above: Order Comment: Speci men Type: BLOOD SPECIMEN Ordering Facility: [facility] Address: [address] [place] [address] Performed By: #### 2 4321-2 #### [facility] CLIA [id number] [address] [place], [place] [id number] [place] CO2 [Moles/Vol] 25 mmol/L Normal 21-31 [facility] Comment on above: Order Comment: Speci men Type: BLOOD SPECIMEN Ordering Facility: [facility] Address: [address] [place] [address] Performed By: #### 2 4321-2 #### [facility] CLIA [id number] [address] [place] [address] [place] Creatinine [Mass/Vol] 0.68 mg/dL Normal 0.60-1.30 [facility] Comment on above: Order Comment: Speci men Type: BLOOD SPECIMEN Ordering Facility: [facility] Address: [address] [place] [address] Result Comment: Use of this assay is not recommended for patients undergoing treatment with phenindione, due to the potential for falsely depressed results. Performed By: #### 2 4321-2 #### [facility] CLIA [id number] [address] [place] [address] [place] ESTIMATED GLOMERULAR FILTRATION RATE 124 mL/min/1.73m??? Normal >=60 [facility] Comment on above: Order Comment: Sheryl reyes Type: BLOOD SPECIMEN Ordering Facility: [facility] Address: [address] [place] [address] Result Comment: Jossie mated Glomerular Filtration Rate [...] GFR. Performed By: #### 2 4321-2 #### [facility] CLIA [id number] [address] [place], [place] [id number] [place] Glucose [Mass/Vol] 79 mg/dL Normal 74-99 [facility] Comment on above: Order Comment: Sheryl reyes Type: BLOOD SPECIMEN Ordering Facility: [facility] Address: [address] [place] [address] Result Comment: The [place] Diabetes Association (ADA) provides guidance for cutoff [...] Standards of Medical Care in Diabetes 2016, [place] [employer] Association. Diabetes Care. 2016.39(Suppl 1). Performed By: #### 2 4321-2 #### [facility] CLIA [id number] [address] [place], [place] [id number] [place] Potassium [Moles/Vol] 3.7 mmol/L Normal 3.6-5.1 [facility] Comment on above: Order Comment: Sheryl reyes Type: BLOOD SPECIMEN Ordering Facility: [facility] Address: [address] [address] Performed By: #### 2 4321-2 #### [facility] CLIA [id number] [address] [place] [address] [place] Sodium [Moles/Vol] 139 mmol/L Normal 136-144 [facility] Comment on above: Order Comment: Speci men Type: BLOOD SPECIMEN Ordering Facility: [facility] Address: [address] [address] Performed By: #### 2 4321-2 #### [facility] CLIA [id number] [address] [place] [address] [place] Urea nitrogen [Mass/Vol] 12 mg/dL Normal 7-25 [facility] Comment on above: Order Comment: Speci men Type: BLOOD SPECIMEN Ordering Facility: [facility] Address: [address] [address] Performed By: #### 2 4321-2 #### [facility] CLIA [id number] [address] [place] [address] [place] CBC W Auto Differential pane l (Bld)on 12-06-2022 Basophils (Bld) [#/Vol] 10*3/uL Normal <0.11 [facility] Comment on above: Order Comment: Speci men Type: BLOOD SPECIMEN Ordering Facility: [facility] Address: [address] [address] Performed By: #### 5 7021-8 #### [facility] CLIA [id number] [address] [place] [address] [place] Basophils/100 WBC (Bld) 0.3 % Normal [facility] Comment on above: Order Comment: Speci men Type: BLOOD SPECIMEN Ordering Facility: [facility] Address: [address] [address] Performed By: #### 5 7021-8 #### [facility] CLIA [id number] [address] [place] [address] [place] Differential cell count method Nom (Bld) Auto Normal [facility] Comment on above: Order Comment: Speci men Type: BLOOD SPECIMEN Ordering Facility: [facility] Address: [address] [address] Performed By: #### 5 7021-8 #### [facility] CLIA [id number] [address] [place] [address] [place] Eosinophils (Bld) [#/Vol] 0.14 10*3/uL Normal <0.46 [facility] Comment on above: Order Comment: Speci men Type: BLOOD SPECIMEN Ordering Facility: [facility] Address: [address] [address] Performed By: #### 5 7021-8 #### [facility] CLIA [id number] [address] [place] [address] Eosinophils/100 WBC (Bld) 1.9 % Normal [facility] Comment on above: Order Comment: Speci men Type: BLOOD SPECIMEN Ordering Facility: [facility] Address: [address] [address] Performed By: #### 5 7021-8 #### [facility] CLIA [id number] [address] [place] [address] Erythrocyte distribution width (RBC) [Ratio] 11.7 % Normal 11.5-15.0 [facility] Comment on above: Order Comment: Speci men Type: BLOOD SPECIMEN Ordering Facility: [facility] Address: [address] [address] Performed By: #### 5 7021-8 #### [facility] CLIA [id number] [address] [place] [address] [place] Hematocrit (Bld) [Volume fraction] 43.1 % Normal 36.0-46.0 [facility] Comment on above: Order Comment: Speci men Type: BLOOD SPECIMEN Ordering Facility: [facility] Address: [address] [address] Performed By: #### 5 7021-8 #### [facility] CLIA [id number] [address] [place] [address] [place] Hemoglobin (Bld) [Mass/Vol] 14.5 g/dL Normal 11.5-15.5 [facility] Comment on above: Order Comment: Speci men Type: BLOOD SPECIMEN Ordering Facility: [facility] Address: [address] [place] [address] Performed By: #### 5 7021-8 #### [facility] CLIA [id number] [address] [place] [address] [place] Immature granulocytes (Bld) [#/Vol] 10*3/uL Normal <0.10 [facility] Comment on above: Order Comment: Speci men Type: BLOOD SPECIMEN Ordering Facility: [facility] Address: [address] [place] [address] Performed By: #### 5 7021-8 #### [facility] CLIA [id number] [address] [place] [address] [place] Immature granulocytes/100 WBC (Bld) 0.3 % Normal [facility] Comment on above: Order Comment: Speci men Type: BLOOD SPECIMEN Ordering Facility: [facility] Address: [address] [address] Performed By: #### 5 7021-8 #### [facility] CLIA [id number] [address] [place] [address] [place] Lymphocytes (Bld) [#/Vol] 2.97 10*3/uL Normal 1.00-4.00 [facility] Comment on above: Order Comment: Speci men Type: BLOOD SPECIMEN Ordering Facility: [facility] Address: [address] [address] Performed By: #### 5 7021-8 #### [facility] CLIA [id number] [address] [place] [address] [place] Lymphocytes/100 WBC (Bld) 40.4 % Normal [facility] Comment on above: Order Comment: Speci men Type: BLOOD SPECIMEN Ordering Facility: [facility] Address: [address] [address] Performed By: #### 5 7021-8 #### [facility] CLIA [id number] [address] [place] [id number] [place] [address] [place] MCH (RBC) [Entitic mass] 29.8 pg Normal 26.0-34.0 [facility] Comment on above: Order Comment: Speci men Type: BLOOD SPECIMEN Ordering Facility: [facility] Address: [address] [place] [address] Performed By: #### 5 7021-8 #### [facility] CLIA [id number] [address] [place] [address] [place] MCHC (RBC) [Mass/Vol] 33.6 g/dL Normal 30.5-36.0 [facility] Comment on above: Order Comment: Speci men Type: BLOOD SPECIMEN Ordering Facility: [facility] Address: [address] [place] [address] Performed By: #### 5 7021-8 #### [facility] CLIA [id number] [address] [place] [address] MCV (RBC) [Entitic vol] 88.5 fL Normal 80.0-100.0 [facility] Comment on above: Order Comment: Speci men Type: BLOOD SPECIMEN Ordering Facility: [facility] Address: [address] [place] [address] Performed By: #### 5 7021-8 #### [facility] CLIA [id number] [address] [place] [address] [place] Monocytes (Bld) [#/Vol] 0.60 10*3/uL Normal <0.87 [facility] Comment on above: Order Comment: Speci men Type: BLOOD SPECIMEN Ordering Facility: [facility] Address: [address] [place] [address] Performed By: #### 5 7021-8 #### [facility] CLIA [id number] [address] [place] [address] Monocytes/100 WBC (Bld) 8.2 % Normal [facility] Comment on above: Order Comment: Speci men Type: BLOOD SPECIMEN Ordering Facility: [facility] Address: [address] [address] Performed By: #### 5 7021-8 #### [facility] CLIA [id number] [address] [place] [address] [place] Neutrophils (Bld) [#/Vol] 3.60 10*3/uL Normal 1.45-7.50 [facility] Comment on above: Order Comment: Speci men Type: BLOOD SPECIMEN Ordering Facility: [facility] Address: [address] [address] Performed By: #### 5 7021-8 #### [facility] CLIA [id number] [address] [place] [address] [place] Neutrophils/100 WBC (Bld) 48.9 % Normal [facility] Comment on above: Order Comment: Speci men Type: BLOOD SPECIMEN Ordering Facility: [facility] Address: [address] [place] [address] Performed By: #### 5 7021-8 #### [facility] CLIA [id number] [address] [place], [place] [id number] [place] Nucleated RBC (Bld) [#/Vol] Normal [facility] Comment on above: Order Comment: Speci men Type: BLOOD SPECIMEN Ordering Facility: [facility] Address: [address] [place] [address] Performed By: #### 5 7021-8 #### [facility] CLIA [id number] [address] [place], [place] [id number] [place] Nucleated RBC/100 WBC (Bld) [Ratio] Normal [facility] Comment on above: Order Comment: Speci men Type: BLOOD SPECIMEN Ordering Facility: [facility] Address: [address] [place] [address] Performed By: #### 5 7021-8 #### [facility] CLIA [id number] [address] [place] [address] [place] Platelet mean volume (Bld) [Entitic vol] 9.1 fL Normal 9.0-12.7 [facility] Comment on above: Order Comment: Speci men Type: BLOOD SPECIMEN Ordering Facility: [facility] Address: [address] [place] [address] Performed By: #### 5 7021-8 #### [facility] CLIA [id number] [address] [place] [id number] [place] [address] [place] Platelets (Bld) [#/Vol] 285 10*3/uL Normal 150-400 [facility] Comment on above: Order Comment: Speci men Type: BLOOD SPECIMEN Ordering Facility: [facility] Address: [address] [place] [address] Performed By: #### 5 7021-8 #### [facility] CLIA [id number] [address] [place] [address] [place] RBC (Bld) [#/Vol] 4.87 10*6/uL Normal 3.90-5.20 [facility] Comment on above: Order Comment: Speci men Type: BLOOD SPECIMEN Ordering Facility: [facility] Address: [address] [place] [address] Performed By: #### 5 7021-8 #### [facility] CLIA [id number] [address] [place] [address] [place] WBC (Bld) [#/Vol] 7.35 10*3/uL Normal 3.70-11.00 [facility] Comment on above: Order Comment: Speci men Type: BLOOD SPECIMEN Ordering Facility: [facility] Address: [address] [place] [address] Performed By: #### 5 7021-8 #### [facility] CLIA [id number] [address] [place], [place] [id number] [facility] [place] ED NOTEon 12-06-2022 ED NOTE HNO ID: [id number] Author: Loren Rodríguez RN Service: ? Author Type: Registered Nurse Type: ED Notes Filed: 12/06/2022 1:31 PM Note Text: Pt to ED for infection to R ring finger x 1-2 weeks, redness and swelling worsened overnight, pt currently on Doxy. Normal [facility] ED PROV NOTEon 12-06-2022 ED PROV NOTE HNO ID: [id number] Author: Gaetano Matthew DO Service: Emergency Medicine Author Type: Physician [...] think this may be. They consulted the [facility] website. She saw her PCP this morning [...] IV antibiotics and discuss with hand GAETANO MATTHEW 12/15/22 0951 Normal [facility] ED PROV NOTE HNO ID: [id number] Author: Gaetano Matthew DO Service: Emergency Medicine Author Type: Physician [...] the flexor tendon. 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 Skin: General: Skin is warm and dry. [...] are unremarkable (more content not included)... Normal [facility] XR DIGIT 3V FRONTAL/LAT/OBL RTon 12-06-2022 XR [...] osseous finding or radiographic findings of osteomyelitis. Forest Fire Management Officer: PSCB Transcribe Date/Time: Dec 06 2022 3:44P Dictated by : DAVID WILLIAMSON MD This examination was interpreted and the report reviewed and electronically signed by: DAVID WILLIAMSON MD on Dec 06 2022 3:46PM EST [id number] CN Normal [facility] Vital Signs Date Time Vital Sign Value Performing Clinician Facility 03-11-2025 14:48-0400 Body mass index (BMI) [Ratio] 50.27 kg/m2 Keyon Jara MD Work Phone: [facility] 03-11-2025 14:48-0400 Body weight 128.73 kg Keyon Jara MD Work Phone: [facility] 03-11-2025 14:48-0400 Diastolic blood pressure 90 mm[Hg] Keyon Jara MD Work Phone: [facility] 03-11-2025 14:48-0400 Systolic blood pressure 128 mm[Hg] Keyon Jara MD Work Phone: [facility] 03-04-2025 13:51-0400 Body mass index (BMI) [Ratio] 48.54 kg/m2 Ofelia Velez MD Work Phone: [facility] 03-04-2025 13:51-0400 Body weight 124.29 kg Ofelia Velez MD Work Phone: [facility] 03-04-2025 13:51-0400 Diastolic blood pressure 85 mm[Hg] Ofelia Velez MD Work Phone: [facility] 03-04-2025 13:51-0400 Systolic blood pressure 132 mm[Hg] Ofelia Velez MD Work Phone: [facility] 02-25-2025 13:31-0400 Body mass index (BMI) [Ratio] 47.47 kg/m2 Jojo Saez CORROSION CONTROL TECHNICIAN.CNM Work Phone: [facility] 02-25-2025 13:31-0400 Body weight 121.56 kg Jojo Saez CORROSION CONTROL TECHNICIAN.CNM Work Phone: [facility] 02-25-2025 13:31-0400 Diastolic blood pressure 90 mm[Hg] Jojo Seaz CORROSION CONTROL TECHNICIAN.CNM Work Phone: [facility] 02-25-2025 13:31-0400 Systolic blood pressure 132 mm[Hg] Jojo Saez CORROSION CONTROL TECHNICIAN.CNM Work Phone: [facility] 02-18-2025 13:35-0400 Body mass index (BMI) [Ratio] 47.93 kg/m2 Keyon Jara MD Work Phone: [facility] 02-18-2025 13:35-0400 Body weight 122.74 kg Keyon Jara MD Work Phone: [facility] 02-18-2025 13:35-0400 Diastolic blood pressure 95 mm[Hg] Keyon Jara MD Work Phone: [facility] 02-18-2025 13:35-0400 Systolic blood pressure 143 mm[Hg] Keyon Jara MD Work Phone: [facility] 02-11-2025 13:29-0400 Body mass index (BMI) [Ratio] 46.8 kg/m2 Keyon Jara MD Work Phone: [facility] 02-11-2025 13:29-0400 Body weight 119.84 kg Keyon Jara MD Work Phone: [facility] 02-11-2025 13:29-0400 Diastolic blood pressure 82 mm[Hg] Keyon Jara MD Work Phone: [facility] 02-11-2025 13:29-0400 Systolic blood pressure 138 mm[Hg] Keyon Jara MD Work Phone: [facility] 01-15-2025 13:35-0400 Body mass index (BMI) [Ratio] 45.17 kg/m2 Christy Pavon MD Work Phone: [facility] 01-15-2025 13:35-0400 Body weight 115.67 kg Christy Pavon MD Work Phone: [facility] 01-15-2025 13:35-0400 Diastolic blood pressure 84 mm[Hg] Christy Pavon MD Work Phone: [facility] 01-15-2025 13:35-0400 Systolic blood pressure 136 mm[Hg] Christy Pavon MD Work Phone: [facility] 01-10-2025 08:59-0400 Body mass index (BMI) [Ratio] 44.99 kg/m2 Keyon Jara MD Work Phone: [facility] 01-10-2025 08:59-0400 Body weight 115.21 kg Keyon Jara MD Work Phone: [facility] 01-10-2025 08:59-0400 Diastolic blood pressure 85 mm[Hg] Keyon Jara MD Work Phone: [facility] Comment on above: TruBP average 01-10-2025 08:59-0400 Systolic blood pressure 130 mm[Hg] Keyon Jara MD Work Phone: [facility] Comment on above: TruBP average 12-17-2024 13:28-0400 Body mass index (BMI) [Ratio] 44 kg/m2 Keyon Jara MD Work Phone: [facility] 12-17-2024 13:28040 Body weight 112.67 kg Keyon Jara MD Work Phone: [facility] 12-17-2024 13:28-0400 Diastolic blood pressure 80 mm[Hg] Keyon Jara MD Work Phone: [facility] 12-17-2024 13:28-0400 Systolic blood pressure 128 mm[Hg] Keyon Jara MD Work Phone: [facility] 12-08-2024 14:22-0400 Body temperature 99 [degF] Dr. Mago Wong MD Work Phone: [facility] 12-08-2024 14:22-0400 Diastolic blood pressure 66 mm[Hg] Dr. Mago Wong MD Work Phone: [facility] 12-08-2024 14:22-0400 Heart rate 105 /min Dr. Mago Wong MD Work Phone: [facility] 12-08-2024 14:22-0400 Respiratory rate 18 /min Dr. Mago Wong MD Work Phone: [facility] 12-08-2024 14:22-0400 Systolic blood pressure 136 mm[Hg] Dr. Mago Wong MD Work Phone: [facility] 12-08-2024 14:21-0400 SaO2% (BldA) [Mass fraction] 96 % Dr. Mago Wong MD Work Phone: [facility] 12-08-2024 14:17-0400 Body height 160.[address] Mago Wong MD Work Phone: [facility] 12-08-2024 14:17-0400 Body mass index (BMI) [Ratio] 42.5 kg/m2 Dr. Mago Wong MD Work Phone: [facility] 12-08-2024 14:17-0400 Body weight 109.[address] Mago Wong MD Work Phone: [facility] 11-19-2024 14:04-0400 Body mass index (BMI) [Ratio] 41.98 kg/m2 Jojo Saez CORROSION CONTROL TECHNICIAN.CNM Work Phone: [facility] 11-19-2024 14:04-0400 Body weight 107.5 kg Jojo Saez CORROSION CONTROL TECHNICIAN.CNM Work Phone: [facility] [place] 11-19-2024 14:04-0400 Diastolic blood pressure 74 mm[Hg] Jojo Saez CORROSION CONTROL TECHNICIAN.CNM Work Phone: [facility] 11-19-2024 14:04-0400 Systolic blood pressure 126 mm[Hg] Jojo Saez CORROSION CONTROL TECHNICIAN.CNM Work Phone: [facility] 10-22-2024 13:39-0400 Body mass index (BMI) [Ratio] 41.45 kg/m2 Jojo Saez CORROSION CONTROL TECHNICIAN.CNM Work Phone: [facility] 10-22-2024 13:39-0400 Body weight 106.14 kg Jojo Saez CORROSION CONTROL TECHNICIAN.CNM Work Phone: [facility] 10-22-2024 13:39-0400 Diastolic blood pressure 74 mm[Hg] Jojo Saez CORROSION CONTROL TECHNICIAN.CNM Work Phone: [facility] 10-22-2024 13:39-0400 Systolic blood pressure 124 mm[Hg] Jojo Saez CORROSION CONTROL TECHNICIAN.CNM Work Phone: [facility] 09-23-2024 11:38-0400 Body mass index (BMI) [Ratio] 40.57 kg/m2 Christy Pavon MD Work Phone: [facility] 09-23-2024 11:38-0400 Body weight 103.87 kg Christy Pavon MD Work Phone: [facility] 09-23-2024 11:38-0400 Diastolic blood pressure 80 mm[Hg] Christy Pavon MD Work Phone: [facility] 09-23-2024 11:38-0400 Systolic blood pressure 138 mm[Hg] Christy Pavon MD Work Phone: [facility] 09-10-2024 10:32-0400 Body mass index (BMI) [Ratio] 41.1 kg/m2 Angelic Butler MD Work Phone: [facility] 09-10-2024 10:32-0400 Body weight 105.23 kg Angelic Butler MD Work Phone: [facility] 09-10-2024 10:32-0400 Diastolic blood pressure 84 mm[Hg] Agnelic Butler MD Work Phone: [facility] 09-10-2024 10:32-0400 Systolic blood pressure 132 mm[Hg] Angelic Butler MD Work Phone: [facility] 08-12-2024 08:40-0500 Body height 160 cm Matilde Plottapan CORROSION CONTROL TECHNICIAN.CNM Work Phone: [facility] 08-12-2024 08:40-0500 Body mass index (BMI) [Ratio] 40.39 kg/m2 Matilde Plotts CORROSION CONTROL TECHNICIAN.CNM Work Phone: [facility] 08-12-2024 08:40-0500 Body weight 103.42 kg Matilde Plotts CORROSION CONTROL TECHNICIAN.CNM Work Phone: [facility] 08-12-2024 08:40-0500 Diastolic blood pressure 78 mm[Hg] Matilde Plotts CORROSION CONTROL TECHNICIAN.CNM Work Phone: [facility] 08-12-2024 08:40-0500 Systolic blood pressure 126 mm[Hg] Matilde Plotts CORROSION CONTROL TECHNICIAN.CNM Work Phone: [facility] 02-07-2024 12:43-0400 Body mass index (BMI) [Ratio] 38.39 kg/m2 Jasmin Jara CORROSION CONTROL TECHNICIAN.YARN EXAMINER SKEINS Work Phone: [facility] 02-07-2024 12:43-0400 Body temperature 98.91 [degF] Jasmin Soto GRANDE.YARN EXAMINER SKEINS Work Phone: [facility] 02-07-2024 12:43-0400 Body weight 98.3 kg Jasmindony Jara APRN.YARN EXAMINER SKEINS Work Phone: [facility] 02-07-2024 12:43-0400 Diastolic blood pressure 72 mm[Hg] Jasmin Jara APRN.YARN EXAMINER SKEINS Work Phone: [facility] 02-07-2024 12:43-0400 Heart rate 101 /min Jasmin Jara APRN.YARN EXAMINER SKEINS Work Phone: [facility] 02-07-2024 12:43-0400 Respiratory rate 18 /min Jasmin Jara APRN.YARN EXAMINER SKEINS Work Phone: [facility] 02-07-2024 12:43-0400 SaO2% (BldA) [Mass fraction] 98 % Jasmin Jara APRN.YARN EXAMINER SKEINS Work Phone: [facility] 02-07-2024 12:43-0400 Systolic blood pressure 110 mm[Hg] Jasmin Jara APRN.YARN EXAMINER SKEINS Work Phone: [facility] 12-15-2023 08:35-0400 Body height 160 cm Angelic Butler MD Work Phone: [facility] 12-15-2023 08:35-0400 Body mass index (BMI) [Ratio] 38.44 kg/m2 Angelic Butler MD Work Phone: [facility] 12-15-2023 08:35-0400 Body weight 98.43 kg Angelic Butler MD Work Phone: [facility] 12-15-2023 08:35-0400 Diastolic blood pressure 82 mm[Hg] Angelic Butler MD Work Phone: [facility] 12-15-2023 08:35-0400 Systolic blood pressure 124 mm[Hg] Angelic Butler MD Work Phone: [facility] 09-08-2022 08:39-0400 Body height 160 cm Angelic Butler MD Work Phone: [facility] 09-08-2022 08:39-0400 Body weight 94.35 kg Angelic Butler MD Work Phone: [facility] 09-08-2022 08:39-0400 Diastolic blood pressure 78 mm[Hg] Angelic Butler MD Work Phone: [facility] 09-08-2022 08:39-0400 Systolic blood pressure 122 mm[Hg] Angelic Butler MD Work Phone: [facility] Encounters Encounter Date Encounter Type Care Provider Facility Start: 03-12-2025 End: 03-12-2025 ambulatory OFELIA VELEZ Facility:[facility] Start: 03-11-2025 End: 03-11-2025 ambulatory MAGO WONG Facility:[facility] Start: 03-11-2025 End: 03-11-2025 Patient encounter procedure Keyon Jara MD Work Phone: OB/Gynecology Comment on above: 36 weeks gestation o f (HCC) (Primary Dx); Supervision of high risk in third trimester (HCC); Chronic hypertension in (HCC); Obesity affecting in third trimester, unspecified obesity type (HCC); Polyhydramnios in third trimester complication, single or unspecified fetus (HCC) Chronic hypertension in (HCC) (Primary Dx); Obesity affecting in third trimester, unspecified obesity type (HCC); 36 weeks gestation of (HCC); Polyhydramnios in third trimester complication, single or unspecified fetus (HCC) Start: 03-10-2025 End: 03-10-2025 Telephone encounter Tian Reeves MD Work Phone: OB/Gynecology Comment on above: Question (OB Questio n) Start: 03-04-2025 End: 03-04-2025 Patient encounter procedure Ofelia Velez MD Work Phone: OB/Gynecology Comment on above: Supervision of high risk in third trimester (HCC) (Primary Dx); Chronic hypertension in (HCC); Obesity affecting in third trimester, unspecified obesity type (HCC); Polyhydramnios in third trimester complication, single or unspecified fetus (HCC); 35 weeks gestation of (HCC) Start: 03-04-2025 End: 03-04-2025 ambulatory JOJO SAEZ Facility:[facility] Start: 02-25-2025 End: 02-25-2025 Patient encounter procedure Jojo Saez BRIDGETT Work Phone: OB/Gynecology Comment on above: Supervision of high risk in third trimester (HCC) (Primary Dx); 34 weeks gestation of (HCC); Chronic hypertension in (HCC); Obesity affecting in third trimester, unspecified obesity type (HCC); Polyhydramnios in third trimester complication, single or unspecified fetus (HCC); Excessive growth affecting management of in third trimester, single or unspecified fetus (HCC) Start: 02-25-2025 End: 02-25-2025 ambulatory JOJO SAEZ Facility:[facility] Start: 02-18-2025 End: 02-18-2025 Patient encounter procedure Keyon Jara MD Work Phone: OB/Gynecology Comment on above: 33 weeks gestation o f (HCC) (Primary Dx); Chronic hypertension in (HCC); Supervision of high risk in third trimester (HCC); Obesity affecting in third trimester, unspecified obesity type (HCC) Start: 02-18-2025 End: 02-18-2025 ambulatory MAGO WONG Facility:[facility] Start: 02-12-2025 End: 02-13-2025 ambulatory Christy Pavno MD Work Phone: OB/Gynecology Comment on above: Ultrasound Report Start: 02-11-2025 End: 02-11-2025 Patient encounter procedure Whi Tech 2 Line Assembler Mfm [facility]aternal [facility] Comment on above: Chronic hypertension affecting (HCC) (Primary Dx); Obesity affecting in third trimester, unspecified obesity type (HCC); Polyhydramnios affecting (HCC); 32 weeks gestation of (HCC) 32 weeks gestation o f (HCC) (Primary Dx); Chronic hypertension in (HCC); Supervision of high risk in third trimester (HCC); Obesity affecting in third trimester, unspecified obesity type (HCC) Start: 02-11-2025 End: 02-11-2025 ambulatory MAGO WONG Facility:[facility] Start: 02-03-2025 End: 02-18-2025 ambulatory Christy Pavon MD Work Phone: OB/Gynecology Comment on above: Blood Pressure Readi ngs Start: 01-28-2025 End: 01-28-2025 ambulatory MAGO WONG Facility:[facility] Start: 01-20-2025 End: 01-21-2025 ambulatory Christy Pavon MD Work Phone: OB/Gynecology Comment on above: Weekly Blood Pressur es Start: 01-15-2025 ambulatory MAGO WONG Fac ility:[facility] Start: 01-15-2025 End: 01-15-2025 Patient encounter procedure Christy Pavon MD Work Phone: OB/Gynecology Comment on above: Supervision of high risk in third trimester (HCC) (Primary Dx); Chronic hypertension complicating or reason for care during childbirth ([facility]); Rh negative state in antepartum period ([facility]); Obesity affecting in third trimester, unspecified obesity type (HCC); 28 weeks gestation of ([facility]) Encounter for ultras ound to check growth (HCC) (Primary Dx); Obesity affecting in third trimester, unspecified obesity type (HCC); 28 weeks gestation of ([facility]); Polyhydramnios in third trimester complication, single or unspecified fetus (HCC) Start: 01-15-2025 End: 01-15-2025 ambulatory MAGO WONG Facility:[facility] Start: 01-10-2025 End: 01-10-2025 Patient encounter procedure Keyon Jara MD Work Phone: OB/Gynecology Comment on above: 27 weeks gestation o f (HCC) (Primary Dx); Chronic hypertension complicating or reason for care during childbirth (HCC) Start: 01-10-2025 End: 01-10-2025 ambulatory MAGO WONG Facility:[facility] Start: 12-17-2024 End: 12-17-2024 Patient encounter procedure Keyon Jara MD Work Phone: OB/Gynecology Comment on above: Screening for diabet es mellitus (Primary Dx); 24 weeks gestation of (HCC); Supervision of high risk in second trimester (HCC); Chronic hypertension complicating or reason for care during childbirth (HCC); Rh negative state in antepartum period (HCC) Start: 12-17-2024 End: 12-17-2024 ambulatory Jojo Saez APRN.CNM Work Phone: OB/Gynecology Comment on above: Blood pressure Start: 12-09-2024 End: 12-16-2024 Telephone encounter oJjo Saez APRN.CNM Work Phone: OB/Gynecology Comment on above: Medication Question Results Start: 12-08-2024 End: 12-08-[address] Mago Wong MD Work Phone: [facility] Work Phone: Start: 12-08-2024 End: 12-08-2024 Patient encounter procedure Jojo Saez CNM -[facility] Work Phone: Start: 12-03-2024 End: 12-10-2024 ambulatory Jojo Saez APRN.CNM Work Phone: OB/Gynecology Comment on above: Blood pressure readi ngs Start: 11-19-2024 End: 11-19-2024 ambulatory ANGELIC BUTLER Facility:[facility] Start: 11-19-2024 End: 11-19-2024 Patient encounter procedure Whi Tech 1 Line Assembler [facility]aternal [facility] Comment on [...] obesity type (HCC); BMI 40.0-44.9, adult (HCC); 16 weeks gestation of (HCC) Start: 10-22-2024 End: 10-22-2024 ambulatory ANGELIC BUTLER Facility:[facility] Start: 10-08-2024 End: 10-08-2024 Refill Christy Pavon MD Work Phone: OB/Gynecology Comment on above: Refill Request Start: 09-30-2024 End: 11-30-2024 Follow-up encounter Karlee Owen APRN.YARN EXAMINER SKEINS Work Phone: OB/Gynecology Start: 09-23-2024 End: 09-23-2024 ambulatory ANGELIC BUTLER Facility:[facility] Start: 09-23-2024 End: 09-23-2024 Patient encounter procedure Christy Pavon MD Work Phone: OB/Gynecology Comment on above: Supervision of high risk in first trimester (Primary Dx); Elevated blood pressure reading without diagnosis of hypertension; Chronic hypertension in ; 11 weeks gestation of Encounter for antena miguel screening for malformation using ultrasound (Primary Dx); 11 weeks gestation of Start: 09-10-2024 End: 09-10-2024 ambulatory MAGO WONG Facility:[facility] Start: 09-10-2024 End: 09-10-2024 Patient encounter procedure Angelic Butler MD Work Phone: OB/Gynecology Comment on above: Supervision of high risk in first trimester (Primary Dx); Obesity affecting in first trimester, unspecified obesity type; 10 weeks gestation of ; BMI 40.0-44.9, adult ([facility]) Start: 08-30-2024 End: 08-30-2024 [facility] Start: 08-30-2024 End: 08-30-2024 Patient encounter procedure Line Assembler [facility] Work Phone: OB/Gynecology Comment on above: with uncer tain dates, antepartum Start: 08-14-2024 End: 08-14-2024 [facility] Start: 08-12-2024 End: 09-05-2024 Follow-up encounter Matilde Adler CORROSION CONTROL TECHNICIANCiraCNChloe Work Phone: OB/Gynecology Start: 08-12-2024 End: 08-16-2024 Telephone encounter Matilde Adler APRN.CNM Work Phone: OB/Gynecology Start: 08-12-2024 End: 08-12-2024 ambulatory MATILDE ADLER Facility:[facility] Start: 08-12-2024 End: 08-12-2024 ambulatory [facility] Facility[facility] Start: 08-12-2024 End: 08-12-2024 Patient encounter procedure Matilde Adler CORROSION CONTROL TECHNICIANAMANDA Work Phone: OB/Gynecology Comment on above: with uncer tain dates, antepartum (Primary Dx); Encounter for care in first trimester of first ; Threatened miscarriage in early ; Obesity affecting in first trimester, unspecified obesity type Start: 07-09-2024 End: 07-09-2024 ambulatory [facility] Facility:[facility] Start: 06-17-2024 End: 06-17-2024 Telephone encounter Angelic Butler MD Work Phone: OB/Gynecology Comment on above: Irregular Menstrual Cycle Start: 02-08-2024 Orders Only Becki solis CORROSION CONTROL TECHNICIAN.YARN EXAMINER SKEINS Work Phone: [facility] Start: 02-07-2024 End: 02-07-2024 Patient encounter procedure Jasmin Jara CORROSION CONTROL TECHNICIAN.YARN EXAMINER SKEINS Work Phone: [facility] Comment on above: Vaginal itching (Almita luis Dx); Vaginal discharge Start: 12-15-2023 ambulatory Angelic nj MD Work Phone: OB/Gynecology [...] encounter status Angelic Butler MD Work Phone: [facility] Start: 08-29-2023 Refill Angelic nj MD Work Phone: OB/Gynecology Comment on above: Refill Request Start: 03-01-2023 ambulatory Angelic nj MD Work Phone: OB/Gynecology Comment on above: Headache During Sex Start: 01-01-2023 ambulatory Angelic nj MD Work Phone: OB/Gynecology Comment on above: Possible Start: 12-06-2022 End: 12-06-2022 [facility] Facility[facility] Start: 12-06-2022 End: 12-06-2022 ambulatory [facility] Work Phone: Start: 12-06-2022 End: 12-06-2022 Patient encounter procedure [facility]-Laboratory, Specimen Start: 09-08-2022 End: 09-08-2022 Patient encounter [...] Date Procedure Procedure Detail Performing Clinician Start: 03-11-2025 Urnls dip stick/tabl et rgnt non-auto w/o micrscp Keyon Jara MD Work Phone: Start: 03-11-2025 Us preg uterus after 1st trimest 06/26 gestation Jojo Se GRANDE.CNM Work Phone: Start: 03-04-2025 Urnls dip stick/tabl et rgnt non-auto w/o micrscp Ofelia Velez MD Work Phone: Start: 02-25-2025 Urnls dip stick/tabl et rgnt non-auto w/o micrscp Jojo Saez APRN.CNM Work Phone: Start: 02-18-2025 Urnls dip stick/tabl et rgnt non-auto w/o micrscp Keyon Jara MD Work Phone: Start: 02-11-2025 Urnls dip stick/tabl et rgnt non-auto w/o micrscp Keyon Jara MD Work Phone: Start: 02-11-2025 Us preg uterus after 1st trimest 06/26 gestation Jojo Se GRANDE.CNM Work Phone: Start: 01-15-2025 Antibody screen [facility] [place] Comment on above: Order Comment: Speci men Type: BLOOD SPECIMENOrdering Facility: [facility] Address: [address] [place] [address] Performed By: #### T SPN ####CC MAIN BLOOD BANKCLIA [id number] [address] [place] Start: 01-15-2025 Urnls dip stick/tabl et rgnt non-auto w/o micrscp Christy Pavon MD Work Phone: Start: 01-15-2025 Us preg uterus after 1st trimest 1/1st gestation Jojopratibha Saez CORROSION CONTROL TECHNICIAN.CNM Work Phone: Start: 12-08-2024 Urnls dip stick/tabl et reagent auto microscopy Dr. Mago Wong MD Work Phone: Start: 11-19-2024 Us preg uterus after 1st trimest 1/1st gestation Angelic Butler MD Work Phone: Start: 10-22-2024 Us preg uterus after 1st trimest 1/1st gestation Angelic Butler MD Work Phone: Start: 09-23-2024 Us preg uterus after 1st trimest 1/1st gestation Matilde Adler CORROSION CONTROL TECHNICIAN.CNM Work Phone: Start: 08-30-2024 Us preg uterus after 1st trimest 1/1st gestation Matilde Adler CORROSION CONTROL TECHNICIAN.CNM Work Phone: Start: 08-12-2024 Antibody screen LORY ADLER Comment on above: Order Comment: Speci men Type: BLOOD SPECIMENOrdering Facility: [facility] Address: [address] [place] [address] Performed By: #### T SPN ####CC [facility] BLOOD BANKCLIA [id number] [address] [place] Start: 08-12-2024 Us uterus l imited 1/> fetuses Matilde Adler CORROSION CONTROL TECHNICIAN.CNM Work Phone: Investigation of tra nsfusion reaction Microbial culture, routine Plan of Treatment Date Care Activity Detail Author Start: 09-28-2039 PAP TESTING PAP TESTING [facility] Start: 05-04-2030 Urine microalbumin profile [facility] Start: 12-14-2026 Screening for malign ant neoplasm of cervix Cervical Cancer Screening [facility] Start: 03-25-2025 End: 03-25-2025 Patient encounter procedure OB/Gynecology Comment on above: NST/OB pp Start: 03-25-2025 End: 03-25-2025 Patient encounter procedure OB/Gynecology Comment on above: NST NST/OB Start: 03-18-2025 INDUCTION L&D INDUCTION L&D Procedures Routine Chronic hypertension in (HCC) Obesity affecting in third trimester, unspecified obesity type (HCC) Polyhydramnios in third trimester complication, single or unspecified fetus (HCC) Expected: 03/18/2025 [facility] Work Phone: Comment on above: Expected: 03/18/2025 Start: 03-18-2025 End: 03-18-2025 Patient encounter procedure OB/Gynecology Comment on above: NST NST/OB Start: 03-12-2025 End: 03-12-2025 Patient encounter procedure 03/12/2025 9:10 AM EDT Routine Office Visit OB/Gynecology [address] [place], [place] [id number] Ofelia Velez MD [address] [place] [id number] OB OB/Gynecology Comment on above: OB Start: 03-11-2025 End: 03-11-2025 Patient encounter procedure Maternal Medicine Comment on above: Growth Growth/ OB Growth/BPP Start: 03-04-2025 End: 03-04-2025 Patient encounter procedure OB/Gynecology Comment on above: NST/OB Start: 02-25-2025 End: 02-25-2025 Patient encounter procedure OB/Gynecology Comment on above: NST/OB Start: 02-24-2025 Influenza vaccination [facility] Start: 02-24-2025 RSV Vaccine (1 - Ris k 1-dose series) RSV Vaccine (1 - Risk 1-dose series) [facility] Start: 02-18-2025 End: 05-20-2025 Protein/Creatinine [Mass Ratio] in Urine [facility] Work Phone: Comment on above: Expected: 02/18/2025 , Expires: 05/20/2025 Start: 02-18-2025 End: 02-18-2025 Patient encounter procedure OB/Gynecology Comment on above: NST/ OB Start: 02-11-2025 End: 02-11-2025 Patient encounter procedure Maternal Medicine Comment on above: Growth OB Start: 01-28-2025 End: 01-28-2025 Patient encounter procedure 01/28/2025 1:30 PM EDT Routine Office Visit OB/Gynecology [address] [place] [address] Angelic Butler MD [address] [place] [address] OB OB/Gynecology Comment on above: OB Start: 01-16-2025 End: 04-17-2025 ANEMIA REFLEX PANEL ANEMIA REFLEX PANEL Lab Routine 24 weeks gestation of ([facility]) Supervision of high risk in second trimester ([facility]) Expected: 01/16/2025 (Approximate), Expires: 04/17/2025 [facility] Comment on above: Expected: 01/16/2025 (Approximate), Expires: 04/17/2025 Start: 01-16-2025 End: 12-17-2025 GESTATIONAL GLUCOSE SCREEN, 1-HOUR, 50 GRAM, NON-FASTING GESTATIONAL GLUCOSE SCREEN, 1-HOUR, 50 GRAM, NON-FASTING Lab Routine Screening for diabetes mellitus Expected: 01/16/2025 (Approximate), Expires: 12/17/2025 [facility] Work Phone: Comment on above: Expected: 01/16/2025 (Approximate), Expires: 12/17/2025 Start: 01-16-2025 End: 12-17-2025 SYPHILIS TREPONEMAL W/REFLEX SYPHILIS TREPONEMAL W/REFLEX Lab Routine 24 weeks gestation of ([facility]) Supervision of high risk in second trimester ([facility]) Expected: 01/16/2025 (Approximate), Expires: 12/17/2025 [facility] Comment on above: Expected: 01/16/2025 (Approximate), Expires: 12/17/2025 Start: 01-16-2025 End: 04-17-2025 TYPE + SCREEN TYPE + SCREEN Blood Bank Routine 24 weeks gestation of ([facility]) Supervision of high risk in second trimester ([facility]) Expected: 01/16/2025 (Approximate), Expires: 04/17/2025 [facility] Comment on above: Expected: 01/16/2025 (Approximate), Expires: 04/17/2025 Start: 01-15-2025 End: 04-16-2025 Protein/Creatinine [Mass Ratio] in Urine [facility] Work Phone: Comment on above: Expected: 01/15/2025 , Expires: 04/16/2025 Start: 01-15-2025 End: 01-15-2025 Patient encounter procedure Maternal Medicine Comment on above: Growth/ Glucose OB/ Glucose Start: 01-15-2025 End: 01-15-2025 ambulatory 01/15/2025 12:45 PM EDT Results Only Jr [facility] [address] [place] [address] glucose, cbc, syphilis, type & screen [facility] Comment on above: glucose, cbc, syphil is, type & screen Start: 12-17-2024 End: 12-17-2024 Patient encounter procedure 12/17/2024 1:30 PM EDT Routine Office Visit OB/Gynecology [address] [place] [address] Keyon Jara MD [address] [place] [address] OB OB/Gynecology Comment on above: OB Start: 12-16-2024 End: 12-16-2024 Patient encounter procedure 12/16/2024 8:40 AM EDT Office Visit OB/Gynecology [address] [place] [address] Angelic Butler MD [address] [place] [place] [address] Annual OB/Gynecology Comment on above: Annual Start: 12-08-2024 End: 12-08-2024 [facility] Start: 12-08-2024 Nonstress test [facility] Start: 12-08-2024 Obstetric monitoring [facility] Start: 12-08-2024 Bacteria identified in Urine by Culture Urine Culture [facility] Start: 12-08-2024 Vital signs measurements [facility] Start: 12-08-2024 Patient discharge [facility] Start: 11-19-2024 End: 11-19-2024 Patient encounter procedure Maternal Medicine Comment on above: Anatomy Anatomy/OB Start: 10-22-2024 End: 10-22-2024 Patient encounter procedure Maternal Medicine Comment on above: Early Anatomy Early Anatomy/OB Start: 2024 HPV Vaccine (1 - 3-d ose SCDM series) HPV Vaccine (1 - 3-dose SCDM series) [facility] Start: 09-23-2024 End: 12-23-2024 Protein/Creatinine [Mass Ratio] in Urine [facility] Work Phone: Comment on above: Expected: 09/23/2024 , Expires: 12/23/2024 Start: 09-23-2024 End: 09-23-2024 Patient encounter procedure Maternal Medicine Comment on above: Nuchal OB Routine Start: 09-10-2024 End: 12-10-2024 Chromosome 21 trisomy [Presence] in Blood or Tissue by Cytogenetics [id number] PLUS Lab Routine Obesity affecting in first trimester, unspecified obesity type 10 weeks gestation of Expected: 09/10/2024, Expires: 12/10/2024 [facility] Work Phone: Comment on above: Expected: 09/10/2024 , Expires: 12/10/2024 Start: 09-10-2024 End: 09-10-2025 OBSTETRIC ULTRASOUND WHI OBSTETRIC ULTRASOUND WHI Anc Imaging Routine Obesity affecting in first trimester, unspecified obesity type Supervision of high risk in first trimester BMI 40.0-44.9, adult ([facility]) Expected: 09/10/2024, Expires: 09/10/2025 [facility] Comment on above: Expected: 09/10/2024 , Expires: 09/10/2025 Start: 09-10-2024 End: 09-10-2024 Patient encounter procedure 09/10/2024 10:20 AM EDT Routine Office Visit OB/Gynecology [address] [place], [place] [id number] Angelic Butler MD [address] [place], [place] [id number] 1st OB - LMP 06/15/25 OB/Gynecology Comment on above: 1st OB - LMP 5 Start: 08-30-2024 End: 08-30-2024 Patient encounter procedure 08/30/2024 1:00 PM EST Routine Office Visit Maternal Medicine [address] [place] [address] Early OB US Maternal Medicine Comment on above: Early OB US Start: 08-24-2024 PAP TESTING PAP TESTING [facility] Start: 08-24-2024 Screening for malign ant neoplasm of cervix [facility] Start: 08-12-2024 End: 11-11-2024 ANEMIA REFLEX PANEL [facility] Work Phone: Comment on above: Expected: 08/12/2024 , Expires: 11/11/2024 Start: 08-12-2024 End: 11-11-2024 Hemoglobin A1c in Blood [facility] Comment on above: Expected: 08/12/2024 , Expires: 11/11/2024 Start: 08-12-2024 End: 11-11-2024 HEMOGLOBIN EVALUATION CASCADE [facility] Comment on above: Expected: 08/12/2024 , Expires: 11/11/2024 Start: 08-12-2024 End: 11-11-2024 Hepatitis B virus surface Ag [Presence] in Serum [facility] Comment on above: Expected: 08/12/2024 , Expires: 11/11/2024 Start: 08-12-2024 End: 11-11-2024 Hepatitis C virus Ab [Presence] in Serum [facility] Comment on above: Expected: 08/12/2024 , Expires: 11/11/2024 Start: 08-12-2024 End: 11-11-2024 HIV 1+2 Ab [Presence] in Serum or Plasma by Immunoassay [facility] Comment on above: Expected: 08/12/2024 , Expires: 11/11/2024 Start: 08-12-2024 End: 08-12-2025 OBSTETRIC ULTRASOUND WHI [facility] Comment on above: Expected: 08/12/2024 , Expires: 08/12/2025 Start: 08-12-2024 End: 11-11-2024 RUBELLA IGG ANTIBODY [facility] Comment on above: Expected: 08/12/2024 , Expires: 11/11/2024 Start: 08-12-2024 End: 11-11-2024 SYPHILIS TREPONEMAL W/REFLEX [facility] Comment on above: Expected: 08/12/2024 , Expires: 11/11/2024 Start: 08-12-2024 End: 11-11-2024 TYPE + SCREEN [facility] Comment on above: Expected: 08/12/2024 , Expires: 11/11/2024 Start: 03-08-2024 End: 03-08-2024 Patient encounter procedure 03/08/2024 8:00 AM EDT Office Visit OB/Gynecology [address] [place], [place] [id number] Mago Nunez APRN.YARN EXAMINER SKEINS [address] [place] [address] Weight management OB/Gynecology Comment on above: Weight management Start: 02-25-2024 Covid-19 Vaccine ( season) Covid-19 Vaccine ( season) [facility] Start: 02-25-2024 Influenza vaccination [facility] Start: 06-26-2023 Behavioral Health Screening Behavioral Health Screening [facility] Start: 06-26-2023 [facility] Start: 02-24-2023 Covid-19 Vaccine ( season) Covid-19 Vaccine ( season) [facility] Start: 02-24-2023 Influenza vaccination [facility] Start: 01-02-2023 End: 03-04-2023 Choriogonadotropin.beta subunit [Units/volume] in Serum or Plasma HCG QUANTITATIVE Lab Routine Irregular menstrual cycle Expected: 01/02/2023, Expires: 03/04/2023 [facility] Work Phone: Comment on above: Expected: 01/02/2023 , Expires: 03/04/2023 Start: 06-26-2022 DEPRESSION ASSESSMENT DEPRESSION ASS ESSMENT [facility] Start: 02-24-2022 Influenza vaccination INFLUENZA (#1) [facility] Start: 09-28-2015 Anxiety Screening Anxiety Screening [facility] Start: 09-28-2015 Depression Screening Depression Scre ening [facility] Start: 09-28-2015 HEPATITIS C SCREENING HEPATITIS C [facility] Start: 09-28-2015 Hepatitis C screening Hepatitis C [facility] Start: 09-28-2015 HIV SCREENING HIV SCREENING [facility] Start: 09-28-2015 HIV screening HIV Screening [facility] Start: 2012 HPV Vaccine (1 - 3-d ose series) HPV Vaccine (1 - 3-dose series) [facility] Start: 09-28-2011 PEDS TO ADULT TRANSITION ANNUAL ASSESSMENT PEDS TO ADULT TRANSITION ANNUAL ASSESSMENT [facility] Start: 2009 PEDS TO ADULT TRANSITION INITIAL DISCUSSION PEDS TO ADULT TRANSITION INITIAL DISCUSSION [facility] Start: 2008 HPV VACCINE (1 - 2-d ose series) HPV VACCINE (1 - 2-dose series) [facility] Start: 09-28-2007 MENINGOCOCCAL B: Consider based on risk (1 of 2 - Risk Bexsero 2-dose series) MENINGOCOCCAL B: Consider based on risk (1 of 2 - Risk Bexsero 2-dose series) [facility] Start: 2006 HPV VACCINE (1 - 2-d ose series) HPV VACCINE (1 - 2-dose series) [facility] Start: 03-29-1998 COVID-19 VACCINE (#1) COVID-19 VACCI NE (#1) [facility] Bacteria identified in Urine by Culture BACTERIAL CULTURE, URINE Microbiology Routine with uncertain dates, antepartum Encounter for care in first trimester of first 08/12/2024 9:57 AM EST [facility] BACTERIAL VAGINOSIS NAAT BACTERIAL VAGINOSIS NAAT Lab Routine Vaginal itching Vaginal discharge 02/07/2024 1:07 PM EDT [facility] Work Phone: KATIE/TRICHOMONAS NAAT KATIE/TRICHOMONAS NAAT Lab Routine Vaginal itching Vaginal discharge 02/07/2024 1:07 PM EDT [facility] Chlamydia trachomatis+Neisseria gonorrhoeae DNA [Presence] in Unspecified specimen by HADLEY with probe detection GC/CHLAMYDIA DNA DET Lab Routine Encounter for gynecological examination (general) (routine) without abnormal findings Screen for STD (sexually transmitted disease) Ordered: 09/08/2022 [facility] Work Phone: Comment on above: Ordered: 09/08/2022 Chlamydia trachomatis+Neisseria gonorrhoeae DNA [Presence] in Unspecified specimen by HADLEY with probe detection GONORRHEA/CHLAMYDIA NAAT Lab Routine with uncertain dates, antepartum Encounter for care in first trimester of first 08/12/2024 9:57 AM [facility] End: 09-09-2024 Choriogonadotropin.beta subunit [Units/volume] in Serum or Plasma HCG QUANTITATIVE Lab Routine with uncertain dates, antepartum Encounter for care in first trimester of first 2x per week for 8 Occurrences starting 08/12/2024 until 09/09/2024 [facility] Comment on above: 2x per week for 8 Oc currences starting 08/12/2024 until 09/09/2024 Choriogonadotropin.b eta subunit [Units/volume] in Serum or Plasma HCG QUANTITATIVE Lab Routine with uncertain dates, antepartum Encounter for care in first trimester of first 08/12/2024 9:55 AM [facility] End: 11-09-2025 nonstress test NON-STRESS TEST Procedures Routine Supervision of high risk in third trimester (HCC) Obesity affecting in third trimester, unspecified obesity type (HCC) Once per week for 7 Occurrences starting 11/19/2024 until 11/09/2025 [facility] Work Phone: Comment on above: Once per week for 7 Occurrences starting 11/19/2024 until 11/09/2025 End: 03-29-2025 OBSTETRIC ULTRASOUND WHI OBSTETRIC ULTRASOUND [facility] Routine Obesity affecting in first trimester, unspecified obesity type 10 weeks gestation of Supervision of high risk in first trimester BMI 40.0-44.9, adult (HCC) Once per month for 6 Occurrences starting 09/10/2024 until 03/29/2025 [facility] Comment on above: Once per month for 6 Occurrences starting 09/10/2024 until 03/29/2025 End: 11-03-2025 OBSTETRIC ULTRASOUND [facility] OBSTETRIC ULTRASOUND [facility] Imaging Routine Supervision of high risk in third trimester (HCC) Obesity affecting in third trimester, unspecified obesity type (HCC) Once per month for 3 Occurrences starting 11/19/2024 until 11/03/2025 [facility] Comment on above: Once per month for 3 Occurrences starting 11/19/2024 until 11/03/2025 PAP TEST PAP TEST Lab Radha parisi Encounter for gynecological examination (general) (routine) without abnormal findings Screening for cervical cancer Vaginal high risk human papillomavirus (HPV) DNA test positive 12/15/2023 9:24 AM EDT [facility] Work Phone: Patient Education OB Triage: Ret urn to Hospital or Notify Physician if you Experience: [facility] Work Phone: Patient referral [facility] Work Phone: ROUTINE, GR OUP B STREPTOCOCCUS BY PCR ROUTINE, GROUP B STREPTOCOCCUS BY PCR Microbiology Routine Supervision of high risk in third trimester (HCC) 35 weeks gestation of (HCC) Ordered: 03/04/2025 [facility] Comment on above: Ordered: 03/04/2025 ROUTINE, GR OUP B STREPTOCOCCUS BY PCR ROUTINE, GROUP B STREPTOCOCCUS BY PCR Microbiology Routine Supervision of high risk in third trimester (HCC) 35 weeks gestation of (HCC) 03/04/2025 2:45 PM EDT [facility] T VAGINALIS AMPLIFICATION T VAGINALIS AMPLIFICATION Lab Routine Encounter for gynecological examination (general) (routine) without abnormal findings Screen for STD (sexually transmitted disease) Ordered: 09/08/2022 [facility] Work Phone: Comment on above: Ordered: 09/08/2022 TRICHOMONAS VAGINALI S NAAT TRICHOMONAS VAGINALIS NAAT Lab Routine with uncertain dates, antepartum 08/12/2024 9:57 AM EST [facility] Urine culture [facility] Immunizations Immunization Date Immunization Notes Care Provider Fa tee 01-15-2025 RHO(D) immune globul in- IV or IM Christy Pavon MD Work Phone: [facility] Work Phone: 05-04-2020 tetanus toxoid, redu basilio diphtheria toxoid, and acellular pertussis vaccine, adsorbed Angelic Butler MD Work Phone: [facility] Work Phone: 01-25-2010 tetanus toxoid, redu basilio diphtheria toxoid, and acellular pertussis vaccine, adsorbed Angelic Butler MD Work Phone: [facility] Work Phone: 11-11-2002 diphtheria, tetanus toxoids and acellular pertussis vaccine, unspecified formulation Angelic Butler MD Work Phone: [facility] Work Phone: 11-11-2002 measles, mumps and rubella virus vaccine Angelic Butler MD Work Phone: [facility] Work Phone: 11-11-2002 poliovirus vaccine, inactivated Angelic Butler MD Work Phone: [facility] Work Phone: 05-29-2000 varicella virus vaccine Maryanne Butler MD Work Phone: [facility] Work Phone: 01-04-1999 diphtheria, tetanus toxoids and acellular pertussis vaccine, unspecified formulation Angelic Butler MD Work Phone: [facility] Work Phone: 01-04-1999 haemophilus influenz ae type b vaccine, HbOC conjugate Angelic Butler MD Work Phone: [facility] Work Phone: 01-04-1999 trivalent poliovirus vaccine, live, oral Angelic Butler MD Work Phone: [facility] Work Phone: 09-28-1998 measles, mumps and rubella virus vaccine Angelic Butler MD Work Phone: [facility] Work Phone: 04-01-1998 diphtheria, tetanus toxoids and acellular pertussis vaccine, unspecified formulation Angelic Butler MD Work Phone: [facility] Work Phone: 04-01-1998 haemophilus influenz ae type b vaccine, HbOC conjugate Angelic Butler MD Work Phone: [facility] Work Phone: 04-01-1998 hepatitis B vaccine, pediatric or pediatric/adolescent dosage Angelic Butler MD Work Phone: [facility] Work Phone: 01-21-1998 diphtheria, tetanus toxoids and acellular pertussis vaccine, unspecified formulation Angelic Butler MD Work Phone: [facility] Work Phone: 01-21-1998 haemophilus influenz ae type b vaccine, HbOC conjugate Angelic Butler MD Work Phone: [facility] Work Phone: 01-21-1998 trivalent poliovirus vaccine, live, oral Angelic Butler MD Work Phone: [facility] Work Phone: 1997 diphtheria, tetanus toxoids and acellular pertussis vaccine, unspecified formulation Angelic Butler MD Work Phone: [facility] Work Phone: 1997 haemophilus influenz ae type b vaccine, HbOC conjugate Angelic Butler MD Work Phone: [facility] Work Phone: 1997 hepatitis B vaccine, pediatric or pediatric/adolescent dosage Angelic Butler MD Work Phone: [facility] Work Phone: 1997 trivalent poliovirus vaccine, live, oral Angelic Butler MD Work Phone: [facility] Work Phone: 1997 hepatitis B vaccine, pediatric or pediatric/adolescent dosage Angelic Butler MD Work Phone: [facility] Work Phone: Payers Date Payer Category Payer Unknown [id number] 2024 [facility] PPO Member Subscriber Plan / Payer (Effective 2024-Present) Name: Otilia Meza Relation to Subscriber: Self Name: Otilia Meza Payer ID: [id number] (NAIC) Type: PPO Address: [facility] [address] [place] [id number] 2024 Unknown [id number] 2024 Self-pay [id number] 2023 Private Health Insurance [id number] 2023 Unknown [id number] 2017 Unknown [id number] 2017 Unknown [id number] Unknown [id number] Unknown [id number] Social History Date Type Detail Facility Start: 03-06-2018 End: 09-08-2022 Tobacco smoking status NHIS Never smoked tobacco [facility] Start: 03-06-2018 End: 09-08-2022 Tobacco use and exposure Smokeless tobacco non-user [facility] Start: 08-24-2021 Alcohol intake Current drinke r of alcohol (finding) [facility] Start: 07-17-2019 Alcohol Comment social [facility] Start: 1997 Sex Assigned At Female [facility] Start: 09-08-2022 End: 03-11-2025 Alcohol intake Ex-drinker (finding) [facility] Start: 08-25-2019 Tobacco smoking stat us NVIS Unknown if ever smoked [facility] Start: 08-25-2019 Occasional [facility] Start: 08-25-2019 None [facility] Start: 08-25-2019 With Family Jr Co [facility] Start: 10-11-2022 End: 08-12-2024 History of Social function [facility] Start: 10-11-2022 End: 08-12-2024 Tobacco use panel [facility] Start: 05-27-2012 National Score (1-10 0), lower number is lower risk 51 [facility] Start: 08-05-2019 Gender identity Identifies as female gender (finding) [facility] Start: 08-05-2019 Sexual orientation Heterosexual (jurgen singh) [facility] Start: 08-09-2024 Education 17 [facility] Start: 07-16-2024 [facility] Goals Date Patient Goal Desired Activity /State Personal health goal Functional Status Date Assessment Result Facility 06-27-2014 Are you deaf, or do you have serious difficulty hearing No 06/27/2014 4:36 PM Merna Rayo RN No [facility] 06-27-2014 Are you blind, or do you have serious difficulty seeing, even when wearing glasses No 06/27/2014 4:36 PM Merna Rayo RN No [facility] 06-27-2014 Do you have serious difficulty walking or climbing stairs No 06/27/2014 4:36 PM Merna Rayo RN No [facility] 06-27-2014 Because of a physica l, mental, or emotional condition, do you have difficulty doing errands alone such as visiting a physician's office or shopping No 06/27/2014 4:36 PM Merna Rayo RN No [facility] Mental Status Date Assessment Result Facility 06-27-2014 Because of a physica l, mental, or emotional condition, do you have serious difficulty concentrating, remembering, or making decisions No 06/27/2014 4:36 PM Merna Rayo RN No [facility] Clinical Notes 01-01-2009 to 03-12-2025 Quick Notes - Keyon Jara MD - 03/11/2025 3:08 PM EDTPrenatal Quick Notes - Keyon Jara MD - 03/11/2025 3:08 PM EDTPatient Ofelia Avitia MD - 03/04/2025 9:48 PM EDT Note Date & Type Note Facility 03-12-2025 Note HNO ID: [id number] Author: SUZE GUZMAN MA Service: ? Author Type: Cannery Worker Type: Progress Notes Filed: 03/12/2025 19:08 Note Text: TruBP Readings: 154/99 146/97 141/94 148/93 131/90 143/94 Average: 144/95 [facility] 03-11-2025 Note Indication Evaluation of growth. Evaluation of well-being. Maternal obesity, BMI >40. Chronic hypertension on labetalol. Polyhydramnios Impression REMOTE READ - Single, live, intrauterine . - presentation is cephalic. - The biometry is consistent with the assigned gestational dating. - The EFW is 3348 g, at the 92%. AC is at the >99%. - The amniotic fluid volume is polyhydramnios with an MVP of 11.4 cm and an DIONY of 31.7 cm. - The placenta is posterior, fundal. - BPP 01/31. - No malformations visualized on a limited survey as detailed below. Recommendations - Weekly surveillance. - growth ultrasound every 4 weeks. - Additional follow up as clinically indicated. Maternal Assessment Height 160 cm Height (ft) 5 ft Height (in) 3 in Physical Exam Initial weight (lb) 227 lb Initial BMI 40.21 kg/m Maternal assessment other: 1 Para 0 Method Transabdominal ultrasound examination Melgoza . Number of fetuses: 1 Dating GA by prior assessment 36 w + 0 d SPENCER by prior assessment: 04/08/2025 Ultrasound examination on: 03/11/2025 GA by U/S based upon: AC, BPD, Femur GA by U/S 37 w + 2 d SPENCER by U/S: 03/30/2025 Assigned: based on stated SPENCER, selected on 03/11/2025 Assigned GA 36 w + 0 d Assigned SPENCER: 04/08/2025 General Evaluation Cardiac activity present. FHR 141 bpm. movements: present. Presentation: cephalic Placenta: Placental site: posterior, fundal Umbilical cord: Cord vessels: 3 vessel cord Amniotic fluid: Amount of AF: polyhydramnios. MVP 11.4 cm. DIONY 31.7 cm. Q1 11.4 cm, Q2 9.4 cm, Q3 5.3 cm, Q4 5.6 cm Biophysical Profile 2: breathing movements 2: Gross body movements 2: tone 2: Amniotic fluid volume 01/31 Biophysical profile score Growth Overview Exam date GA BPD (mm) HC (mm) AC (mm) FL (mm) HL (mm) EFW (g) 10/22/2024 16w 0d 33.5 66% 124.2 45% 102.1 59% 22 79% 19.2 37% 152 62% 11/19/2024 20w 0d 44 22% 169.9 37% 148.7 49% 31.4 55% 31.2 69% 318 39% 01/15/2025 28w 1d 75.7 94% 278.2 85% 258.2 90% 54 75% 1423 88% 02/11/2025 32w 0d 85.9 97% 318.4 92% 301.1 94% 62.3 70% 2282 90% 03/11/2025 36w 0d 94.3 98% 346.1 93% 349.2 >99% 67.7 45% 3348 92% Biometry Standard BPD 94.3 mm 38w 3d 98% Hadlock OFD 122.8 mm -/- 94% Nicolaides HC 346.1 mm -/- 93% Devonte AC 349.2 mm 38w 6d >99% Hadlock Femur 67.7 mm 34w 3d 45% Devonte EFW 3,348 g 38w 4d 92% Hadlock EFW (lb) 7 lb EFW (oz) 6 oz EFW by: Hadlock (HC-AC-FL) Extended World History Teacher 8.2 mm Extremities / Bony Struc FL / HC 0.20 Other Structures FHR 141 bpm Anatomy Lateral ventricles: normal Cavum septi pellucidi: normal Cerebellum: normal Cisterna magna: normal 4-chamber view: suboptimally visualized RVOT view: normal LVOT view: normal 3-vessel view: normal Heart / Thorax Situs: situs solitus (normal) Diaphragm: normal Stomach: normal Kidneys: normal Bladder: normal sex: male Wants to know sex: yes Performed By: Rita Martinez RDMS, RVT Read By: Keagan Adkins M.D. [facility] 03-11-2025 Progress note Formatting of t his note might be different from the original. KJ - S: Otilia denies LOF, contractions or vaginal bleeding. O: 36w0d, see flow sheet SENSITIVE EXAM: Sensitive exam not performed. A/P: Assessment & Plan 36 weeks gestation of (HCC) Orders: URINE OB DIP B/O Supervision of high risk in third trimester (HCC) Orders: URINE OB DIP B/O Chronic hypertension in (HCC) Orders: URINE OB DIP B/O Obesity affecting in third trimester, unspecified obesity type (HCC) Orders: URINE OB DIP B/O Polyhydramnios in third trimester complication, single or unspecified fetus (HCC) Orders: URINE OB DIP B/O Growth US with BPP today IOL scheduled for 37 weeks Reviewed PTL & FM precautions Keyon Jara MD [facility] 03-11-2025 Miscellaneous Notes KJ - S: Otilia denies LOF, contractions or vaginal bleeding. O: 36w0d, see flow sheet SENSITIVE EXAM: Sensitive exam not performed. A/P: Assessment & Plan 36 weeks gestation of (HCC) Orders: URINE OB DIP B/O Supervision of high risk in third trimester (HCC) Orders: URINE OB DIP B/O Chronic hypertension in (HCC) Orders: URINE OB DIP B/O Obesity affecting in third trimester, unspecified obesity type (HCC) Orders: URINE OB DIP B/O Polyhydramnios in third trimester complication, single or unspecified fetus (HCC) Orders: URINE OB DIP B/O Growth US with BPP today IOL scheduled for 37 weeks Reviewed PTL & FM precautions Keyon Jara MD documented in this encounter [facility] 03-11-2025 Instructions Suze Guzman MA - 03/11/2025 2:43 PM EDT SEQUENTIAL SCREENINGS The [facility] offers sequential screenings for women who are [...] It will require an appointment with our bio medical technician. This is not an ultrasound performed [...] the above symptoms, contact our office at [phone] and ask to speak with a nurse. After hours, you can call doctors registry at [phone] OR call [facility] at [phone] and ask to have the doctor fabrication supervisor paged. If you consider this an emergency, dial 2-4-1 or go to your nearest emergency department. NEED HELP? Are you dealing with a violent or abusive relationship? Are you a victim of rape or sexual assult? Call [facility] 24 hour Crisis Hotline: 433.893.1168 or 052-742-5952. MANUAL Your Guide to a Healthy manual is now on-line. Visit [email or web address] to download your free copy documented in this encounter [facility] 03-10-2025 Telephone encounter Note Noted and agree thanks [facility] Work Phone: 03-10-2025 Miscellaneous Notes Noted and agree thanks 35w6d Patient calling in c/o sore throat, congestion and cough. Asking what she can take. Advised to review med list in Your Guide to Health Book. She has the link for that already and will review. Advised to go to PCP or urgent care if symptoms worsen and/or persistent since she has induction scheduled at [place] 03/18. Only call with further advice. Nadiya Dela Cruz RN documented in this encounter [facility] 03-10-2025 Telephone encounter Note 35w6d Patient calling in c/o sore throat, congestion and cough. Asking what she can take. Advised to review med list in Your Guide to Health Book. She has the link for that already and will review. Advised to go to PCP or urgent care if symptoms worsen and/or persistent since she has induction scheduled at [place] 03/18. Only call with further advice. Nadiya Dela Cruz RN [facility] 03-04-2025 Note HNO ID: [id number] Author: OFELIA VELEZ MD Service: ? Author Type: Physician Type: Progress Notes Filed: 03/04/2025 21:49 Note Text: NST SUMMARY PROVIDER ASSESSMENT AND INTERPRETATION Indications for NST: Chronic HTN Baseline: 130 Variability: Moderate Accelerations: Present 15 X 15 Decelerations: None Interpretation: Reactive SIGNATURE: Ofelia Velez MD [facility] 03-04-2025 History of Presen t illness Narrative NST SUMMARY PROVIDER ASSESSMENT AND INTERPRETATION Indications for NST: Chronic HTN Baseline: 130 Variability: Moderate Accelerations: Present 15 X 15 Decelerations: None Interpretation: Reactive SIGNATURE: Ofelia Velez MD documented in this encounter [facility] 03-04-2025 Progress note Formatting of t his note might be different from the original. S: Otilia Meza is a 29 year old female who presents at 04/08/2025, by Ultrasound for a routine visit. Denies headache, visual changes, chest pain, shortness of breath, vaginal bleeding, leakage of fluid, or dysuria. Feeling well, no complaints. Good movement, No contractions O: See flow sheet Gen: No apparent distress Abd: Gravid, nontender Reactive NST BP stable. Plan for IOL at 37 weeks for CHTN on medications. GBS collected today ASSESSMENT/PLAN: 1. Supervision of high risk in third trimester ([facility]) - ICD9: V23.9, ICD10: O09.93 (primary diagnosis) - URINE OB DIP B/O - ROUTINE, GROUP B STREPTOCOCCUS BY PCR - ROUTINE, GROUP B STREPTOCOCCUS BY PCR 2. Chronic hypertension in ([facility]) - ICD9: 642.00, ICD10: O10.919 - Controlled - Home blood pressure readings controlled - URINE OB DIP B/O - INDUCTION L&D 3. Obesity affecting in third trimester, unspecified obesity type ([facility]) - ICD9: 649.13, ICD10: O99.213 Weekly NSTs Growth q 4 - URINE OB DIP B/O - INDUCTION L&D 4. Polyhydramnios in third trimester complication, single or unspecified fetus ([facility]) - ICD9: 657.03, ICD10: O40.3XX0 US next week - URINE OB DIP B/O - INDUCTION L&D 5. 35 weeks gestation of ([facility]) - ICD9: V22.2, ICD10: Z3A.35 - URINE OB DIP B/O - ROUTINE, GROUP B STREPTOCOCCUS BY PCR - ROUTINE, GROUP B STREPTOCOCCUS BY PCR Ofelia Velez MD [facility] 03-04-2025 Miscellaneous Notes S: Otilia Meza is a 29 year old female who presents at 04/08/2025, by Ultrasound for a routine visit. Denies headache, visual changes, chest pain, shortness of breath, vaginal bleeding, leakage of fluid, or dysuria. Feeling well, no complaints. Good movement, No contractions O: See flow sheet Gen: No apparent distress Abd: Gravid, nontender Reactive NST BP stable. Plan for IOL at 37 weeks for CHTN on medications. GBS collected today ASSESSMENT/PLAN: 1. Supervision of high risk in third trimester ([facility]) - ICD9: V23.9, ICD10: O09.93 (primary diagnosis) - URINE OB DIP B/O - ROUTINE, GROUP B STREPTOCOCCUS BY PCR - ROUTINE, GROUP B STREPTOCOCCUS BY PCR 2. Chronic hypertension in ([facility]) - ICD9: 642.00, ICD10: O10.919 - Controlled - Home blood pressure readings controlled - URINE OB DIP B/O - INDUCTION L&D 3. Obesity affecting in third trimester, unspecified obesity type ([facility]) - ICD9: 649.13, ICD10: O99.213 Weekly NSTs Growth q 4 - URINE OB DIP B/O - INDUCTION L&D 4. Polyhydramnios in third trimester complication, single or unspecified fetus ([facility]) - ICD9: 657.03, ICD10: O40.3XX0 US next week - URINE OB DIP B/O - INDUCTION L&D 5. 35 weeks gestation of ([facility]) - ICD9: V22.2, ICD10: Z3A.35 - URINE OB DIP B/O - ROUTINE, GROUP B STREPTOCOCCUS BY PCR - ROUTINE, GROUP B STREPTOCOCCUS BY PCR Ofelia Velez MD documented in this encounter [facility] 03-04-2025 Instructions Justin Pelayo LPN - 03/04/2025 1:51 PM EDT SEQUENTIAL SCREENINGS The [facility] offers sequential screenings for women who are [...] It will require an appointment with our bio medical technician. This is not an ultrasound performed [...] the above symptoms, contact our office at [phone] and ask to speak with a nurse. After hours, you can call doctors registry at [phone] OR call [facility] at [phone] and ask to have the doctor fabrication supervisor paged. If you consider this an emergency, dial or go to your nearest emergency department. NEED HELP? Are you dealing with a violent or abusive relationship? Are you a victim of rape or sexual assult? Call [facility] ([place]) 24 hour Crisis Hotline: 663.575.3338 or 656-446-9055. MANUAL Your Guide to a Healthy manual is now on-line. Visit [email or web address] to download your free copy documented in this encounter [facility] 02-25-2025 Note HNO ID: [id number] Author: JOJO SAEZ APRN.CNM Service: ? Author Type: Senior Design Engineering Specialist Type: Progress Notes Filed: 02/25/2025 15:35 Note Text: NST SUMMARY PROVIDER ASSESSMENT AND INTERPRETATION Otilia Meza is a 29 year old female, , who is at 34w0d with an SPENCER of 04/08/2025, by Ultrasound dating method. Indications for NST: Obesity Baseline: 145 Variability: Moderate Accelerations: Present 15 X 15 Decelerations: None Contractions: TOCO: None Interpretation: Reactive SIGNATURE: Jojo Saez APRN.CNM [facility] 02-25-2025 History of Presen t illness Narrative NST SUMMARY PROVIDER ASSESSMENT AND INTERPRETATION Otilia Meza is a 29 year old female, , who is at 34w0d with an SPENCER of 04/08/2025, by Ultrasound dating method. Indications for NST: Obesity Baseline: 145 Variability: Moderate Accelerations: Present 15 X 15 Decelerations: None Contractions: TOCO: None Interpretation: Reactive SIGNATURE: Jojo Saez APRN.CNM documented in this encounter [facility] 02-25-2025 Progress note Formatting of t his note might be different from the original. COSME-S: Otilia Meza is a 29 year old female who presents at 34w0d with SPENCER: 04/08/2025, by Ultrasound for a routine visit. Denies headache, visual changes, chest pain, shortness of breath, vaginal bleeding, leakage of fluid, or dysuria. Feeling well, no complaints. O: See flow sheet Gen: No apparent distress Abd: Gravid, nontender NST reactive ASSESSMENT/PLAN: 1. Supervision of high risk in third trimester -Continue PNV -Continue ASA 2. 34 weeks gestation of 3. Chronic hypertension in -Continue Labetalol 100mg BID -Continue ASA 162mg PO once daily -baseline labs normal -Continue to monitor BP daily and bring log each week -NST weekly -Growth US every 4 weeks -IOL 38-39 weeks 4. Obesity affecting in third trimester, unspecified obesity type -Pregravid BMI 40 -Growth US every 4 weeks 5. Polyhydramnios in third trimester complication, single or unspecified fetus -US at 32 weeks MVP 10.6, DIONY 29.8, repeat in 4 weeks 6. Excessive growth affecting management of in third trimester, single or unspecified fetus -EFW at 32 weeks 90th percentile, AC 94th -Repeat growth in 4 weeks PTL precautions reviewed and when to call RTO in 2 weeks BRIGDETT Lombardo APRN.CNM [facility] 02-25-2025 Miscellaneous Notes COSME-S: Otilia Meza is a 29 year old female who presents at 34w0d with SPENCER: 04/08/2025, by Ultrasound for a routine visit. Denies headache, visual changes, chest pain, shortness of breath, vaginal bleeding, leakage of fluid, or dysuria. Feeling well, no complaints. O: See flow sheet Gen: No apparent distress Abd: Gravid, nontender NST reactive ASSESSMENT/PLAN: 1. Supervision of high risk in third trimester -Continue PNV -Continue ASA 2. 34 weeks gestation of 3. Chronic hypertension in -Continue Labetalol 100mg BID -Continue ASA 162mg PO once daily -baseline labs normal -Continue to monitor BP daily and bring log each week -NST weekly -Growth US every 4 weeks -IOL 38-39 weeks 4. Obesity affecting in third trimester, unspecified obesity type -Pregravid BMI 40 -Growth US every 4 weeks 5. Polyhydramnios in third trimester complication, single or unspecified fetus -US at 32 weeks MVP 10.6, DIONY 29.8, repeat in 4 weeks 6. Excessive growth affecting management of in third trimester, single or unspecified fetus -EFW at 32 weeks 90th percentile, AC 94th -Repeat growth in 4 weeks PTL precautions reviewed and when to call RTO in 2 weeks BRIDGETT Lombardo APRN.CNM documented in this encounter [facility] 02-25-2025 Instructions Justin Pelayo LPN - 02/25/2025 1:25 PM EDT SEQUENTIAL SCREENINGS The [facility] offers sequential screenings for women who are [...] It will require an appointment with our bio medical technician. This is not an ultrasound performed [...] the above symptoms, contact our office at [phone] and ask to speak with a nurse. After hours, you can call doctors registry at [phone] OR call [facility] at [phone] and ask to have the doctor fabrication supervisor paged. If you consider this an emergency, dial 9--3 or go to your nearest emergency department. NEED HELP? Are you dealing with a violent or abusive relationship? Are you a victim of rape or sexual assult? Call [facility] ([place]) 24 hour Crisis Hotline: 614.530.8480 or 516-738-2491. MANUAL Your Guide to a Healthy manual is now on-line. Visit [email or web address] to download your free copy documented in this encounter [facility] 02-18-2025 Progress note Formatting of t his note might be different from the original. KJ - S: Otilia denies LOF, contractions or vaginal bleeding. Denies headaches or blurry vision. O: 33w0d, see flow sheet SENSITIVE EXAM: Sensitive exam not performed. A/P: Assessment & Plan 33 weeks gestation of ([facility]) Orders: URINE OB DIP B/O Chronic hypertension in ([facility]) Patient reports BP's at home less than 140/90. Continue aspirin & labetalol Orders: URINE OB DIP B/O ALANINE AMINOTRANSFERASE / SGPT; Future ASPARTATE AMINOTRANSFERASE/SGOT; Future UREA NITROGEN; Future URIC ACID; Future CREATININE BLD; Future COMPLETE BLOOD COUNT; Future PROTEIN / CREATININE RATIO; Future Supervision of high risk in third trimester ([facility]) Orders: URINE OB DIP B/O Obesity affecting in third trimester, unspecified obesity type ([facility]) Orders: URINE OB DIP B/O Reviewed preE, PTL & FM precautions Keyon Jara MD [facility] 02-18-2025 Miscellaneous Notes KJ - S: Otilia denies LOF, contractions or vaginal bleeding. Denies headaches or blurry vision. O: 33w0d, see flow sheet SENSITIVE EXAM: Sensitive exam not performed. A/P: Assessment & Plan 33 weeks gestation of ([facility]) Orders: URINE OB DIP B/O Chronic hypertension in ([facility]) Patient reports BP's at home less than 140/90. Continue aspirin & labetalol Orders: URINE OB DIP B/O ALANINE AMINOTRANSFERASE / SGPT; Future ASPARTATE AMINOTRANSFERASE/SGOT; Future UREA NITROGEN; Future URIC ACID; Future CREATININE BLD; Future COMPLETE BLOOD COUNT; Future PROTEIN / CREATININE RATIO; Future Supervision of high risk in third trimester ([facility]) Orders: URINE OB DIP B/O Obesity affecting in third trimester, unspecified obesity type ([facility]) Orders: URINE OB DIP B/O Reviewed preE, PTL & FM precautions Keyon Jara MD documented in this encounter [facility] 02-18-2025 Note HNO ID: [id number] Author: KEYON JARA MD Service: ? Author Type: Physician Type: Progress Notes Filed: 02/18/2025 14:23 Note Text: NST SUMMARY PROVIDER ASSESSMENT AND INTERPRETATION Otilia Meza is a 29 year old female, , who is at 33w0d with an SPENCER of 04/08/2025, by Ultrasound dating method. Indications for NST: Chronic HTN and Obesity Baseline: 135 Variability: Moderate Accelerations: Present 15 X 15 Decelerations: Variable Contractions: TOCO: None Interpretation: Reactive SIGNATURE: Keyon Jara MD [facility] 02-18-2025 History of Presen t illness Narrative NST SUMMARY PROVIDER ASSESSMENT AND INTERPRETATION Otilia Meza is a 29 year old female, , who is at 33w0d with an SPENCER of 04/08/2025, by Ultrasound dating method. Indications for NST: Chronic HTN and Obesity Baseline: 135 Variability: Moderate Accelerations: Present 15 X 15 Decelerations: Variable Contractions: TOCO: None Interpretation: Reactive SIGNATURE: Keyon Jara MD documented in this encounter [facility] 02-18-2025 Instructions Suze Guzman MA - 02/18/2025 1:33 PM EDT SEQUENTIAL SCREENINGS The [facility] offers sequential screenings for women who are [...] It will require an appointment with our bio medical technician. This is not an ultrasound performed [...] the above symptoms, contact our office at [phone] and ask to speak with a nurse. After hours, you can call doctors registry at [phone] OR call [facility] at [phone] and ask to have the doctor fabrication supervisor paged. If you consider this an emergency, dial 9-1-3 or go to your nearest emergency department. NEED HELP? Are you dealing with a violent or abusive relationship? Are you a victim of rape or sexual assult? Call [facility] ([place] 24 hour Crisis Hotline: 828.364.7891 or 135-044-2207. MANUAL Your Guide to a Healthy manual is now on-line. Visit [email or web address] to download your free copy documented in this encounter [facility] 02-13-2025 Telephone encounter Note EDC does not change- it just means baby is measuring a little larger- she has good dates according to our records with early ultrasounds. EDC 04/08/25 [facility] 02-13-2025 Miscellaneous Notes EDC does not change- it just means baby is measuring a little larger- she has good dates according to our records with early ultrasounds. EDC 04/08/25 documented in this encounter [facility] 02-11-2025 Note Indication Evaluation of growth. Evaluation of well-being. Maternal obesity, BMI >40. Chronic hypertension on labetalol. Polyhydramnios Impression - Single, live, intrauterine . - presentation is cephalic. - The biometry is consistent with the assigned gestational dating. - The EFW is 2282 g, at the 90%. AC is at the 94%. - The amniotic fluid volume is polyhydramnios with an MVP of 10.6 cm and an DIONY of 29.8 cm. - The placenta is posterior, fundal. - BPP 01/31. - No malformations visualized on a limited survey as detailed below. Recommendations - Weekly surveillance. - growth ultrasound every 4 weeks. - Additional follow up as clinically indicated. Maternal Assessment Height 160 cm Height (ft) 5 ft Height (in) 3 in Physical Exam Initial weight (lb) 227 lb Initial BMI 40.21 kg/m Method Transabdominal ultrasound examination Melgoza . Number of fetuses: 1 Dating GA by prior assessment 32 w + 0 d SPENCER by prior assessment: 04/08/2025 Ultrasound examination on: 02/11/2025 GA by U/S based upon: AC, BPD, Femur, HC GA by U/S 34 w + 0 d SPENCER by U/S: 03/25/2025 Assigned: based on stated SPENCER, selected on 01/15/2025 Assigned GA 32 w + 0 d Assigned SPENCER: 04/08/2025 General Evaluation Cardiac activity present. FHR 140 bpm. movements: present. Presentation: cephalic Placenta: Placental site: posterior, fundal Umbilical cord: Cord vessels: 3 vessel cord. Insertion site: normal insertion Amniotic fluid: Amount of AF: polyhydramnios. MVP 10.6 cm. DIONY 29.8 cm. Q1 10.6 cm, Q2 5.4 cm, Q3 6.4 cm, Q4 7.4 cm Biophysical Profile 2: breathing movements 2: Gross body movements 2: tone 2: Amniotic fluid volume 01/31 Biophysical profile score Growth Overview Exam date GA BPD (mm) HC (mm) AC (mm) FL (mm) HL (mm) EFW (g) 10/22/2024 16w 0d 33.5 66% 124.2 45% 102.1 59% 22 79% 19.2 37% 152 62% 11/19/2024 20w 0d 44 22% 169.9 37% 148.7 49% 31.4 55% 31.2 69% 318 39% 01/15/2025 28w 1d 75.7 94% 278.2 85% 258.2 90% 54 75% 1423 88% 02/11/2025 32w 0d 85.9 97% 318.4 92% 301.1 94% 62.3 70% 2282 90% Biometry Standard BPD 85.9 mm 34w 4d 97% Hadlock OFD 113.2 mm 35w 1d 91% Nicolaides HC 318.4 mm 34w 6d 92% Devonte AC 301.1 mm 34w 1d 94% Hadlock Femur 62.3 mm 32w 1d 70% Devonte EFW 2,282 g 33w 4d 90% Hadlock EFW (lb) 5 lb EFW (oz) 0 oz EFW by: Hadlock (HC-AC-FL) Extended World History Teacher 5.8 mm Extremities / Bony Struc FL / HC 0.20 Other Structures FHR 140 bpm Anatomy Lateral ventricles: normal Cavum septi pellucidi: normal Cerebellum: normal Cisterna magna: normal 4-chamber view: normal RVOT view: normal LVOT view: normal 3-vessel view: normal Heart / Thorax Situs: situs solitus (normal) Diaphragm: normal Stomach: normal Kidneys: normal Bladder: normal sex: male Wants to know sex: yes Performed By: Caridad Lawler RDMS Read By: Keagan Adkins M.D. [facility] 02-11-2025 Progress note Formatting of t his note might be different from the original. KJ - S: Otilia denies LOF, contractions or vaginal bleeding. She reports heartburn. O: 32w0d, see flow sheet SENSITIVE EXAM: Sensitive exam not performed. A/P: Assessment & Plan 32 weeks gestation of (HCC) Orders: URINE OB DIP B/O Chronic hypertension in (HCC) Continue labetalol & aspirin. Monitoring BP AT Home. Growth US today. Orders: URINE OB DIP B/O Supervision of high risk in third trimester (HCC) Orders: URINE OB DIP B/O Obesity affecting in third trimester, unspecified obesity type (HCC) Orders: URINE OB DIP B/O Pepcid for heartburn. Reviewed PTL & FM precautions Keyon Jara MD [facility] 02-11-2025 Miscellaneous Notes KJ - S: Otilia denies LOF, contractions or vaginal bleeding. She reports heartburn. O: 32w0d, see flow sheet SENSITIVE EXAM: Sensitive exam not performed. A/P: Assessment & Plan 32 weeks gestation of ([facility]) Orders: URINE OB DIP B/O Chronic hypertension in (HCC) Continue labetalol & aspirin. Monitoring BP AT Home. Growth US today. Orders: URINE OB DIP B/O Supervision of high risk in third trimester (HCC) Orders: URINE OB DIP B/O Obesity affecting in third trimester, unspecified obesity type ([facility]) Orders: URINE OB DIP B/O Pepcid for heartburn. Reviewed PTL & FM precautions Keyon Jara MD documented in this encounter [facility] 02-11-2025 Instructions Suze Guzman MA - 02/11/2025 1:26 PM EDT SEQUENTIAL SCREENINGS The [facility] offers sequential screenings for women who are [...] It will require an appointment with our bio medical technician. This is not an ultrasound performed [...] the above symptoms, contact our office at [phone] and ask to speak with a nurse. After hours, you can call doctors registry at [phone] OR call [facility] at [phone] and ask to have the doctor fabrication supervisor paged. If you consider this an emergency, dial 6-1-3 or go to your nearest emergency department. NEED HELP? Are you dealing with a violent or abusive relationship? Are you a victim of rape or sexual assult? Call [facility] ([facility] 24 hour Crisis Hotline: 170.557.4842 or 074-882-6939. MANUAL Your Guide to a Healthy manual is now on-line. Visit [email or web address] to download your free copy documented in this encounter [facility] 02-11-2025 Telephone encounter Note Noted Keyon Jara MD [facility] 02-11-2025 Miscellaneous Notes Noted Keyon Jara MD Appointment 02/[address] Jara Please forward to for visit. Thank you, Jojo Saez APRN.CNM 31w6d Has appt with KJ tomorrow. Nadiya Dela Cruz RN normal BP's Keep next visit Keyon Jara MD Please review patients BP readings. 31w0d Currently on Labetalol 100 mg BID Next appointment on 02/11. Rita Bernal RN documented in this encounter [facility] 02-10-2025 Telephone encounter Note Appointment 02/[address] Jara [facility] 02-10-2025 Telephone encounter Note Please forward to for visit. Thank you, Jooj Saez APRN.CNM [facility] Work Phone: 02-10-2025 Telephone encounter Note 31w6d Has appt with KJ tomorrow. Nadiya Dela Cruz RN [facility] 02-04-2025 Telephone encounter Note normal BP's Keep next visit Keyon Jara MD [facility] 02-04-2025 Telephone encounter Note Please review patients BP readings. 31w0d Currently on Labetalol 100 mg BID Next appointment on 02/11. Rita Bernal RN [facility] 01-21-2025 Telephone encounter Note started on labetalol. Angelic Butler MD [facility] 01-21-2025 Miscellaneous Notes started on labetalol. Angelic Butler MD 28w6d Next OB visit with RR 8//. Please review BPs. Nadiya Dela Cruz RN documented in this encounter [facility] 01-20-2025 Telephone encounter Note 28w6d Next OB visit with RR 8/5/25. Please review BPs. Nadiya Dela Cruz RN [facility] 01-15-2025 Note Indication Evaluation of growth Maternal obesity, BMI >40, Chronic hypertension Impression - Single, live, intrauterine . - presentation is breech. - The biometry is consistent with the assigned gestational dating. - The EFW is 1423 g, at the 88%. AC is at the 90%. - The amniotic fluid volume is mild polyhydramnios with an MVP of 8.3 cm and an DIONY of 23.4 cm. - The placenta is posterior, fundal. - No malformations visualized on a limited survey as detailed below. Ultrasound Consultation Polyhydramnios was identified. Polyhydramnios is typically defined by an amniotic fluid index > 24 cm or a MVP > 8 cm. The leading diagnosis for increased fluid in the third trimester is idiopathic (i.e. normal variant). The differential diagnosis also includes maternal conditions such as diabetes mellitus or insulin resistance. Rare causes include hydrops, absence of swallowing which can be secondary to neurologic conditions or GI obstruction such as esophageal atresia or duodenal atresia. There is no evidence of any structural abnormalities on ultrasound. With any ultrasound there is potential for non-visualized malformations. Recommendations Growth in four weeks Maternal Assessment Height 160 cm Height (ft) 5 ft Height (in) 3 in Physical Exam Initial weight (lb) 227 lb Initial BMI 40.21 kg/m Maternal assessment other: 1 Para 0 REMOTE READ Method Transabdominal ultrasound examination. View: Suboptimal view: limited by maternal body habitus Melgoza . Number of fetuses: 1 Dating LMP on: 06/15/2024 GA by LMP 30 w + 4 d SPENCER by LMP: 03/22/2025 GA by prior assessment 28 w + 1 d SPENCER by prior assessment: 04/08/2025 Ultrasound examination on: 01/15/2025 GA by U/S based upon: AC, BPD, Femur, HC GA by U/S 29 w + 5 d SPENCER by U/S: 03/28/2025 Assigned: based on stated SPENCER, selected on 01/15/2025 Assigned GA 28 w + 1 d Assigned SPENCER: 04/08/2025 General Evaluation Cardiac activity present. FHR 148 bpm. movements: present. Presentation: breech Placenta: Placental site: posterior, fundal Umbilical cord: Cord vessels: 3 vessel cord Amniotic fluid: Amount of AF: mild polyhydramnios. MVP 8.3 cm. DIONY 23.4 cm. Q1 8.3 cm, Q2 4.5 cm, Q3 5.4 cm, Q4 5.1 cm Growth Overview Exam date GA BPD (mm) HC (mm) AC (mm) FL (mm) HL (mm) EFW (g) 10/22/2024 16w 0d 33.5 66% 124.2 45% 102.1 59% 22 79% 19.2 37% 152 62% 11/19/2024 20w 0d 44 22% 169.9 37% 148.7 49% 31.4 55% 31.2 69% 318 39% 01/15/2025 28w 1d 75.7 94% 278.2 85% 258.2 90% 54 75% 1423 88% Biometry Standard BPD 75.7 mm 30w 3d 94% Hadlock OFD 98.4 mm 29w 1d 84% Nicolaides HC 278.2 mm 29w 5d 85% Devonte AC 258.2 mm 30w 0d 90% Hadlock Femur 54.0 mm 28w 5d 75% Devonte EFW 1,423 g 29w 2d 88% Hadlock EFW (lb) 3 lb EFW (oz) 2 oz EFW by: Hadlock (HC-AC-FL) Extended World History Teacher 9.1 mm Extremities / Bony Struc FL / HC 0.19 Other Structures FHR 148 bpm Anatomy Lateral ventricles: normal Cavum septi pellucidi: normal Cerebellum: normal Cisterna magna: normal 4-chamber view: suboptimally visualized RVOT view: normal LVOT view: normal 3-vessel view: normal Heart / Thorax Situs: situs solitus (normal) Diaphragm: normal Stomach: normal Kidneys: normal Bladder: normal sex: male Wants to know sex: yes Performed By: Rita Martinez RDMS, RVT Read By: Antonia Michelle M.D. [facility] 01-15-2025 Progress note Formatting of t his note might be different from the original. DM-Pt doing well. Denies vaginal Bleeding, Leaking fluid, or regular Contractions. Pt reports good movement Physical Exam: Gen: female in no apparent distress Abd: soft, Gravid. Non tender to palpation. See flow sheet @ 28.1 weeks Assessment & Plan Supervision of high risk in third trimester (HCC) Orders: URINE OB DIP B/O COMPREHENSIVE METABOLIC PANEL; Future PROTEIN / CREATININE RATIO; Future Chronic hypertension complicating or reason for care during childbirth (HCC) Continue ASA Home BP check runs higher than office when compared today. Orders: URINE OB DIP B/O COMPREHENSIVE METABOLIC PANEL; Future PROTEIN / CREATININE RATIO; Future Rh negative state in antepartum period (HCC) Orders: URINE OB DIP B/O RhoD immune globulin 300 mcg injection (RHOPHYLAC) Obesity affecting in third trimester, unspecified obesity type (HCC) Growth US and NSTs Considering IOL at [place] per patient request Orders: URINE OB DIP B/O 28 weeks gestation of (HCC) Declines LARC- form signed Declines TDAP Kick counts reviewed Rto 2 wks Orders: URINE OB DIP B/O RhoD immune globulin 300 mcg injection (RHOPHYLAC) COMPREHENSIVE METABOLIC PANEL; Future PROTEIN / CREATININE RATIO; Future Christy Zimmerman MD [facility] 01-15-2025 Miscellaneous Notes DM-Pt doing well. Denies vaginal Bleeding, Leaking fluid, or regular Contractions. Pt reports good movement Physical Exam: Gen: female in no apparent distress Abd: soft, Gravid. Non tender to palpation. See flow sheet @ 28.1 weeks Assessment & Plan Supervision of high risk in third trimester (HCC) Orders: URINE OB DIP B/O COMPREHENSIVE METABOLIC PANEL; Future PROTEIN / CREATININE RATIO; Future Chronic hypertension complicating or reason for care during childbirth (HCC) Continue ASA Home BP check runs higher than office when compared today. Orders: URINE OB DIP B/O COMPREHENSIVE METABOLIC PANEL; Future PROTEIN / CREATININE RATIO; Future Rh negative state in antepartum period (HCC) Orders: URINE OB DIP B/O RhoD immune globulin 300 mcg injection (RHOPHYLAC) Obesity affecting in third trimester, unspecified obesity type (HCC) Growth US and NSTs Considering IOL at [place] per patient request Orders: URINE OB DIP B/O 28 weeks gestation of (HCC) Declines LARC- form signed Declines TDAP Kick counts reviewed Rto 2 wks Orders: URINE OB DIP B/O RhoD immune globulin 300 mcg injection (RHOPHYLAC) COMPREHENSIVE METABOLIC PANEL; Future PROTEIN / CREATININE RATIO; Future Christybilly Zimmerman MD documented in this encounter [facility] 01-15-2025 Instructions Marion Benton MA - 01/15/2025 1:23 PM EDT SEQUENTIAL SCREENINGS The [facility] offers sequential screenings for women who are [...] It will require an appointment with our bio medical technician. This is not an ultrasound performed [...] the above symptoms, contact our office at [phone] and ask to speak with a nurse. After hours, you can call doctors registry at [phone] OR call [facility] at [phone] and ask to have the doctor fabrication supervisor paged. If you consider this an emergency, dial 9-5-3 or go to your nearest emergency department. NEED HELP? Are you dealing with a violent or abusive relationship? Are you a victim of rape or sexual assult? Call [facility] ([place]) 24 hour Crisis Hotline: 356.593.3398 or 479-715-3655. MANUAL Your Guide to a Healthy manual is now on-line. Visit [email or web address] to download your free copy documented in this encounter [facility] 01-10-2025 Progress note Formatting of t his note might be different from the original. KJ - Patient seen urgently for systolic BP in 140's at home. She was using a new BP cuff. Denies headache, blurry vision or RUQ pain. Also she denies LOF, contractions or vaginal bleeding. O: 27w3d, see flow sheet SENSITIVE EXAM: Sensitive exam not performed. A/P: Assessment & Plan 27 weeks gestation of (HCC) Chronic hypertension complicating or reason for care during childbirth (HCC) True BP normal. Patient reassured. Continue home BP monitoring. Reviewed preE & BP precautions. Follow up as scheduled for rhogam & labs next week. Keyon Jara MD [facility] 01-10-2025 Miscellaneous Notes KJ - Patient seen urgently for systolic BP in 140's at home. She was using a new BP cuff. Denies headache, blurry vision or RUQ pain. Also she denies LOF, contractions or vaginal bleeding. O: 27w3d, see flow sheet SENSITIVE EXAM: Sensitive exam not performed. A/P: Assessment & Plan 27 weeks gestation of (HCC) Chronic hypertension complicating or reason for care during childbirth (HCC) True BP normal. Patient reassured. Continue home BP monitoring. Reviewed preE & BP precautions. Follow up as scheduled for rhogam & labs next week. Keyon Jara MD documented in this encounter [facility] 01-10-2025 Note HNO ID: [id number] Author: SUZE GUZMAN MA Service: ? Author Type: Cannery Worker Type: Progress Notes Filed: 01/10/2025 09:20 Note Text: TruBP Readings: 146/88 132/87 129/84 129/85 Average: 130/85 [facility] 01-10-2025 History of Presen t illness Narrative TruBP Readings: 146/88 132/87 129/84 129/85 Average: 130/85 documented in this encounter [facility] 01-10-2025 Instructions Suze Guzman MA - 01/10/2025 8:59 AM EDT SEQUENTIAL SCREENINGS The [facility] offers sequential screenings for women who are [...] It will require an appointment with our bio medical technician. This is not an ultrasound performed [...] the above symptoms, contact our office at [phone] and ask to speak with a nurse. After hours, you can call doctors registry at [phone] OR call [facility] at [phone] and ask to have the doctor fabrication supervisor paged. If you consider this an emergency, dial 9-1-1 or go to your nearest emergency department. NEED HELP? Are you dealing with a violent or abusive relationship? Are you a victim of rape or sexual assult? Call [facility] ([place]) 24 hour Crisis Hotline: 818.910.5322 or 443-593-5331. MANUAL Your Guide to a Healthy manual is now on-line. Visit [email or web address] to download your free copy documented in this encounter [facility] 12-17-2024 Progress note Formatting of t his note might be different from the original. KJ - S: Otilia denies LOF, contractions or vaginal bleeding. O: 24w0d, see flow sheet SENSITIVE EXAM: Sensitive exam not performed. A/P: Assessment & Plan Screening for diabetes mellitus Orders: GESTATIONAL GLUCOSE SCREEN, 1-HOUR, 50 GRAM, NON-FASTING; Future 24 weeks gestation of (HCC) Orders: SYPHILIS TREPONEMAL W/REFLEX; Future ANEMIA REFLEX PANEL; Future TYPE + SCREEN ; Future Supervision of high risk in second trimester (HCC) Orders: SYPHILIS TREPONEMAL W/REFLEX; Future ANEMIA REFLEX PANEL; Future TYPE + SCREEN ; Future Chronic hypertension complicating or reason for care during childbirth (HCC) Continue aspirin Serial growth US at 28 wkes BP's normal at home Rh negative state in antepartum period ([facility]) RHOGAM next visit Reviewed PTL & FM precautions Keyon Jara MD [facility] 12-17-2024 Miscellaneous Notes KJ - S: Otilia denies LOF, contractions or vaginal bleeding. O: 24w0d, see flow sheet SENSITIVE EXAM: Sensitive exam not performed. A/P: Assessment & Plan Screening for diabetes mellitus Orders: GESTATIONAL GLUCOSE SCREEN, 1-HOUR, 50 GRAM, NON-FASTING; Future 24 weeks gestation of (HCC) Orders: SYPHILIS TREPONEMAL W/REFLEX; Future ANEMIA REFLEX PANEL; Future TYPE + SCREEN ; Future Supervision of high risk in second trimester (HCC) Orders: SYPHILIS TREPONEMAL W/REFLEX; Future ANEMIA REFLEX PANEL; Future TYPE + SCREEN ; Future Chronic hypertension complicating or reason for care during childbirth (HCC) Continue aspirin Serial growth US at 28 wkes BP's normal at home Rh negative state in antepartum period ([facility]) RHOGAM next visit Reviewed PTL & FM precautions Keyon Jara MD documented in this encounter [facility] 12-17-2024 Instructions Suze Guzman MA - 12/17/2024 1:26 PM EDT SEQUENTIAL SCREENINGS The [facility] offers sequential screenings for women who are [...] It will require an appointment with our bio medical technician. This is not an ultrasound performed [...] the above symptoms, contact our office at [phone] and ask to speak with a nurse. After hours, you can call doctors registry at [phone] OR call [facility] at [phone] and ask to have the doctor fabrication supervisor paged. If you consider this an emergency, dial 9-1-0 or go to your nearest emergency department. NEED HELP? Are you dealing with a violent or abusive relationship? Are you a victim of rape or sexual assult? Call [facility] ([place]) 24 hour Crisis Hotline: 255.479.2257 or 935-974-8586. MANUAL Your Guide to a Healthy manual is now on-line. Visit [email or web address] to download your free copy documented in this encounter [facility] 12-17-2024 Telephone encounter Note Noted Keyon Jara MD [facility] 12-17-2024 Miscellaneous Notes Noted Keyon Jara MD 24w0d Patient has appointment today. Ofelia Driscoll RN documented in this encounter [facility] 12-17-2024 Telephone encounter Note 24w0d Patient has appointment today. Ofelia Driscoll RN [facility] 12-16-2024 Telephone encounter Note Yes, ok to close, results negative. Thank you, Jojo Saez APRN.CNM [facility] 12-16-2024 Miscellaneous Notes Yes, ok to close, results negative. Thank you, Jojo Saez APRN.CNM Urine culture results from [facility] given to COSME to review. Ofelia Driscoll RN Urine culture is still pending. Will keep watch for it. Ofelia Driscoll RN Can you please see if urine culture is back from [facility]? Thank you, Jojo Saez APRN.CNM documented in this encounter [facility] 12-10-2024 Telephone encounter Note Urine culture results from [facility] given to COSME to review. Ofelia Driscoll RN [facility] 12-10-2024 Telephone encounter Note Noted. Keep next visit. Keyon Jara MD [facility] Work Phone: 12-10-2024 Miscellaneous Notes Noted. Keep next visit. Keyon Jara MD 22w0d Next visit 12/17 with JOHN. Nadiya Dela Cruz RN documented in this encounter [facility] 12-09-2024 Telephone encounter Note Patient notified that Macrobid was sent in. Awaiting urine culture results. Not back at this time. Ofelia Driscoll RN [facility] 12-09-2024 Miscellaneous Notes Patient notified that Macrobid was sent in. Awaiting urine culture results. Not back at this time. Ofelia Driscoll RN I just sent another phone note asking for urine culture. I was trying to await culture but sent prescription for now. Thank you, Jojo Saez APRN.CNM Patient 22w6d went to [facility] ER for blood in her urine and then was sent to L&D. Patient states she was given a dose of Macrobid on L&D and was told that a prescription was going to be sent to her pharmacy. Patient states pharmacy has not received anything. Per patient she is not having any hematuria today, but urine is very cloudy. Denies any pain, odor, leaking cramping, bleeding. Do you see this patient on L&D yesterday? Can you address? Rita Bernal RN documented in this encounter [facility] 12-09-2024 Telephone encounter Note Urine culture is still pending. Will keep watch for it. Ofelia Driscoll RN [facility] 12-09-2024 Telephone encounter Note I just sent another phone note asking for urine culture. I was trying to await culture but sent prescription for now. Thank you, Jojo Saez APRN.CNM [facility] 12-09-2024 Telephone encounter Note Can you please see if urine culture is back from [facility]? Thank you, Jojo Saez APRN.CNM [facility] 12-09-2024 Telephone encounter Note Patient 22w6d went to [facility] ER for blood in her urine and then was sent to L&D. Patient states she was given a dose of Macrobid on L&D and was told that a prescription was going to be sent to her pharmacy. Patient states pharmacy has not received anything. Per patient she is not having any hematuria today, but urine is very cloudy. Denies any pain, odor, leaking cramping, bleeding. Do you see this patient on L&D yesterday? Can you address? Rita Bernal RN [facility] 12-08-2024 Hospital Discharg e instructions Additional Instructions prescription to be picked up tomorrow at [facility]. If becomes painful tonight call the hospital circular ripsaw operator at [phone] and ask to speak with Patti Saez or come into the ER [facility] Work Phone: 12-03-2024 Telephone encounter Note 22w0d Next visit 12/17 with KJ. Nadiya Dela Cruz RN [facility] 11-25-2024 Telephone encounter Note BP's normal thanks [facility] Work Phone: 11-25-2024 Miscellaneous Notes BP's normal thanks 20w6d Next visit 12/17 with KJ. Nadiya Dela Cruz RN Patient has appointment in office today. Rita Bernal RN 18w0d Next appointment is 11/19 BP's normal keep scheduled follow up 17w6d Next OB visit 11/19 with JC. Nadiya Dela Cruz RN documented in this encounter [facility] 11-25-2024 Telephone encounter Note 20w6d Next visit 12/17 with KJ. Nadiya Dela Cruz RN [facility] 11-19-2024 Progress note Formatting of t his note might be different from the original. Anatomy ultrasound reviewed. No abnormalities identified. Follow up as clinically indicated. Please place copy in ob chart. Angelic Butler MD [facility] 11-19-2024 Miscellaneous Notes Anatomy ultrasound reviewed. No abnormalities identified. Follow up as clinically indicated. Please place copy in ob chart. Angelic Butler MD documented in this encounter [facility] 11-19-2024 Telephone encounter Note Patient has appointment in office today. Rita Bernal RN [facility] 11-19-2024 Instructions Tori Lim MA - 11/19/2024 2:04 PM EDT SEQUENTIAL SCREENINGS The [facility] offers sequential screenings for women who are [...] It will require an appointment with our bio medical technician. This is not an ultrasound performed [...] the above symptoms, contact our office at [phone] and ask to speak with a nurse. After hours, you can call doctors registry at [phone] OR call [facility] at [phone] and ask to have the doctor fabrication supervisor paged. If you consider this an emergency, dial 1-9-7 or go to your nearest emergency department. NEED HELP? Are you dealing with a violent or abusive relationship? Are you a victim of rape or sexual assult? Call [facility] ([place]) 24 hour Crisis Hotline: 552.237.7484 or 163-801-1405. MANUAL Your Guide to a Healthy manual is now on-line. Visit [email or web address] to download your free copy documented in this encounter [facility] 11-19-2024 Progress note Formatting of t his [...] -Keep BP log weekly and send via PayTouch -Continue ASA 162mg PO once daily -Baseline labs normal 4. Obesity affecting in first trimester, unspecified obesity type -Growth US every 4 weeks at 32 weeks -NST weekly at 32 weeks -IOL at 39 weeks PTL precautions reviewed and when to call RTO in 4 weeks Jojo Saez APRN.CNM [facility] 11-19-2024 Miscellaneous Notes COSME-S: Otilia Meza is [...] -Keep BP log weekly and send via SeeVolutiont -Continue ASA 162mg PO once daily -Baseline labs normal 4. Obesity affecting in first trimester, unspecified obesity type -Growth US every 4 weeks at 32 weeks -NST weekly at 32 weeks -IOL at 39 weeks PTL precautions reviewed and when to call RTO in 4 weeks Jojo Saez APRN.CNM documented in this encounter [facility] 11-05-2024 Telephone encounter Note 18w0d Next appointment is 11/19 [facility] 11-04-2024 Telephone encounter Note BP's normal keep scheduled follow up [facility] 11-04-2024 Telephone encounter Note 17w6d Next OB visit 11/19 with JC. Nadiya Dela Cruz, RN [facility] 10-22-2024 Progress note Formatting of t his [...] -Keep BP log weekly and send via PayTouch -Continue ASA 162mg PO once daily -Baseline labs normal 4. Obesity affecting in first trimester, unspecified obesity type -Growth US every 4 weeks at 32 weeks -NST weekly at 32 weeks -IOL at 39 weeks PTL precautions reviewed and when to call RTO in 4 weeks Jojo Saez APRN.CNM [facility] 10-22-2024 Miscellaneous Notes COSME-S: Otilia Meza is [...] -Keep BP log weekly and send via PayTouch -Continue ASA 162mg PO once daily -Baseline labs normal 4. Obesity affecting in first trimester, unspecified obesity type -Growth US every 4 weeks at 32 weeks -NST weekly at 32 weeks -IOL at 39 weeks PTL precautions reviewed and when to call RTO in 4 weeks Jojo Saez APRN.CNM COSME- documented in this encounter [facility] 10-22-2024 Progress note Formatting of t his note might be different from the original. COSME- [facility] 10-22-2024 Note HNO ID: [id number] Author: JOJO SAEZ APRN.CNM Service: ? Author Type: Senior Design Engineering Specialist Type: Progress Notes Filed: 10/22/2024 13:52 Note Text: COSME- [facility] 10-22-2024 History of Presen t illness Narrative COSME- documented in this encounter [facility] 10-08-2024 Telephone encounter Note 14w0d Aspirin increased to 162mg at last visit per DM's note and only updated via med update. New rx was not sent in. Please file. Requested Prescriptions Pending Prescriptions Disp Refills aspirin, enteric coated (ECOTRIN LOW STRENGTH) 81 mg EC tablet 180 tablet 3 Sig: Take 2 tablets by mouth once daily. Nadiya Dela Cruz RN [facility] 10-08-2024 Miscellaneous Notes 14w0d Aspirin increased to 162mg at last visit per DM's note and only updated via med update. New rx was not sent in. Please file. Requested Prescriptions Pending Prescriptions Disp Refills aspirin, enteric coated (ECOTRIN LOW STRENGTH) 81 mg EC tablet 180 tablet 3 Sig: Take 2 tablets by mouth once daily. Nadiya Dela Cruz RN documented in this encounter [facility] 09-23-2024 Note HNO ID: [id number] Author: CHRISTY RAMESH MD Service: ? Author Type: Physician Type: [...] 162mg in evening. 11 weeks gestation of (HCC) Anatomy us scheduled RTO 4 wks Maternity 21 to be drawn Christy Zimmerman MD [facility] 09-23-2024 History of Presen t illness Narrative [...] 162mg in evening. 11 weeks gestation of (HCC) Anatomy us scheduled RTO 4 wks Maternity 21 to be drawn Christy Zimmerman MD documented in this encounter [facility] 09-23-2024 Instructions Marion Benton MA - 09/23/2024 11:10 AM EDT SEQUENTIAL SCREENINGS The [facility] offers sequential screenings for women who are [...] It will require an appointment with our bio medical technician. This is not an ultrasound performed [...] the above symptoms, contact our office at [phone] and ask to speak with a nurse. After hours, you can call doctors registry at [phone] OR call [facility] at [phone] and ask to have the doctor fabrication supervisor paged. If you consider this an emergency, dial 9-1-5 or go to your nearest emergency department. NEED HELP? Are you dealing with a violent or abusive relationship? Are you a victim of rape or sexual assult? Call [facility] ([place]) 24 hour Crisis Hotline: 995.320.8641 or 245-700-3850. MANUAL Your Guide to a Healthy manual is now on-line. Visit [email or web address] to download your free copy documented in this encounter [facility] 09-10-2024 Note Addended by: ANGELIC BUTLER on: 09/10/2024 04:05 PM Modules accepted: Orders [facility] 09-10-2024 Miscellaneous Notes Addended by: ANGELIC BUTLER on: 09/10/2024 04:05 PM Modules accepted: Orders Addended by: ANGELIC BUTLER on: 09/10/2024 04:04 PM Modules accepted: Orders Addended by: TORI LIM on: 09/10/2024 11:13 AM Modules accepted: Orders RR- VB No. LOF No. CTXS No. Movement: present. Other c/o: No. Medication list reviewed. SENSITIVE EXAM: Sensitive exam not performed. Physical Exam See Flow Sheet Abd: soft, nontender, gravid A/P 10w0d Estimated Date of Delivery: 04/08/25 Assessment & Plan Obesity affecting in first trimester, unspecified obesity type Orders: [id number] PLUS; Future OBSTETRIC ULTRASOUND WHI; Future 10 weeks gestation of Orders: [id number] PLUS; Future Supervision of high risk in first trimester Orders: OBSTETRIC ULTRASOUND WHI; Future BMI 40.0-44.9, adult (HCC) Orders: OBSTETRIC ULTRASOUND WHI; Future 16 and 20 week US, first trimester scan aneuploidy screening next visit start asa porophylaxis after next visit Angelic Butler M.D. documented in this encounter [facility] 09-10-2024 Note Addended by: ANGELIC BUTLER on: 09/10/2024 04:04 PM Modules accepted: Orders [facility] 09-10-2024 Note Addended by: Marielle LIM on: 09/10/2024 11:13 AM Modules accepted: Orders [facility] 09-10-2024 Progress note Formatting of t his note might be different from the original. RR- VB No. LOF No. CTXS No. Movement: present. Other c/o: No. Medication list reviewed. SENSITIVE EXAM: Sensitive exam not performed. Physical Exam See Flow Sheet Abd: soft, nontender, gravid A/P 10w0d Estimated Date of Delivery: 04/08/25 Assessment & Plan Obesity affecting in first trimester, unspecified obesity type Orders: [id number] PLUS; Future OBSTETRIC ULTRASOUND WHI; Future 10 weeks gestation of Orders: [id number] PLUS; Future Supervision of high risk in first trimester Orders: OBSTETRIC ULTRASOUND WHI; Future BMI 40.0-44.9, adult (HCC) Orders: OBSTETRIC ULTRASOUND WHI; Future 16 and 20 week US, first trimester scan aneuploidy screening next visit start asa porophylaxis after next visit Angelic Butler M.D. T [facility] 09-10-2024 Instructions Tori Lim MA - 09/10/2024 10:20 AM EDT SEQUENTIAL SCREENINGS The [facility] offers sequential screenings for women who are [...] It will require an appointment with our bio medical technician. This is not an ultrasound performed [...] the above symptoms, contact our office at [phone] and ask to speak with a nurse. After hours, you can call doctors registry at [phone] OR call [facility] at [phone] and ask to have the doctor fabrication supervisor paged. If you consider this an emergency, dial 9-1-3 or go to your nearest emergency department. NEED HELP? Are you dealing with a violent or abusive relationship? Are you a victim of rape or sexual assult? Call [facility] ([place]) 24 hour Crisis Hotline: 846.588.6984 or 673-698-4152. MANUAL Your Guide to a Healthy manual is now on-line. Visit [email or web address] [email or web address] to download your free copy documented in this encounter [facility] 08-31-2024 Note HNO ID: [id number] Author: BIANCA MELO MD Service: ? Author Type: Physician Type: Progress Notes Filed: 08/31/2024 03:35 Note Text: The patient presents for requested ultrasound. Full report available in the Imaging tab in Nursenav. Bianca Melo MD [facility] 08-31-2024 History of Presen t illness Narrative The patient presents for requested ultrasound. Full report available in the Imaging tab in Nursenav. Bianca Melo MD documented in this encounter [facility] 08-16-2024 Telephone encounter Note YR.MRKTt message was sent to patient by on 08/15, stating levels increased appropriately. hCG Quantitative, Blood (mIU/mL) Date Value 08/14/2024 35,704.0 08/12/2024 21,796.0 Nadiya Dela Cruz RN [facility] 08-16-2024 Miscellaneous Notes YR.MRKTt message was sent to patient by CP on 08/15, stating levels increased appropriately. hCG Quantitative, Blood (mIU/mL) Date Value 08/14/2024 35,704.0 08/12/2024 21,796.0 Nadiya Dela Cruz RN Pt saw CP 08/12/24-----POC US completed. US tech to room for verification. Gestational sac and yolk sac visible. Small pole measuring 5 w 6 days. HCG levels ordered-1st drawn 08/12/24. Leave open for f/u on results. Manda Delgado RN documented in this encounter [facility] 08-12-2024 Telephone encounter Note Pt saw CP 08/12/24-----POC US completed. US tech to room for verification. Gestational sac and yolk sac visible. Small pole measuring 5 w 6 days. HCG levels ordered-1st drawn 08/12/24. Leave open for f/u on results. Manda Delgado RN [facility] 08-12-2024 Note HNO ID: [id number] Author: TORI LIM MA Service: ? Author Type: Cannery Worker Type: Progress Notes Filed: 08/12/2024 10:09 Note Text: OB point of care ultrasound was performed. See imaging tab for details. Tori Lim MA [facility] 08-12-2024 History of Presen t illness Narrative OB point of care ultrasound was performed. See imaging tab for details. 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 As applicable, any other physician, advance practice provider, medical student, or other health professional student that will be observing or involved in the sensitive examination for educational or training purposes was discussed with the Patient or Authorized Hydraulic Rubbish Compactor Mechanic. The Patient or Authorized Hydraulic Rubbish Compactor Mechanic has agreed to proceed with the sensitive [...] Yolk sac, and small pole measuring 5w6d. L. Martinez to room for verification and TVUS. ASSESSMENT/PLAN: [...] Your guide to a health and the Professor Of Theatre. Discussed hemoglobin electrophoresis. Patient: Accepts 2) Screening: [...] for dating US and JT or sooner bart. Matilde Adler APRN.CNM documented in this encounter [facility] 08-09-2024 Note HNO ID: [id number] Author: MATILDE ADLER APRN.CNM Service: ? 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 [facility] 08-09-2024 Instructions Tori Lim MA - 08/09/2024 1:32 PM EST Please select the following link to access the [facility] Your Guide to a Healthy . [email or web address] Please select the following link to access the [facility] Your Guide to a Healthy . [email or web address] documented in this encounter [facility] 06-17-2024 Telephone encounter Note Patient notified. Ofelia Driscoll RN [facility] 06-17-2024 Miscellaneous Notes Patient notified. Ofelia Driscoll [...] Rita Bernal RN documented in this encounter [facility] 06-17-2024 Telephone encounter Note Recommend Ibuprofen 600mg PO every 6 hr, warm bath/heating pad. Continue to monitor at this time. If bleeding does no stop and no improvement in pain after this period recommend follow up visit in office. Otherwise see how she does with next menses as her body adjusts after stopping control. Jojo Saez APRN.CNM [facility] Work Phone: 06-17-2024 Telephone encounter Note Patient [...] recommendations for the patient? Rita Bernal RN [facility] 02-07-2024 History of Presen t illness Narrative [...] symptoms occur. Patient agreeable to treatment plan. Jasmin Jara APRN.TANA documented in this encounter [facility] 12-15-2023 History of Presen t illness Narrative [...] L0 SAB0 IAB0 Ectopic0 Multiple0 Live Births0 Cartridge Loader History LMP: 11/08/2023 (Within Days), Having periods Age at Menarche: Age at First : Age at Menopause: Cartridge Loader History Comments: Sexual Activity: Yes; Male; nuvaring [...] external genitalia normal, normal Bartholin's glands, urethra, Bernard's glands, no vulvar lesions, no cervical lesions, [...] Angelic Butler MD documented in this encounter [facility] 08-29-2023 Miscellaneous Notes Pt calling and stated that she is needing a refill on below medication sent to her pharmacy. Pt has scheduled upcoming yearly exam. Call only if problems. Margret Flores LPN documented in this encounter [facility] 09-08-2022 Miscellaneous Notes Addended by: ANGELIC BUTLER on: 09/08/2022 11:09 AM Modules accepted: Orders Addended by: TORI LIM MA on: 09/08/2022 10:49 AM Modules accepted: Orders Addended by: TORI LIM MA on: 09/08/2022 09:25 AM Modules accepted: Orders documented in this encounter [facility] 09-08-2022 History of Presen t illness Narrative [...] L0 SAB0 IAB0 Ectopic0 Multiple0 Live Births0 Cartridge Loader History LMP: 08/10/2022 (Within Days), Having periods Age at Menarche: Age at First : Age at Menopause: Cartridge Loader History Comments: Sexual Activity: Yes; Male; nuvaring [...] external genitalia normal, normal Bartholin's glands, urethra, Bernard's glands, no vulvar lesions, no cervical lesions, [...] one year or sooner as needed Angelic L Carrie, MD documented in this encounter [facility] 09-05-2022 Miscellaneous Notes Patient had appointment on 09/08/2022 & called stating that she will need 1 refill of Nuvaring prior to appointment documented in this encounter [facility] 01-01-2009 History of Past i llness Narrative Problem Noted Date Resolved Date APPENDICITIS ACUTE 01/01/2009 08/24/2021 documented as of this encounter (statuses as of 09/05/2022) [facility] History of Past illness Narrative* Problem Noted Date Resolved Date APPENDICITIS ACUTE 01/01/2009 08/24/2021 documented as of this encounter (statuses as of 09/08/2022) [facility] History of Past illness Narrative* Problem Noted Date Diagnosed Date Resolved Date APPENDICITIS ACUTE 01/01/2009 2 documented as of this encounter (statuses as of 01/02/2023) [facility] History of Past illness Narrative* Problem Noted Date Diagnosed Date Resolved Date APPENDICITIS ACUTE 01/01/2009 2 documented as of this encounter (statuses as of 03/02/2023) [facility] History of Past illness Narrative* Problem Noted Date Diagnosed Date Resolved Date APPENDICITIS ACUTE 01/01/2009 2 documented as of this encounter (statuses as of 08/30/2023) [facility] note* Diagnosis Encounter for gynecological examination (general) (routine) without abnormal findings- Primary Screen for STD (sexually transmitted disease) Screening examination for venereal disease [facility] information [facility] Work Phone: Evaluation note* Diagnosis Irregular menstrual cycle- Primary [facility]* Diagnosis Orgasmic headache- Primary Headache associated with sexual activity documented in this encounter [facility] note* Diagnosis Encounter for gynecological examination (general) (routine) without abnormal findings- Primary Screening for cervical cancer Screening for malignant neoplasm of the cervix Vaginal high risk human papillomavirus (HPV) DNA test positive Encounter for surveillance of vaginal ring hormonal contraceptive device documented in this encounter [facility] note* Diagnosis Class 2 severe obesity due to excess calories with serious comorbidity and body mass index (BMI) of 38.0 to 38.9 in adult (HCC)- Primary PCOS (polycystic ovarian syndrome) Polycystic ovaries documented in this encounter [facility] note* Diagnosis Vaginal itching- Primary Pruritus of genital organs Vaginal discharge Leukorrhea, not specified as infective documented in this encounter [facility] note* Diagnosis with uncertain dates, antepartum- Primary state, incidental Encounter for care in first trimester of first Threatened miscarriage in early Threatened , unspecified as to episode of care Obesity affecting in first trimester, unspecified obesity type documented in this encounter [facility] note* Diagnosis with uncertain dates, antepartum state, incidental documented in this encounter [facility] note* Diagnosis Supervision of high risk in first trimester- Primary Unspecified high-risk Obesity affecting in first trimester, unspecified obesity type 10 weeks gestation of state, incidental BMI 40.0-44.9, adult ([facility]) Body Mass Index 40.0-44.9, adult * Assessment & Plan Note - Angelic Butler MD - 09/10/2024 10:48 AM EDT Associated Problem(s): Obesity complicating , first trimester Orders: [id number] PLUS; Future OBSTETRIC ULTRASOUND WHI; Future documented in this encounter [facility] note* Diagnosis Supervision of high risk in first trimester (HCC)- Primary Unspecified high-risk Obesity affecting in first trimester, unspecified obesity type (HCC) 10 weeks gestation of ([facility]) state, incidental BMI 40.0-44.9, adult (HCC) Body Mass Index 40.0-44.9, adult Supervision of high risk in first trimester (HCC)- Primary Unspecified high-risk Elevated blood pressure reading without diagnosis of hypertension Chronic hypertension in (HCC) Benign essential hypertension complicating , childbirth, and the puerperium, unspecified as to episode of care 11 weeks gestation of ([facility]) state, incidental * Assessment & Plan Note - Christy Ramesh MD - 09/23/2024 11:58 AM EDTAssociated Problem(s): Chronic hypertension in Based on two elevated BP >130/80s suspect CHTN in . Increased ASA to 162mg in evening. documented in this encounter [facility] note* Diagnosis Supervision of high risk in first trimester ([facility])- Primary Unspecified high-risk Obesity affecting in first trimester, unspecified obesity type ([facility]) 10 weeks gestation of ([facility]) state, incidental BMI 40.0-44.9, adult ([facility]) Body Mass Index 40.0-44.9, adult Encounter for screening for malformation using ultrasound ([facility])- Primary 11 weeks gestation of ([facility]) state, incidental Supervision of high risk in first trimester ([facility])- Primary Unspecified high-risk Elevated blood pressure reading without diagnosis of hypertension Chronic hypertension in ([facility]) Benign essential hypertension complicating , childbirth, and the puerperium, unspecified as to episode of care 11 weeks gestation of ([facility]) state, incidental documented in this encounter [facility] note* Diagnosis Supervision of high risk in first trimester (HCC)- Primary Unspecified high-risk Obesity affecting in first trimester, unspecified obesity type ([facility]) 10 weeks gestation of ([facility]) state, incidental BMI 40.0-44.9, adult ([facility]) Body Mass Index 40.0-44.9, adult Supervision of high risk in first trimester ([facility])- Primary Unspecified high-risk Elevated blood pressure reading without diagnosis of hypertension Chronic hypertension in ([facility]) Benign essential hypertension complicating , childbirth, and the puerperium, unspecified as to episode of care 11 weeks gestation of ([facility]) state, incidental Supervision of high risk in second trimester ([facility])- Primary Unspecified high-risk 16 weeks gestation of ([facility]) state, incidental Chronic hypertension in (HCC) Benign essential hypertension complicating , childbirth, and the puerperium, unspecified as to episode of care documented in this encounter [facility] note* Diagnosis Supervision of high risk in first trimester (HCC)- Primary Unspecified high-risk Obesity affecting in first trimester, unspecified obesity type (HCC) 10 weeks gestation of ([facility]) state, incidental BMI 40.0-44.9, adult ([facility]) Body Mass Index 40.0-44.9, adult Supervision of high risk in first trimester (HCC)- Primary Unspecified high-risk Elevated blood pressure reading without diagnosis of hypertension Chronic hypertension in (HCC) Benign essential hypertension complicating , childbirth, and the puerperium, unspecified as to episode of care 11 weeks gestation of ([facility]) state, incidental Encounter for anatomic survey ([facility])- Primary Encounter for anatomic survey Obesity affecting in first trimester, unspecified obesity type ([facility]) BMI 40.0-44.9, adult ([facility]) Body Mass Index 40.0-44.9, adult 16 weeks gestation of ([facility]) state, incidental documented in this encounter [facility] note* Diagnosis Supervision of high risk in first trimester ([facility])- Primary Unspecified high-risk Obesity affecting in first trimester, unspecified obesity type ([facility]) 10 weeks gestation of ([facility]) state, incidental BMI 40.0-44.9, adult ([facility]) Body Mass Index 40.0-44.9, adult Supervision of high risk in first trimester ([facility])- Primary Unspecified high-risk Elevated blood pressure reading without diagnosis of hypertension Chronic hypertension in (HCC) Benign essential hypertension complicating , childbirth, and the puerperium, unspecified as to episode of care 11 weeks gestation of ([facility]) state, incidental Encounter for anatomic survey ([facility])- Primary Encounter for anatomic survey Obesity affecting in first trimester, unspecified obesity type ([facility]) BMI 40.0-44.9, adult ([facility]) Body Mass Index 40.0-44.9, adult 20 weeks gestation of ([facility]) state, incidental documented in this encounter [facility] note* Diagnosis Supervision of high risk in first trimester ([facility])- Primary Unspecified high-risk Obesity affecting in first trimester, unspecified obesity type (HCC) 10 weeks gestation of ([facility]) state, incidental BMI 40.0-44.9, adult ([facility]) Body Mass Index 40.0-44.9, adult Supervision of high risk in first trimester ([facility])- Primary Unspecified high-risk Elevated blood pressure reading without diagnosis of hypertension Chronic hypertension in ([facility]) Benign essential hypertension complicating , childbirth, and the puerperium, unspecified as to episode of care 11 weeks gestation of ([facility]) state, incidental Supervision of high risk in second trimester ([facility])- Primary Unspecified high-risk 20 weeks gestation of ([facility]) state, incidental Supervision of high risk in third trimester ([facility]) Unspecified high-risk Obesity affecting in third trimester, unspecified obesity type ([facility]) documented in this encounter [facility] note* Diagnosis Supervision of high risk in first trimester ([facility])- Primary Unspecified high-risk Obesity affecting in first trimester, unspecified obesity type ([facility]) 10 weeks gestation of ([facility]) state, incidental BMI 40.0-44.9, adult ([facility]) Body Mass Index 40.0-44.9, adult Supervision of high risk in first trimester ([facility])- Primary Unspecified high-risk Elevated blood pressure reading without diagnosis of hypertension Chronic hypertension in ([facility]) Benign essential hypertension complicating , childbirth, and the puerperium, unspecified as to episode of care 11 weeks gestation of ([facility]) state, incidental Screening for diabetes mellitus- Primary 24 weeks gestation of ([facility]) state, incidental Supervision of high risk in second trimester ([facility]) Unspecified high-risk Chronic hypertension complicating or reason for care during childbirth ([facility]) Benign essential hypertension complicating , childbirth, and the puerperium, unspecified as to episode of care Rh negative state in antepartum period ([facility]) Rhesus isoimmunization affecting management of mother, antepartum condition * Assessment & Plan Note - Keyon Jara MD - 12/17/2024 1:47 PM EDTAssociated Problem(s): Encounter for care in first trimester of first ([facility]) Continue aspirin Serial growth US at 28 wkes BP's normal at home [facility] Diagnosis Supervision of high risk in first trimester ([facility])- Primary Unspecified high-risk Obesity affecting in first trimester, unspecified obesity type ([facility]) 10 weeks gestation of ([facility]) state, incidental BMI 40.0-44.9, adult ([facility]) Body Mass Index 40.0-44.9, adult Supervision of high risk in first trimester ([facility])- Primary Unspecified high-risk Elevated blood pressure reading without diagnosis of hypertension Chronic hypertension in ([facility]) Benign essential hypertension complicating , childbirth, and the puerperium, unspecified as to episode of care 11 weeks gestation of ([facility]) state, incidental Screening for diabetes mellitus- Primary 24 weeks gestation of ([facility]) state, incidental Supervision of high risk in second trimester ([facility]) Unspecified high-risk Chronic hypertension complicating or reason for care during childbirth ([facility]) Benign essential hypertension complicating , childbirth, and the puerperium, unspecified as to episode of care Rh negative state in antepartum period ([facility]) Rhesus isoimmunization affecting management of mother, antepartum condition 27 weeks gestation of ([facility])- Primary state, incidental Chronic hypertension complicating or reason for care during childbirth ([facility]) Benign essential hypertension complicating , childbirth, and the puerperium, unspecified as to episode of care documented in this encounter [facility] note* Diagnosis Supervision of high risk in first trimester ([facility])- Primary Unspecified high-risk Obesity affecting in first trimester, unspecified obesity type ([facility]) 10 weeks gestation of ([facility]) state, incidental BMI 40.0-44.9, adult ([facility]) Body Mass Index 40.0-44.9, adult Supervision of high risk in first trimester ([facility])- Primary Unspecified high-risk Elevated blood pressure reading without diagnosis of hypertension Chronic hypertension in ([facility]) Benign essential hypertension complicating , childbirth, and the puerperium, unspecified as to episode of care 11 weeks gestation of ([facility]) state, incidental Screening for diabetes mellitus- Primary 24 weeks gestation of ([facility]) state, incidental Supervision of high risk in second trimester ([facility]) Unspecified high-risk Chronic hypertension complicating or reason for care during childbirth ([facility]) Benign essential hypertension complicating , childbirth, and the puerperium, unspecified as to episode of care Rh negative state in antepartum period ([facility]) Rhesus isoimmunization affecting management of mother, antepartum condition Supervision of high risk in third trimester ([facility])- Primary Unspecified high-risk Chronic hypertension complicating or reason for care during childbirth ([facility]) Benign essential hypertension complicating , childbirth, and the puerperium, unspecified as to episode of care Rh negative state in antepartum period ([facility]) Rhesus isoimmunization affecting management of mother, antepartum condition Obesity affecting in third trimester, unspecified obesity type ([facility]) 28 weeks gestation of ([facility]) state, incidental [facility] Diagnosis Supervision of high risk in first trimester ([facility])- Primary Unspecified high-risk Obesity affecting in first trimester, unspecified obesity type ([facility]) 10 weeks gestation of ([facility]) state, incidental BMI 40.0-44.9, adult ([facility]) Body Mass Index 40.0-44.9, adult Supervision of high risk in first trimester ([facility])- Primary Unspecified high-risk Elevated blood pressure reading without diagnosis of hypertension Chronic hypertension in ([facility]) Benign essential hypertension complicating , childbirth, and the puerperium, unspecified as to episode of care 11 weeks gestation of ([facility]) state, incidental Screening for diabetes mellitus- Primary 24 weeks gestation of ([facility]) state, incidental Supervision of high risk in second trimester ([facility]) Unspecified high-risk Chronic hypertension complicating or reason for care during childbirth ([facility]) Benign essential hypertension complicating , childbirth, and the puerperium, unspecified as to episode of care Rh negative state in antepartum period ([facility]) Rhesus isoimmunization affecting management of mother, antepartum condition Encounter for ultrasound to check growth ([facility])- Primary Encounter for routine screening for malformation using ultrasonics Obesity affecting in third trimester, unspecified obesity type ([facility]) 28 weeks gestation of ([facility]) state, incidental Polyhydramnios in third trimester complication, single or unspecified fetus ([facility]) [facility] [facility]* Diagnosis Supervision of high risk in first trimester ([facility])- Primary Unspecified high-risk Obesity affecting in first trimester, unspecified obesity type ([facility]) 10 weeks gestation of ([facility]) state, incidental BMI 40.0-44.9, adult ([facility]) Body Mass Index 40.0-44.9, adult Supervision of high risk in first trimester ([facility])- Primary Unspecified high-risk Elevated blood pressure reading without diagnosis of hypertension Chronic hypertension in ([facility]) Benign essential hypertension complicating , childbirth, and the puerperium, unspecified as to episode of care 11 weeks gestation of ([facility]) state, incidental Screening for diabetes mellitus- Primary 24 weeks gestation of ([facility]) state, incidental Supervision of high risk in second trimester ([facility]) Unspecified high-risk Chronic hypertension complicating or reason for care during childbirth ([facility]) Benign essential hypertension complicating , childbirth, and the puerperium, unspecified as to episode of care Rh negative state in antepartum period ([facility]) Rhesus isoimmunization affecting management of mother, antepartum condition Chronic hypertension in ([facility])- Primary Benign essential hypertension complicating , childbirth, and the puerperium, unspecified as to episode of care documented in this encounter [facility] note* Diagnosis Supervision of high risk in first trimester ([facility])- Primary Unspecified high-risk Obesity affecting in first trimester, unspecified obesity type ([facility]) 10 weeks gestation of ([facility]) state, incidental BMI 40.0-44.9, adult ([facility]) Body Mass Index 40.0-44.9, adult Supervision of high risk in first trimester ([facility])- Primary Unspecified high-risk Elevated blood pressure reading without diagnosis of hypertension Chronic hypertension in ([facility]) Benign essential hypertension complicating , childbirth, and the puerperium, unspecified as to episode of care 11 weeks gestation of ([facility]) state, incidental Screening for diabetes mellitus- Primary 24 weeks gestation of ([facility]) state, incidental Supervision of high risk in second trimester ([facility]) Unspecified high-risk Chronic hypertension complicating or reason for care during childbirth ([facility]) Benign essential hypertension complicating , childbirth, and the puerperium, unspecified as to episode of care Rh negative state in antepartum period (HCC) Rhesus isoimmunization affecting management of mother, antepartum condition 32 weeks gestation of ([facility])- Primary state, incidental Chronic hypertension in (HCC) Benign essential hypertension complicating , childbirth, and the puerperium, unspecified as to episode of care Supervision of high risk in third trimester (HCC) Unspecified high-risk Obesity affecting in third trimester, unspecified obesity type ([facility]) Chronic hypertension affecting (HCC)- Primary Obesity affecting in third trimester, unspecified obesity type ([facility]) Polyhydramnios affecting (HCC) 32 weeks gestation of ([facility]) state, incidental [facility] Diagnosis Supervision of high risk in first trimester ([facility])- Primary Unspecified high-risk Obesity affecting in first trimester, unspecified obesity type ([facility]) 10 weeks gestation of ([facility]) state, incidental BMI 40.0-44.9, adult ([facility]) Body Mass Index 40.0-44.9, adult Supervision of high risk in first trimester ([facility])- Primary Unspecified high-risk Elevated blood pressure reading without diagnosis of hypertension Chronic hypertension in (HCC) Benign essential hypertension complicating , childbirth, and the puerperium, unspecified as to episode of care 11 weeks gestation of ([facility]) state, incidental Screening for diabetes mellitus- Primary 24 weeks gestation of ([facility]) state, incidental Supervision of high risk in second trimester ([facility]) Unspecified high-risk Chronic hypertension complicating or reason for care during childbirth ([facility]) Benign essential hypertension complicating , childbirth, and the puerperium, unspecified as to episode of care Rh negative state in antepartum period (HCC) Rhesus isoimmunization affecting management of mother, antepartum condition 32 weeks gestation of ([facility])- Primary state, incidental Chronic hypertension in ([facility]) Benign essential hypertension complicating , childbirth, and the puerperium, unspecified as to episode of care Supervision of high risk in third trimester (HCC) Unspecified high-risk Obesity affecting in third trimester, unspecified obesity type ([facility]) * Assessment & Plan Note - Keyon Jara MD - 02/11/2025 1:37 PM EDTAssociated Problem(s): Chronic hypertension in (HCC) Continue labetalol & aspirin. Monitoring BP AT Home. Growth US today. Orders: URINE OB DIP B/O [facility] Supervision of high risk in first trimester (HCC)- Primary Unspecified high-risk Obesity affecting in first trimester, unspecified obesity type (HCC) 10 weeks gestation of (HCC) state, incidental BMI 40.0-44.9, adult ([facility]) Body Mass Index 40.0-44.9, adult Supervision of high risk in first trimester (HCC)- Primary Unspecified high-risk Elevated blood pressure reading without diagnosis of hypertension Chronic hypertension in (HCC) Benign essential hypertension complicating , childbirth, and the puerperium, unspecified as to episode of care 11 weeks gestation of (HCC) state, incidental Screening for diabetes mellitus- Primary 24 weeks gestation of ([facility]) state, incidental Supervision of high risk in second trimester (HCC) Unspecified high-risk Chronic hypertension complicating or reason for care during childbirth (HCC) Benign essential hypertension complicating , childbirth, and the puerperium, unspecified as to episode of care Rh negative state in antepartum period ([facility]) Rhesus isoimmunization affecting management of mother, antepartum condition 32 weeks gestation of (HCC)- Primary state, incidental Chronic hypertension in (HCC) Benign essential hypertension complicating , childbirth, and the puerperium, unspecified as to episode of care Supervision of high risk in third trimester (HCC) Unspecified high-risk Obesity affecting in third trimester, unspecified obesity type (HCC) 33 weeks gestation of (HCC)- Primary state, incidental Chronic hypertension in (HCC) Benign essential hypertension complicating , childbirth, and the puerperium, unspecified as to episode of care Supervision of high risk in third trimester (HCC) Unspecified high-risk Obesity affecting in third trimester, unspecified obesity type (HCC) * Assessment & Plan Note - Keyon Jara MD - 02/18/2025 2:22 PM EDTAssociated Problem(s): Chronic hypertension in (HCC) Patient reports BP's at home less than 140/90. Continue aspirin & labetalol Orders: URINE OB DIP B/O ALANINE AMINOTRANSFERASE / SGPT; Future ASPARTATE AMINOTRANSFERASE/SGOT; Future UREA NITROGEN; Future URIC ACID; Future CREATININE BLD; Future COMPLETE BLOOD COUNT; Future PROTEIN / CREATININE RATIO; Future [facility] Diagnosis Supervision of high risk in first trimester ([facility])- Primary Unspecified high-risk Obesity affecting in first trimester, unspecified obesity type ([facility]) 10 weeks gestation of ([facility]) state, incidental BMI 40.0-44.9, adult ([facility]) Body Mass Index 40.0-44.9, adult Supervision of high risk in first trimester ([facility])- Primary Unspecified high-risk Elevated blood pressure reading without diagnosis of hypertension Chronic hypertension in ([facility]) Benign essential hypertension complicating , childbirth, and the puerperium, unspecified as to episode of care 11 weeks gestation of ([facility]) state, incidental Screening for diabetes mellitus- Primary 24 weeks gestation of ([facility]) state, incidental Supervision of high risk in second trimester ([facility]) Unspecified high-risk Chronic hypertension complicating or reason for care during childbirth ([facility]) Benign essential hypertension complicating , childbirth, and the puerperium, unspecified as to episode of care Rh negative state in antepartum period ([facility]) Rhesus isoimmunization affecting management of mother, antepartum condition 32 weeks gestation of ([facility])- Primary state, incidental Chronic hypertension in ([facility]) Benign essential hypertension complicating , childbirth, and the puerperium, unspecified as to episode of care Supervision of high risk in third trimester ([facility]) Unspecified high-risk Obesity affecting in third trimester, unspecified obesity type ([facility]) 33 weeks gestation of ([facility])- Primary state, incidental Chronic hypertension in ([facility]) Benign essential hypertension complicating , childbirth, and the puerperium, unspecified as to episode of care Supervision of high risk in third trimester ([facility]) Unspecified high-risk Obesity affecting in third trimester, unspecified obesity type ([facility]) Supervision of high risk in third trimester ([facility])- Primary Unspecified high-risk 34 weeks gestation of ([facility]) state, incidental Chronic hypertension in ([facility]) Benign essential hypertension complicating , childbirth, and the puerperium, unspecified as to episode of care Obesity affecting in third trimester, unspecified obesity type ([facility]) Polyhydramnios in third trimester complication, single or unspecified fetus ([facility]) Excessive growth affecting management of in third trimester, single or unspecified fetus ([facility]) [facility] Diagnosis Supervision of high risk in first trimester ([facility])- Primary Unspecified high-risk Obesity affecting in first trimester, unspecified obesity type ([facility]) 10 weeks gestation of ([facility]) state, incidental BMI 40.0-44.9, adult ([facility]) Body Mass Index 40.0-44.9, adult Supervision of high risk in first trimester ([facility])- Primary Unspecified high-risk Elevated blood pressure reading without diagnosis of hypertension Chronic hypertension in ([facility]) Benign essential hypertension complicating , childbirth, and the puerperium, unspecified as to episode of care 11 weeks gestation of ([facility]) state, incidental Screening for diabetes mellitus- Primary 24 weeks gestation of ([facility]) state, incidental Supervision of high risk in second trimester ([facility]) Unspecified high-risk Chronic hypertension complicating or reason for care during childbirth ([facility]) Benign essential hypertension complicating , childbirth, and the puerperium, unspecified as to episode of care Rh negative state in antepartum period ([facility]) Rhesus isoimmunization affecting management of mother, antepartum condition 32 weeks gestation of ([facility])- Primary state, incidental Chronic hypertension in ([facility]) Benign essential hypertension complicating , childbirth, and the puerperium, unspecified as to episode of care Supervision of high risk in third trimester ([facility]) Unspecified high-risk Obesity affecting in third trimester, unspecified obesity type ([facility]) 33 weeks gestation of ([facility])- Primary state, incidental Chronic hypertension in ([facility]) Benign essential hypertension complicating , childbirth, and the puerperium, unspecified as to episode of care Supervision of high risk in third trimester ([facility]) Unspecified high-risk Obesity affecting in third trimester, unspecified obesity type ([facility]) Supervision of high risk in third trimester ([facility])- Primary Unspecified high-risk Chronic hypertension in ([facility]) Benign essential hypertension complicating , childbirth, and the puerperium, unspecified as to episode of care Obesity affecting in third trimester, unspecified obesity type ([facility]) Polyhydramnios in third trimester complication, single or unspecified fetus ([facility]) 35 weeks gestation of ([facility]) state, incidental [facility] Diagnosis Supervision of high risk in first trimester ([facility])- Primary Unspecified high-risk Obesity affecting in first trimester, unspecified obesity type ([facility]) 10 weeks gestation of ([facility]) state, incidental BMI 40.0-44.9, adult ([facility]) Body Mass Index 40.0-44.9, adult Supervision of high risk in first trimester ([facility])- Primary Unspecified high-risk Elevated blood pressure reading without diagnosis of hypertension Chronic hypertension in ([facility]) Benign essential hypertension complicating , childbirth, and the puerperium, unspecified as to episode of care 11 weeks gestation of ([facility]) state, incidental Screening for diabetes mellitus- Primary 24 weeks gestation of ([facility]) state, incidental Supervision of high risk in second trimester ([facility]) Unspecified high-risk Chronic hypertension complicating or reason for care during childbirth ([facility]) Benign essential hypertension complicating , childbirth, and the puerperium, unspecified as to episode of care Rh negative state in antepartum period ([facility]) Rhesus isoimmunization affecting management of mother, antepartum condition 32 weeks gestation of ([facility])- Primary state, incidental Chronic hypertension in ([facility]) Benign essential hypertension complicating , childbirth, and the puerperium, unspecified as to episode of care Supervision of high risk in third trimester ([facility]) Unspecified high-risk Obesity affecting in third trimester, unspecified obesity type ([facility]) 33 weeks gestation of ([facility])- Primary state, incidental Chronic hypertension in ([facility]) Benign essential hypertension complicating , childbirth, and the puerperium, unspecified as to episode of care Supervision of high risk in third trimester (HCC) Unspecified high-risk Obesity affecting in third trimester, unspecified obesity type (HCC) 36 weeks gestation of (HCC)- Primary state, incidental Supervision of high risk in third trimester (HCC) Unspecified high-risk Chronic hypertension in (HCC) Benign essential hypertension complicating , childbirth, and the puerperium, unspecified as to episode of care Obesity affecting in third trimester, unspecified obesity type ([facility]) Polyhydramnios in third trimester complication, single or unspecified fetus ([facility]) * Assessment & Plan Note - Keyon Jara MD - 03/11/2025 3:09 PM EDTAssociated Problem(s): Chronic hypertension in (HCC) Orders: URINE OB DIP B/O * Assessment & Plan Note - Keyon Jara MD - 03/11/2025 3:09 PM EDTAssociated Problem(s): Polyhydramnios in third trimester (HCC) Orders: URINE OB DIP B/O [facility] Diagnosis Supervision of high risk in first trimester (HCC)- Primary Unspecified high-risk Obesity affecting in first trimester, unspecified obesity type (HCC) 10 weeks gestation of ([facility]) state, incidental BMI 40.0-44.9, adult ([facility]) Body Mass Index 40.0-44.9, adult Supervision of high risk in first trimester (HCC)- Primary Unspecified high-risk Elevated blood pressure reading without diagnosis of hypertension Chronic hypertension in (HCC) Benign essential hypertension complicating , childbirth, and the puerperium, unspecified as to episode of care 11 weeks gestation of ([facility]) state, incidental Screening for diabetes mellitus- Primary 24 weeks gestation of ([facility]) state, incidental Supervision of high risk in second trimester ([facility]) Unspecified high-risk Chronic hypertension complicating or reason for care during childbirth (HCC) Benign essential hypertension complicating , childbirth, and the puerperium, unspecified as to episode of care Rh negative state in antepartum period (HCC) Rhesus isoimmunization affecting management of mother, antepartum condition 32 weeks gestation of (HCC)- Primary state, incidental Chronic hypertension in (HCC) Benign essential hypertension complicating , childbirth, and the puerperium, unspecified as to episode of care Supervision of high risk in third trimester (HCC) Unspecified high-risk Obesity affecting in third trimester, unspecified obesity type (HCC) 33 weeks gestation of (HCC)- Primary state, incidental Chronic hypertension in (HCC) Benign essential hypertension complicating , childbirth, and the puerperium, unspecified as to episode of care Supervision of high risk in third trimester (HCC) Unspecified high-risk Obesity affecting in third trimester, unspecified obesity type (HCC) Chronic hypertension in (HCC)- Primary Benign essential hypertension complicating , childbirth, and the puerperium, unspecified as to episode of care Obesity affecting in third trimester, unspecified obesity type (HCC) 36 weeks gestation of (HCC) state, incidental Polyhydramnios in third trimester complication, single or unspecified fetus (HCC) 36 weeks gestation of (HCC)- Primary state, incidental Supervision of high risk in third trimester (HCC) Unspecified high-risk Chronic hypertension in (HCC) Benign essential hypertension complicating , childbirth, and the puerperium, unspecified as to episode of care Obesity affecting in third trimester, unspecified obesity type (HCC) Polyhydramnios in third trimester complication, single or unspecified fetus (HCC) documented in this encounter [facility] for referral (narrative)No reason for referral information availableWBlanchard [facility] Work Phone: Reason for visit Narrative* Diagnostic Procedure Only (Routine) - Closed Specialty Diagnoses / Procedures Referred By Lew madden Referred To Contact [facility] Diagnoses with uncertain dates, antepartum Procedures OBSTETRIC ULTRASOUND WHI US PREG UTERUS AFTER 1ST TRIMEST GESTATION Matilde Adler APRN.ESTEPHANIE [address] [place] [address] Phone: tel: fax: [facility] [address] [place] [address] Referral ID Status Reason Start Date Expiration Date V isits Requested Visits Authorized [id number] Closed Auto-Generate d Referral 08/12/2024 08/12/2025 1 1 [facility] Chief Complaint and Reason for Visit Chief Complaint Cellulitis of right finger Chief Complaint Admit Date BLEEDING December 08, 2024 1:50 pm Advance Directives No Advanced Directives Records Found Advance Directive Response Recorded Date/ Time Living Will No August 25, 2019 6:25pm 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 No August 24 6:25pm Summary Purpose Family History No Family History Records FoundNo Family History Records FoundNo Family History Records Found Reason for Referral Specialty Diagnoses / Procedures Referred By Lew madden Referred To Contact Neurology Diagnoses Orgasmic headache Procedures CONSULT TO NEUROLOGY OFFICE/OUTPATIENT [facility] 60-74 MINUTES Angelic Butler MD [address] [place] [address] Referral ID Status Reason Start Date Expiration Date Visits Requested Visits Authorized [id number] Authorized PCP Requested Referral 03/01/2023 02/29/2024 1 1 Specialty Diagnoses / Procedures Referred By Lew madden Referred To Contact Diagnoses Class 2 severe obesity due to excess calories with serious comorbidity and body mass index (BMI) of 38.0 to 38.9 in adult (HCC) PCOS (polycystic ovarian syndrome) Procedures CONSULT TO [facility] WEIGHT MANAGEMENT PROGRAM OFFICE/OUTPATIENT [facility] 60 MINUTES Angelic Butler MD [address] [place] [address] Referral ID Status Reason Start Date Expiration Date Visits Requested Visits Authorized [id number] Authorized PCP Requested Referral Auto-Generate d Referral 12/15/2023 12/14/2024 1 1 Additional Source Comments Source Comments (unrecognize d section and content) In the event this informatio n is protected by the Federal Confidentiality of Alcohol and Drug Abuse Patient Records regulations: The Federal rules restrict any use of the information to criminally investigate or prosecute any alcohol or drug abuse patient.[facility] HamiltonIn the event this information is protected by the Federal Confidentiality of Alcohol and Drug Abuse Patient Records regulations: The Federal rules restrict any use of the information to criminally investigate or prosecute any alcohol or drug abuse patient.[facility] HamiltonIn the event this information is protected by the Federal Confidentiality of Alcohol and Drug Abuse Patient Records regulations: The Federal rules restrict any use of the information to criminally investigate or prosecute any alcohol or drug abuse patient.[facility] HamiltonIn the event this information is protected by the Federal Confidentiality of Alcohol and Drug Abuse Patient Records regulations: The Federal rules restrict any use of the information to criminally investigate or prosecute any alcohol or drug abuse patient.[facility] HamiltonIn the event this information is protected by the Federal Confidentiality of Alcohol and Drug Abuse Patient Records regulations: The Federal rules restrict any use of the information to criminally investigate or prosecute any alcohol or drug abuse patient.[facility] HamiltonIn the event this information is protected by the Federal Confidentiality of Alcohol and Drug Abuse Patient Records regulations: The Federal rules restrict any use of the information to criminally investigate or prosecute any alcohol or drug abuse patient.[facility] HamiltonIn the event this information is protected by the Federal Confidentiality of Alcohol and Drug Abuse Patient Records regulations: The Federal rules restrict any use of the information to criminally investigate or prosecute any alcohol or drug abuse patient.[facility] HamiltonIn the event this information is protected by the Federal Confidentiality of Alcohol and Drug Abuse Patient Records regulations: The Federal rules restrict any use of the information to criminally investigate or prosecute any alcohol or drug abuse patient.[facility] HamiltonIn the event this information is protected by the Federal Confidentiality of Alcohol and Drug Abuse Patient Records regulations: The Federal rules restrict any use of the information to criminally investigate or prosecute any alcohol or drug abuse patient.[facility] HamiltonIn the event this information is protected by the Federal Confidentiality of Alcohol and Drug Abuse Patient Records regulations: The Federal rules restrict any use of the information to criminally investigate or prosecute any alcohol or drug abuse patient.[facility] HamiltonIn the event this information is protected by the Federal Confidentiality of Alcohol and Drug Abuse Patient Records regulations: The Federal rules restrict any use of the information to criminally investigate or prosecute any alcohol or drug abuse patient.[facility] HamiltonIn the event this information is protected by the Federal Confidentiality of Alcohol and Drug Abuse Patient Records regulations: The Federal rules restrict any use of the information to criminally investigate or prosecute any alcohol or drug abuse patient.[facility] HamiltonIn the event this information is protected by the Federal Confidentiality of Alcohol and Drug Abuse Patient Records regulations: The Federal rules restrict any use of the information to criminally investigate or prosecute any alcohol or drug abuse patient.[facility] HamiltonIn the event this information is protected by the Federal Confidentiality of Alcohol and Drug Abuse Patient Records regulations: The Federal rules restrict any use of the information to criminally investigate or prosecute any alcohol or drug abuse patient.[facility] HamiltonIn the event this information is protected by the Federal Confidentiality of Alcohol and Drug Abuse Patient Records regulations: The Federal rules restrict any use of the information to criminally investigate or prosecute any alcohol or drug abuse patient.[facility] HamiltonIn the event this information is protected by the Federal Confidentiality of Alcohol and Drug Abuse Patient Records regulations: The Federal rules restrict any use of the information to criminally investigate or prosecute any alcohol or drug abuse patient.[facility] HamiltonIn the event this information is protected by the Federal Confidentiality of Alcohol and Drug Abuse Patient Records regulations: The Federal rules restrict any use of the information to criminally investigate or prosecute any alcohol or drug abuse patient.[facility] HamiltonIn the event this information is protected by the Federal Confidentiality of Alcohol and Drug Abuse Patient Records regulations: The Federal rules restrict any use of the information to criminally investigate or prosecute any alcohol or drug abuse patient.[facility] HamiltonIn the event this information is protected by the Federal Confidentiality of Alcohol and Drug Abuse Patient Records regulations: The Federal rules restrict any use of the information to criminally investigate or prosecute any alcohol or drug abuse patient.[facility] HamiltonIn the event this information is protected by the Federal Confidentiality of Alcohol and Drug Abuse Patient Records regulations: The Federal rules restrict any use of the information to criminally investigate or prosecute any alcohol or drug abuse patient.[facility] HamiltonIn the event this information is protected by the Federal Confidentiality of Alcohol and Drug Abuse Patient Records regulations: The Federal rules restrict any use of the information to criminally investigate or prosecute any alcohol or drug abuse patient.[facility] HamiltonIn the event this information is protected by the Federal Confidentiality of Alcohol and Drug Abuse Patient Records regulations: The Federal rules restrict any use of the information to criminally investigate or prosecute any alcohol or drug abuse patient.[facility] HamiltonIn the event this information is protected by the Federal Confidentiality of Alcohol and Drug Abuse Patient Records regulations: The Federal rules restrict any use of the information to criminally investigate or prosecute any alcohol or drug abuse patient.[facility] HamiltonIn the event this information is protected by the Federal Confidentiality of Alcohol and Drug Abuse Patient Records regulations: The Federal rules restrict any use of the information to criminally investigate or prosecute any alcohol or drug abuse patient.[facility] HamiltonIn the event this information is protected by the Federal Confidentiality of Alcohol and Drug Abuse Patient Records regulations: The Federal rules restrict any use of the information to criminally investigate or prosecute any alcohol or drug abuse patient.[facility] HamiltonIn the event this information is protected by the Federal Confidentiality of Alcohol and Drug Abuse Patient Records regulations: The Federal rules restrict any use of the information to criminally investigate or prosecute any alcohol or drug abuse patient.[facility] HamiltonIn the event this information is protected by the Federal Confidentiality of Alcohol and Drug Abuse Patient Records regulations: The Federal rules restrict any use of the information to criminally investigate or prosecute any alcohol or drug abuse patient.[facility] HamiltonIn the event this information is protected by the Federal Confidentiality of Alcohol and Drug Abuse Patient Records regulations: The Federal rules restrict any use of the information to criminally investigate or prosecute any alcohol or drug abuse patient.[facility] HamiltonIn the event this information is protected by the Federal Confidentiality of Alcohol and Drug Abuse Patient Records regulations: The Federal rules restrict any use of the information to criminally investigate or prosecute any alcohol or drug abuse patient.[facility] HamiltonIn the event this information is protected by the Federal Confidentiality of Alcohol and Drug Abuse Patient Records regulations: The Federal rules restrict any use of the information to criminally investigate or prosecute any alcohol or drug abuse patient.[facility] HamiltonIn the event this information is protected by the Federal Confidentiality of Alcohol and Drug Abuse Patient Records regulations: The Federal rules restrict any use of the information to criminally investigate or prosecute any alcohol or drug abuse patient.[facility] HamiltonIn the event this information is protected by the Federal Confidentiality of Alcohol and Drug Abuse Patient Records regulations: The Federal rules restrict any use of the information to criminally investigate or prosecute any alcohol or drug abuse patient.[facility] HamiltonIn the event this information is protected by the Federal Confidentiality of Alcohol and Drug Abuse Patient Records regulations: The Federal rules restrict any use of the information to criminally investigate or prosecute any alcohol or drug abuse patient.[facility] HamiltonIn the event this information is protected by the Federal Confidentiality of Alcohol and Drug Abuse Patient Records regulations: The Federal rules restrict any use of the information to criminally investigate or prosecute any alcohol or drug abuse patient.[facility] HamiltonIn the event this information is protected by the Federal Confidentiality of Alcohol and Drug Abuse Patient Records regulations: The Federal rules restrict any use of the information to criminally investigate or prosecute any alcohol or drug abuse patient.[facility] HamiltonIn the event this information is protected by the Federal Confidentiality of Alcohol and Drug Abuse Patient Records regulations: The Federal rules restrict any use of the information to criminally investigate or prosecute any alcohol or drug abuse patient.[facility] HamiltonIn the event this information is protected by the Federal Confidentiality of Alcohol and Drug Abuse Patient Records regulations: The Federal rules restrict any use of the information to criminally investigate or prosecute any alcohol or drug abuse patient.[facility] HamiltonIn the event this information is protected by the Federal Confidentiality of Alcohol and Drug Abuse Patient Records regulations: The Federal rules restrict any use of the information to criminally investigate or prosecute any alcohol or drug abuse patient.[facility] HamiltonIn the event this information is protected by the Federal Confidentiality of Alcohol and Drug Abuse Patient Records regulations: The Federal rules restrict any use of the information to criminally investigate or prosecute any alcohol or drug abuse patient.[facility] HamiltonIn the event this information is protected by the Federal Confidentiality of Alcohol and Drug Abuse Patient Records regulations: The Federal rules restrict any use of the information to criminally investigate or prosecute any alcohol or drug abuse patient.[facility] HamiltonIn the event this information is protected by the Federal Confidentiality of Alcohol and Drug Abuse Patient Records regulations: The Federal rules restrict any use of the information to criminally investigate or prosecute any alcohol or drug abuse patient.[facility] HamiltonIn the event this information is protected by the Federal Confidentiality of Alcohol and Drug Abuse Patient Records regulations: The Federal rules restrict any use of the information to criminally investigate or prosecute any alcohol or drug abuse patient.[facility] HamiltonIn the event this information is protected by the Federal Confidentiality of Alcohol and Drug Abuse Patient Records regulations: The Federal rules restrict any use of the information to criminally investigate or prosecute any alcohol or drug abuse patient.[facility] Reason for Visit (unrecogniz ed section and [...] [place] Specialty Diagnoses / Procedures Referred By Contac t Referred To Contact [facility] Diagnoses with uncertain dates, antepartum (HCC) Encounter for care in first trimester of first ([facility]) Procedures OBSTETRIC ULTRASOUND WHI US PREG UTERUS AFTER 1ST TRIMEST GESTATION Matilde Adler APRN.CN [address] [place] [address] Phone: tel: fax: [facility] [place] [address] Referral ID Status Reason Start Date Expiration Date V isits Requested Visits Authorized [id number] Closed Auto-Generate d Referral 08/12/2024 08/12/2025 1 1 Reason Onset Date Comments Refill Request 10/08/2024 Reason Comments Care Specialty Diagnoses / Procedures Referred By Contac t Referred To Contact [facility] Diagnoses Obesity affecting in first trimester, unspecified obesity type (HCC) 10 weeks gestation of (HCC) Supervision of high risk in first trimester (HCC) BMI 40.0-44.9, adult ([facility]) Procedures OBSTETRIC ULTRASOUND WHI OBSTETRIC ULTRASOUND WHI US PREG UTERUS AFTER 1ST TRIMEST GESTATION Angelic Butler MD [address] [place] [address] Phone: tel: fax: [facility] [address] [place] [address] Referral ID Status Reason Start Date Expiration Date V isits Requested Visits Authorized [id number] Closed Auto-Generate d Referral 09/10/2024 09/10/2025 6 1 Specialty Diagnoses / Procedures Referred By Contac t Referred To Contact [facility] Diagnoses Obesity affecting in first trimester, unspecified obesity type (HCC) Supervision of high risk in first trimester (HCC) BMI 40.0-44.9, adult (HCC) Procedures OBSTETRIC ULTRASOUND WHI US PREG UTERUS AFTER 1ST TRIMEST GESTATION Angelic Butler MD [address] [place] [address] Phone: tel: fax: [address] [address] Referral ID Status Reason Start Date Expiration Date V isits Requested Visits Authorized [id number] Closed Auto-Generate d Referral 09/10/2024 09/10/2025 1 1 Reason Onset Date Comments Care 11/19/2024 Reason Comments Medication Question Reason Comments Results Reason Onset Date Comments Care 12/17/2024 Reason Onset Date Comments Care 01/10/2025 Reason Onset Date Comments Care 01/15/2025 Specialty Diagnoses / Procedures Referred By Contac t Referred To Contact [facility] Diagnoses Supervision of high risk in third trimester (HCC) Obesity affecting in third trimester, unspecified obesity type ([facility]) Procedures OBSTETRIC ULTRASOUND WHI US PREG UTERUS AFTER 1ST TRIMEST GESTATION Jojo Saez APRN.CNM [address] [place] [address] Phone: tel: fax: [address] [address] Referral ID Status Reason Start Date Expiration Date V isits Requested Visits Authorized [id number] Closed Auto-Generate d Referral 11/19/2024 11/19/2025 3 1 Reason Onset Date Comments Care 02/11/2025 Reason Onset Date Comments Care 02/18/2025 Reason Onset Date Comments Care 02/25/2025 Reason Onset Date Comments Care 03/04/2025 Reason Comments Question (OB Question) Reason Onset Date Comments Care 03/11/2025 Care Teams (unrecognized sec tion and content) Lime Boiler Relationship Specialty Start Date End Date Mago Wong PCP - General 01/01/09 Lime Boiler Relationship Specialty Start Date End Date Jostuart Mago Goncalves PCP - General 01/01/09 Team Status: Active Member Role Status Dates Dr. Mago Wong MD Primary Care Provider Active Team Status: Inactive Member Role Status Dates Dr. Mago Wong MD Primary Care Prov ider, Attending Provider, Referring Provider Active Lime Boiler Relationship Specialty Start Date End Date Leeleestuart Mago Goncalves PCP - General 01/01/09 Lime Boiler Relationship Specialty Start Date End Date LeeleeMago davidson PCP - General 01/01/09 Lime Boiler Relationship Specialty Start Date End Date LeeleeMago davidson PCP - General 01/01/09 Lime Boiler Relationship Specialty Start Date End Date Mago Wong Sarah PCP - General 01/01/09 Lime Boiler Relationship Specialty Start Date End Date JudithMago PCP - General 01/01/09 Lime Boiler Relationship Specialty Start Date End Date LeeleeMago davidson PCP - General 01/01/09 Lime Boiler Relationship Specialty Start Date End Date JudithMago PCP - General 01/01/09 Lime Boiler Relationship Specialty Start Date End Date LeeleeMago davidson PCP - General 01/01/09 Lime Boiler Relationship Specialty Start Date End Date Mago Wong PCP - General 01/01/09 Lime Boiler Relationship Specialty Start Date End Date Mago Wong PCP - General 01/01/09 Lime Boiler Relationship Specialty Start Date End Date Mago Wong PCP - General 01/01/09 Lime Boiler Relationship Specialty Start Date End Date Mago Wong PCP - General 01/01/09 Lime Boiler Relationship Specialty Start Date End Date Mago Wong PCP - General 01/01/09 Lime Boiler Relationship Specialty Start Date End Date Mago Wong PCP - General 01/01/09 Lime Boiler Relationship Specialty Start Date End Date Mago Wong PCP - General 01/01/09 Lime Boiler Relationship Specialty Start Date End Date Mago Wong PCP - General 01/01/09 Lime Boiler Relationship Specialty Start Date End Date Mago Wong PCP - General 01/01/09 Lime Boiler Relationship Specialty Start Date End Date Mago Wong PCP - General 01/01/09 Lime Boiler Relationship Specialty Start Date End Date Mago Wong PCP - General 01/01/09 Lime Boiler Relationship Specialty Start Date End Date Mago Wong PCP - General 01/01/09 Lime Boiler Relationship Specialty Start Date End Date Mago Wong PCP - General 01/01/09 Team Status: Inactive Member Role Status Dates Dr. Mago Wong MD Primary Care Provider Active Start: December 08, 2024 End: December 08, 2024 Jojo Saez CNM Attending Provider Active St art: December 08, 2024 End: December 08, 2024 Lime Boiler Relationship Specialty Start Date End Date Leeleestuart Mago Sarah PCP - General 01/01/09 Lime Boiler Relationship Specialty Start Date End Date Leeleestuart Mago Sarah PCP - General 01/01/09 Lime Boiler Relationship Specialty Start Date End Date Leeleestuart Mago Sarah PCP - General 01/01/09 Lime Boiler Relationship Specialty Start Date End Date Judith Mago Sarah PCP - General 01/01/09 Lime Boiler Relationship Specialty Start Date End Date Judith Mago Sarah PCP - General 01/01/09 Lime Boiler Relationship Specialty Start Date End Date Mago Wong PCP - General 01/01/09 Lime Boiler Relationship Specialty Start Date End Date Mago Wong PCP - General 01/01/09 Lime Boiler Relationship Specialty Start Date End Date Mago Wong PCP General 01/01/09 Lime Boiler Relationship Specialty Start Date End Date Mago Wong PCP General 01/01/09 Lime Boiler Relationship Specialty Start Date End Date Mago Wong PCP General 01/01/09 Lime Boiler Relationship Specialty Start Date End Date Mago Wong PCP General 01/01/09 Lime Boiler Relationship Specialty Start Date End Date Mago Wong PCP General 01/01/09 Lime Boiler Relationship Specialty Start Date End Date Mago Wong PCP General 01/01/09 Goals (unrecognized section and content) Goals may be documented in a n alternate sectionGoals may be documented in an alternate section INFORMATION SOURCE (unrecogn ized section and content) DATE CREATED AUTHOR 12/16/2022 [facility] DATE CREATED AUTHOR AUTHOR'S ORGANIZ ATION 01/11/2025 [facility] DATE CREATED AUTHOR AUTHOR'S ORGANIZ ATION 03/12/2025 [facility] FOR RECORDS PERTAINING TO PATIENTS WHO ARE [...] BE BASED ON THE PRIMARY CLINICAL RECORDS. [facility] [facility] provides no warranty or guarantee of the accuracy or completeness of information in this document.
--- OUTSIDE RECORDS SUMMARY | 2025-03-12 21:43 | XMS RPT_ITS | CCD ---
Author Organization [facility] CliniSyri Care Team Providers Care It Technician Name Role Phone Trayiff, Mago Sarah Primary Care Provider GAETANO MATTHEW Attending Unavailable JOLLIFF, MAGO SARAH Primary Care Unavailable Jolliff, Mago Sarah Primary Care Provider Dr. Mago Wong MD Primary Care Provider [phone] Jojo Saez CNM Attending Provider [phone] Judith, Mago S Primary Care Unavailable Jojo [...] Unavailable JOJO SAEZ Referring Unavailable CARRIE ANGELIC Rsoe Referring Unavailable JOLLIFF, MAGO SARAH Primary Care [...] Unavailable OFELIA VELEZ Attending Unavailable JOLLIFF, MAGO ASRAH Primary Care Unavailable JOLLIFF, MAGO SARAH Primary [...] ( ORAL) Take by mouth. Active Vit No.830-Vrmx-Apgxc ( Vitamin) 27 mg iron- 800 mcg tablet (1 source) Start: 12-08-2024 Vit No.788-Crln-Njmgs ( Vitamin) 27 mg iron- 800 mcg tablet Active 1 {tbl} PO DAILY December 08, 2024 12:00am Completed/Discontinued Medications Medication Drug Class(es) Dates Sig (Normalized) Sig (Original) 21 day ethinyl estradiol 0.571812 mg/hr / etonogestrel 0.005 mg/hr vaginal system [...] [Supervision of high risk in third trimester ([facility])] Onset: 01-28-2025 Episodic Other complications of (1 source) Other specified related conditions, unspecified trimester; Translations: [Rh negative state in antepartum period ([facility])] Onset: 12-17-2024 Episodic Other endocrine disorders (1 [...] (BMI) 40.0-44.9, adult; Translations: [BMI 40.0-44.9, adult ([facility])] Onset: 10-22-2024 Chronic Other screening for suspected [...] of ; Translations: [27 weeks gestation of ([facility])] Onset: 01-10-2025 Episodic Residual codes; unclassified (1 source) 24 weeks gestation of ; Translations: [24 weeks gestation of ([facility])] Onset: 12-17-2024 Episodic Residual codes; unclassified (1 source) Unspecified blood type, Rh negative; Translations: [Rh negative state in antepartum period ([facility])] Onset: 12-17-2024 Episodic Sexually transmitted infections (not [...] [Supervision of high risk in second trimester ([facility])] Onset: 11-19-2024 Episodic Other complications of (1 source) Supervision of high risk , unspecified, first trimester; Translations: [Supervision of high risk in first trimester ([facility])] Onset: 10-22-2024 Episodic Other and delivery including normal (20 sources) with uncertain dates; Translations: [First trimester ] Onset: 08-12-2024 Resolved: 09-10-2024 08-12-2024 Episodic Residual codes; unclassified (1 source) 20 weeks gestation of ; Translations: [20 weeks gestation of ([facility])] Onset: 11-19-2024 Episodic Residual codes; unclassified (1 source) 16 weeks gestation of ; Translations: [16 weeks gestation of ([facility])] Onset: 10-22-2024 Episodic Residual codes; unclassified (1 source) 10 weeks gestation of ; Translations: [10 weeks gestation of ([facility])] Onset: 09-23-2024 Episodic Results Test Name Value Interpretation Reference Range Facility Examination level ultrasound on 03-11-2025 [facility] Radiology Study observation (narrative) [facility] URINE OB DIP B/Oon Glucose Ql (U) Negative Neg mg/dL [facility] Interpretation and review of laboratory results Normal [facility] Protein.monoclonal (U) [Mass/Vol] trace Neg mg/dL [facility] CNPNon 03-10-2025 CNPN Telephone (OBGYWM) OTILIA MEZA ([id number]) 1995 F Date Time Provider Department 03/10/25 [...] persistent since she has induction scheduled at [place] 03/18. Only call with further advice. GERALD [...] by NADIYA DELA CRUZ on 03/10/25 Normal [facility] ROUTINE, GROUP B ST REPTOCOCCUS BY PCRon 03-04-2025 ROUTINE, GROUP B STREPTOCOCCUS BY PCR Not detected Normal [facility] Comment on above: Performed By: #### G BPCR ####[facility] LABCLIA [id number] [place] [address] [place] URINE OB DIP B/Oon 5 Glucose Ql (U) Negative Neg mg/dL [facility] Interpretation and review of laboratory results Normal [facility] Protein.monoclonal (U) [Mass/Vol] trace Neg mg/dL [facility] URINE OB DIP B/Oon 5 Glucose Ql (U) Negative Neg mg/dL [facility] Interpretation and review of laboratory results Normal [facility] Protein.monoclonal (U) [Mass/Vol] trace Neg mg/dL [facility] ALANINE AMINOTRANSFERASE / S GPTOrdered By: Eliza Sparks on 02-18-2025 ALT [Catalytic activity/Vol] 12 U/L 7 - 38 U/L [facility] ALT SerPl-cCncon 02-18-2025 ALT [Catalytic activity/Vol] 12 U/L Normal 7-38 [facility] Comment on above: Order Comment: Speci men Type: BLOOD SPECIMENOrdering Facility: [facility] Address: [address] [place] [address] Performed By: #### 1 920-8, 3084-1, 1742-6 ####[facility] [id number] [place] [address] [place] ASPARTATE AMINOTRANSFERASE/S GOTon 02-18-2025 AST [Catalytic activity/Vol] 15 U/L 13 - 35 U/L [facility] AST SerPl-cCncon 02-18-2025 AST [Catalytic activity/Vol] 15 U/L Normal 13-35 [facility] Comment on above: Order Comment: Speci men Type: BLOOD SPECIMENOrdering Facility: [facility] Address: [address] [place] [address] [place] [id number] Performed By: #### 1 920-8, 3084-1, 1742-6 ####[facility] [id number] [address] [place] BUN SerPl-mCncon 02-18-2025 Urea nitrogen [Mass/Vol] 8 mg/dL Normal 7-21 [facility] Comment on above: Order Comment: Speci men Type: BLOOD SPECIMENOrdering Facility: [facility] Address: [facility] [place] [address] Performed By: #### 4 5066-8, 3094-0 ####[facility] SIMAWNCLIA [id number] [address] [place] CBC panel Auto (Bld)on 02-18 Erythrocyte distribution width (RBC) [Ratio] 13.4 % 11.5 - 15.0 % [facility] Hematocrit (Bld) [Volume fraction] 33.4 % Low 36.0 - 46.0 % [facility] Hemoglobin (Bld) [Mass/Vol] 11.3 g/dL Low 11.5 - 15.5 g/dL [facility] Interpretation and review of laboratory results Abnormal [facility] MCH (RBC) [Entitic mass] 29.8 pg 26.0 - 34.0 pg [facility] MCHC (RBC) [Mass/Vol] 33.8 g/dL 30.5 - 36.0 g/dL [facility] MCV (RBC) [Entitic vol] 88.1 fL 80.0 - 100.0 fL [facility] Nucleated RBC (Bld) [#/Vol] NINF [facility] Platelet mean volume (Bld) [Entitic vol] 9.5 fL 9.0 - 12.7 fL [facility] Platelets (Bld) [#/Vol] 246 10*3/uL [facility] RBC (Bld) [#/Vol] 3.79 10*6/uL Low 3.90 - 5.2 0 m/uL [facility] WBC (Bld) [#/Vol] 11.43 10*3/uL High [facility] Erythrocyte distribution width (RBC) [Ratio] 13.4 % Normal 11.5-15.0 [facility] Comment on above: Order Comment: Speci men Type: BLOOD SPECIMENOrdering Facility: [facility] Address: [address] [place] [address] Performed By: #### 5 8410-2 ####[facility]ITALNCESPERANZA [id number] [place] [address] [place] Hematocrit (Bld) [Volume fraction] 33.4 % Low 36.0-46.0 [facility] Comment on above: Order Comment: Speci men Type: BLOOD SPECIMENOrdering Facility: [facility] Address: [address] [place] [address] Performed By: #### 5 8410-2 ####[facility] [id number] [place] [address] [place] Hemoglobin (Bld) [Mass/Vol] 11.3 g/dL Low 11.5-15.5 [facility] Comment on above: Order Comment: Speci men Type: BLOOD SPECIMENOrdering Facility: [facility] Address: [address] [place] [address] Performed By: #### 5 8410-2 ####[facility]ITAL[facility]CLIA [id number] [place] [address] [place] MCH (RBC) [Entitic mass] 29.8 pg Normal 26.0-34.0 [facility] Comment on above: Order Comment: Speci men Type: BLOOD SPECIMENOrdering Facility: [facility] Address: [address] [place] [address] Performed By: #### 5 8410-2 ####[facility]ITAL[facility]CLIA [id number] [place] [address] [place] MCHC (RBC) [Mass/Vol] 33.8 g/dL Normal 30.5-36.0 [facility] Comment on above: Order Comment: Speci men Type: BLOOD SPECIMENOrdering Facility: [facility] Address: [address] [place] [address] Performed By: #### 5 8410-2 ####[facility] JR BERNARDONCKYLAH [id number] [place] [address] [place] MCV (RBC) [Entitic vol] 88.1 fL Normal 80.0-100.0 [facility] Comment on above: Order Comment: Speci men Type: BLOOD SPECIMENOrdering Facility: [facility] Address: [address] [place] [address] Performed By: #### 5 8410-2 ####[facility]PITALNCA [id number] [place] [address] [place] Nucleated RBC (Bld) [#/Vol] 10*3/uL Normal <0.01 [facility] Comment on above: Order Comment: Speci men Type: BLOOD SPECIMENOrdering Facility: [facility] Address: [address] [place] [address] Performed By: #### 5 8410-2 ####[facility]ITAL[facility]CLIA [id number] [place] [address] [place] Platelet mean volume (Bld) [Entitic vol] 9.5 fL Normal 9.0-12.7 [facility] Comment on above: Order Comment: Speci men Type: BLOOD SPECIMENOrdering Facility: [facility] Address: [address] [place] [address] Performed By: #### 5 8410-2 ####[facility]ITALNCLIA [id number] [place] [address] [place] Platelets (Bld) [#/Vol] 246 10*3/uL Normal 150-400 [facility] Comment on above: Order Comment: Speci men Type: BLOOD SPECIMENOrdering Facility: [facility] Address: [address] [place] [address] Performed By: #### 5 8410-2 ####[facility] [id number] [place] [address] [place] RBC (Bld) [#/Vol] 3.79 10*6/uL Low 3.90-5.20 [facility] Comment on above: Order Comment: Speci men Type: BLOOD SPECIMENOrdering Facility: [facility] Address: [address] [place] [address] Performed By: #### 5 8410-2 ####[facility]ITALNCLIA [id number] [place] [address] [place] WBC (Bld) [#/Vol] 11.43 10*3/uL High 3.70-11.00 [facility] Comment on above: Order Comment: Speci men Type: BLOOD SPECIMENOrdering Facility: [facility] Address: [address] [place] [address] Performed By: #### 5 8410-2 ####[facility]ENTERA [id number] [place] [address] [place] Creatinine and Glomerular fi ltration rate.predicted panel (S/P/Bld)on 02-18-2025 Creatinine [Mass/Vol] 0.73 mg/dL 0.58 - 0.96 mg/dL [facility] GFR/1.73 sq M.predicted among non-blacks MDRD (S/P/Bld) [Vol rate/Area] 116 mL/min/{1.73_m2} - PINF [facility] Comment on above: Estimated Glomerular Filtration [...] GFR. Creatinine [Mass/Vol] 0.73 mg/dL Normal 0.58-0.96 [facility] Comment on above: Order Comment: Speci men Type: BLOOD SPECIMENOrdering Facility: [facility] Address: [address] [place] [address] Performed By: #### 4 5066-8, 3094-0 ####[facility] [id number] [address] [place] eGFRcr SerPlBld CKD-EPI 2020 116 mL/min/1.73m??? Normal >=60 [facility] Comment on above: Order Comment: Speci men Type: BLOOD SPECIMENOrdering Facility: [facility] Address: [address] [place] [address] Result Comment: Jossie mated Glomerular Filtration Rate [...] GFR. Performed By: #### 4 5066-8, 3094-0 ####[facility] [id number] [address] [place] No Panel InformationOrdered By: Eliza Sparks on 02-18-2025 Interpretation and review of laboratory results Normal [facility] Prot/Creat Uron 02-18-2025 Protein/Creatinine (U) [Mass ratio] 0.13 mg/mg Normal <0.15 [facility] Comment on above: Order Comment: Speci men Type: URINE SPECIMENOrdering Facility: [facility] Address: [address] [place] [address] Result Comment: Adul t Proteinuria Categories: <0.15 mg/mg is considered normal to mildly increased 0.15 - 0.50 mg/mg is considered moderately increased >0.50 mg/mg is considered severely increased KDIGO. (2013). KDIGO 2012 Clinical Practice Guideline for the Evaluation and Management of Chronic Kidney Disease. Official Journal of the International Society of Nephrology, 3(1), 1-150. Performed By: #### 2 890-2 ####[facility] [id number] [place] [address] [place] Protein/Creatinine (U) [Mass ratio]on 02-18-2025 Creatinine (U) [Mass/Vol] 38.4 mg/dL Normal 20.0-300.0 [facility] Comment on above: Order Comment: Speci men Type: URINE SPECIMENOrdering Facility: [facility] Address: [address] [place] [address] Performed By: #### 2 890-2 ####[facility] [id number] [place] [address] [place] Protein (U) [Mass/Vol] 5 mg/dL Normal 0-20 [facility] Comment on above: Order Comment: Speci men Type: URINE SPECIMENOrdering Facility: [facility] Address: [address] [place] [address] Performed By: #### 2 890-2 ####[facility] [id number] [place] [address] [place] UREA NITROGENon 02-18-2025 Urea nitrogen [Mass/Vol] 8 mg/dL 7 - 21 mg/d L [facility] URIC ACIDon 02-18-2025 Urate [Mass/Vol] 4.6 mg/dL 2.5 - 6.6 mg/dL [facility] URINE OB DIP B/Oon 5 Glucose Ql (U) Negative Neg mg/dL [facility] Interpretation and review of laboratory results Normal [facility] Protein.monoclonal (U) [Mass/Vol] Negative Neg mg/dL [facility] Urate SerPl-mCncon 5 Urate [Mass/Vol] 4.6 mg/dL Normal 2.5-6.6 [facility] Comment on above: Order Comment: Speci men Type: BLOOD SPECIMENOrdering Facility: [facility] Address: [facility] [place] [address] Performed By: #### 1 920-8, 3084-1, 1742-6 ####[facility] MILLWNCLIA [id number] [place] [address] [place] Examination level ultrasound on 02-11-2025 [facility] Radiology Study observation (narrative) [facility] URINE OB DIP B/Oon Glucose Ql (U) Negative Neg mg/dL [facility] Interpretation and review of laboratory results Normal [facility] Protein.monoclonal (U) [Mass/Vol] Negative Neg mg/dL [facility] CBC W Auto Differential pane l (Bld)on 01-15-2025 Basophils (Bld) [#/Vol] 0.04 10*3/uL Normal <0.11 [facility] Comment on above: Order Comment: Speci men Type: BLOOD SPECIMEN [facility] Address: [address] [place] [address] Performed By: #### 5 7021-8 #### [facility] CLIA [id number] [address] [place] [address] [place] Basophils/100 WBC (Bld) 0.3 % Normal [facility] Comment on above: Order Comment: Speci men Type: BLOOD SPECIMEN [facility] Address: [address] [place] [address] Performed By: #### 5 7021-8 #### [facility] CLIA [id number] [address] [place] [address] [place] Differential cell count method Nom (Bld) Auto Normal [facility] Comment on above: Order Comment: Speci men Type: BLOOD SPECIMEN [facility] Address: [address] [place] [address] Performed By: #### 5 7021-8 #### [facility] CLIA [id number] [address] [place] [address] [place] Eosinophils (Bld) [#/Vol] 0.08 10*3/uL Normal <0.46 [facility] Comment on above: Order Comment: Speci men Type: BLOOD SPECIMEN [facility] Address: [address] [place] [address] Performed By: #### 5 7021-8 #### [facility] CLIA [id number] [address] [place] [address] [place] Eosinophils/100 WBC (Bld) 0.5 % Normal [facility] Comment on above: Order Comment: Speci men Type: BLOOD SPECIMEN [facility] Address: [address] [place] [address] Performed By: #### 5 7021-8 #### [facility] CLIA [id number] [address] [place] [address] [place] Erythrocyte distribution width (RBC) [Ratio] 12.9 % Normal 11.5-15.0 [facility] Comment on above: Order Comment: Speci men Type: BLOOD SPECIMEN [facility] Address: [address] [place] [address] Performed By: #### 5 7021-8 #### [facility] CLIA [id number] [address] [place] [address] [place] Hematocrit (Bld) [Volume fraction] 34.9 % Low 36.0-46.0 [facility] Comment on above: Order Comment: Speci men Type: BLOOD SPECIMEN [facility] Address: [address] [place] [address] Performed By: #### 5 7021-8 #### [facility] [id number] [address] [place] [address] [place] Hemoglobin (Bld) [Mass/Vol] 12.0 g/dL Normal 11.5-15.5 [facility] Comment on above: Order Comment: Speci men Type: BLOOD SPECIMEN [facility] Address: [address] [place] [id number] Performed By: #### 5 7021-8 #### [facility] CLIA [id number] [address] [place] [address] [place] Immature granulocytes (Bld) [#/Vol] 0.31 10*3/uL High <0.10 [facility] Comment on above: Order Comment: Speci men Type: BLOOD SPECIMEN [facility] Address: [address] [place] [address] Performed By: #### 5 7021-8 #### [facility] CLIA [id number] [address] [place] [address] [place] Immature granulocytes/100 WBC (Bld) 2.1 % Normal [facility] Comment on above: Order Comment: Speci men Type: BLOOD SPECIMEN [facility] Address: [address] [place] [address] Performed By: #### 5 7021-8 #### [facility] CLIA [id number] [address] [place] [address] [place] Lymphocytes (Bld) [#/Vol] 2.02 10*3/uL Normal 1.00-4.00 [facility] Comment on above: Order Comment: Speci men Type: BLOOD SPECIMEN [facility] Address: [address] [place], [place] [address] Performed By: #### 5 7021-8 #### [facility] CLIA [id number] [address] [place] [address] [place] Lymphocytes/100 WBC (Bld) 13.8 % Normal [facility] Comment on above: Order Comment: Speci men Type: BLOOD SPECIMEN [facility] Address: [address] [place] [address] Performed By: #### 5 7021-8 #### [facility] CLIA [id number] [address] [place] [address] [place] MCH (RBC) [Entitic mass] 29.9 pg Normal 26.0-34.0 [facility] Comment on above: Order Comment: Speci men Type: BLOOD SPECIMEN [facility] Address: [address] [place] [address] Performed By: #### 5 7021-8 #### [facility] CLIA [id number] [address] [place] [address] [place] MCHC (RBC) [Mass/Vol] 34.4 g/dL Normal 30.5-36.0 [facility] Comment on above: Order Comment: Speci men Type: BLOOD SPECIMEN [facility] Address: [address] [place] [address] Performed By: #### 5 7021-8 #### [facility] CLIA [id number] [address] [place] [address] [place] MCV (RBC) [Entitic vol] 87.0 fL Normal 80.0-100.0 [facility] Comment on above: Order Comment: Speci men Type: BLOOD SPECIMEN [facility] Address: [address] [place] [address] Performed By: #### 5 7021-8 #### [facility] CLIA [id number] [address] [place] [address] [place] Monocytes (Bld) [#/Vol] 0.62 10*3/uL Normal <0.87 [facility] Comment on above: Order Comment: Speci men Type: BLOOD SPECIMEN [facility] Address: [address] [place] [address] Performed By: #### 5 7021-8 #### [facility] CLIA [id number] [address] [place] [address] [place] Monocytes/100 WBC (Bld) 4.2 % Normal [facility] Comment on above: Order Comment: Speci men Type: BLOOD SPECIMEN [facility] Address: [address] [place] [address] Performed By: #### 5 7021-8 #### [facility] CLIA [id number] [address] [place] [address] [place] Neutrophils (Bld) [#/Vol] 11.61 10*3/uL High 1.45-7.50 [facility] Comment on above: Order Comment: Speci men Type: BLOOD SPECIMEN [facility] Address: [address] [place] [address] Performed By: #### 5 7021-8 #### [facility] CLIA [id number] [address] [place] [address] [place] Neutrophils/100 WBC (Bld) 79.1 % Normal [facility] Comment on above: Order Comment: Speci men Type: BLOOD SPECIMEN [facility] Address: [address] [place] [address] Performed By: #### 5 7021-8 #### [facility] CLIA [id number] [address] [place] [address] [place] Nucleated RBC (Bld) [#/Vol] 10*3/uL Normal <0.01 [facility] Comment on above: Order Comment: Speci men Type: BLOOD SPECIMEN [facility] Address: [address] [place] [address] Performed By: #### 5 7021-8 #### [facility] CLIA [id number] [address] [place] [address] [place] Nucleated RBC/100 WBC (Bld) [Ratio] 0.0 /100 WBC Normal [facility] Comment on above: Order Comment: Speci men Type: BLOOD SPECIMEN [facility] Address: [address] [place] [address] Performed By: #### 5 7021-8 #### [facility] CLIA [id number] [address] [place] [address] [place] Platelet mean volume (Bld) [Entitic vol] 9.5 fL Normal 9.0-12.7 [facility] Comment on above: Order Comment: Speci men Type: BLOOD SPECIMEN [facility] Address: [address] [place] [address] Performed By: #### 5 7021-8 #### [facility] CLIA [id number] [address] [place] [address] [place] Platelets (Bld) [#/Vol] 247 10*3/uL Normal 150-400 [facility] Comment on above: Order Comment: Speci men Type: BLOOD SPECIMEN [facility] Address: [address] [place] [address] Performed By: #### 5 7021-8 #### [facility] CLIA [id number] [address] [place] [address] [place] RBC (Bld) [#/Vol] 4.01 10*6/uL Normal 3.90-5.20 [facility] Comment on above: Order Comment: Speci men Type: BLOOD SPECIMEN [facility] Address: [address] [place] [address] Performed By: #### 5 7021-8 #### [facility] CLIA [id number] [address] [place] [address] [place] WBC (Bld) [#/Vol] 14.68 10*3/uL High 3.70-11.00 [facility] Comment on above: Order Comment: Speci men Type: BLOOD SPECIMEN Ordering Facility: [facility] Address: [address] [place] [address] Performed By: #### 5 7021-8 #### [facility] CLIA [id number] [address] [place] [address] [place] Comprehensive metabolic 2000 panelOrdered By: Eliza Sparks on 01-15-2025 Albumin [Mass/Vol] 3.8 g/dL Low 3.9 - 4.9 g/dL [facility] ALP [Catalytic activity/Vol] 104 U/L 34 - 123 U/L [facility] ALT [Catalytic activity/Vol] 10 U/L 7 - 38 U/L [facility] Anion gap [Moles/Vol] 14 mmol/L 8 - 15 mmol/L [facility] AST [Catalytic activity/Vol] 15 U/L 13 - 35 U/L [facility] Bilirubin [Mass/Vol] 0.2 mg/dL 0.2 - 1 .3 mg/dL [facility] Calcium [Mass/Vol] 9.4 mg/dL 8.5 - 10. 2 mg/dL [facility] Chloride [Moles/Vol] 103 mmol/L 98 - 10 7 mmol/L [facility] CO2 [Moles/Vol] 19 mmol/L Low 22 - 30 mmol/L [facility] Creatinine [Mass/Vol] 0.58 mg/dL 0.58 - 0.96 mg/dL [facility] GFR/1.73 sq M.predicted among non-blacks MDRD (S/P/Bld) [Vol rate/Area] 127 mL/min/{1.73_m2} - PINF [facility] Comment on above: Estimated Glomerular Filtration [...] 121 mg/dL High 74 - 99 mg/dL [facility] Comment on above: The Chinese Diabete s Association (ADA) provides guidance for [...] Standards of Medical Care in Diabetes 2016, Chinese Diabetes Association. Diabetes Care. 2016.39(Suppl 1). Interpretation and review of laboratory results Abnormal [facility] Potassium [Moles/Vol] 3.3 mmol/L Low 3.7 - 5.1 mmol/L [facility] Protein [Mass/Vol] 6.8 g/dL 6.3 - 8.0 g/dL [facility] Sodium [Moles/Vol] 136 mmol/L 136 - 144 mmol/L [facility] Urea nitrogen [Mass/Vol] 11 mg/dL 7 - 21 mg/d L [facility] Comprehensive metabolic 2000 panelon 01-15-2025 Albumin [Mass/Vol] 3.8 g/dL Low 3.9-4.9 [facility] Comment on above: Order Comment: Sheryl reyes Type: BLOOD SPECIMEN Ordering Facility: [facility] Address: [address] [place] [address] Performed By: #### 5 7021-8 #### [id number] [address] [place] [address] [place] ALP [Catalytic activity/Vol] 104 U/L Normal 34-123 [facility] Comment on above: Order Comment: Sheryl reyes Type: BLOOD SPECIMEN Ordering Facility: [facility] Address: [address] [place] [address] Performed By: #### 5 7021-8 #### [facility] CLIA [id number] [address] [place] [address] [place] ALT [Catalytic activity/Vol] 10 U/L Normal 7-38 [facility] Comment on above: Order Comment: Sheryl reyes Type: BLOOD SPECIMEN Ordering Facility: [facility] Address: [address] [place] [address] Performed By: #### 5 7021-8 #### [facility] [id number] [address] [place] [address] [place] Anion gap [Moles/Vol] 14 mmol/L Normal 8-15 [facility] Comment on above: Order Comment: Speci men Type: BLOOD SPECIMEN Ordering Facility: [facility] Address: [address] [place] [address] Performed By: #### 5 7021-8 #### [facility] CLIA [id number] [address] [place] [address] [place] AST [Catalytic activity/Vol] 15 U/L Normal 13-35 [facility] Comment on above: Order Comment: Speci men Type: BLOOD SPECIMEN Ordering Facility: [facility] Address: [address] [place] [address] Performed By: #### 5 7021-8 #### [facility] CLIA [id number] [address] [place] [address] [place] Bilirubin [Mass/Vol] 0.2 mg/dL Normal 0.2-1.3 [facility] Comment on above: Order Comment: Speci men Type: BLOOD SPECIMEN Ordering Facility: [facility] Address: [address] [place] [address] Performed By: #### 5 7021-8 #### [facility] CLIA [id number] [address] [place] [address] [place] Calcium [Mass/Vol] 9.4 mg/dL Normal 8.5-10.2 [facility] Comment on above: Order Comment: Speci men Type: BLOOD SPECIMEN Ordering Facility: [facility] Address: [address] [place] [address] Performed By: #### 5 7021-8 #### [facility] CLIA [id number] [address] [place] [address] [place] Chloride [Moles/Vol] 103 mmol/L Normal 98-107 [facility] Comment on above: Order Comment: Speci men Type: BLOOD SPECIMEN Ordering Facility: [facility] Address: [address] [place] [address] Performed By: #### 5 7021-8 #### [facility] CLIA [id number] [address] [place] [address] [place] CO2 [Moles/Vol] 19 mmol/L Low 22-30 [facility] Comment on above: Order Comment: Speci men Type: BLOOD SPECIMEN Ordering Facility: [facility] Address: [address] [place], [place] [address] Performed By: #### 5 7021-8 #### [facility] CLIA [id number] [address] [place] [address] [place] Creatinine [Mass/Vol] 0.58 mg/dL Normal 0.58-0.96 [facility] Comment on above: Order Comment: Speci men Type: BLOOD SPECIMEN Ordering Facility: [facility] Address: [address] [place] [address] Performed By: #### 5 7021-8 #### [facility] [id number] [address] [place] [address] [place] eGFRcr SerPlBld CKD-EPI 2020 127 mL/min/1.73m??? Normal >=60 [facility] Comment on above: Order Comment: Speci men Type: BLOOD SPECIMEN Ordering Facility: [facility] Address: [address] [place] [address] Result Comment: Jossie mated Glomerular Filtration Rate [...] By: #### 5 7021-8 #### [facility] CLIA [id number] [address] [place] [address] [place] Glucose [Mass/Vol] 121 mg/dL High 74-99 [facility] Comment on above: Order Comment: Sheryl reyes Type: BLOOD SPECIMEN Ordering Facility: [facility] Address: [address] [place], [place] [address] Result Comment: The Chinese Diabetes Association (ADA) provides guidance for cutoff [...] Standards of Medical Care in Diabetes 2016, Chinese Diabetes Association. Diabetes Care. 2016.39(Suppl 1). Performed By: #### 5 7021-8 #### [facility] CLIA [id number] [address] [place] [address] [place] Potassium [Moles/Vol] 3.3 mmol/L Low 3.7-5.1 [facility] Comment on above: Order Comment: Sheryl reyes Type: BLOOD SPECIMEN Ordering Facility: [facility] Address: [address] [place], [place] [address] Performed By: #### 5 7021-8 #### [facility] CLIA [id number] [address] [place] [address] [place] Protein [Mass/Vol] 6.8 g/dL Normal 6.3-8.0 [facility] Comment on above: Order Comment: Sheryl reyes Type: BLOOD SPECIMEN Ordering Facility: [facility] Address: [address] [place] [address] Performed By: #### 5 7021-8 #### [facility] CLIA [id number] [address] [place] [address] [place] Sodium [Moles/Vol] 136 mmol/L Normal 136-144 [facility] Comment on above: Order Comment: Speci men Type: BLOOD SPECIMEN Ordering Facility: [facility] Address: [address] [place], [place] [address] Performed By: #### 5 7021-8 #### [facility] CLIA [id number] [address] [place] [address] [place] Urea nitrogen [Mass/Vol] 11 mg/dL Normal 7-21 [facility] Comment on above: Order Comment: Speci men Type: BLOOD SPECIMEN Ordering Facility: [facility] Address: [address] [place] [address] Performed By: #### 5 7021-8 #### [facility] CLIA [id number] [address] [place] [address] [place] Examination level ultrasound on 01-15-2025 [facility] Radiology Study observation (narrative) [facility] GESTATIONAL GLUCOSE SCREEN, 1-HOUR, 50 GRAM, NON-FASTINGon 01-15-2025 Glucose [Mass/Vol] 120 mg/dL Normal 74-134 [facility] Comment on above: Order Comment: Speci men Type: BLOOD SPECIMENOrdering Facility: [facility] Address: [address] [place] [address] Result Comment: [facility] Congress of Obstetricians and Gynecologists (Munira/Lisy) guidelines state a gestational diabetes mellitus positive screen is made, in women not previously diagnosed with overt diabetes, when the 1 hr plasma glucose level is equal to or above 140 mg/dL. The [facility] [employer] and [facility] [place] recommends a 135 mg/dL cutoff. Performed By: #### G LTGST ####[facility] [id number] [place] [address] [place] Prot/Creat Uron 01-15-2025 Protein/Creatinine (U) [Mass ratio] 0.13 mg/mg Normal <0.15 [facility] Comment on above: Order Comment: Speci men Type: URINE SPECIMENOrdering Facility: [facility] Address: [address] [place] [address] Result Comment: Adul t Proteinuria Categories: <0.15 mg/mg is considered normal to mildly increased 0.15 - 0.50 mg/mg is considered moderately increased >0.50 mg/mg is considered severely increased KDIGO. (2013). KDIGO 2012 Clinical Practice Guideline for the Evaluation and Management of Chronic Kidney Disease. Official Journal of the International Society of Nephrology, 3(1), 1-150. Performed By: #### 2 890-2 ####[facility] LABIA [id number] [place] [address] [place] Protein/Creatinine (U) [Mass ratio]on 01-15-2025 Creatinine (U) [Mass/Vol] 38.8 mg/dL Normal 20.0-300.0 [facility] Comment on above: Order Comment: Speci men Type: URINE SPECIMENOrdering Facility: [facility] Address: [address] [place] [address] Performed By: #### 2 890-2 ####[facility] [id number] [place] [address] [place] Protein (U) [Mass/Vol] 5 mg/dL Normal 0-20 [facility] Comment on above: Order Comment: Speci men Type: URINE SPECIMENOrdering Facility: [facility] Address: [address] [place] [address] Performed By: #### 2 890-2 ####[facility] LABIA [id number] [place] [id number] [place] Reagin and Treponema pallidu m IgG and IgM [Interp]on 01-15-2025 T. pallidum IgG+IgM IA Ql (S) Non-Reactive Normal Nonreactive [facility] Comment on above: Order Comment: Speci men Type: BLOOD SPECIMENOrdering Facility: [facility] Address: [address] [place] [address] Performed By: #### 7 3752-8 ####[facility] LABIA [id number] [place] [address] [place] Reagin+T pallidum IgG+IgM Se rPl-Impon 01-15-2025 Reagin and Treponema pallidum IgG and IgM [Interp] Cannot exclude recent Treponemal infection if specimen collected within 7-10 days after appearance of suspect lesions or 2-3 weeks after an exposure. Clinical correlation is required. Normal [facility] Comment on above: Order Comment: Speci men Type: BLOOD SPECIMENOrdering Facility: [facility] Address: [address] [place] [address] Performed By: #### 7 3752-8 ####[facility] [id number] [address] STATES [facility] TYPE + SCREEN PRENATALon ABO O Normal [facility] Comment on above: Order Comment: Speci men Type: BLOOD SPECIMENOrdering Facility: [facility] Address: [address] [place] [address] Performed By: #### T SPN ####[facility] BLO[facility] BANKIA [id number] [place] [address] [place] Rh Nom (Bld) Negative Normal [facility] Comment on above: Order Comment: Speci men Type: BLOOD SPECIMENOrdering Facility: [facility] Address: [address] [place] [address] Performed By: #### T SPN ####[facility] [id number] [place] [address] [place] TYPE AND SCREEN EXPIRATION 01/18/2025 23:59 Normal [facility] Comment on above: Order Comment: Speci men Type: BLOOD SPECIMENOrdering Facility: [facility] Address: [address] [place] [address] Performed By: #### T SPN ####[facility] [id number] [place] [address] [place] URINE OB DIP B/Oon Glucose Ql (U) Negative Neg mg/dL [facility] Protein.monoclonal (U) [Mass/Vol] Negative Neg mg/dL [facility] Urine Cultureon 12-10-2024 URC Mixed Gram Positive Organisms Pearl Count 25,000-50,000 MIXC Mixed contaminants. Submit a new specimen if indicated. Normal [facility] Comment on above: Performed By: #### M 100.1380 #### [facility] [address] [place], [address] CNPNon 12-09-2024 CNPN Telephone (OBGYWM) OTILIA MEZA ([id number]) 1995 F Date Time Provider Department 12/09/24 JOJO SAEZ During your visit today, we recorded the following information about you: Rita Bernal RN 12/09/2024 12:36 PM Signed Patient 24w6d went to [facility] ER for blood in her urine and then was sent to [facility]. Patient states she was given a dose [...] Encounter Status:Closed by OFELIA DRISCOLL on 12/09/[facility] OTILIA ME[facility] ([id number]) 1995 F Date Time Provider Department 12/09/24 JOJO SAEZ During your visit today, we recorded the following information about you: Jojo Saez APRN.CNM 12/09/2024 1:02 PM Signed Can you please see if urine culture is back from [facility]? Thank you, BRIDGETT Lombardo Jennifer, RN 12/09/2024 1:49 PM Signed Urine culture is still pending. Will keep watch for it. Ofelia Driscoll RN Ofelia Driscoll RN 12/10/2024 4:01 PM Signed Urine culture results from [facility] given to COSME to review. GERALD [...] Status:Closed by OFELIA DRISCOLL on 12/16/24 Normal [facility] Bilirubin Test strip Ql (U)O rdered By: Jojo Saez on 12-08-2024 Bilirubin Ql (U) Negative Negative [facility] Ketones Test strip Ql (U)Ord ered By: Jojo Saez on 12-08-2024 Ketones Ql (U) 150 mg/dl Abnormal Negative [facility] Comment on above: CRITICAL VALUE *H Microscopic analysis of urin e for red blood cells (RBC)Ordered By: Jojo Saez on 12-08-2024 Microscopic analysis of urine for red blood cells (RBC) > 100 SEEN /hpf 0-5 [facility] Mucus LM Ql (Urine sed)Order ed By: Jojo Saez on 12-08-2024 Mucus Ql (Urine sed) 0 SEEN /hpf [facility] Nitrite Test strip Ql (U)Ord ered By: Jojo Saez on 12-08-2024 Nitrite Ql (U) Negative Negative [facility] OB Triage Physician Noteon 0 12-08-2024 OB Triage Physician Note [facility] Medical Records Department [address] [place] [address] OB Triage Physician Note 12/08/241928 MR#: [id number] Acct: [id number] Name: OTILIA MEZA Rep #: [id number] : 1995 29 From: Jojo Saez CNM PCP: Dr. Mago Wong MD Status:DEP [facility] Y Location: [facility] HPI - General HPI Narrative OTILIA MEZA, [...] Dr. Mago Wong MD * Signed Normal [facility] Protein Test strip Ql (U)Ord ered By: oJjo Saez on 12-08-2024 Protein Ql (U) 500 mg/dl High Negative [facility] Squamous epithelial cells de tection in urine sediment by light microscopyOrdered By: Jojo Saez on 12-08-2024 Epithelial cells.squamous LM Ql (Urine sed) 0 SEEN /hpf 5-10 [facility] Urinalysis, Completeon 12-08 RBC > 100 SEEN Normal 0-5 [facility] Comment on above: Order Comment: COLOR OF URINE MAY AFFECT DIPSTICK RESULTS. CRITICAL VALUE CALLED TO davida barr 12/08/24 Scarlet Giles. RESULTS READ BACK BY same. CLEAN CATCH Performed By: #### L 400.0001 #### [facility] [address] [place], [address] WBC 0-5 SEEN Normal 0-5 [facility] Comment on above: Order Comment: COLOR OF URINE MAY AFFECT DIPSTICK RESULTS. CRITICAL VALUE CALLED TO davida barr 12/08/24 [facility] Devika Giles. RESULTS READ BACK BY same. CLEAN CATCH Performed By: #### L 400.0001 #### [facility] [address] [place], [address] BACTERIA 0 SEEN Normal None Seen [facility] Comment on above: Order Comment: COLOR OF URINE MAY AFFECT DIPSTICK RESULTS. CRITICAL VALUE CALLED TO davida barr 12/08/24 [facility] Devika Giles. RESULTS READ BACK BY same. CLEAN CATCH Performed By: #### L 400.0001 #### [facility] [address] [place], [address] EPI,SQUAMOUS 0 SEEN Normal 5-10 [facility] Comment on above: Order Comment: COLOR OF URINE MAY AFFECT DIPSTICK RESULTS. CRITICAL VALUE CALLED TO davida barr 12/08/24 [facility] Devika Giles. RESULTS READ BACK BY same. CLEAN CATCH Performed By: #### L 400.0001 #### [facility] [address] [place], [address] Mucus Ql (Urine sed) 0 SEEN Normal [facility] Comment on above: Order Comment: COLOR OF URINE MAY AFFECT DIPSTICK RESULTS. [facility] Devika Giles. RESULTS READ BACK BY same. CLEAN CATCH Performed By: #### L 400.0001 #### [facility] [address] [place], [address] Urine clarityOrdered By: Francisca Saez on 12-08-2024 Clarity (U) Turbid Clear [facility] Urine color determinationOrd ered By: Jojo Saez on 12-08-2024 Color (U) Red Yellow [facility] Urine glucose detectionOrder ed By: Jojo Saez on 12-08-2024 Glucose Ql (U) Normal mg/dl Normal [facility] Urine leukocyte esterase det ection by dipstickOrdered By: Jojo Saez on 12-08-2024 Leukocyte esterase Test strip Ql (U) 100 /ul High Negative [facility] Urine pHOrdered By: Jojo Saez on 12-08-2024 pH (U) 6.5 [pH] 5.0 - 8.0 [facility] Urine sediment bacteria coun t by microscopy (number/high power field)Ordered By: Jojo Saez on 12-08-2024 Bacteria LM.HPF (Urine sed) [#/Area] 0 /[HPF] None Seen [facility] Urine specific gravity measu rementOrdered By: Jojo Saez on 12-08-2024 Specific gravity (U) [Rel density] 1.020 1.002-1.030 [facility] Urine urobilinogen measureme ntOrdered By: Jojo Saez on 12-08-2024 Urobilinogen Ql (U) Normal mg/dl Normal [facility] White blood cell countOrdere d By: Jojo Saez on 12-08-2024 White blood cell count 0-5 SEEN /hpf 0-5 [facility] Examination level ultrasound on 11-19-2024 Indication [...] 11 oz EFW by: Hadlock (HC-AC-FL) Extended Hospice Aide 6.6 mm CM 4.3 mm 28% Nicolaides [...] normal LVOT view: normal 3-vessel view: normal 0-mhvplr-ommnemx view: normal Heart / Thorax Situs: situs [...] Read By: Antonia Michelle M.D. MATERNAL MEDICINE [facility] Radiology Study observation (narrative) Luz laura [facility] Examination level ultrasound on 10-22-2024 Indication [...] prior assessment 18 w + 0 d SPENECR by prior assessment: 04/08/2025 Ultrasound examination on: [...] 5 oz EFW by: Hadlock (HC-AC-FL) Extended Hospice Aide 5.8 mm CM 3.5 mm 34% Nicolaides Extremities / Bony Struc FL / HC 0.18 95% Hadlock Other Structures FHR 152 bpm Anatomy Cranium: normal Lateral ventricles: normal Choroid plexus: normal Midline falx: normal Cerebellum: normal Cisterna magna: normal Lips: normal 4-chamber view: normal RVOT view: normal LVOT view: normal 3-vessel view: suboptimally visualized [id number]-bbshww-olzknux view: suboptimally visualized Heart / Thorax Diaphragm: [...] Read By: Antonia Michelle M.D. MATERNAL MEDICINE [facility] Radiology Study observation (narrative) [facility] Comprehensive metabolic 2000 panelOrdered By: Eliza Sparks on 09-23-2024 Albumin [Mass/Vol] 4 g/dL 3.9 - 4.9 g/dL [facility] ALP [Catalytic activity/Vol] 72 U/L 34 - 123 U/L [facility] ALT [Catalytic activity/Vol] 14 U/L 7 - 38 U/L [facility] Anion gap [Moles/Vol] 11 mmol/L 8 - 15 mmol/L [facility] AST [Catalytic activity/Vol] 15 U/L 13 - 35 U/L [facility] Bilirubin [Mass/Vol] mg/dL Low 0.2 - 1 .3 mg/dL [facility] Calcium [Mass/Vol] 9.5 mg/dL 8.5 - 10. 2 mg/dL [facility] Chloride [Moles/Vol] 104 mmol/L 98 - 10 7 mmol/L [facility] CO2 [Moles/Vol] 22 mmol/L 22 - 30 mmol/L [facility] Creatinine [Mass/Vol] 0.49 mg/dL Low 0.58 - 0.96 mg/dL [facility] GFR/1.73 sq M.predicted among non-blacks MDRD (S/P/Bld) [Vol rate/Area] 133 mL/min/{1.73_m2} - PINF [facility] Comment on above: Estimated Glomerular Filtration [...] [Mass/Vol] 96 mg/dL 74 - 99 mg/dL [facility] Comment on above: The Chinese Diabete s Association (ADA) provides guidance for [...] Standards of Medical Care in Diabetes 2016, Chinese Diabetes Association. Diabetes Care. 2016.39(Suppl 1). Interpretation and review of laboratory results Abnormal [facility] Potassium [Moles/Vol] 3.9 mmol/L 3.7 - 5.1 mmol/L [facility] Protein [Mass/Vol] 6.9 g/dL 6.3 - 8.0 g/dL Cl [facility] Sodium [Moles/Vol] 137 mmol/L 136 - 144 mmol/L [facility] Urea nitrogen [Mass/Vol] 9 mg/dL 7 - 21 mg/d L [facility] Comprehensive metabolic 2000 panelon 09-23-2024 Albumin [Mass/Vol] 4.0 g/dL Normal 3.9-4.9 [facility] Comment on above: Order Comment: Speci men Type: BLOOD SPECIMENOrdering Facility: [facility] Address: [address] [place] [address] Performed By: #### 2 4323-8 ####[facility] [id number] [place] [address] [place] ALP [Catalytic activity/Vol] 72 U/L Normal 34-123 [facility] Comment on above: Order Comment: Speci men Type: BLOOD SPECIMENOrdering Facility: [facility] Address: [address] [place] [address] Performed By: #### 2 4323-8 ####[facility] [id number] [place] [address] [place] ALT [Catalytic activity/Vol] 14 U/L Normal 7-38 [facility] Comment on above: Order Comment: Speci men Type: BLOOD SPECIMENOrdering Facility: [facility] Address: [address] [place] [address] Performed By: #### 2 4323-8 ####[facility] BERNARDONCLIA [id number] [place] [address] [place] Anion gap [Moles/Vol] 11 mmol/L Normal 8-15 [facility] Comment on above: Order Comment: Speci men Type: BLOOD SPECIMENOrdering Facility: [facility] Address: [address] [place] [address] Performed By: #### 2 4323-8 ####[facility] SIMAWNCLIA [id number] [place] [address] [place] AST [Catalytic activity/Vol] 15 U/L Normal 13-35 [facility] Comment on above: Order Comment: Speci men Type: BLOOD SPECIMENOrdering Facility: [facility] Address: [address] [place] [address] Performed By: #### 2 4323-8 ####[facility] SIMAWNCLIA [id number] [place] [address] [place] Bilirubin [Mass/Vol] mg/dL Low 0.2-1.3 [facility] Comment on above: Order Comment: Speci men Type: BLOOD SPECIMENOrdering Facility: [facility] Address: [address] [place] [address] Performed By: #### 2 4323-8 ####[facility] MILLWNCLIA [id number] [place] [address] [place] Calcium [Mass/Vol] 9.5 mg/dL Normal 8.5-10.2 [facility] Comment on above: Order Comment: Speci men Type: BLOOD SPECIMENOrdering Facility: [facility] Address: [address] [place] [address] Performed By: #### 2 4323-8 ####[facility] HOSPITALWNCLIA [id number] [place] [address] [place] Chloride [Moles/Vol] 104 mmol/L Normal 98-107 [facility] Comment on above: Order Comment: Speci men Type: BLOOD SPECIMENOrdering Facility: [facility] Address: [address] [place] [address] Performed By: #### 2 4323-8 ####[facility] [id number] [place] [address] [place] CO2 [Moles/Vol] 22 mmol/L Normal 22-30 [facility] Comment on above: Order Comment: Speci men Type: BLOOD SPECIMENOrdering Facility: [facility] Address: [address] [place] [address] Performed By: #### 2 4323-8 ####[facility] [id number] [place] [address] [place] Creatinine [Mass/Vol] 0.49 mg/dL Low 0.58-0.96 [facility] Comment on above: Order Comment: Speci men Type: BLOOD SPECIMENOrdering Facility: [facility] Address: [address] [place] [address] Performed By: #### 2 4323-8 ####[facility] [id number] [address] STATES OF [facility] Creatinine and Glomerular filtration rate.predicted panel (S/P/Bld) 133 mL/min/1.73m??? Normal >=60 [facility] Comment on above: Order Comment: Speci men Type: BLOOD SPECIMENOrdering Facility: [facility] Address: [address] [place] [address] Result Comment: Jossie mated Glomerular Filtration Rate [...] actual GFR. Performed By: #### 2 4323-8 ####[facility] YOWNCLIA [id number] [place] [address] [place] Glucose [Mass/Vol] 96 mg/dL Normal 74-99 [facility] Comment on above: Order Comment: Sheryl reyes Type: BLOOD SPECIMENOrdering Facility: [facility] Address: [address] [place] [address] Result Comment: The Chinese Diabetes Association (ADA) provides guidance for cutoff [...] Standards of Medical Care in Diabetes 2016, Chinese Diabetes Association. Diabetes Care. 2016.39(Suppl 1). Performed By: #### 2 4323-8 ####[facility]ITAL[facility]CL[facility] [id number] [place] [address] [place] Potassium [Moles/Vol] 3.9 mmol/L Normal 3.7-5.1 [facility] Comment on above: Order Comment: Sheryl reyes Type: BLOOD SPECIMENOrdering Facility: [facility] Address: [address] [place] [address] Performed By: #### 2 4323-8 ####[facility] SIMAWNCLIA [id number] [place] [address] [place] Protein [Mass/Vol] 6.9 g/dL Normal 6.3-8.0 [facility] Comment on above: Order Comment: Speci men Type: BLOOD SPECIMENOrdering Facility: [facility] Address: [address] [place] [id number] Performed By: #### 2 4323-8 ####[facility] RAMWNCLIA [id number] [address] STATES [facility] Sodium [Moles/Vol] 137 mmol/L Normal 136-144 [facility] Comment on above: Order Comment: Speci men Type: BLOOD SPECIMENOrdering Facility: [facility] Address: [address] [place] [address] Performed By: #### 2 4323-8 ####[facility] MILLTOWNCLIA [id number] [address] Urea nitrogen [Mass/Vol] 9 mg/dL Normal 7-21 [facility] Comment on above: Order Comment: Speci men Type: BLOOD SPECIMENOrdering Facility: [facility] Address: [address] [place] [address] Performed By: #### 2 4323-8 ####[facility] JR RAMWNCLIA [id number] [address] STATES OF [facility] Examination level ultrasound on 09-23-2024 Indication First trimester anatomic survey Maternal obesity, BMI >40 Impression REMOTE READ The patient is referred for a first trimester anatomy scan including nuchal translucency measurement as clinically indicated. - Single, live, intrauterine . - Pupukea rump length measurement is consistent with the [...] view: suboptimal 4-chamber view with color: suboptimal 4-hlygbt-ybzdmxq view: suboptimal Abdominal cord insertion: normal Stomach: [...] Read By: Antonia Michelle M.D. MATERNAL MEDICINE [facility] Radiology Study observation (narrative) [facility] [id number] PLUSon 09-23-2024 Cell-free DNA./Cell-free DNA.total Dosage of chromosome-specific cfDNA (cfDNA) [Molar fraction] 12% Normal [facility] Comment on above: Order Comment: Speci men Type: BLOOD SPECIMENOrdering Facility: [facility] Address: [address] [place] [address] Performed By: #### M AT21 ####[facility] LABCLIA [id number] [place] [address] Chr 13+18+21+X+Y aneuploidy Dosage of chromosome-specific cfDNA Ql (cfDNA) Negative Normal [facility] Comment on above: Order Comment: Speci men Type: BLOOD SPECIMENOrdering Facility: [facility] Address: [address] [place] [address] Performed By: #### M AT21 ####[facility] LABCLIA [id number] [place] [address] Chr 21 trisomy Dosage of chromosome-specific cfDNA Ql (cfDNA) Negative Normal [facility] Comment on above: Order Comment: Speci men Type: BLOOD SPECIMENOrdering Facility: [facility] Address: [address] [place] [address] Performed By: #### M AT21 ####[facility] LABCLIA [id number] [place] [address] Chr X and Y aneuploidy risk Sequencing Ql (cfDNA) [Interp] Not detected Normal [facility] Comment on above: Order Comment: Speci men Type: BLOOD SPECIMENOrdering Facility: [facility] Address: [address] [place] [address] Result Comment: Not Detected Not Detected Performed By: #### M AT21 ####[facility] LABCLIA [id number] [place] [address] Citation Shaquille (Reference lab test) Comment Normal [facility] Comment on above: Order Comment: Speci men Type: BLOOD SPECIMENOrdering Facility: [facility] Address: [address] [place] [address] Result Comment: 1. P maik ALEXIS, et al. Krystle Med. 2012;14(3):296-305. 2. Adamaris SONG et al. Prenat Diag. 2013;33(6):591-597. 3. Anjel C, et al. Clin Chem. 2015 Apr;61(4):608-616. 4. Ailyn ALEXIS et al. Krystle Med. 2011;13(11):913-920. 5. ACOG/SMFM Practice Bulletin No. 226, Mar 2020. Performed By: #### M AT21 ####[facility] LABCLIA [id number] [place] [address] Gestational age Estimated from conception date Melgoza Normal [facility] Comment on above: Order Comment: Speci men Type: BLOOD SPECIMENOrdering Facility: [facility] Address: [address] [place] [address] Performed By: #### M AT21 ####[facility] LABCLIA [id number] [place] [address] GESTATIONALAGE AGE > OR = 9W Yes Normal [facility] Comment on above: Order Comment: Speci men Type: BLOOD SPECIMENOrdering Facility: [facility] Address: [address] [place] [address] Performed By: #### M AT21 ####[facility] LABCLIA [id number] [place] [address] Laboratory comment Shaquille (Report) Comment Normal [facility] Comment on above: Order Comment: Speci men Type: BLOOD SPECIMENOrdering Facility: [facility] Address: [address] [place] [address] Result Comment: The MaterniT(R) 21 PLUS laboratory-developed test (LDT) analyzes circulating cell-free DNA from a maternal blood sample. This test is used for screening purposes and not diagnostic. Clinical correlation is recommended. Validation data on twin pregnancies is limited and the ability of this test to detect aneuploidy in higher multiple gestations has not yet been validated. Performed By: #### M AT21 ####[facility] LABCLIA [id number] [place] [address] pricing director name Nom (Provider) Comment Normal [facility] Comment on above: Order Comment: Speci men Type: BLOOD SPECIMENOrdering Facility: [facility] Address: [address] [place] [address] Result Comment: This specimen showed an expected representation of chromosome 21, 18 and 13 material. Clinical correlation is suggested. Comment Kendell Real MD, PhD, Director, [employer] Performed By: #### M AT21 ####[facility] LABCLIA [id number] [place] [address] LIMITATIONS OF THE TEST Comment Normal [facility] Comment on above: Order Comment: Speci men Type: BLOOD SPECIMENOrdering Facility: [facility] Address: [address] [place] [address] Result Comment: Donte roque the results of [...] and Fragmin(R)). Performed By: #### M AT21 ####Shop[facility] [id number] [place] [id number] Monosomy X risk Dosage of chromosome-specific cfDNA Ql (Plasma cell-free+WBC DNA) [Interp] Not detected Normal [facility] Comment on above: Order Comment: Sheryl reyes Type: BLOOD SPECIMENOrdering Facility: [facility] Address: [address] [place] [address] Performed By: #### M AT21 ####[facility] [id number] [place] [id number] NEGATIVE PREDICTIVE VALUE Note Normal [facility] Comment on above: Order Comment: Sheryl reyes Type: BLOOD SPECIMENOrdering Facility: [facility] Address: [address] [place] [address] Result Comment: The Negative Predictive Value (NPV) for trisomy 21, 18, and 13 is greater than 99%. The NPV for SCA and ESS cannot be calculated as SCA and ESS are only reported when an abnormality is detected. Performed By: #### M AT21 ####[facility] [id number] [place] [id number] PERFORMANCE CHARACTERISTICS Note Normal [facility] Comment on above: Order Comment: Sheryl reyes Type: BLOOD SPECIMENOrdering Facility: [facility] Address: [address] [place] [address] Result Comment: ! Sex ! Accuracy: 99.4% [...] ! ! ! * As reported in [employer] database nstd37 [https://www.ncbi.nlm.nih.gov/dbvar/studies/nstd37/ ] # Estimated Sensitivity. [...] Performed By: #### M AT21 ####[facility] LABCLIA [id number] [place] [address] POSITIVE PREDICTIVE VALUE N/A Normal [facility] Comment on above: Order Comment: Speci men Type: BLOOD SPECIMENOrdering Facility: [facility] Address: [address] [place] [address] Performed By: #### M AT21 ####[facility] LABCLIA [id number] [place] [address] Reference Lab Test Method Comment Normal [facility] Comment on above: Order Comment: Speci men Type: BLOOD SPECIMENOrdering Facility: [facility] Address: [address] [place] [address] Result Comment: See Notes Circulating cell-free DNA [...] Performed By: #### M AT21 ####[facility] LABCLIA [id number] [place] [address] Service comment (Unsp spec) [Interp] Comment Normal [facility] Comment on above: Order Comment: Speci men Type: BLOOD SPECIMENOrdering Facility: [facility] Address: [address] [place] [address] Result Comment: See Notes [employer]. is a subsidiary of [employer], using the brand [facility]. This test was developed and its performance characteristics determined by [employer]. It has not been cleared or approved by the Food and Drug Administration. This laboratory is certified under the Clinical Laboratory Improvement Amendments (CLIA) as qualified to perform high complexity clinical laboratory testing and accredited by the College of [employer]ologists (CAP). If there is future clinical need for adding MaterniT GENOME testing, this specimen will be available until term. [facility] samples will not be retained beyond 60 days. [facility] patients will have to send a new sample for re-sequencing ([facility] Test Code: [id number]). Performed By: #### M AT21 ####[facility] LABCLIA [id number] [place] [address] Sex Dosage of chromosome-specific cfDNA Nom (cfDNA) Comment Normal [facility] Comment on above: Order Comment: Speci men Type: BLOOD SPECIMENOrdering Facility: [facility] Address: [address] [place] [address] Result Comment: Cons istent with Male Performed By: #### M AT21 ####[facility] LABCLIA [id number] [place] [address] Test performance information Shaquille (Unsp spec) Comment Normal [facility] Comment on above: Order Comment: Speci men Type: BLOOD SPECIMENOrdering Facility: [facility] Address: [address] [place] [address] Result Comment: The performance characteristics of the MaterniT(R) 21 PLUS laboratory-developed test (LDT) have been determined in a clinical validation study with women at increased risk for chromosomal aneuploidy.[1-4] Performed By: #### M AT21 ####[facility] LABCLIA [id number] [place] [address] Trisomy 13 risk Dosage of chromosome-specific cfDNA Ql (cfDNA) [Interp] Negative Normal [facility] Comment on above: Order Comment: Speci men Type: BLOOD SPECIMENOrdering Facility: [facility] Address: [address] [place] [address] Performed By: #### M AT21 ####[facility] LABCLIA [id number] [place] [address] Trisomy 18 risk Dosage of chromosome-specific cfDNA Ql (Plasma cell-free+WBC DNA) [Interp] Negative Normal [facility] Comment on above: Order Comment: Speci men Type: BLOOD SPECIMENOrdering Facility: [facility] Address: [address] [place] [address] Performed By: #### M AT21 ####[facility] LABCLIA [id number] [place] [address] Prot/Creat Uron 09-23-2024 Protein/Creatinine (U) [Mass ratio] 0.07 mg/mg Normal <0.15 [facility] Comment on above: Order Comment: Speci men Type: URINE SPECIMENOrdering Facility: [facility] Address: [address] [place] [address] Result Comment: Adul t Proteinuria Categories: <0.15 mg/mg is considered normal to mildly increased 0.15 - 0.50 mg/mg is considered moderately increased >0.50 mg/mg is considered severely increased KDIGO. (2013). KDIGO 2012 Clinical Practice Guideline for the Evaluation and Management of Chronic Kidney Disease. Official Journal of the International Society of Nephrology, 3(1), 1-150. Performed By: #### 2 890-2 ####[facility] LABCLIA [id number] [place] [address] [place] Protein/Creatinine (U) [Mass ratio]on 09-23-2024 Creatinine (U) [Mass/Vol] 82.1 mg/dL Normal 20.0-300.0 [facility] Comment on above: Order Comment: Speci men Type: URINE SPECIMENOrdering Facility: [facility] Address: [address] [place] [address] Performed By: #### 2 890-2 ####[facility] LABCLIA [id number] [place] [address] [place] Protein (U) [Mass/Vol] 6 mg/dL Normal 0-20 [facility] Comment on above: Order Comment: Speci men Type: URINE SPECIMENOrdering Facility: [facility] Address: [address] [place] [address] Performed By: #### 2 890-2 ####[facility] LABCLIA [id number] [place] [address] [place] Examination level ultrasound on 08-31-2024 Indication dating Impression - Single, live, intrauterine . - An intrauterine gestational sac with a yolk sac and pole is present. - Pupukea rump length measurement is NOT consistent with [...] Read By: Bianca Melo M.D. MATERNAL MEDICINE [facility] Examination level ultrasound on 08-30-2024 Radiology Study observation (narrative) [facility] B-HCG SerPl-[place]Cn[place] 5 [place] [address].0 m[IU]/mL High <5.0 [facility] Comment on above: Order Comment: Speci men Type: BLOOD SPECIMENOrdering Facility: [facility] Address: [address] [place] [address] Result Comment: EN TITATIVE HCG NORMAL RANGES Weeks of Gestation (Weeks Since LMP) 3 Weeks (5.8-71.2 mIU/mL) 4 Weeks (9.5-750 mIU/mL) 5 Weeks (217-7138 mIU/mL) 6 Weeks (158-49417 mIU/mL) 7 Weeks (3697-825680 mIU/mL) 8 Weeks (18969-963187 mIU/mL) 9 Weeks (10179-859647 mIU/mL) 10 Weeks (24347-719630 mIU/mL) 12 Weeks (44238-705505 mIU/mL) Referenced to 4th IS of [facility] Performed By: #### 2 1198-7 ####[facility] LABCLIA [id number] [place] [address] [place] B-HCG SerPl-[place]Cn[place] [address].0 m[IU]/mL High <5.0 [facility] Comment on above: Order Comment: Speci men Type: BLOOD SPECIMENOrdering Facility: [facility] Address: [address] [place] [address] Result Comment: EN TITATIVE HCG NORMAL RANGES Weeks of Gestation (Weeks Since LMP) 3 Weeks (5.8-71.2 mIU/mL) 4 Weeks (9.5-750 mIU/mL) 5 Weeks (217-7138 mIU/mL) 6 Weeks (158-37416 mIU/mL) 7 Weeks (3697-220205 mIU/mL) 8 Weeks (69914-566064 mIU/mL) 9 Weeks (99941-866283 mIU/mL) 10 Weeks (95122-182179 mIU/mL) 12 Weeks (91391-720528 mIU/mL) Referenced to 4th IS of [facility] Performed By: #### 2 1198-7 ####[facility] LABCLIA [id number] [place] [address] [place] Bacteria Ur Culton Bacteria identified Cx Nom (U) ORGANISM ID: 1 50,000-<100,000 CFU/ml Normal urogenital dejah Normal [facility] Comment on above: Performed By: #### 6 30-4 ####[facility] LABCLIA [id number] [place] [address] [place] C. trachomatis+N. gonorrhoea e DNA HADLEY+probe Ql (Unsp spec)on 08-12-2024 C. trachomatis rRNA HADLEY+probe Ql (Unsp spec) Not detected Normal Not detected [facility] Comment on above: Order Comment: Speci men Type: BLOOD SPECIMEN [facility] Address: [address] [place] [address] Performed By: #### 5 7021-8 #### [facility] [id number] [address] [place] [address] [place] N. gonorrhoeae rRNA HADLEY+probe Ql (Unsp spec) Not detected Normal Not detected [facility] Comment on above: Order Comment: Speci men Type: BLOOD SPECIMEN [facility] Address: [address] [place] [address] Performed By: #### 5 7021-8 #### [facility] CLIA [id number] [address] [place] [address] [place] CBC W Auto Differential pane l (Bld)on 08-12-2024 Basophils (Bld) [#/Vol] 0.03 10*3/uL Normal <0.11 [facility] Comment on above: Order Comment: Speci men Type: BLOOD SPECIMEN [facility] Address: [address] [place] [address] Performed By: #### 5 7021-8 #### [facility] CLIA [id number] [address] [place] [address] [place] Basophils/100 WBC (Bld) 0.3 % Normal [facility] Comment on above: Order Comment: Speci men Type: BLOOD SPECIMEN [facility] Address: [address] [place] [address] Performed By: #### 5 7021-8 #### [facility] CLIA [id number] [address] [place] [address] [place] Differential cell count method Nom (Bld) Auto Normal [facility] Comment on above: Order Comment: Speci men Type: BLOOD SPECIMEN [facility] Address: [address] [place] [address] Performed By: #### 5 7021-8 #### [facility] CLIA [id number] [address] [place] [address] [place] Eosinophils (Bld) [#/Vol] 0.06 10*3/uL Normal <0.46 [facility] Comment on above: Order Comment: Speci men Type: BLOOD SPECIMEN [facility] Address: [address] [place] [address] Performed By: #### 5 7021-8 #### [facility] CLIA [id number] [address] [place] [address] [place] Eosinophils/100 WBC (Bld) 0.6 % Normal [facility] Comment on above: Order Comment: Speci men Type: BLOOD SPECIMEN [facility] Address: [address] [place] [address] Performed By: #### 5 7021-8 #### [facility] CLIA [id number] [address] [place] [address] [place] Erythrocyte distribution width (RBC) [Ratio] 12.5 % Normal 11.5-15.0 [facility] Comment on above: Order Comment: Speci men Type: BLOOD SPECIMEN [facility] Address: [address] [place] [address] Performed By: #### 5 7021-8 #### [facility] CLIA [id number] [address] [place] [address] [place] Hematocrit (Bld) [Volume fraction] 41.8 % Normal 36.0-46.0 [facility] Comment on above: Order Comment: Speci men Type: BLOOD SPECIMEN [facility] Address: [address] [place] [address] Performed By: #### 5 7021-8 #### [facility] [id number] [address] [place] [address] [place] Hemoglobin (Bld) [Mass/Vol] 14.5 g/dL Normal 11.5-15.5 [facility] Comment on above: Order Comment: Speci men Type: BLOOD SPECIMEN [facility] Address: [address] [place] [address] Performed By: #### 5 7021-8 #### [facility] [id number] [address] [place] [address] [place] Immature granulocytes (Bld) [#/Vol] 0.09 10*3/uL Normal <0.10 [facility] Comment on above: Order Comment: Speci men Type: BLOOD SPECIMEN [facility] Address: [address] [place] [address] Performed By: #### 5 7021-8 #### [facility] [id number] [address] [place] [address] [place] Immature granulocytes/100 WBC (Bld) 0.9 % Normal [facility] Comment on above: Order Comment: Speci men Type: BLOOD SPECIMEN [facility] Address: [address] [place] [address] Performed By: #### 5 7021-8 #### [facility] CLIA [id number] [address] [place] [address] [place] Lymphocytes (Bld) [#/Vol] 2.44 10*3/uL Normal 1.00-4.00 [facility] Comment on above: Order Comment: Speci men Type: BLOOD SPECIMEN [facility] Address: [address] [place], [place] [address] Performed By: #### 5 7021-8 #### [facility] CLIA [id number] [address] [place] [address] [place] Lymphocytes/100 WBC (Bld) 24.6 % Normal [facility] Comment on above: Order Comment: Speci men Type: BLOOD SPECIMEN [facility] Address: [address] [place] [address] Performed By: #### 5 7021-8 #### [facility] CLIA [id number] [address] [place] [address] [place] MCH (RBC) [Entitic mass] 30.0 pg Normal 26.0-34.0 [facility] Comment on above: Order Comment: Speci men Type: BLOOD SPECIMEN [facility] Address: [address] [place] [address] Performed By: #### 5 7021-8 #### [facility] CLIA [id number] [address] [place] [address] [place] MCHC (RBC) [Mass/Vol] 34.7 g/dL Normal 30.5-36.0 [facility] Comment on above: Order Comment: Speci men Type: BLOOD SPECIMEN [facility] Address: [address] [place] [address] Performed By: #### 5 7021-8 #### [facility] CLIA [id number] [address] [place] [address] OF [place] MCV (RBC) [Entitic vol] 86.4 fL Normal 80.0-100.0 [facility] Comment on above: Order Comment: Speci men Type: BLOOD SPECIMEN [facility] Address: [address] [place] [address] Performed By: #### 5 7021-8 #### [facility] CLIA [id number] [address] [place] [address] [place] Monocytes (Bld) [#/Vol] 0.48 10*3/uL Normal <0.87 [facility] Comment on above: Order Comment: Speci men Type: BLOOD SPECIMEN [facility] Address: [address] [place] [address] Performed By: #### 5 7021-8 #### [facility] CLIA [id number] [address] [place] [address] [place] Monocytes/100 WBC (Bld) 4.8 % Normal [facility] Comment on above: Order Comment: Speci men Type: BLOOD SPECIMEN Ordering Facility: [facility] Address: [address] [place] [address] Performed By: #### 5 7021-8 #### [facility] CLIA [id number] [address] [place] [address] [place] Neutrophils (Bld) [#/Vol] 6.83 10*3/uL Normal 1.45-7.50 [facility] Comment on above: Order Comment: Speci men Type: BLOOD SPECIMEN Ordering Facility: [facility] Address: [address] [place] [address] Performed By: #### 5 7021-8 #### [facility] CLIA [id number] [address] [place] [address] [place] Neutrophils/100 WBC (Bld) 68.8 % Normal [facility] Comment on above: Order Comment: Speci men Type: BLOOD SPECIMEN Ordering Facility: [facility] Address: [address] [place] [address] Performed By: #### 5 7021-8 #### [facility] CLIA [id number] [address] [place] [address] [place] Nucleated RBC (Bld) [#/Vol] 10*3/uL Normal <0.01 [facility] Comment on above: Order Comment: Speci men Type: BLOOD SPECIMEN Ordering Facility: [facility] Address: [address] [place] [address] Performed By: #### 5 7021-8 #### [facility] CLIA [id number] [address] [place] [address] [place] Nucleated RBC/100 WBC (Bld) [Ratio] 0.0 /100 WBC Normal [facility] Comment on above: Order Comment: Speci men Type: BLOOD SPECIMEN Ordering Facility: [facility] Address: [address] [place] [address] Performed By: #### 5 7021-8 #### [facility] CLIA [id number] [address] [place] [address] [place] Platelet mean volume (Bld) [Entitic vol] 9.1 fL Normal 9.0-12.7 [facility] Comment on above: Order Comment: Speci men Type: BLOOD SPECIMEN Ordering Facility: [facility] Address: [address] [place] [address] Performed By: #### 5 7021-8 #### [facility] CLIA [id number] [address] [place] [address] [place] Platelets (Bld) [#/Vol] 292 10*3/uL Normal 150-400 [facility] Comment on above: Order Comment: Speci men Type: BLOOD SPECIMEN Ordering Facility: [facility] Address: [address] [place], [place] [address] Performed By: #### 5 7021-8 #### [facility] CLIA [id number] [address] [place] [address] [place] WBC (Bld) [#/Vol] 9.93 10*3/uL Normal 3.70-11.00 [facility] Comment on above: Order Comment: Speci men Type: BLOOD SPECIMEN Ordering Facility: [facility] Address: [address] [place], [place] [address] Performed By: #### 5 7021-8 #### [facility] CLIA [id number] [address] [place] [address] OF [facility] CNPNon 08-12-2024 TANAN Telephone (OBGYWM) OTILIA MEZA ([id number]) 1995 F Date Time Provider Department 08/12/24 [...] Dela Cruz RN 08/16/2024 12:02 PM Signed Freezing Pointt message was sent to patient by CP [...] by NADIYA DELA CRUZ on 08/16/24 Normal [facility] HBV surface Ag Ser Qlon 07-27 HBV surface Ag Ql (S) Negative Normal Negative [facility] Comment on above: Order Comment: Sheryl reyes Type: BLOOD SPECIMEN Ordering Facility: [facility] Address: [address] [place] [address] Performed By: #### 5 7021-8 #### [id number] [address] [place] [address] HCV Ab Ser Qlon 08-12-2024 HCV Ab Ql (S) Negative Normal Negative [facility] Comment on above: Order Comment: Sheryl reyes Type: BLOOD SPECIMEN Ordering Facility: [facility] Address: [address] [place] [address] Result Comment: The result suggests no evidence of active infection with Hepatitis C virus. Should recent infection be suspected, repeat testing may be considered 4-6 weeks after this draw. Performed By: #### 5 7021-8 #### [facility] CLIA [id number] [address] [place] [address] [place] HGB ELECTROPHORESIS FOR EVAL (LAB ORDER)on 08-12-2024 Hemoglobin A (Bld) [Mass fraction] 97.7 % Normal 96.2-98.0 [facility] Comment on above: Order Comment: Speci men Type: BLOOD SPECIMENOrdering Facility: [facility] Address: [address] [place] [address] Performed By: #### L [id number], HGBELEV ####[facility] [id number] [place] [address] [place] Hemoglobin A2 (Bld) [Mass fraction] 2.3 % Normal 2.0-3.1 [facility] Comment on above: Order Comment: Speci men Type: BLOOD SPECIMENOrdering Facility: [facility] Address: [address] [place] [address] Performed By: #### L [id number], HGBELEV ####[facility] [id number] [place] [address] [place] Hemoglobin Unsp Elph (Bld) [Mass fraction] No abnormal hemoglobin identified. Normal No abnormal hemoglobin identified. [facility] Comment on above: Order Comment: Speci men Type: BLOOD SPECIMENOrdering Facility: [facility] Address: [address] [place] [address] Performed By: #### L [id number], HGBELEV ####[facility] [id number] [place] [address] [place] HGB EVALUATION CASCADE INTER Howard 08-12-2024 Hemoglobin pattern (Bld) [Interp] Reviewed by Bertha Joseph MD, PhD Normal [facility] Comment on above: Order Comment: Speci men Type: BLOOD SPECIMENOrdering Facility: [facility] Address: [address] [place] [address] Performed By: #### L [id number], HGBELEV ####[facility] [id number] [place] [address] [place] INTERPRETATION (HGB EVAL) Normal [facility] Comment on above: Order Comment: Speci men Type: BLOOD SPECIMENOrdering Facility: [facility] Address: [address] [place] [address] Result Comment: Hemo globins were analyzed by capillary electrophoresis and CBC red cell parameters were reviewed. No abnormal hemoglobin is identified. There is a normal hemoglobin capillary electrophoresis pattern. Performed By: #### L [id number], HGBELEV ####[facility] [id number] [facility] [place] [address] [place] HIV 1+2 Ab IA Qlon 5 HIV 1 and 2 Ab IA.rapid Nom (S/P/Bld) Normal [facility] Comment on above: Order Comment: Speci men Type: BLOOD SPECIMEN Ordering Facility: [facility] Address: [address] [place] [address] Result Comment: Test not indicated. Performed By: #### 5 7021-8 #### [facility] CLIA [id number] [address] [place] [address] [place] HIV 1+2 Ab+HIV1 p24 Ag IA Ql Non-Reactive Normal Nonreactive [facility] Comment on above: Order Comment: Speci men Type: BLOOD SPECIMEN Ordering Facility: [facility] Address: [address] [place] [address] Performed By: #### 5 7021-8 #### [facility] CLIA [id number] [address] [place] [address] [place] HIV immunoassay testing algorithm interpretation (S/P/Bld) [Interp] Normal [facility] Comment on above: Order Comment: Speci amy Type: BLOOD SPECIMEN Ordering Facility: [facility] Address: [address] [place] [address] Result Comment: No e vidence of HIV-1 or HIV-2 infection. Should recent infection be suspected, repeat testing may be considered 2-3 weeks after this draw. [place] Rev. Code 3701.243(E): This information has been [...] diagnoses. Performed By: #### 5 7021-8 #### [facility] [id number] [address] [place] [address] [place] HbA1c (Bld)on 08-12-2024 Average glucose Estimated from glycated hemoglobin (Bld) [Mass/Vol] 85 mg/dL Normal [facility] Comment on above: Order Comment: Speci men Type: BLOOD SPECIMENOrdering Facility: [facility] Address: [address] [place] [address] Result Comment: eAG: (Estimated average glucose) is a calculated value from HgbA1c and is provider service representative of the average blood glucose level in the last 2-3 month period. Performed By: #### 5 5454-3 ####[facility] [id number] [address] [place] HbA1c (Bld) [Mass fraction] 4.6 % Normal 4.3-5.6 [facility] Comment on above: Order Comment: Speci amy Type: BLOOD SPECIMENOrdering Facility: [facility] Address: [address] [place] [address] Result Comment: Amer [place] Diabetes Association guidelines indicate that patients with HgbA1c in the range 5.7-6.4% are at increased risk for development of diabetes, and intervention by lifestyle modification may be beneficial. HgbA1c greater or equal to 6.5% is considered diagnostic of diabetes. Performed By: #### 5 5454-3 ####[facility] [id number] [address] [place] POC [employer] TRAINER ULTRASOUNDon 08-12-19 Indication Viability; confirm cardiac activity [...] Read By: Matilde Adler CNM MATERNAL MEDICINE [facility] Radiology Study observation (narrative) [facility] RBC PARAMETERS FOR HB IDon 0 08-12-2024 Erythrocyte distribution width (RBC) [Ratio] 12.6 % Normal 11.5-15.0 [facility] Comment on above: Order Comment: Sheryl reyes Type: BLOOD SPECIMEN Ordering Facility: [facility] Address: [address] [place] [address] Performed By: #### L [id number] #### [facility] CLIA [id number] [address] [place] [address] [place] Hematocrit (Bld) [Volume fraction] 42.9 % Normal 36.0-46.0 [facility] Comment on above: Order Comment: Sheryl reyes Type: BLOOD SPECIMEN Ordering Facility: [facility] Address: [address] [place] [address] Performed By: #### L [id number] #### [facility] CLIA [id number] [address] [place] [address] [place] Hemoglobin (Bld) [Mass/Vol] 14.4 g/dL Normal 11.5-15.5 [facility] Comment on above: Order Comment: Sheryl reyes Type: BLOOD SPECIMEN Ordering Facility: [facility] Address: [address] [place] [address] Performed By: #### L [id number] #### [facility] CLIA [id number] [address] [place] [address] [place] MCH (RBC) [Entitic mass] 29.8 pg Normal 26.0-34.0 [facility] Comment on above: Order Comment: Speci men Type: BLOOD SPECIMEN Ordering Facility: [facility] Address: [address] [place] [address] Performed By: #### L [id number] #### [facility] CLIA [id number] [address] [place] [address] [place] MCHC (RBC) [Mass/Vol] 33.6 g/dL Normal 30.5-36.0 [facility] Comment on above: Order Comment: Speci men Type: BLOOD SPECIMEN Ordering Facility: [facility] Address: [address] [place] [address] Performed By: #### L [id number] #### [facility] CLIA [id number] [address] [place] [address] [place] MCV (RBC) [Entitic vol] 88.6 fL Normal 80.0-100.0 [facility] Comment on above: Order Comment: Speci men Type: BLOOD SPECIMEN Ordering Facility: [facility] Address: [address] [place] [address] Performed By: #### L [id number] #### [facility] CLIA [id number] [address] [place] [address] [place] RBC (Bld) [#/Vol] 4.84 10*6/uL Normal 3.90-5.20 [facility] Comment on above: Order Comment: Speci men Type: BLOOD SPECIMEN Ordering Facility: [facility] Address: [address] [place] [address] Performed By: #### L [id number] #### [facility] CLIA [id number] [address] [place] [address] [place] Performed By: #### 5 7021-8 #### [facility] CLIA [id number] [address] [place] [address] [place] RUBELLA IGG ANTIBODYon 08-12 RUBELLA IGG AB, QUAL Positive Normal Positive [facility] Comment on above: Order Comment: Speci men Type: BLOOD SPECIMENOrdering Facility: [facility] Address: [address] [place] [address] Result Comment: The result suggests recent or past exposure to Rubella virus or history of Rubella vaccination. Positive result may also be seen due to presence of passively-transferred antibodies. Please correlate with patient's history. Performed By: #### R UBIGG ####[facility]IA [id number] [place] [address] [place] Reagin and Treponema pallidu m IgG and IgM [Interp]on 08-12-2024 T. pallidum IgG+IgM IA Ql (S) Non-Reactive Normal Nonreactive [facility] Comment on above: Order Comment: Speci [facility] Type: BLOOD SPECIMEN Ordering Facility: [facility] Address: [address] [place] [address] Performed By: #### 5 7021-8 #### [facility] CLIA [id number] [address] [place] [address] [place] Reagin+T pallidum IgG+IgM Se rPl-Impon 08-12-2024 Reagin and Treponema pallidum IgG and IgM [Interp] Cannot exclude recent Treponemal infection if specimen collected within 7-10 days after appearance of suspect lesions or 2-3 weeks after an exposure. Clinical correlation is required. Normal [facility] Comment on above: Order Comment: Speci [facility] Type: BLOOD SPECIMEN Ordering Facility: [facility] Address: [address] [place] [address] Performed By: #### 5 7021-8 #### [id number] [address] [place] [address] [place] TRICHOMONAS VAGINALIS NAATon 08-12-2024 T. vaginalis DNA [place]LEY+probe Ql (Unsp spec) Not detected Normal Not detected [facility] Comment on above: Order Comment: Speci men Type: BLOOD SPECIMEN Ordering Facility: [facility] Address: [address] [place] [address] Performed By: #### 5 7021-8 #### [facility] CLIA [id number] [address] [place] [address] [place] TYPE + SCREEN PRENATALon ABO O Normal [facility] Comment on above: Order Comment: Speci men Type: BLOOD SPECIMENOrdering Facility: [facility] Address: [address] [place] [address] Performed By: #### T SPN ####[facility] [id number] [place] [address] [place] Rh Nom (Bld) Negative Normal [facility] Comment on above: Order Comment: Speci men Type: BLOOD SPECIMENOrdering Facility: [facility] Address: [address] [place] [address] Performed By: #### T SPN ####[facility] [id number] [place] [address] [place] TYPE AND SCREEN EXPIRATION 08/15/2024 23:59 Normal [facility] Comment on above: Order Comment: Speci men Type: BLOOD SPECIMENOrdering Facility: [facility] Address: [address] [place] [address] Performed By: #### T SPN ####[facility]IA [id number] [place] [id number] [place] CBC W/Diff, Automatedon 06-26 Absolute Lymph 2.58 X10 3/uL Normal 0.83-4.51 [facility] Comment on above: Performed By: #### L 501.9520, L500.4050, L100.0100 #### [facility] [address] [place], [address] Absolute Neut 5.1 X10 3/uL Normal 2.0-7.7 [facility] Comment on above: Performed By: #### L 501.9520, L500.4050, L100.0100 #### [facility] [address] [place], [address] Basophils/100 WBC (Bld) 0.6 % Normal 0-1 [facility] Comment on above: Performed By: #### L 501.9520, L500.4050, L100.0100 #### [facility] [address] [place], [address] Eosinophils/100 WBC (Bld) 1.4 % Normal 0-5 [facility] Comment on above: Performed By: #### L 501.9520, L500.4050, L100.0100 #### [facility] [address] [place], [address] Erythrocyte distribution width (RBC) [Ratio] 12.5 % Normal 11.6-14.6 [facility] Comment on above: Performed By: #### L 501.9520, L500.4050, L100.0100 #### [facility] [address] [place], [address] Hematocrit (Bld) [Volume fraction] 41.1 % Normal 37-47 [facility] Comment on above: Performed By: #### L 501.9520, L500.4050, L100.0100 #### [facility] [address] [place], [address] Hemoglobin (Bld) [Mass/Vol] 13.7 g/dL Normal 12.0-15.0 [facility] Comment on above: Performed By: #### L 501.9520, L500.4050, L100.0100 #### [facility] [address] [place], [address] IG% 0.500 Normal 0.0-0.9 [facility] Comment on above: Result Comment: IG% - Immature Granulocytes (promyelocytes, myelocytes and metamyelocytes) > 1% indicates that a LEFT SHIFT is Present. Performed By: #### L 501.9520, L500.4050, L100.0100 #### [facility] [address] [place], [address] Lymphocytes/100 WBC (Bld) 30.5 % Normal 19-41 [facility] Comment on above: Performed By: #### L 501.9520, L500.4050, L100.0100 #### [facility] [address] [place], [address] MCH (RBC) [Entitic mass] 30.0 pg Normal 27.0-32.0 [facility] Comment on above: Performed By: #### L 501.9520, L500.4050, L100.0100 #### [facility] [address] [place], [address] MCHC (RBC) [Mass/Vol] 33.3 g/dL Normal 32-36 [facility] Comment on above: Performed By: #### L 501.9520, L500.4050, L100.0100 #### [facility] [address] [place], [address] MCV (RBC) [Entitic vol] 90.1 fL Normal 81-99 [facility] Comment on above: Performed By: #### L 501.9520, L500.4050, L100.0100 #### [facility] [address] [place], [address] Monocytes/100 WBC (Bld) 7.2 % Normal 0-10 [facility] Comment on above: Performed By: #### L 501.9520, L500.4050, L100.0100 #### [facility] [address] [place], [address] Neutrophils/100 WBC (Bld) 59.8 % Normal 47-70 [facility] Comment on above: Performed By: #### L 501.9520, L500.4050, L100.0100 #### [facility] [address] [place], [address] Nucleated RBC (Bld) [#/Vol] 0 10*3/uL Normal 0-5 [facility] Comment on above: Performed By: #### L 501.9520, L500.4050, L100.0100 #### [facility] [address] [place], [address] Platelet mean volume (Bld) [Entitic vol] 9.8 fL Normal 6.2-12.0 [facility] Comment on above: Performed By: #### L 501.9520, L500.4050, L100.0100 #### [facility] [address] [place], [address] Platelets (Bld) [#/Vol] 323 10*3/uL Normal 150-450 [facility] Comment on above: Performed By: #### L 501.9520, L500.4050, L100.0100 #### [facility] [address] [place], [address] RBC (Bld) [#/Vol] 4.56 10*6/uL Normal 4.2-5.4 [facility] Comment on above: Performed By: #### L 501.9520, L500.4050, L100.0100 #### [facility] [address] [place], [address] RDW SD 40.8 fl Normal 35.1-43.9 [facility] Comment on above: Performed By: #### L 501.9520, L500.4050, L100.0100 #### [facility] [address] [place], [address] WBC (Bld) [#/Vol] 8.5 10*3/uL Normal 4.4-11.0 [facility] Comment on above: Performed By: #### L 501.9520, L500.4050, L100.0100 #### [facility] [address] [place], [address] Comprehensive Metabolic Prof ilon 07-09-2024 Albumin [Mass/Vol] 3.6 g/dL Normal 3.2-5.0 [facility] Comment on above: Performed By: #### L 501.9520, L500.4050, L100.0100 #### [facility] [address] [place], [address] Albumin/Globulin [Mass ratio] 1.0 {ratio} Normal 0.9-2.4 [facility] Comment on above: Performed By: #### L 501.9520, L500.4050, L100.0100 #### [facility] [address] [place], [address] ALK P 97 U/L Normal 45-117 [facility] Comment on above: Performed By: #### L 501.9520, L500.4050, L100.0100 #### [facility] [address] [place], [address] ALT [Catalytic activity/Vol] 43 U/L Normal 13-56 [facility] Comment on above: Performed By: #### L 501.9520, L500.4050, L100.0100 #### [facility] [address] [place], [address] AST [Catalytic activity/Vol] 21 U/L Normal 15-37 [facility] Comment on above: Performed By: #### L 501.9520, L500.4050, L100.0100 #### [facility] [address] [place], [address] Bilirubin [Mass/Vol] 0.30 mg/dL Normal 0.20-1.00 [facility] Comment on above: Result Comment: For patients on eltrombopag therapy, use of Dimension [place] TBIL is not recommended. Performed By: #### L 501.9520, L500.4050, L100.0100 #### [facility] [address] [place], [address] BUN/CRE 16.8 RATIO Normal 10-20 [facility] Comment on above: Performed By: #### L 501.9520, L500.4050, L100.0100 #### [facility] [address] [place], [address] CA,Total 9.0 mg/dL Normal 8.5-10.1 [facility] Comment on above: Performed By: #### L 501.9520, L500.4050, L100.0100 #### [facility] [address] [place], [address] Chloride [Moles/Vol] 106 mmol/L Normal 98-107 [facility] Comment on above: Performed By: #### L 501.9520, L500.4050, L100.0100 #### [facility] [address] [place], [address] CO2 [Moles/Vol] 30.0 mmol/L Normal 21.0-32.0 [facility] Comment on above: Performed By: #### L 501.9520, L500.4050, L100.0100 #### [facility] [address] [place], [address] Creatinine [Mass/Vol] 0.72 mg/dL Normal 0.55-1.02 [facility] Comment on above: Result Comment: The validity of the calculated GFR GFRAA in patients over 70 years has not been determined. Clinical correlation is essential. Performed By: #### L 501.9520, L500.4050, L100.0100 #### [facility] [address] [place], [address] EST GFR - AA 126 mL/min Normal >60 [facility] Comment on above: Result Comment: Afri can Chinese GFR Calc Performed By: #### L 501.9520, L500.4050, L100.0100 #### [facility] [address] [place], [address] GAP 2 Low 5-15 [facility] Comment on above: Performed By: #### L 501.9520, L500.4050, L100.0100 #### [facility] [address] [place], [address] GFR/1.73 sq M.predicted among non-blacks MDRD (S/P/Bld) [Vol rate/Area] 104 mL/min/{1.73_m2} Normal >60 [facility] Comment on above: Result Comment: Non- GFR Calc Performed By: #### L 501.9520, L500.4050, L100.0100 #### [facility] [address] [place], [address] Globulin (S) [Mass/Vol] 3.7 g/dL Normal 2.2-4.2 [facility] Comment on above: Performed By: #### L 501.9520, L500.4050, L100.0100 #### [facility] [address] [place], [address] Glucose [Mass/Vol] 87 mg/dL Normal 74-106 [facility] Comment on above: Performed By: #### L 501.9520, L500.4050, L100.0100 #### [facility] [address] [place], [address] Potassium [Moles/Vol] 3.8 mmol/L Normal 3.5-5.1 [facility] Comment on above: Performed By: #### L 501.9520, L500.4050, L100.0100 #### [facility] [address] [place], [address] Sodium [Moles/Vol] 138 mmol/L Normal 136-145 [facility] Comment on above: Performed By: #### L 501.9520, L500.4050, L100.0100 #### [facility] [address] [place], [address] T PROT 7.3 g/dL Normal 6.4-8.2 [facility] Comment on above: Performed By: #### L 501.9520, L500.4050, L100.0100 #### [facility] [address] [place], [address] Urea nitrogen [Mass/Vol] 12 mg/dL Normal 7-18 [facility] Comment on above: Performed By: #### L 501.9520, L500.4050, L100.0100 #### [facility] [address] [place], [address] Thyroid Stim Hormone (TSH)on 07-09-2024 TSH 1.470 uIU/mL Normal 0.358-3.740 [facility] Comment on above: Performed By: #### L 501.9520, L500.4050, L100.0100 #### [facility] [address] [place], [address] Vlad 06-17-2024 TANAN Telephone (OBGYWM) OTILIA MEZA ([id number]) 1995 F Date Time Provider Department 06/17/24 [...] Status:Closed by OFELIA DRISCOLL on 06/17/24 Normal [facility] Routine wound cultureOrdered By: Dr. Wong on 12-09-2022 Bacteria identified Cx Nom (Wound) No growth aerobically. [facility] Gram stain for investigation of transfusion reactionOrdered By: Dr. Wong on 12-07-2022 Microscopic observation Gram stain Nom (Unsp spec) [facility] ALLIED HEALTHon 12-06-2022 ALLIED HEALTH HNO ID: [id number] Author: RT Bree(R) Service: Radiology Author Type: [...] Bree(R) December 06, 2022 3:43 PM Normal [facility] Basic metabolic 2000 panelon 12-06-2022 Anion gap [Moles/Vol] 8 mmol/L Low 9-18 [facility] on [facility] Comment on above: Order Comment: Speci men Type: BLOOD SPECIMEN Ordering Facility: [facility] Address: [address] [place] [address] Performed By: #### 2 4321-2 #### [facility] CLIA [id number] [address] [place] [address] [place] Calcium [Mass/Vol] 9.6 mg/dL Normal 8.6-10.3 [facility] Comment on above: Order Comment: Speci men Type: BLOOD SPECIMEN Ordering Facility: [facility] Address: [address] [place] [address] Performed By: #### 2 4321-2 #### [facility] CLIA [id number] [address] [place] [address] [place] Chloride [Moles/Vol] 106 mmol/L Normal 101-111 [facility] Comment on above: Order Comment: Speci men Type: BLOOD SPECIMEN Ordering Facility: [facility] Address: [address] [place] [address] Performed By: #### 2 4321-2 #### [facility] CLIA [id number] [address] [place], [place] [id number] [place] CO2 [Moles/Vol] 25 mmol/L Normal 21-31 [facility] Comment on above: Order Comment: Speci men Type: BLOOD SPECIMEN Ordering Facility: [facility] Address: [address] [place] [address] Performed By: #### 2 4321-2 #### [facility] CLIA [id number] [address] [place] [address] [place] Creatinine [Mass/Vol] 0.68 mg/dL Normal 0.60-1.30 [facility] Comment on above: Order Comment: Speci men Type: BLOOD SPECIMEN Ordering Facility: [facility] Address: [address] [place] [address] Result Comment: Use of this assay is not recommended for patients undergoing treatment with phenindione, due to the potential for falsely depressed results. Performed By: #### 2 4321-2 #### [facility] CLIA [id number] [address] [place] [address] [place] ESTIMATED GLOMERULAR FILTRATION RATE 124 mL/min/1.73m??? Normal >=60 [facility] Comment on above: Order Comment: Sheryl reyes Type: BLOOD SPECIMEN Ordering Facility: [facility] Address: [address] [place] [address] Result Comment: Jossie mated Glomerular Filtration Rate [...] GFR. Performed By: #### 2 4321-2 #### [facility] CLIA [id number] [address] [place], [place] [id number] [place] Glucose [Mass/Vol] 79 mg/dL Normal 74-99 [facility] Comment on above: Order Comment: Sheryl reyes Type: BLOOD SPECIMEN Ordering Facility: [facility] Address: [address] [place] [address] Result Comment: The [employer] Diabetes Association (ADA) provides guidance for cutoff [...] Standards of Medical Care in Diabetes 2016, [employer] Diabetes Association. Diabetes Care. 2016.39(Suppl 1). Performed By: #### 2 4321-2 #### [facility] CLIA [id number] [address] [place], [place] [id number] [place] Potassium [Moles/Vol] 3.7 mmol/L Normal 3.6-5.1 [facility] Comment on above: Order Comment: Sheryl reyes Type: BLOOD SPECIMEN Ordering Facility: [facility] Address: [address] [address] Performed By: #### 2 4321-2 #### [facility] CLIA [id number] [address] [place] [address] [place] Sodium [Moles/Vol] 139 mmol/L Normal 136-144 [facility] Comment on above: Order Comment: Speci men Type: BLOOD SPECIMEN Ordering Facility: [facility] Address: [address] [address] Performed By: #### 2 4321-2 #### [facility] CLIA [id number] [address] [place] [address] [place] Urea nitrogen [Mass/Vol] 12 mg/dL Normal 7-25 [facility] Comment on above: Order Comment: Speci men Type: BLOOD SPECIMEN Ordering Facility: [facility] Address: [address] [address] Performed By: #### 2 4321-2 #### [facility] CLIA [id number] [address] [place] [address] [place] CBC W Auto Differential pane l (Bld)on 12-06-2022 Basophils (Bld) [#/Vol] 10*3/uL Normal <0.11 [facility] Comment on above: Order Comment: Speci men Type: BLOOD SPECIMEN Ordering Facility: [facility] Address: [address] [address] Performed By: #### 5 7021-8 #### [facility] CLIA [id number] [address] [place] [address] [place] Basophils/100 WBC (Bld) 0.3 % Normal [facility] Comment on above: Order Comment: Speci men Type: BLOOD SPECIMEN Ordering Facility: [facility] Address: [address] [address] Performed By: #### 5 7021-8 #### [facility] CLIA [id number] [address] [place] [address] [place] Differential cell count method Nom (Bld) Auto Normal [facility] Comment on above: Order Comment: Speci men Type: BLOOD SPECIMEN Ordering Facility: [facility] Address: [address] [address] Performed By: #### 5 7021-8 #### [facility] CLIA [id number] [address] [place] [address] [place] Eosinophils (Bld) [#/Vol] 0.14 10*3/uL Normal <0.46 [facility] Comment on above: Order Comment: Speci men Type: BLOOD SPECIMEN Ordering Facility: [facility] Address: [address] [address] Performed By: #### 5 7021-8 #### [facility] CLIA [id number] [address] [place] [address] Eosinophils/100 WBC (Bld) 1.9 % Normal [facility] Comment on above: Order Comment: Speci men Type: BLOOD SPECIMEN Ordering Facility: [facility] Address: [address] [address] Performed By: #### 5 7021-8 #### [facility] CLIA [id number] [address] [place] [address] Erythrocyte distribution width (RBC) [Ratio] 11.7 % Normal 11.5-15.0 [facility] Comment on above: Order Comment: Speci men Type: BLOOD SPECIMEN Ordering Facility: [facility] Address: [address] [address] Performed By: #### 5 7021-8 #### [facility] CLIA [id number] [address] [place] [address] [place] Hematocrit (Bld) [Volume fraction] 43.1 % Normal 36.0-46.0 [facility] Comment on above: Order Comment: Speci men Type: BLOOD SPECIMEN Ordering Facility: [facility] Address: [address] [address] Performed By: #### 5 7021-8 #### [facility] CLIA [id number] [address] [place] [address] [place] Hemoglobin (Bld) [Mass/Vol] 14.5 g/dL Normal 11.5-15.5 [facility] Comment on above: Order Comment: Speci men Type: BLOOD SPECIMEN Ordering Facility: [facility] Address: [address] [place] [address] Performed By: #### 5 7021-8 #### [facility] CLIA [id number] [address] [place] [address] [place] Immature granulocytes (Bld) [#/Vol] 10*3/uL Normal <0.10 [facility] Comment on above: Order Comment: Speci men Type: BLOOD SPECIMEN Ordering Facility: [facility] Address: [address] [place] [address] Performed By: #### 5 7021-8 #### [facility] CLIA [id number] [address] [place] [address] [place] Immature granulocytes/100 WBC (Bld) 0.3 % Normal [facility] Comment on above: Order Comment: Speci men Type: BLOOD SPECIMEN Ordering Facility: [facility] Address: [address] [address] Performed By: #### 5 7021-8 #### [facility] CLIA [id number] [address] [place] [address] [place] Lymphocytes (Bld) [#/Vol] 2.97 10*3/uL Normal 1.00-4.00 [facility] Comment on above: Order Comment: Speci men Type: BLOOD SPECIMEN Ordering Facility: [facility] Address: [address] [address] Performed By: #### 5 7021-8 #### [facility] CLIA [id number] [address] [place] [address] [place] Lymphocytes/100 WBC (Bld) 40.4 % Normal [facility] Comment on above: Order Comment: Speci men Type: BLOOD SPECIMEN Ordering Facility: [facility] Address: [address] [address] Performed By: #### 5 7021-8 #### [facility] CLIA [id number] [address] [place] [id number] [place] [address] [place] MCH (RBC) [Entitic mass] 29.8 pg Normal 26.0-34.0 [facility] Comment on above: Order Comment: Speci men Type: BLOOD SPECIMEN Ordering Facility: [facility] Address: [address] [place] [address] Performed By: #### 5 7021-8 #### [facility] CLIA [id number] [address] [place] [address] [place] MCHC (RBC) [Mass/Vol] 33.6 g/dL Normal 30.5-36.0 [facility] Comment on above: Order Comment: Speci men Type: BLOOD SPECIMEN Ordering Facility: [facility] Address: [address] [place] [address] Performed By: #### 5 7021-8 #### [facility] CLIA [id number] [address] [place] [address] MCV (RBC) [Entitic vol] 88.5 fL Normal 80.0-100.0 [facility] Comment on above: Order Comment: Speci men Type: BLOOD SPECIMEN Ordering Facility: [facility] Address: [address] [place] [address] Performed By: #### 5 7021-8 #### [facility] CLIA [id number] [address] [place] [address] [place] Monocytes (Bld) [#/Vol] 0.60 10*3/uL Normal <0.87 [facility] Comment on above: Order Comment: Speci men Type: BLOOD SPECIMEN Ordering Facility: [facility] Address: [address] [place] [address] Performed By: #### 5 7021-8 #### [facility] CLIA [id number] [address] [place] [address] Monocytes/100 WBC (Bld) 8.2 % Normal [facility] Comment on above: Order Comment: Speci men Type: BLOOD SPECIMEN Ordering Facility: [facility] Address: [address] [address] Performed By: #### 5 7021-8 #### [facility] CLIA [id number] [address] [place] [address] [place] Neutrophils (Bld) [#/Vol] 3.60 10*3/uL Normal 1.45-7.50 [facility] Comment on above: Order Comment: Speci men Type: BLOOD SPECIMEN Ordering Facility: [facility] Address: [address] [address] Performed By: #### 5 7021-8 #### [facility] CLIA [id number] [address] [place] [address] [place] Neutrophils/100 WBC (Bld) 48.9 % Normal [facility] Comment on above: Order Comment: Speci men Type: BLOOD SPECIMEN Ordering Facility: [facility] Address: [address] [place] [address] Performed By: #### 5 7021-8 #### [facility] CLIA [id number] [address] [place], [place] [id number] [place] Nucleated RBC (Bld) [#/Vol] Normal [facility] Comment on above: Order Comment: Speci men Type: BLOOD SPECIMEN Ordering Facility: [facility] Address: [address] [place] [address] Performed By: #### 5 7021-8 #### [facility] CLIA [id number] [address] [place], [place] [id number] [place] Nucleated RBC/100 WBC (Bld) [Ratio] Normal [facility] Comment on above: Order Comment: Speci men Type: BLOOD SPECIMEN Ordering Facility: [facility] Address: [address] [place] [address] Performed By: #### 5 7021-8 #### [facility] CLIA [id number] [address] [place] [address] [place] Platelet mean volume (Bld) [Entitic vol] 9.1 fL Normal 9.0-12.7 [facility] Comment on above: Order Comment: Speci men Type: BLOOD SPECIMEN Ordering Facility: [facility] Address: [address] [place] [address] Performed By: #### 5 7021-8 #### [facility] CLIA [id number] [address] [place] [id number] [place] [address] [place] Platelets (Bld) [#/Vol] 285 10*3/uL Normal 150-400 [facility] Comment on above: Order Comment: Speci men Type: BLOOD SPECIMEN Ordering Facility: [facility] Address: [address] [place] [address] Performed By: #### 5 7021-8 #### [facility] CLIA [id number] [address] [place] [address] [place] RBC (Bld) [#/Vol] 4.87 10*6/uL Normal 3.90-5.20 [facility] Comment on above: Order Comment: Speci men Type: BLOOD SPECIMEN Ordering Facility: [facility] Address: [address] [place] [address] Performed By: #### 5 7021-8 #### [facility] CLIA [id number] [address] [place] [address] [place] WBC (Bld) [#/Vol] 7.35 10*3/uL Normal 3.70-11.00 [facility] Comment on above: Order Comment: Speci men Type: BLOOD SPECIMEN Ordering Facility: [facility] Address: [address] [place] [address] Performed By: #### 5 7021-8 #### [facility] CLIA [id number] [address] [place], [place] [id number] [facility] [place] ED NOTEon 12-06-2022 ED NOTE HNO ID: [id number] Author: Loren Rodríguez RN Service: ? Author Type: Registered Nurse Type: ED Notes Filed: 12/06/2022 1:31 PM Note Text: Pt to ED for infection to R ring finger x 1-2 weeks, redness and swelling worsened overnight, pt currently on Doxy. Normal [facility] ED PROV NOTEon 12-06-2022 ED PROV NOTE HNO ID: [id number] Author: Gaetano Matthew DO Service: Emergency Medicine [...] think this may be. They consulted the [facility] website. She saw her PCP this morning [...] and discuss with hand GAETANO MATTHEW 12/15/22 0922 Normal [facility] ED PROV NOTE HNO ID: [id number] Author: Gaetano Matthew DO Service: Emergency Medicine [...] the flexor tendon. 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 Skin: General: Skin is warm and dry. [...] are unremarkable (more content not included)... Normal [facility] XR DIGIT 3V FRONTAL/LAT/OBL RTon 12-06-2022 XR [...] osseous finding or radiographic findings of osteomyelitis. Traffic Engineering Technician: PSCB Transcribe Date/Time: Dec 06 2022 3:44P Dictated by : DAVID WILLIAMSON MD This examination was interpreted and the report reviewed and electronically signed by: DAVID WILLIAMSON MD on Dec 06 2022 3:46PM EST [id number] Normal [facility] Vital Signs Date Time Vital Sign Value Performing Clinician Facility 03-11-2025 14:48-0400 Body mass index (BMI) [Ratio] 50.27 kg/m2 Keyon Jara MD Work Phone: [facility] 03-11-2025 14:48-0400 Body weight 128.73 kg Keyon Jara MD Work Phone: [facility] 03-11-2025 14:48-0400 Diastolic blood pressure 90 mm[Hg] Keyon Jara MD Work Phone: [facility] 03-11-2025 14:48-0400 Systolic blood pressure 128 mm[Hg] Keyon Jara MD Work Phone: [facility] 03-04-2025 13:51-0400 Body mass index (BMI) [Ratio] 48.54 kg/m2 Oeflia Velez MD Work Phone: [facility] 03-04-2025 13:51-0400 Body weight 124.29 kg Ofelia Velez MD Work Phone: [facility] 03-04-2025 13:51-0400 Diastolic blood pressure 85 mm[Hg] Ofelia Velez MD Work Phone: [facility] 03-04-2025 13:51-0400 Systolic blood pressure 132 mm[Hg] Ofelia Velez MD Work Phone: [facility] 02-25-2025 13:31-0400 Body mass index (BMI) [Ratio] 47.47 kg/m2 Jojo Saez GAS APPLIANCE SERVICER HELPER.CNM Work Phone: [facility] 02-25-2025 13:31-0400 Body weight 121.56 kg Jojo Saez GAS APPLIANCE SERVICER HELPER.CNM Work Phone: [facility] 02-25-2025 13:31-0400 Diastolic blood pressure 90 mm[Hg] Jojo Saez GAS APPLIANCE SERVICER HELPER.CNM Work Phone: [facility] 02-25-2025 13:31-0400 Systolic blood pressure 132 mm[Hg] Jojo Saez GAS APPLIANCE SERVICER HELPER.CNM Work Phone: [facility] 02-18-2025 13:35-0400 Body mass index (BMI) [Ratio] 47.93 kg/m2 Keyon Jara MD Work Phone: [facility] 02-18-2025 13:35-0400 Body weight 122.74 kg Keyon Jara MD Work Phone: [facility] 02-18-2025 13:35-0400 Diastolic blood pressure 95 mm[Hg] Keyon Jara MD Work Phone: [facility] 02-18-2025 13:35-0400 Systolic blood pressure 143 mm[Hg] Keyon Jara MD Work Phone: [facility] 02-11-2025 13:29-0400 Body mass index (BMI) [Ratio] 46.8 kg/m2 Keyon Jara MD Work Phone: [facility] 02-11-2025 13:29-0400 Body weight 119.84 kg Keyon Jara MD Work Phone: [facility] 02-11-2025 13:29-0400 Diastolic blood pressure 82 mm[Hg] Keyon Jara MD Work Phone: [facility] 02-11-2025 13:29-0400 Systolic blood pressure 138 mm[Hg] Keyon Jara MD Work Phone: [facility] 01-15-2025 13:35-0400 Body mass index (BMI) [Ratio] 45.17 kg/m2 Christy Pavon MD Work Phone: [facility] 01-15-2025 13:35-0400 Body weight 115.67 kg Christy Pavon MD Work Phone: [facility] 01-15-2025 13:35-0400 Diastolic blood pressure 84 mm[Hg] Christy Pavon MD Work Phone: [facility] 01-15-2025 13:35-0400 Systolic blood pressure 136 mm[Hg] Christy Pavon MD Work Phone: [facility] 01-10-2025 08:59-0400 Body mass index (BMI) [Ratio] 44.99 kg/m2 Keyon Jara MD Work Phone: [facility] 01-10-2025 08:59-0400 Body weight 115.21 kg Keyon Jara MD Work Phone: [facility] 01-10-2025 08:59-0400 Diastolic blood pressure 85 mm[Hg] Keyon Jara MD Work Phone: [facility] Comment on above: TruBP average 01-10-2025 08:59-0400 Systolic blood pressure 130 mm[Hg] Keyon Jara MD Work Phone: [facility] Comment on above: TruBP average 12-17-2024 13:28-0400 Body mass index (BMI) [Ratio] 44 kg/m2 Keyon Jara MD Work Phone: [facility] 12-17-2024 13:28040 Body weight 112.67 kg Keyon Jara MD Work Phone: [facility] 12-17-2024 13:28-0400 Diastolic blood pressure 80 mm[Hg] Keyon Jara MD Work Phone: [facility] 12-17-2024 13:28-0400 Systolic blood pressure 128 mm[Hg] Keyon Jara MD Work Phone: [facility] 12-08-2024 14:22-0400 Body temperature 99 [degF] Dr. Mago Wong MD Work Phone: [facility] 12-08-2024 14:22-0400 Diastolic blood pressure 66 mm[Hg] Dr. Mago Wong MD Work Phone: [facility] 12-08-2024 14:22-0400 Heart rate 105 /min Dr. Mago Wong MD Work Phone: [facility] 12-08-2024 14:22-0400 Respiratory rate 18 /min Dr. Mago Wong MD Work Phone: [facility] 12-08-2024 14:22-0400 Systolic blood pressure 136 mm[Hg] Dr. Mago Wong MD Work Phone: [facility] 12-08-2024 14:21-0400 SaO2% (BldA) [Mass fraction] 96 % Dr. Mago Wong MD Work Phone: [facility] 12-08-2024 14:17-0400 Body height 160.[address] Mago Wong MD Work Phone: [facility] 12-08-2024 14:17-0400 Body mass index (BMI) [Ratio] 42.5 kg/m2 Dr. Mago Wong MD Work Phone: [facility] 12-08-2024 14:17-0400 Body weight 109.[address] Mago Wong MD Work Phone: [facility] 11-19-2024 14:04-0400 Body mass index (BMI) [Ratio] 41.98 kg/m2 Jojo Saez GAS APPLIANCE SERVICER HELPER.CNM Work Phone: [facility] 11-19-2024 14:04-0400 Body weight 107.5 kg Jojo Saez GAS APPLIANCE SERVICER HELPER.CNM Work Phone: [facility] 11-19-2024 14:04-0400 Diastolic blood pressure 74 mm[Hg] Jojo Saez GAS APPLIANCE SERVICER HELPER.CNM Work Phone: [facility] 11-19-2024 14:04-0400 Systolic blood pressure 126 mm[Hg] Jojo Saez GAS APPLIANCE SERVICER HELPER.CNM Work Phone: [facility] 10-22-2024 13:39-0400 Body mass index (BMI) [Ratio] 41.45 kg/m2 Jojo Saez GAS APPLIANCE SERVICER HELPER.CNM Work Phone: [facility] 10-22-2024 13:39-0400 Body weight 106.14 kg Jojo Saez GAS APPLIANCE SERVICER HELPER.CNM Work Phone: [facility] 10-22-2024 13:39-0400 Diastolic blood pressure 74 mm[Hg] Jojo Saez GAS APPLIANCE SERVICER HELPER.CNM Work Phone: [facility] 10-22-2024 13:39-0400 Systolic blood pressure 124 mm[Hg] Jojo Saez GAS APPLIANCE SERVICER HELPER.CNM Work Phone: [facility] 09-23-2024 11:38-0400 Body mass index (BMI) [Ratio] 40.57 kg/m2 Christy Pavon MD Work Phone: [facility] 09-23-2024 11:38-0400 Body weight 103.87 kg Christy Pavon MD Work Phone: [facility] 09-23-2024 11:38-0400 Diastolic blood pressure 80 mm[Hg] Christy Pavon MD Work Phone: [facility] 09-23-2024 11:38-0400 Systolic blood pressure 138 mm[Hg] Christy Pavon MD Work Phone: [facility] 09-10-2024 10:32-0400 Body mass index (BMI) [Ratio] 41.1 kg/m2 Angelic Butler MD Work Phone: [facility] 09-10-2024 10:32-0400 Body weight 105.23 kg Angelic Butler MD Work Phone: [facility] 09-10-2024 10:32-0400 Diastolic blood pressure 84 mm[Hg] Angelic Butler MD Work Phone: [facility] 09-10-2024 10:32-0400 Systolic blood pressure 132 mm[Hg] Angelic Butler MD Work Phone: [facility] 08-12-2024 08:40-0500 Body height 160 cm Matilde Plottapan GAS APPLIANCE SERVICER HELPER.CNM Work Phone: [facility] 08-12-2024 08:40-0500 Body mass index (BMI) [Ratio] 40.39 kg/m2 Matilde Plotts GAS APPLIANCE SERVICER HELPER.CNM Work Phone: [facility] 08-12-2024 08:40-0500 Body weight 103.42 kg Matilde Plotts GAS APPLIANCE SERVICER HELPER.CNM Work Phone: [facility] 08-12-2024 08:40-0500 Diastolic blood pressure 78 mm[Hg] Matilde Plotts GAS APPLIANCE SERVICER HELPER.CNM Work Phone: [facility] 08-12-2024 08:40-0500 Systolic blood pressure 126 mm[Hg] Matilde Plotts GAS APPLIANCE SERVICER HELPER.CNM Work Phone: [facility] 02-07-2024 12:43-0400 Body mass index (BMI) [Ratio] 38.39 kg/m2 Jasmin Jara GAS APPLIANCE SERVICER HELPER.[employer] Work Phone: [facility] 02-07-2024 12:43-0400 Body temperature 98.91 [degF] Jasmin Soto GRANDE.[employer] Work Phone: [facility] 02-07-2024 12:43-0400 Body weight 98.3 kg Jasmindony Jara APRN.[employer] Work Phone: [facility] 02-07-2024 12:43-0400 Diastolic blood pressure 72 mm[Hg] Jasmin Jara APRN.[employer] Work Phone: [facility] 02-07-2024 12:43-0400 Heart rate 101 /min Jasmin Jara APRN.[employer] Work Phone: [facility] 02-07-2024 12:43-0400 Respiratory rate 18 /min Jasmin Jara APRN.[employer] Work Phone: [facility] 02-07-2024 12:43-0400 SaO2% (BldA) [Mass fraction] 98 % Jasmin Jara APRN.[employer] Work Phone: [facility] 02-07-2024 12:43-0400 Systolic blood pressure 110 mm[Hg] Jasmin Jara APRN.[employer] Work Phone: [facility] 12-15-2023 08:35-0400 Body height 160 cm Angelic Butler MD Work Phone: [facility] 12-15-2023 08:35-0400 Body mass index (BMI) [Ratio] 38.44 kg/m2 Angelic Butler MD Work Phone: [facility] 12-15-2023 08:35-0400 Body weight 98.43 kg Angelic Butler MD Work Phone: [facility] 12-15-2023 08:35-0400 Diastolic blood pressure 82 mm[Hg] Angelic Butler MD Work Phone: [facility] 12-15-2023 08:35-0400 Systolic blood pressure 124 mm[Hg] Angelic Butler MD Work Phone: [facility] 09-08-2022 08:39-0400 Body height 160 cm Angelic Butler MD Work Phone: [facility] 09-08-2022 08:39-0400 Body weight 94.35 kg Angelic Butler MD Work Phone: [facility] 09-08-2022 08:39-0400 Diastolic blood pressure 78 mm[Hg] Angelic Butler MD Work Phone: [facility] 09-08-2022 08:39-0400 Systolic blood pressure 122 mm[Hg] Angelic Butler MD Work Phone: [facility] Encounters Encounter Date Encounter Type Care Provider Facility Start: 03-12-2025 End: 03-12-2025 ambulatory OFELIA VELEZ Facility:[facility] Start: 03-11-2025 End: 03-11-2025 ambulatory MAGO WONG Facility:[facility] Start: 03-11-2025 End: 03-11-2025 Patient encounter procedure [...] Start: 03-04-2025 End: 03-04-2025 ambulatory JOJO SAEZ Facility:[facility] Start: 02-25-2025 End: 02-25-2025 Patient encounter procedure [...] Start: 02-25-2025 End: 02-25-2025 ambulatory JOJO SAEZ Facility:[facility] Start: 02-18-2025 End: 02-18-2025 Patient encounter procedure Keyon Jara MD Work Phone: OB/Gynecology Comment on above: 33 weeks gestation o f (HCC) (Primary Dx); Chronic hypertension in (HCC); Supervision of high risk in third trimester (HCC); Obesity affecting in third trimester, unspecified obesity type (HCC) Start: 02-18-2025 End: 02-18-2025 ambulatory MAGO WONG Facility:[facility] Start: 02-12-2025 End: 02-13-2025 ambulatory Christy Pavon MD Work Phone: OB/Gynecology Comment on above: Ultrasound Report Start: 02-11-2025 End: 02-11-2025 Patient encounter procedure 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 Mfm Wstr [facility] Maternal Medicine Comment on [...] Start: 02-11-2025 End: 02-11-2025 ambulatory MAGO WONG Facility:[facility] Start: 02-03-2025 End: 02-18-2025 ambulatory Christy Pavon MD Work Phone: OB/Gynecology Comment on above: Blood Pressure Readi ngs Start: 01-28-2025 End: 01-28-2025 ambulatory MAGO WONG Facility:[facility] Start: 01-20-2025 End: 01-21-2025 ambulatory Christy Pavon MD Work Phone: OB/Gynecology Comment on above: Weekly Blood Pressur es Start: 01-15-2025 ambulatory MAGO WONG Fac ility:[facility] Start: 01-15-2025 End: 01-15-2025 Patient encounter procedure Christy Pavon MD Work Phone: OB/Gynecology Comment on above: Supervision of high risk in third trimester (HCC) (Primary Dx); Chronic hypertension complicating or reason for care during childbirth ([facility]); Rh negative state in antepartum period ([facility]); Obesity affecting in third trimester, unspecified obesity type (HCC); 28 weeks gestation of ([facility]) Encounter for ultras ound to check growth (HCC) (Primary Dx); Obesity affecting in third trimester, unspecified obesity type (HCC); 28 weeks gestation of ([facility]); Polyhydramnios in third trimester complication, single or unspecified fetus (HCC) Start: 01-15-2025 End: 01-15-2025 ambulatory MAGO WONG Facility:[facility] Start: 01-10-2025 End: 01-10-2025 Patient encounter procedure Keyon Jara MD Work Phone: OB/Gynecology Comment on above: 27 weeks gestation o f (HCC) (Primary Dx); Chronic hypertension complicating or reason for care during childbirth (HCC) Start: 01-10-2025 End: 01-10-2025 ambulatory MAGO WONG Facility:[facility] Start: 12-17-2024 End: 12-17-2024 Patient encounter procedure Keyon Jara MD Work Phone: OB/Gynecology Comment on above: Screening for diabet es mellitus (Primary Dx); 24 weeks gestation of (HCC); Supervision of high risk in second trimester (HCC); Chronic hypertension complicating or reason for care during childbirth (HCC); Rh negative state in antepartum period (HCC) Start: 12-17-2024 End: 12-17-2024 ambulatory Jojo Saze APRN.CNM Work Phone: OB/Gynecology Comment on above: Blood pressure Start: 12-09-2024 End: 12-16-2024 Telephone encounter Jojo Saez APRN.CNM Work Phone: OB/Gynecology Comment on above: Medication Question Results Start: 12-08-2024 End: 12-08-[address] Mago Wong MD Work Phone: [facility] Work Phone: Start: 12-08-2024 End: 12-08-2024 Patient encounter procedure Jojo Saez CNM -[facility] Work Phone: Start: 12-03-2024 End: 12-10-2024 ambulatory Jojo Saez APRN.CNM Work Phone: OB/Gynecology Comment on above: Blood pressure readi ngs Start: 11-19-2024 End: 11-19-2024 ambulatory ANGELIC BUTLER Facility:[facility] Start: 11-19-2024 End: 11-19-2024 Patient encounter procedure Whi Tech 1 Asphalt 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 Mfm Wstr Mob Maternal Medicine Comment on [...] (HCC) Start: 11-04-2024 End: 11-25-2024 ambulatory Jojo aSez APRN.CNM Work Phone: OB/Gynecology Comment on above: [...] Start: 10-22-2024 End: 10-22-2024 ambulatory ANGELIC BUTLER Facility:[facility] Start: 10-08-2024 End: 10-08-2024 Refill Christy Pavon MD Work Phone: OB/Gynecology Comment on above: Refill Request Start: 09-30-2024 End: 11-30-2024 Follow-up encounter Karlee Owen APRN.[employer] Work Phone: OB/Gynecology Start: 09-23-2024 End: 09-23-2024 ambulatory ANGELIC BUTLER Facility:[facility] Start: 09-23-2024 End: 09-23-2024 Patient encounter procedure Christy Pavon MD Work Phone: OB/Gynecology Comment on above: Supervision of high risk in first trimester (Primary Dx); Elevated blood pressure reading without diagnosis of hypertension; Chronic hypertension in ; 11 weeks gestation of Encounter for antena miguel screening for malformation using ultrasound (Primary Dx); 11 weeks gestation of Start: 09-10-2024 End: 09-10-2024 ambulatory MAGO WONG Facility:[facility] Start: 09-10-2024 End: 09-10-2024 Patient encounter procedure Angelic Butler MD Work Phone: OB/Gynecology Comment on above: Supervision of high risk in first trimester (Primary Dx); Obesity affecting in first trimester, unspecified obesity type; 10 weeks gestation of ; BMI 40.0-44.9, adult ([facility]) Start: 08-30-2024 End: 08-30-2024 [facility] Start: 08-30-2024 End: 08-30-2024 Patient encounter procedure Asphalt 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 Wstr [facility] Remote Work Phone: OB/Gynecology Comment on above: with uncer tain dates, antepartum Start: 08-14-2024 End: 08-14-2024 [facility] Start: 08-12-2024 End: 09-05-2024 Follow-up encounter Matilde Adler GAS APPLIANCE SERVICER HELPER[employer]iraCNChloe Work Phone: OB/Gynecology Start: 08-12-2024 End: 08-16-2024 Telephone encounter Matilde Adler APRN.CNM Work Phone: OB/Gynecology Start: 08-12-2024 End: 08-12-2024 ambulatory MATILDE ADLER Facility:[facility] Start: 08-12-2024 End: 08-12-2024 [facility] Start: 08-12-2024 End: 08-12-2024 Patient encounter procedure Matilde Adler GAS APPLIANCE SERVICER HELPERAMANDA Work Phone: OB/Gynecology Comment on above: with uncer tain dates, antepartum (Primary Dx); Encounter for care in first trimester of first ; Threatened miscarriage in early ; Obesity affecting in first trimester, unspecified obesity type Start: 07-09-2024 End: 07-09-2024 [address] [facility] Facility:[facility] Start: 06-17-2024 End: 06-17-2024 Telephone encounter Angelic Butler MD Work Phone: OB/Gynecology Comment on above: Irregular Menstrual Cycle Start: 02-08-2024 Orders Only Becki solis GAS APPLIANCE SERVICER HELPER.[employer] Work Phone: [facility] Start: 02-07-2024 End: 02-07-2024 Patient encounter procedure Jasmin Jara GAS APPLIANCE SERVICER HELPER.[employer] Work Phone: [facility] Comment on above: Vaginal itching (Almita luis [...] encounter status Angelic Butler MD Work Phone: [facility] Start: 08-29-2023 Refill Angelic nj MD Work Phone: OB/Gynecology Comment on above: Refill Request Start: 03-01-2023 ambulatory Angelic nj MD Work Phone: OB/Gynecology Comment on above: Headache During Sex Start: 01-01-2023 ambulatory Angelic nj MD Work Phone: OB/Gynecology Comment on above: Possible Start: 12-06-2022 End: 12-06-2022 Emergency department patient visit [facility] Facility:[facility] Start: 12-06-2022 End: 12-06-[address] [facility] Work Phone: Start: 12-06-2022 End: 12-06-[address] [facility]-Laboratory, Specimen Start: 09-08-2022 End: 09-08-2022 Patient [...] Comment: Speci men Type: BLOOD SPECIMENOrdering Facility: [facility] Address: [address] [place] [address] Performed By: #### T SPN ####CC MAIN BLOOD BANKCLIA [id number] [address] [place] Start: 01-15-2025 Urnls dip stick/tabl et rgnt non-auto w/o micrscp Christy Pavon MD Work Phone: Start: 01-15-2025 Us preg uterus after 1st trimest 1/1st gestation Jojopratibha Saez GAS APPLIANCE SERVICER HELPER.CNM Work Phone: Start: 12-08-2024 Urnls dip stick/tabl et reagent auto microscopy Dr. Mago Wong MD Work Phone: Start: 11-19-2024 Us preg uterus after 1st trimest 1/1st gestation Angelic Butler MD Work Phone: Start: 10-22-2024 Us preg uterus after 1st trimest 1/1st gestation Angelic Butler MD Work Phone: Start: 09-23-2024 Us preg uterus after 1st trimest 1/1st gestation Matilde Adler GAS APPLIANCE SERVICER HELPER.CNM Work Phone: Start: 08-30-2024 Us preg uterus after 1st trimest 1/1st gestation Matilde Adler GAS APPLIANCE SERVICER HELPER.CNM Work Phone: Start: 08-12-2024 Antibody screen LORY ADLER Comment on above: Order Comment: Speci men Type: BLOOD SPECIMENOrdering Facility: [facility] Address: [address] [place] [address] Performed By: #### T SPN ####CC [facility] BLOOD BANKCLIA [id number] [address] [place] Start: 08-12-2024 Us uterus l imited 1/> fetuses Matilde Adler GAS APPLIANCE SERVICER HELPER.CNM Work Phone: Investigation of tra nsfusion reaction Microbial culture, routine Plan of Treatment Date Care Activity Detail Author Start: 09-28-2039 PAP TESTING PAP TESTING [facility] Start: 05-04-2030 Urine microalbumin profile [facility] Start: 12-14-2026 Screening for malign ant neoplasm of cervix Cervical Cancer Screening [facility] Start: 03-25-2025 End: 03-25-2025 Patient encounter procedure OB/Gynecology Comment on above: NST/OB pp Start: 03-25-2025 End: 03-25-2025 Patient encounter procedure OB/Gynecology Comment on above: NST NST/OB Start: 03-18-2025 INDUCTION L&D INDUCTION L&D Procedures Routine Chronic hypertension in (HCC) Obesity affecting in third trimester, unspecified obesity type (HCC) Polyhydramnios in third trimester complication, single or unspecified fetus (HCC) Expected: 03/18/2025 [facility] Work Phone: Comment on above: Expected: 03/18/2025 Start: 03-18-2025 End: 03-18-2025 Patient encounter procedure OB/Gynecology Comment on above: NST NST/OB Start: 03-12-2025 End: 03-12-2025 Patient encounter procedure 03/12/2025 9:10 AM EDT Routine Office Visit OB/Gynecology [address] [place], [place] [id number] Ofelia Velez MD [address] [place] [id number] OB OB/Gynecology Comment on above: OB Start: 03-11-2025 End: 03-11-2025 Patient encounter procedure Maternal Medicine Comment on above: Growth Growth/ OB Growth/BPP Start: 03-04-2025 End: 03-04-2025 Patient encounter procedure OB/Gynecology Comment on above: NST/OB Start: 02-25-2025 End: 02-25-2025 Patient encounter procedure OB/Gynecology Comment on above: NST/OB Start: 02-24-2025 Influenza vaccination [facility] Start: 02-24-2025 RSV Vaccine (1 - Ris k 1-dose series) RSV Vaccine (1 - Risk 1-dose series) [facility] Start: 02-18-2025 End: 05-20-2025 Protein/Creatinine [Mass Ratio] in Urine [facility] Work Phone: Comment on above: Expected: 02/18/2025 , Expires: 05/20/2025 Start: 02-18-2025 End: 02-18-2025 Patient encounter procedure OB/Gynecology Comment on above: NST/ OB Start: 02-11-2025 End: 02-11-2025 Patient encounter procedure Maternal Medicine Comment on above: Growth OB Start: 01-28-2025 End: 01-28-2025 Patient encounter procedure 01/28/2025 1:30 PM EDT Routine Office Visit OB/Gynecology [address] [place] [address] Angelic Butler MD [address] [place] [address] OB OB/Gynecology Comment on above: OB Start: 01-16-2025 End: 04-17-2025 ANEMIA REFLEX PANEL ANEMIA REFLEX PANEL Lab Routine 24 weeks gestation of ([facility]) Supervision of high risk in second trimester ([facility]) Expected: 01/16/2025 (Approximate), Expires: 04/17/2025 [facility] Comment on above: Expected: 01/16/2025 (Approximate), Expires: 04/17/2025 Start: 01-16-2025 End: 12-17-2025 GESTATIONAL GLUCOSE SCREEN, 1-HOUR, 50 GRAM, NON-FASTING GESTATIONAL GLUCOSE SCREEN, 1-HOUR, 50 GRAM, NON-FASTING Lab Routine Screening for diabetes mellitus Expected: 01/16/2025 (Approximate), Expires: 12/17/2025 [facility] Work Phone: Comment on above: Expected: 01/16/2025 (Approximate), Expires: 12/17/2025 Start: 01-16-2025 End: 12-17-2025 SYPHILIS TREPONEMAL W/REFLEX SYPHILIS TREPONEMAL W/REFLEX Lab Routine 24 weeks gestation of ([facility]) Supervision of high risk in second trimester ([facility]) Expected: 01/16/2025 (Approximate), Expires: 12/17/2025 [facility] Comment on above: Expected: 01/16/2025 (Approximate), Expires: 12/17/2025 Start: 01-16-2025 End: 04-17-2025 TYPE + SCREEN TYPE + SCREEN Blood Bank Routine 24 weeks gestation of ([facility]) Supervision of high risk in second trimester ([facility]) Expected: 01/16/2025 (Approximate), Expires: 04/17/2025 [facility] Comment on above: Expected: 01/16/2025 (Approximate), Expires: 04/17/2025 Start: 01-15-2025 End: 04-16-2025 Protein/Creatinine [Mass Ratio] in Urine [facility] Work Phone: Comment on above: Expected: 01/15/2025 , Expires: 04/16/2025 Start: 01-15-2025 End: 01-15-2025 Patient encounter procedure Maternal Medicine Comment on above: Growth/ Glucose OB/ Glucose Start: 01-15-2025 End: 01-15-2025 ambulatory 01/15/2025 12:45 PM EDT Results Only [facility] [address] [place] [address] glucose, cbc, syphilis, type & screen [facility] Comment on above: glucose, cbc, syphil is, type & screen Start: 12-17-2024 End: 12-17-2024 Patient encounter procedure 12/17/2024 1:30 PM EDT Routine Office Visit OB/Gynecology [address] [place] [address] Keyon Jara MD [address] [place] [address] OB OB/Gynecology Comment on above: OB Start: 12-16-2024 End: 12-16-2024 Patient encounter procedure 12/16/2024 8:40 AM EDT Office Visit OB/Gynecology [address] [place] [address] Angelic Butler MD [address] [place] [address] Annual OB/Gynecology Comment on above: Annual Start: 12-08-2024 End: 12-08-2024 [facility] Start: 12-08-[address] [facility] Start: 12-08-2024 Obstetric monitoring [facility] Start: 12-08-2024 Bacteria identified in Urine by Culture Urine Culture [facility] Start: 12-08-[address] [facility] Start: 12-08-2024 Patient discharge [facility] Start: 11-19-2024 End: 11-19-2024 Patient encounter procedure Maternal Medicine Comment on above: Anatomy Anatomy/OB Start: 10-22-2024 End: 10-22-2024 Patient encounter procedure Maternal Medicine Comment on above: Early Anatomy Early Anatomy/OB Start: 2024 HPV Vaccine (1 - 3-d ose SCDM series) HPV Vaccine (1 - 3-dose SCDM series) [facility] Start: 09-23-2024 End: 12-23-2024 Protein/Creatinine [Mass Ratio] in Urine [facility] Work Phone: Comment on above: Expected: 09/23/2024 , Expires: 12/23/2024 Start: 09-23-2024 End: 09-23-2024 Patient encounter procedure Maternal Medicine Comment on above: Nuchal OB Routine Start: 09-10-2024 End: 12-10-2024 Chromosome 21 trisomy [Presence] in Blood or Tissue by Cytogenetics [id number] PLUS Lab Routine Obesity affecting in first trimester, unspecified obesity type 10 weeks gestation of Expected: 09/10/2024, Expires: 12/10/2024 [facility] Work Phone: Comment on above: Expected: 09/10/2024 , Expires: 12/10/2024 Start: 09-10-2024 End: 09-10-2025 OBSTETRIC ULTRASOUND WHI OBSTETRIC ULTRASOUND WHI Anc Imaging Routine Obesity affecting in first trimester, unspecified obesity type Supervision of high risk in first trimester BMI 40.0-44.9, adult ([facility]) Expected: 09/10/2024, Expires: 09/10/2025 [facility] Comment on above: Expected: 09/10/2024 , Expires: 09/10/2025 Start: 09-10-2024 End: 09-10-2024 Patient encounter procedure 09/10/2024 10:20 AM EDT Routine Office Visit OB/Gynecology [address] [place], [place] [id number] Angelic Butler MD [address] [place], [place] [id number] 1st OB - LMP 06/15/25 OB/Gynecology Comment on above: 1st OB - LMP 5 Start: 08-30-2024 End: 08-30-2024 Patient encounter procedure 08/30/2024 1:00 PM EST Routine Office Visit Maternal Medicine [address] [place] [address] Early OB US Maternal Medicine Comment on above: Early OB US Start: 08-24-2024 PAP TESTING PAP TESTING [facility] Start: 08-24-2024 Screening for malign ant neoplasm of cervix [facility] Start: 08-12-2024 End: 11-11-2024 ANEMIA REFLEX PANEL [facility] Work Phone: Comment on above: Expected: 08/12/2024 , Expires: 11/11/2024 Start: 08-12-2024 End: 11-11-2024 Hemoglobin A1c in Blood [facility] Comment on above: Expected: 08/12/2024 , Expires: 11/11/2024 Start: 08-12-2024 End: 11-11-2024 HEMOGLOBIN EVALUATION CASCADE [facility] Comment on above: Expected: 08/12/2024 , Expires: 11/11/2024 Start: 08-12-2024 End: 11-11-2024 Hepatitis B virus surface Ag [Presence] in Serum [facility] Comment on above: Expected: 08/12/2024 , Expires: 11/11/2024 Start: 08-12-2024 End: 11-11-2024 Hepatitis C virus Ab [Presence] in Serum [facility] Comment on above: Expected: 08/12/2024 , Expires: 11/11/2024 Start: 08-12-2024 End: 11-11-2024 HIV 1+2 Ab [Presence] in Serum or Plasma by Immunoassay [facility] Comment on above: Expected: 08/12/2024 , Expires: 11/11/2024 Start: 08-12-2024 End: 08-12-2025 OBSTETRIC ULTRASOUND WHI [facility] Comment on above: Expected: 08/12/2024 , Expires: 08/12/2025 Start: 08-12-2024 End: 11-11-2024 RUBELLA IGG ANTIBODY [facility] Comment on above: Expected: 08/12/2024 , Expires: 11/11/2024 Start: 08-12-2024 End: 11-11-2024 SYPHILIS TREPONEMAL W/REFLEX [facility] Comment on above: Expected: 08/12/2024 , Expires: 11/11/2024 Start: 08-12-2024 End: 11-11-2024 TYPE + SCREEN [facility] Comment on above: Expected: 08/12/2024 , Expires: 11/11/2024 Start: 03-08-2024 End: 03-08-2024 Patient encounter procedure 03/08/2024 8:00 AM EDT Office Visit OB/Gynecology [address] [place], [place] [phone] Mago Nunez APRN.[employer] [address] [place] [address] Weight management OB/Gynecology Comment on above: Weight management Start: 02-25-2024 Covid-19 Vaccine ( season) Covid-19 Vaccine ( season) [facility] Start: 02-25-2024 Influenza vaccination C [facility] Start: 06-26-2023 Behavioral Health Screening Behavioral Health Screening [facility] Start: 06-26-2023 Depression [facility] Start: 02-24-2023 Covid-19 Vaccine ( season) Covid-19 Vaccine ( season) [facility] Start: 02-24-2023 Influenza vaccination C [facility] Start: 01-02-2023 End: 03-04-2023 Choriogonadotropin.beta subunit [Units/volume] in Serum or Plasma HCG QUANTITATIVE Lab Routine Irregular menstrual cycle Expected: 01/02/2023, Expires: 03/04/2023 [facility] Work Phone: Comment on above: Expected: 01/02/2023 , Expires: 03/04/2023 Start: 06-26-2022 DEPRESSION ASSESSMENT DEPRESSION ASS ESSMENT [facility] Start: 02-24-2022 Influenza vaccination INFLUENZA (#1) [facility] Start: 09-28-2015 Anxiety Screening Anxiety Screening [facility] Start: 09-28-2015 Depression Screening Depression Scre ening [facility] Start: 09-28-2015 HEPATITIS C SCREENING HEPATITIS C [facility] Start: 09-28-2015 Hepatitis C screening Hepatitis C [facility] Start: 09-28-2015 HIV SCREENING HIV SCREENING [facility] Start: 09-28-2015 HIV screening HIV Screening [facility] Start: 2012 HPV Vaccine (1 - 3-d ose series) HPV Vaccine (1 - 3-dose series) [facility] Start: 09-28-2011 PEDS TO ADULT TRANSITION ANNUAL ASSESSMENT PEDS TO ADULT TRANSITION ANNUAL ASSESSMENT [facility] Start: 2009 PEDS TO ADULT TRANSITION INITIAL DISCUSSION PEDS TO ADULT TRANSITION INITIAL DISCUSSION [facility] Start: 2008 HPV VACCINE (1 - 2-d ose series) HPV VACCINE (1 - 2-dose series) [facility] Start: 09-28-2007 MENINGOCOCCAL B: Consider based on risk (1 of 2 - Risk Bexsero 2-dose series) MENINGOCOCCAL B: Consider based on risk (1 of 2 - Risk Bexsero 2-dose series) [facility] Start: 2006 HPV VACCINE (1 - 2-d ose series) HPV VACCINE (1 - 2-dose series) [facility] Start: 03-29-1998 COVID-19 VACCINE (#1) COVID-19 VACCI NE (#1) [facility] Bacteria identified in Urine by Culture BACTERIAL CULTURE, URINE Microbiology Routine with uncertain dates, antepartum Encounter for care in first trimester of first 08/12/2024 9:57 AM EST [facility] BACTERIAL VAGINOSIS NAAT BACTERIAL VAGINOSIS NAAT Lab Routine Vaginal itching Vaginal discharge 02/07/2024 1:07 PM EDT [facility] Work Phone: KATIE/TRICHOMONAS NAAT KATIE/TRICHOMONAS NAAT Lab Routine Vaginal itching Vaginal discharge 02/07/2024 1:07 PM EDT [facility] Chlamydia trachomatis+Neisseria gonorrhoeae DNA [Presence] in Unspecified specimen by HADLEY with probe detection GC/CHLAMYDIA DNA DET Lab Routine Encounter for gynecological examination (general) (routine) without abnormal findings Screen for STD (sexually transmitted disease) Ordered: 09/08/2022 [facility] Work Phone: Comment on above: Ordered: 09/08/2022 Chlamydia trachomatis+Neisseria gonorrhoeae DNA [Presence] in Unspecified specimen by HADLEY with probe detection GONORRHEA/CHLAMYDIA NAAT Lab Routine with uncertain dates, antepartum Encounter for care in first trimester of first 08/12/2024 9:[address] [facility] End: 09-09-2024 Choriogonadotropin.beta subunit [Units/volume] in Serum or Plasma HCG QUANTITATIVE Lab Routine with uncertain dates, antepartum Encounter for care in first trimester of first 2x per week for 8 Occurrences starting 08/12/2024 until 09/09/2024 [facility] Comment on above: 2x per week for 8 Oc currences starting 08/12/2024 until 09/09/2024 Choriogonadotropin.b eta subunit [Units/volume] in Serum or Plasma HCG QUANTITATIVE Lab Routine with uncertain dates, antepartum Encounter for care in first trimester of first 08/12/2024 9:[address] [facility] End: 11-09-2025 nonstress test NON-STRESS TEST Procedures Routine Supervision of high risk in third trimester (HCC) Obesity affecting in third trimester, unspecified obesity type (HCC) Once per week for 7 Occurrences starting 11/19/2024 until 11/09/2025 [facility] Work Phone: Comment on above: Once per week for 7 Occurrences starting 11/19/2024 until 11/09/2025 End: 03-29-2025 OBSTETRIC ULTRASOUND WHI OBSTETRIC ULTRASOUND [facility] Anc Imaging Routine Obesity affecting in first trimester, unspecified obesity type 10 weeks gestation of Supervision of high risk in first trimester BMI 40.0-44.9, adult (HCC) Once per month for 6 Occurrences starting 09/10/2024 until 03/29/2025 [facility] Comment on above: Once per month for 6 Occurrences starting 09/10/2024 until 03/29/2025 End: 11-03-2025 OBSTETRIC ULTRASOUND WHI OBSTETRIC ULTRASOUND WHI Anc Imaging Routine Supervision of high risk in third trimester (HCC) Obesity affecting in third trimester, unspecified obesity type (HCC) Once per month for 3 Occurrences starting 11/19/2024 until 11/03/2025 [facility] Comment on above: Once per month for 3 Occurrences starting 11/19/2024 until 11/03/2025 PAP TEST PAP TEST Lab Radha parisi Encounter for gynecological examination (general) (routine) without abnormal findings Screening for cervical cancer Vaginal high risk human papillomavirus (HPV) DNA test positive 12/15/2023 9:24 AM EDT [facility] Work Phone: Patient Education OB Triage: Ret urn to Hospital or Notify Physician if you Experience: [facility] Work Phone: Patient referral [facility] Work Phone: ROUTINE, GR OUP B STREPTOCOCCUS BY PCR ROUTINE, GROUP B STREPTOCOCCUS BY PCR Microbiology Routine Supervision of high risk in third trimester (HCC) 35 weeks gestation of (HCC) Ordered: 03/04/2025 [facility] Comment on above: Ordered: 03/04/2025 ROUTINE, GR OUP B STREPTOCOCCUS BY PCR ROUTINE, GROUP B STREPTOCOCCUS BY PCR Microbiology Routine Supervision of high risk in third trimester (HCC) 35 weeks gestation of (HCC) 03/04/2025 2:45 PM EDT [facility] T VAGINALIS AMPLIFICATION T VAGINALIS AMPLIFICATION Lab Routine Encounter for gynecological examination (general) (routine) without abnormal findings Screen for STD (sexually transmitted disease) Ordered: 09/08/2022 [facility] Work Phone: Comment on above: Ordered: 09/08/2022 TRICHOMONAS VAGINALI S NAAT TRICHOMONAS VAGINALIS NAAT Lab Routine with uncertain dates, antepartum 08/12/2024 9:57 AM EST [facility] Urine culture [facility] [place] Immunizations Immunization Date Immunization Notes Care Provider Fa tee 01-15-2025 RHO(D) immune globul in- IV or IM Christy Pavon MD Work Phone: [facility] Work Phone: 05-04-2020 tetanus toxoid, redu basilio diphtheria toxoid, and acellular pertussis vaccine, adsorbed Angelic Butler MD Work Phone: [facility] Work Phone: 01-25-2010 tetanus toxoid, redu basilio diphtheria toxoid, and acellular pertussis vaccine, adsorbed Angelic Butler MD Work Phone: [facility] Work Phone: 11-11-2002 diphtheria, tetanus toxoids and acellular pertussis vaccine, unspecified formulation Angelic Butler MD Work Phone: [facility] Work Phone: 11-11-2002 measles, mumps and rubella virus vaccine Angelic Butler MD Work Phone: [facility] Work Phone: 11-11-2002 poliovirus vaccine, inactivated Angelic Butler MD Work Phone: [facility] Work Phone: 05-29-2000 varicella virus vaccine Maryanne Butler MD Work Phone: [facility] Work Phone: 01-04-1999 diphtheria, tetanus toxoids and acellular pertussis vaccine, unspecified formulation Angelic Butler MD Work Phone: [facility] Work Phone: 01-04-1999 haemophilus influenz ae type b vaccine, HbOC conjugate Angelic Butler MD Work Phone: [facility] Work Phone: 01-04-1999 trivalent poliovirus vaccine, live, oral Angelic Butler MD Work Phone: [facility] Work Phone: 09-28-1998 measles, mumps and rubella virus vaccine Angelic Butler MD Work Phone: [facility] Work Phone: 04-01-1998 diphtheria, tetanus toxoids and acellular pertussis vaccine, unspecified formulation Angelic Butler MD Work Phone: [facility] Work Phone: 04-01-1998 haemophilus influenz ae type b vaccine, HbOC conjugate Angelic Butler MD Work Phone: [facility] Work Phone: 04-01-1998 hepatitis B vaccine, pediatric or pediatric/adolescent dosage Angelic Butler MD Work Phone: [facility] Work Phone: 01-21-1998 diphtheria, tetanus toxoids and acellular pertussis vaccine, unspecified formulation Angelic Butler MD Work Phone: [facility] Work Phone: 01-21-1998 haemophilus influenz ae type b vaccine, HbOC conjugate Angelic Butler MD Work Phone: [facility] Work Phone: 01-21-1998 trivalent poliovirus vaccine, live, oral Angelic Butler MD Work Phone: [facility] Work Phone: 1997 diphtheria, tetanus toxoids and acellular pertussis vaccine, unspecified formulation Angelic Butler MD Work Phone: [facility] Work Phone: 1997 haemophilus influenz ae type b vaccine, HbOC conjugate Angelic Butler MD Work Phone: [facility] Work Phone: 1997 hepatitis B vaccine, pediatric or pediatric/adolescent dosage Angelic Butler MD Work Phone: [facility] Work Phone: 1997 trivalent poliovirus vaccine, live, oral Angelic Butler MD Work Phone: [facility] Work Phone: 1997 hepatitis B vaccine, pediatric or pediatric/adolescent dosage Angelic Butler MD Work Phone: [facility] Work Phone: Payers Date Payer Category Payer Unknown [id number] 2024 [facility] PPO Member Subscriber Plan / Payer (Effective 2024-Present) Name: Otilia Meza Relation to Subscriber: Self Name: Otilia Meza Payer ID: [id number] (NAIC) Type: PPO Address: [facility] [id number] [id number] 2024 Unknown [id number] 2024 Self-pay [id number] 2023 Private Health Insurance [id number] 2023 Unknown [id number] 2017 Unknown [id number] 2017 Unknown [id number] Unknown [id number] Unknown [id number] Social History Date Type Detail Facility Start: 03-06-2018 End: 09-08-2022 Tobacco smoking status NHIS Never smoked tobacco [facility] Start: 03-06-2018 End: 09-08-2022 Tobacco use and exposure Smokeless tobacco non-user [facility] Start: 08-24-2021 Alcohol intake Current drinke r of alcohol (finding) [facility] Start: 07-17-2019 Alcohol Comment social [facility] Start: 1997 Sex Assigned At Female C [facility] Start: 09-08-2022 End: 03-11-2025 Alcohol intake Ex-drinker (finding) [facility] Start: 08-25-2019 Tobacco smoking stat us NJIS Unknown if ever smoked [facility] Start: 08-25-2019 Occasional Jr [facility] Start: 08-25-2019 None Jr [facility] Start: 08-25-2019 With Family Jr Co [facility] Start: 10-11-2022 End: 08-12-2024 History of Social function [facility] Start: 10-11-2022 End: 08-12-2024 Tobacco use panel [facility] Start: 05-27-2012 National Score (1-10 0), lower number is lower risk 51 [facility] Start: 08-05-2019 Gender identity Identifies as female gender (finding) [facility] Start: 08-05-2019 Sexual orientation Heterosexual (jurgen singh) [facility] Start: 08-09-2024 Education 17 [facility] Start: 07-16-2024 [facility] Goals Date Patient Goal Desired Activity /State Personal health goal Functional Status Date Assessment Result Facility 06-27-2014 Are you deaf, or do you have serious difficulty hearing No 06/27/2014 4:36 PM Merna Rayo RN No [facility] 06-27-2014 Are you blind, or do you have serious difficulty seeing, even when wearing glasses No 06/27/2014 4:36 PM Merna Rayo RN No [facility] 06-27-2014 Do you have serious difficulty walking or climbing stairs No 06/27/2014 4:36 PM Merna Rayo RN No [facility] 06-27-2014 Because of a physica l, mental, or emotional condition, do you have difficulty doing errands alone such as visiting a physician's office or shopping No 06/27/2014 4:36 PM Merna Rayo RN No [facility] Mental Status Date Assessment Result Facility 06-27-2014 Because of a physica l, mental, or emotional condition, do you have serious difficulty concentrating, remembering, or making decisions No 06/27/2014 4:36 PM Merna Rayo RN No [facility] Clinical Notes 01-01-2009 to 03-12-2025 Quick Notes - Keyon Jara MD - 03/11/2025 3:08 PM EDTPrenatal Quick Notes - Keyon Jara MD - 03/11/2025 3:08 PM EDTPatient Ofelia Avitia MD - 03/04/2025 9:48 PM EDT Note Date & Type Note Facility 03-12-2025 Note HNO ID: [id number] Author: SUZE GUZMAN MA Service: ? Author Type: Catering Coordinator Type: Progress Notes Filed: 03/12/2025 19:08 Note Text: TruBP Readings: 154/99 146/97 141/94 148/93 131/90 143/94 Average: 144/95 [facility] 03-11-2025 Note Indication Evaluation of growth. Evaluation [...] 6 oz EFW by: Hadlock (HC-AC-FL) Extended Hospice Aide 8.2 mm Extremities / Bony Struc FL [...] PTL & FM precautions Keyon Jara MD [facility] 03-11-2025 Miscellaneous Notes KJ - S: Otilia [...] Keyon Jara MD documented in this encounter [facility] 03-11-2025 Instructions Suze Guzman MA - 03/11/2025 2:43 PM EDT SEQUENTIAL SCREENINGS The [facility] offers sequential screenings for women who [...] It will require an appointment with our pharmacy technician instructor. This is not an ultrasound performed by [...] the above symptoms, contact our office at [phone] and ask to speak with a nurse. After hours, you can call doctors registry at [phone] OR call [facility] at [phone] and ask to have the doctor director digital communications paged. If you consider this an emergency, dial 8-1-0 or go to your nearest emergency department. NEED HELP? Are you dealing with a violent or abusive relationship? Are you a victim of rape or sexual assult? Call [facility] ([facility] 24 hour Crisis Hotline: 567.919.3821 or 312-247-7043. MANUAL Your Guide to a Healthy manual is now on-line. Visit [email or web address] to download your free copy documented in this encounter [facility] 03-10-2025 Telephone encounter Note Noted and agree thanks [facility] Work Phone: 03-10-2025 Miscellaneous Notes Noted and [...] persistent since she has induction scheduled at [place] 03/18. Only call with further advice. Nadiya Dela Cruz RN documented in this encounter [facility] 03-10-2025 Telephone encounter Note 35w6d Patient calling in c/o sore throat, congestion and cough. Asking what she can take. Advised to review med list in Your Guide to Health Book. She has the link for that already and will review. Advised to go to PCP or urgent care if symptoms worsen and/or persistent since she has induction scheduled at [place] 03/18. Only call with further advice. Nadiya Dela Cruz RN [facility] 03-04-2025 Note HNO ID: [id number] Author: OFELIA VELEZ MD Service: ? Author Type: Physician Type: Progress Notes Filed: 03/04/2025 21:49 Note Text: NST SUMMARY PROVIDER ASSESSMENT AND INTERPRETATION Indications for NST: Chronic HTN Baseline: 130 Variability: Moderate Accelerations: Present 15 X 15 Decelerations: None Interpretation: Reactive SIGNATURE: Ofelia Velez MD [facility] 03-04-2025 History of Presen t illness Narrative NST SUMMARY PROVIDER ASSESSMENT AND INTERPRETATION Indications for NST: Chronic HTN Baseline: 130 Variability: Moderate Accelerations: Present 15 X 15 Decelerations: None Interpretation: Reactive SIGNATURE: Ofelia Velez MD documented in this encounter [facility] 03-04-2025 Progress note Formatting of t his [...] Supervision of high risk in third trimester ([facility]) - ICD9: V23.9, ICD10: O09.93 (primary diagnosis) - URINE OB DIP B/O - ROUTINE, GROUP B STREPTOCOCCUS BY PCR - ROUTINE, GROUP B STREPTOCOCCUS BY PCR 2. Chronic hypertension in ([facility]) - ICD9: 642.00, ICD10: O10.919 - Controlled - Home blood pressure readings controlled - URINE OB DIP B/O - INDUCTION L&D 3. Obesity affecting in third trimester, unspecified obesity type ([facility]) - ICD9: 649.13, ICD10: O99.213 Weekly NSTs Growth q 4 - URINE OB DIP B/O - INDUCTION L&D 4. Polyhydramnios in third trimester complication, single or unspecified fetus ([facility]) - ICD9: 657.03, ICD10: O40.3XX0 US next week - URINE OB DIP B/O - INDUCTION L&D 5. 35 weeks gestation of ([facility]) - ICD9: V22.2, ICD10: Z3A.35 - URINE OB DIP B/O - ROUTINE, GROUP B STREPTOCOCCUS BY PCR - ROUTINE, GROUP B STREPTOCOCCUS BY PCR Ofelia Velez MD [facility] 03-04-2025 Miscellaneous Notes S: Otilia Meza is [...] Supervision of high risk in third trimester ([facility]) - ICD9: V23.9, ICD10: O09.93 (primary diagnosis) - URINE OB DIP B/O - ROUTINE, GROUP B STREPTOCOCCUS BY PCR - ROUTINE, GROUP B STREPTOCOCCUS BY PCR 2. Chronic hypertension in ([facility]) - ICD9: 642.00, ICD10: O10.919 - Controlled - Home blood pressure readings controlled - URINE OB DIP B/O - INDUCTION L&D 3. Obesity affecting in third trimester, unspecified obesity type ([facility]) - ICD9: 649.13, ICD10: O99.213 Weekly NSTs Growth q 4 - URINE OB DIP B/O - INDUCTION L&D 4. Polyhydramnios in third trimester complication, single or unspecified fetus ([facility]) - ICD9: 657.03, ICD10: O40.3XX0 US next week - URINE OB DIP B/O - INDUCTION L&D 5. 35 weeks gestation of ([facility]) - ICD9: V22.2, ICD10: Z3A.35 - URINE OB DIP B/O - ROUTINE, GROUP B STREPTOCOCCUS BY PCR - ROUTINE, GROUP B STREPTOCOCCUS BY PCR Ofelia Velez MD documented in this encounter [facility] 03-04-2025 Instructions Justin Pelayo LPN - 03/04/2025 1:51 PM EDT SEQUENTIAL SCREENINGS The [facility] offers sequential screenings for women who [...] It will require an appointment with our pharmacy technician instructor. This is not an ultrasound performed by [...] the above symptoms, contact our office at [phone] and ask to speak with a nurse. After hours, you can call doctors registry at [phone] OR call [facility] at [phone] and ask to have the doctor director digital communications paged. If you consider this an emergency, dial or go to your nearest emergency department. NEED HELP? Are you dealing with a violent or abusive relationship? Are you a victim of rape or sexual assult? Call [facility] ([place]) 24 hour Crisis Hotline: 371.943.8297 or 013-423-9472. MANUAL Your Guide to a Healthy manual is now on-line. Visit [email or web address] [email or web address] to download your free copy documented in this encounter [facility] 02-25-2025 Note HNO ID: [id number] Author: JOJO SAEZ APRN.CNM Service: ? Author Type: Chief Of Internal Medicine Type: Progress Notes Filed: 02/25/2025 15:35 Note Text: NST SUMMARY PROVIDER ASSESSMENT AND INTERPRETATION Otilia Meza is a 29 year old female, , who is at 34w0d with an SPENCER of 04/08/2025, by Ultrasound dating method. Indications for NST: Obesity Baseline: 145 Variability: Moderate Accelerations: Present 15 X 15 Decelerations: None Contractions: TOCO: None Interpretation: Reactive SIGNATURE: Jojo Saez APRN.CNM [facility] 02-25-2025 History of Presen t illness Narrative NST SUMMARY PROVIDER ASSESSMENT AND INTERPRETATION Otilia Meza is a 29 year old female, , who is at 34w0d with an SPENCER of 04/08/2025, by Ultrasound dating method. Indications for NST: Obesity Baseline: 145 Variability: Moderate Accelerations: Present 15 X 15 Decelerations: None Contractions: TOCO: None Interpretation: Reactive SIGNATURE: Jojo Saez APRN.CNM documented in this encounter [facility] 02-25-2025 Progress note Formatting of t his [...] RTO in 2 weeks BRIDGETT Lombardo APRN.CNM [facility] 02-25-2025 Miscellaneous Notes COSME-S: Otilia Meza is [...] BRIDGETT Lombardo APRN.CNM documented in this encounter [facility] 02-25-2025 Instructions Justin Pelayo LPN - 02/25/2025 1:25 PM EDT SEQUENTIAL SCREENINGS The [facility] offers sequential screenings for women who [...] It will require an appointment with our pharmacy technician instructor. This is not an ultrasound performed by [...] the above symptoms, contact our office at [phone] and ask to speak with a nurse. After hours, you can call doctors registry at [phone] OR call [facility] at [phone] and ask to have the doctor director digital communications paged. If you consider this an emergency, dial 9--8 or go to your nearest emergency department. NEED HELP? Are you dealing with a violent or abusive relationship? Are you a victim of rape or sexual assult? Call [facility] ([place]) 24 hour Crisis Hotline: 726.377.9547 or 343-318-2847. MANUAL Your Guide to a Healthy manual is now on-line. Visit [email or web address] to download your free copy documented in this encounter [facility] 02-18-2025 Progress note Formatting of t his note might be different from the original. KJ - S: Otilia denies LOF, contractions or vaginal bleeding. Denies headaches or blurry vision. O: 33w0d, see flow sheet SENSITIVE EXAM: Sensitive exam not performed. A/P: Assessment & Plan 33 weeks gestation of ([facility]) Orders: URINE OB DIP B/O Chronic hypertension in ([facility]) Patient reports BP's at home less than 140/90. Continue aspirin & labetalol Orders: URINE OB DIP B/O ALANINE AMINOTRANSFERASE / SGPT; Future ASPARTATE AMINOTRANSFERASE/SGOT; Future UREA NITROGEN; Future URIC ACID; Future CREATININE BLD; Future COMPLETE BLOOD COUNT; Future PROTEIN / CREATININE RATIO; Future Supervision of high risk in third trimester ([facility]) Orders: URINE OB DIP B/O Obesity affecting in third trimester, unspecified obesity type ([facility]) Orders: URINE OB DIP B/O Reviewed preE, PTL & FM precautions Keyon Jara MD [facility] 02-18-2025 Miscellaneous Notes KJ - S: Otilia denies LOF, contractions or vaginal bleeding. Denies headaches or blurry vision. O: 33w0d, see flow sheet SENSITIVE EXAM: Sensitive exam not performed. A/P: Assessment & Plan 33 weeks gestation of ([facility]) Orders: URINE OB DIP B/O Chronic hypertension in ([facility]) Patient reports BP's at home less than 140/90. Continue aspirin & labetalol Orders: URINE OB DIP B/O ALANINE AMINOTRANSFERASE / SGPT; Future ASPARTATE AMINOTRANSFERASE/SGOT; Future UREA NITROGEN; Future URIC ACID; Future CREATININE BLD; Future COMPLETE BLOOD COUNT; Future PROTEIN / CREATININE RATIO; Future Supervision of high risk in third trimester ([facility]) Orders: URINE OB DIP B/O Obesity affecting in third trimester, unspecified obesity type ([facility]) Orders: URINE OB DIP B/O Reviewed preE, PTL & FM precautions Keyon Jara MD documented in this encounter [facility] 02-18-2025 Note HNO ID: [id number] Author: KEYON JARA MD Service: ? Author [...] Contractions: TOCO: None Interpretation: Reactive SIGNATURE: Keyon Jraa MD [facility] 02-18-2025 History of Presen t illness Narrative [...] Keyon Jara MD documented in this encounter [facility] 02-18-2025 Instructions Suze Guzman MA - 02/18/2025 1:33 PM EDT SEQUENTIAL SCREENINGS The [facility] offers sequential screenings for women who [...] It will require an appointment with our pharmacy technician instructor. This is not an ultrasound performed by [...] the above symptoms, contact our office at [phone] and ask to speak with a nurse. After hours, you can call doctors registry at [phone] OR call [facility] at [phone] and ask to have the doctor director digital communications paged. If you consider this an emergency, dial 9-1-7 or go to your nearest emergency department. NEED HELP? Are you dealing with a violent or abusive relationship? Are you a victim of rape or sexual assult? Call [facility] ([facility] 24 hour Crisis Hotline: 792.511.8677 or 368-420-9097. MANUAL Your Guide to a Healthy manual is now on-line. Visit [email or web address] to download your free copy documented in this encounter [facility] 02-13-2025 Telephone encounter Note EDC does not change- it just means baby is measuring a little larger- she has good dates according to our records with early ultrasounds. EDC 04/08/25 [facility] 02-13-2025 Miscellaneous Notes EDC does not change- it just means baby is measuring a little larger- she has good dates according to our records with early ultrasounds. EDC 04/08/25 documented in this encounter [facility] 02-11-2025 Note Indication Evaluation of growth. Evaluation [...] 0 oz EFW by: Hadlock (HC-AC-FL) Extended Hospice Aide 5.8 mm Extremities / Bony Struc FL [...] PTL & FM precautions Keyon Jara MD [facility] 02-11-2025 Miscellaneous Notes KJ - S: Otilia [...] affecting in third trimester, unspecified obesity type ([facility]) Orders: URINE OB DIP B/O Pepcid for heartburn. Reviewed PTL & FM precautions Keyon Jara MD documented in this encounter [facility] 02-11-2025 Instructions Suze Guzman MA - 02/11/2025 1:26 PM EDT SEQUENTIAL SCREENINGS The [facility] offers sequential screenings for women who [...] It will require an appointment with our pharmacy technician instructor. This is not an ultrasound performed by [...] the above symptoms, contact our office at [phone] and ask to speak with a nurse. After hours, you can call doctors registry at [phone] OR call [facility] at [phone] and ask to have the doctor director digital communications paged. If you consider this an emergency, dial 1-7-6 or go to your nearest emergency department. NEED HELP? Are you dealing with a violent or abusive relationship? Are you a victim of rape or sexual assult? Call [facility] ([facility] 24 hour Crisis Hotline: 986.777.5945 or 447-008-0152. MANUAL Your Guide to a Healthy manual is now on-line. Visit [email or web address] to download your free copy documented in this encounter [facility] 02-11-2025 Telephone encounter Note Noted Keyon Jara MD [facility] 02-11-2025 Miscellaneous Notes Noted Keyon Jara MD Appointment 02/[address] Jara Please forward to for visit. Thank you, Jojo Saez APRN.CNM 31w6d Has appt with KJ tomorrow. Nadiya Dela Cruz RN normal BP's Keep next visit Keyon Jara MD Please review patients BP readings. 31w0d Currently on Labetalol 100 mg BID Next appointment on 02/11. Rita Bernal RN documented in this encounter [facility] 02-10-2025 Telephone encounter Note Appointment 02/[address] Jara [facility] 02-10-2025 Telephone encounter Note Please forward to for visit. Thank you, Jojo Saez APRN.CNM [facility] Work Phone: 02-10-2025 Telephone encounter Note 31w6d Has appt with KJ tomorrow. Nadiya Dela Cruz RN [facility] 02-04-2025 Telephone encounter Note normal BP's Keep next visit Keyon Jara MD [facility] 02-04-2025 Telephone encounter Note Please review patients BP readings. 31w0d Currently on Labetalol 100 mg BID Next appointment on 02/11. Rita Bernal RN [facility] 01-21-2025 Telephone encounter Note started on labetalol. Angelic Butler MD [facility] 01-21-2025 Miscellaneous Notes started on labetalol. Angelic Butler MD 28w6d Next OB visit with RR 8//. Please review BPs. Nadiya Dela Cruz RN documented in this encounter [facility] 01-20-2025 Telephone encounter Note 28w6d Next OB visit with RR 8/5/25. Please review BPs. Nadiya Dela Cruz RN [facility] 01-15-2025 Note Indication Evaluation of growth Maternal [...] 2 oz EFW by: [place] (HC-AC-FL) Extended Hospice Aide 9.1 mm Extremities / Bony Struc [place] [...] / CREATININE RATIO; Future Christy Zimmerman MD [facility] 01-15-2025 Miscellaneous Notes DM-Pt doing well. Denies [...] Christybilly Zimmerman MD documented in this encounter [facility] 01-15-2025 Instructions Marion Benton MA - 01/15/2025 1:23 PM EDT SEQUENTIAL SCREENINGS The [facility] offers sequential screenings for women who [...] It will require an appointment with our pharmacy technician instructor. This is not an ultrasound performed by [...] the above symptoms, contact our office at [phone] and ask to speak with a nurse. After hours, you can call doctors registry at [phone] OR call [facility] at [phone] and ask to have the doctor director digital communications paged. If you consider this an emergency, dial 9-4-5 or go to your nearest emergency department. NEED HELP? Are you dealing with a violent or abusive relationship? Are you a victim of rape or sexual assult? Call [facility] ([place]) 24 hour Crisis Hotline: 925.458.6592 or 752-882-7589. MANUAL Your Guide to a Healthy manual is now on-line. Visit [email or web address] [email or web address] to download your free copy documented in this encounter [facility] 01-10-2025 Progress note Formatting of t his [...] & labs next week. Keyon Jara MD [facility] 01-10-2025 Miscellaneous Notes KJ - Patient seen [...] Keyon Jara MD documented in this encounter [facility] 01-10-2025 Note HNO ID: [id number] Author: SUZE GUZMAN MA Service: ? Author Type: Catering Coordinator Type: Progress Notes Filed: 01/10/2025 09:20 Note Text: TruBP Readings: 146/88 132/87 129/84 129/85 Average: 130/85 [facility] 01-10-2025 History of Presen t illness Narrative TruBP Readings: 146/88 132/87 129/84 129/85 Average: 130/85 documented in this encounter [facility] 01-10-2025 Instructions Suze Guzman MA - 01/10/2025 8:59 AM EDT SEQUENTIAL SCREENINGS The [facility] offers sequential screenings for women who [...] It will require an appointment with our pharmacy technician instructor. This is not an ultrasound performed by [...] the above symptoms, contact our office at [phone] and ask to speak with a nurse. After hours, you can call doctors registry at [phone] OR call [facility] at [phone] and ask to have the doctor director digital communications paged. If you consider this an emergency, dial 9-1-1 or go to your nearest emergency department. NEED HELP? Are you dealing with a violent or abusive relationship? Are you a victim of rape or sexual assult? Call [facility] ([place]) 24 hour Crisis Hotline: 303.615.7112 or 813-504-7631. MANUAL Your Guide to a Healthy manual is now on-line. Visit [email or web address] ancyGuide to download your free copy documented in this encounter [facility] 12-17-2024 Progress note Formatting of t his [...] home Rh negative state in antepartum period ([facility]) RHOGAM next visit Reviewed PTL & FM precautions Keyon Jara MD [facility] 12-17-2024 Miscellaneous Notes KJ - S: Otilia [...] home Rh negative state in antepartum period ([facility]) RHOGAM next visit Reviewed PTL & FM precautions Keyon Jara MD documented in this encounter [facility] 12-17-2024 Instructions Suze Guzman MA - 12/17/2024 1:26 PM EDT SEQUENTIAL SCREENINGS The [facility] offers sequential screenings for women who [...] It will require an appointment with our pharmacy technician instructor. This is not an ultrasound performed by [...] the above symptoms, contact our office at [phone] and ask to speak with a nurse. After hours, you can call doctors registry at [phone] OR call [facility] at [phone] and ask to have the doctor director digital communications paged. If you consider this an emergency, dial 9-1-6 or go to your nearest emergency department. NEED HELP? Are you dealing with a violent or abusive relationship? Are you a victim of rape or sexual assult? Call [facility] ([place]) 24 hour Crisis Hotline: 731.545.5683 or 197-362-3132. MANUAL Your Guide to a Healthy manual is now on-line. Visit [email or web address] ancyGuide to download your free copy documented in this encounter [facility] 12-17-2024 Telephone encounter Note Noted Keyon Jara MD [facility] 12-17-2024 Miscellaneous Notes Noted Keyon Jara MD 24w0d Patient has appointment today. Ofelia Driscoll RN documented in this encounter [facility] 12-17-2024 Telephone encounter Note 24w0d Patient has appointment today. Ofelia Driscoll RN [facility] 12-16-2024 Telephone encounter Note Yes, ok to close, results negative. Thank you, Jojo Saez APRN.CNM [facility] 12-16-2024 Miscellaneous Notes Yes, ok to close, results negative. Thank you, Jojo Saez APRN.CNM Urine culture results from [facility] given to COSME to review. Ofelia Driscoll RN Urine culture is still pending. Will keep watch for it. Ofelia Driscoll RN Can you please see if urine culture is back from [facility]? Thank you, Jojo Saez APRN.CNM documented in this encounter [facility] 12-10-2024 Telephone encounter Note Urine culture results from [facility] given to COSME to review. Ofelia Driscoll RN [facility] 12-10-2024 Telephone encounter Note Noted. Keep next visit. Keyon Jara MD [facility] Work Phone: 12-10-2024 Miscellaneous Notes Noted. Keep next visit. Keyon Jara MD 22w0d Next visit 12/17 with JOHN. Nadiya Dela Cruz RN documented in this encounter [facility] 12-09-2024 Telephone encounter Note Patient notified that Macrobid was sent in. Awaiting urine culture results. Not back at this time. Ofelia Driscoll RN [facility] 12-09-2024 Miscellaneous Notes Patient notified that Macrobid was sent in. Awaiting urine culture results. Not back at this time. Ofelia Driscoll RN I just sent another phone note asking for urine culture. I was trying to await culture but sent prescription for now. Thank you, Jojo Saez APRN.CNM Patient 22w6d went to [facility] ER for blood in her urine [...] Rita Bernal RN documented in this encounter [facility] 12-09-2024 Telephone encounter Note Urine culture is still pending. Will keep watch for it. Ofelia Driscoll RN [facility] 12-09-2024 Telephone encounter Note I just sent another phone note asking for urine culture. I was trying to await culture but sent prescription for now. Thank you, Jojo Saez APRN.CNM [facility] 12-09-2024 Telephone encounter Note Can you please see if urine culture is back from [facility]? Thank you, Jojo Saez APRN.CNM [facility] 12-09-2024 Telephone encounter Note Patient 22w6d went to [facility] ER for blood in her urine [...] yesterday? Can you address? Rita Bernal RN [facility] 12-08-2024 Hospital Discharg e instructions Additional Instructions prescription to be picked up tomorrow at [facility]. If becomes painful tonight call the hospital cooling machine operator at [phone] and ask to speak with Patti Saez or come into the ER [facility] Work Phone: 12-03-2024 Telephone encounter Note 22w0d Next visit 12/17 with KJ. Nadiya Dela Cruz RN [facility] 11-25-2024 Telephone encounter Note BP's normal thanks [facility] Work Phone: 11-25-2024 Miscellaneous Notes BP's normal thanks 20w6d Next visit 12/17 with KJ. Nadiya Dela Cruz RN Patient has appointment in office today. Rita Bernal RN 18w0d Next appointment is 11/19 BP's normal keep scheduled follow up 17w6d Next OB visit 11/19 with JC. Nadiya Dela Cruz RN documented in this encounter [facility] 11-25-2024 Telephone encounter Note 20w6d Next visit 12/17 with KJ. Nadiya Dela Cruz RN [facility] 11-19-2024 Progress note Formatting of t his note might be different from the original. Anatomy ultrasound reviewed. No abnormalities identified. Follow up as clinically indicated. Please place copy in ob chart. Angelic Butler MD [facility] 11-19-2024 Miscellaneous Notes Anatomy ultrasound reviewed. No abnormalities identified. Follow up as clinically indicated. Please place copy in ob chart. Angelic Butler MD documented in this encounter [facility] 11-19-2024 Telephone encounter Note Patient has appointment in office today. Rita Bernal RN [facility] 11-19-2024 Instructions Tori Lim MA - 11/19/2024 2:04 PM EDT SEQUENTIAL SCREENINGS The [facility] offers sequential screenings for women who [...] It will require an appointment with our pharmacy technician instructor. This is not an ultrasound performed by [...] the above symptoms, contact our office at [phone] and ask to speak with a nurse. After hours, you can call doctors registry at [phone] OR call [facility] at [phone] and ask to have the doctor director digital communications paged. If you consider this an emergency, dial 3-7-7 or go to your nearest emergency department. NEED HELP? Are you dealing with a violent or abusive relationship? Are you a victim of rape or sexual assult? Call [facility] ([place]) 24 hour Crisis Hotline: 206.345.3068 or 903-465-4521. MANUAL Your Guide to a Healthy manual is now on-line. Visit [email or web address] ancyGuide to download your free copy documented in this encounter [facility] 11-19-2024 Progress note Formatting of t [...] -Keep BP log weekly and send via [employer] -Continue ASA 162mg PO once daily -Baseline labs normal 4. Obesity affecting in first trimester, unspecified obesity type -Growth US every 4 weeks at 32 weeks -NST weekly at 32 weeks -IOL at 39 weeks PTL precautions reviewed and when to call RTO in 4 weeks Jojo Saez APRN.CNM [facility] 11-19-2024 Miscellaneous Notes COSME-S: Otilia Meza [...] -Keep BP log weekly and send via [employer] -Continue ASA 162mg PO once daily -Baseline labs normal 4. Obesity affecting in first trimester, unspecified obesity type -Growth US every 4 weeks at 32 weeks -NST weekly at 32 weeks -IOL at 39 weeks PTL precautions reviewed and when to call RTO in 4 weeks Jojo Saze APRN.CNM documented in this encounter [facility] 11-05-2024 Telephone encounter Note 18w0d Next appointment is 11/19 [facility] 11-04-2024 Telephone encounter Note BP's normal keep scheduled follow up [facility] 11-04-2024 Telephone encounter Note 17w6d Next OB visit 11/19 with JC. Nadiya Dela Cruz, RN [facility] 10-22-2024 Progress note Formatting of t [...] -Keep BP log weekly and send via [employer] -Continue ASA 162mg PO once daily -Baseline labs normal 4. Obesity affecting in first trimester, unspecified obesity type -Growth US every 4 weeks at 32 weeks -NST weekly at 32 weeks -IOL at 39 weeks PTL precautions reviewed and when to call RTO in 4 weeks Jojo Saez APRN.CNM [facility] 10-22-2024 Miscellaneous Notes COSME-S: Otilia Meza [...] -Keep BP log weekly and send via [employer] -Continue ASA 162mg PO once daily -Baseline labs normal 4. Obesity affecting in first trimester, unspecified obesity type -Growth US every 4 weeks at 32 weeks -NST weekly at 32 weeks -IOL at 39 weeks PTL precautions reviewed and when to call RTO in 4 weeks Jojo Saez APRN.CNM COSME- documented in this encounter [facility] 10-22-2024 Progress note Formatting of t his note might be different from the original. COSME- [facility] 10-22-2024 Note HNO ID: [id number] Author: JOJO SAEZ APRN.CNM Service: ? Author Type: Chief Of Internal Medicine Type: Progress Notes Filed: 10/22/2024 13:52 Note Text: COSME- [facility] 10-22-2024 History of Presen t illness Narrative COSME- documented in this encounter [facility] 10-08-2024 Telephone encounter Note 14w0d Aspirin increased to 162mg at last visit per DM's note and only updated via med update. New rx was not sent in. Please file. Requested Prescriptions Pending Prescriptions Disp Refills aspirin, enteric coated (ECOTRIN LOW STRENGTH) 81 mg EC tablet 180 tablet 3 Sig: Take 2 tablets by mouth once daily. Nadiya Dela Cruz RN [facility] 10-08-2024 Miscellaneous Notes 14w0d Aspirin increased [...] Dela Cruz RN documented in this encounter [facility] 09-23-2024 Note HNO ID: [id number] Author: CHRISTY RAMESH MD Service: ? Author [...] 21 to be drawn Christy Zimmerman MD [facility] 09-23-2024 History of Presen t illness Narrative [...] Christy Zimmerman MD documented in this encounter [facility] 09-23-2024 Instructions Marion Benton MA - 09/23/2024 11:10 AM EDT SEQUENTIAL SCREENINGS The [facility] offers sequential screenings for women who [...] It will require an appointment with our pharmacy technician instructor. This is not an ultrasound performed by [...] the above symptoms, contact our office at [phone] and ask to speak with a nurse. After hours, you can call doctors registry at [phone] OR call [facility] at [phone] and ask to have the doctor director digital communications paged. If you consider this an emergency, dial 9-1-3 or go to your nearest emergency department. NEED HELP? Are you dealing with a violent or abusive relationship? Are you a victim of rape or sexual assult? Call [facility] ([place]) 24 hour Crisis Hotline: 859.350.6862 or 184-581-9995. MANUAL Your Guide to a Healthy manual is now on-line. Visit [email or web address] ancyGuide to download your free copy documented in this encounter [facility] 09-10-2024 Note Addended by: ANGELIC BUTLER on: 09/10/2024 04:05 PM Modules accepted: Orders [facility] 09-10-2024 Miscellaneous Notes Addended by: ANGELIC [...] in first trimester, unspecified obesity type Orders: [id number] PLUS; Future OBSTETRIC ULTRASOUND WHI; Future 10 weeks gestation of Orders: [id number] PLUS; Future Supervision of high risk in first trimester Orders: OBSTETRIC ULTRASOUND WHI; Future BMI 40.0-44.9, adult (HCC) Orders: OBSTETRIC ULTRASOUND WHI; Future 16 and 20 week US, first trimester scan aneuploidy screening next visit start asa porophylaxis after next visit Angelic Butler M.D. documented in this encounter [facility] 09-10-2024 Note Addended by: ANGELIC BUTLER on: 09/10/2024 04:04 PM Modules accepted: Orders [facility] 09-10-2024 Note Addended by: Marielle LIM on: 09/10/2024 11:13 AM Modules accepted: Orders [facility] 09-10-2024 Progress note Formatting of t his note might be different from the original. RR- VB No. LOF No. CTXS No. Movement: present. Other c/o: No. Medication list reviewed. SENSITIVE EXAM: Sensitive exam not performed. Physical Exam See Flow Sheet Abd: soft, nontender, gravid A/P 10w0d Estimated Date of Delivery: 04/08/25 Assessment & Plan Obesity affecting in first trimester, unspecified obesity type Orders: [id number] PLUS; Future OBSTETRIC ULTRASOUND WHI; Future 10 weeks gestation of Orders: [id number] PLUS; Future Supervision of high risk in first trimester Orders: OBSTETRIC ULTRASOUND WHI; Future BMI 40.0-44.9, adult (HCC) Orders: OBSTETRIC ULTRASOUND WHI; Future 16 and 20 week US, first trimester scan aneuploidy screening next visit start asa porophylaxis after next visit Angelic Butler M.D. T [facility] 09-10-2024 Instructions Tori Lim MA - 09/10/2024 10:20 AM EDT SEQUENTIAL SCREENINGS The [facility] offers sequential screenings for women who [...] It will require an appointment with our pharmacy technician instructor. This is not an ultrasound performed by [...] the above symptoms, contact our office at [phone] and ask to speak with a nurse. After hours, you can call doctors registry at [phone] OR call [facility] at [phone] and ask to have the doctor director digital communications paged. If you consider this an emergency, dial 9-1-7 or go to your nearest emergency department. NEED HELP? Are you dealing with a violent or abusive relationship? Are you a victim of rape or sexual assult? Call [facility] ([place]) 24 hour Crisis Hotline: 824.535.1714 or 457-922-9332. MANUAL Your Guide to a Healthy manual is now on-line. Visit [email or web address] ancyGuide to download your free copy documented in this encounter [facility] 08-31-2024 Note HNO ID: [id number] Author: BIANCA MELO MD Service: ? Author Type: Physician Type: Progress Notes Filed: 08/31/2024 03:35 Note Text: The patient presents for requested ultrasound. Full report available in the Imaging tab in [facility]. Bianca Melo MD [facility] 08-31-2024 History of Presen t illness Narrative The patient presents for requested ultrasound. Full report available in the Imaging tab in [facility]. Bianca Melo MD documented in this encounter [facility] 08-16-2024 Telephone encounter Note Freezing Pointt message was sent to patient by on 08/15, stating levels increased appropriately. hCG Quantitative, Blood (mIU/mL) Date Value 08/14/2024 35,704.0 08/12/2024 21,796.0 Nadiya Dela Cruz RN [facility] 08-16-2024 Miscellaneous Notes Freezing Pointt message was sent to patient by CP [...] Manda Delgado RN documented in this encounter [facility] 08-12-2024 Telephone encounter Note Pt saw CP 08/12/24-----POC US completed. US tech to room for verification. Gestational sac and yolk sac visible. Small pole measuring 5 w 6 days. HCG levels ordered-1st drawn 08/12/24. Leave open for f/u on results. Manda Delgado RN [facility] 08-12-2024 Note HNO ID: [id number] Author: TORI LIM MA Service: ? Author Type: Catering Coordinator Type: Progress Notes Filed: 08/12/2024 10:09 Note Text: OB point of care ultrasound was performed. See imaging tab for details. 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 As applicable, any other physician, advance practice provider, medical student, or other health professional student that will be observing or involved in the sensitive examination for educational or training purposes was discussed with the Patient or Authorized Rn Critical Care. The Patient or Authorized Rn Critical Care has agreed to proceed with the sensitive [...] Your guide to a health and the Natural Sciences Department Chair. Discussed hemoglobin electrophoresis. Patient: Accepts 2) Screening: [...] Matilde Adler APRN.CNM documented in this encounter [facility] 08-09-2024 Note HNO ID: [id number] Author: MATILDE ADLER APRN.CNM Service: ? 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 [facility] 08-09-2024 Instructions Tori Lim MA - 08/09/2024 1:32 PM EST Please select the following link to access the [facility] Your Guide to a Healthy . [email or web address] Please select the following link to access the [facility] Your Guide to a Healthy . [email or web address] documented in this encounter [facility] 06-17-2024 Telephone encounter Note Patient notified. Ofelia Driscoll RN [facility] 06-17-2024 Miscellaneous Notes Patient notified. Ofelia [...] Rita Bernal RN documented in this encounter [facility] 06-17-2024 Telephone encounter Note Recommend Ibuprofen 600mg PO every 6 hr, warm bath/heating pad. Continue to monitor at this time. If bleeding does no stop and no improvement in pain after this period recommend follow up visit in office. Otherwise see how she does with next menses as her body adjusts after stopping control. Jojo Saez APRN.CNM [facility] Work Phone: 06-17-2024 Telephone encounter Note [...] recommendations for the patient? Rita Bernal RN [facility] 02-07-2024 History of Presen t illness [...] Jasmin Jara APRN.TANA documented in this encounter [facility] 12-15-2023 History of Presen t illness Narrative [...] L0 SAB0 IAB0 Ectopic0 Multiple0 Live Births0 Scissors Grinder History LMP: 11/08/2023 (Within Days), Having periods Age at Menarche: Age at First : Age at Menopause: Scissors Grinder History Comments: Sexual Activity: Yes; Male; nuvaring [...] external genitalia normal, normal Bartholin's glands, urethra, [place]'s glands, no vulvar lesions, no cervical lesions, [...] Angelic Butler MD documented in this encounter [facility] 08-29-2023 Miscellaneous Notes Pt calling and stated that she is needing a refill on below medication sent to her pharmacy. Pt has scheduled upcoming yearly exam. Call only if problems. Margret Flores LPN documented in this encounter [facility] 09-08-2022 Miscellaneous Notes Addended by: ANGELIC BUTLER on: 09/08/2022 11:09 AM Modules accepted: Orders Addended by: TORI LIM MA on: 09/08/2022 10:49 AM Modules accepted: Orders Addended by: TORI LIM MA on: 09/08/2022 09:25 AM Modules accepted: Orders documented in this encounter [facility] 09-08-2022 History of Presen t illness [...] L0 SAB0 IAB0 Ectopic0 Multiple0 Live Births0 Scissors Grinder History LMP: 08/10/2022 (Within Days), Having periods Age at Menarche: Age at First : Age at Menopause: Scissors Grinder History Comments: Sexual Activity: Yes; Male; nuvaring [...] external genitalia normal, normal Bartholin's glands, urethra, [place]'s glands, no vulvar lesions, no cervical lesions, [...] L Carrie, MD documented in this encounter [facility] 09-05-2022 Miscellaneous Notes Patient had appointment on 09/08/2022 & called stating that she will need 1 refill of Nuvaring prior to appointment documented in this encounter [facility] 01-01-2009 History of Past i llness Narrative Problem Noted Date Resolved Date APPENDICITIS ACUTE 01/01/2009 08/24/2021 documented as of this encounter (statuses as of 09/05/2022) [facility]07-[facility]2009 History of Past illness Narrative* Problem Noted Date Resolved Date APPENDICITIS ACUTE 01/01/2009 08/24/2021 documented as of this encounter (statuses as of 09/08/2022) [facility] History of Past illness Narrative* Problem Noted Date Diagnosed Date Resolved Date APPENDICITIS ACUTE 01/01/2009 2 documented as of this encounter (statuses as of 01/02/2023) [facility] History of Past illness Narrative* Problem Noted Date Diagnosed Date Resolved Date APPENDICITIS ACUTE 01/01/2009 2 documented as of this encounter (statuses as of 03/02/2023) [facility] History of Past illness Narrative* Problem Noted Date Diagnosed Date Resolved Date APPENDICITIS ACUTE 01/01/2009 2 documented as of this encounter (statuses as of 08/30/2023) [facility] note* Diagnosis Encounter for gynecological examination (general) (routine) without abnormal findings- Primary Screen for STD (sexually transmitted disease) Screening examination for venereal disease [facility]No [facility] information [facility] Work Phone: Evaluation note* Diagnosis Irregular menstrual cycle- Primary [facility] Diagnosis Orgasmic headache- Primary Headache associated with sexual activity documented in this encounter [facility] note* Diagnosis Encounter for gynecological examination (general) (routine) without abnormal findings- Primary Screening for cervical cancer Screening for malignant neoplasm of the cervix Vaginal high risk human papillomavirus (HPV) DNA test positive Encounter for surveillance of vaginal ring hormonal contraceptive device documented in this encounter [facility] note* Diagnosis Class 2 severe obesity due to excess calories with serious comorbidity and body mass index (BMI) of 38.0 to 38.9 in adult (HCC)- Primary PCOS (polycystic ovarian syndrome) Polycystic ovaries documented in this encounter [facility] note* Diagnosis Vaginal itching- Primary Pruritus of genital organs Vaginal discharge Leukorrhea, not specified as infective documented in this encounter [facility] note* Diagnosis with uncertain dates, antepartum- Primary state, incidental Encounter for care in first trimester of first Threatened miscarriage in early Threatened , unspecified as to episode of care Obesity affecting in first trimester, unspecified obesity type documented in this encounter [facility] note* Diagnosis with uncertain dates, antepartum state, incidental documented in this encounter [facility] note* Diagnosis Supervision of high risk in first trimester- Primary Unspecified high-risk Obesity affecting in first trimester, unspecified obesity type 10 weeks gestation of state, incidental BMI 40.0-44.9, adult ([facility]) Body Mass Index 40.0-44.9, adult * Assessment & Plan Note - Angelic Butler MD - 09/10/2024 10:48 AM EDT Associated Problem(s): Obesity complicating , first trimester Orders: [id number] PLUS; Future OBSTETRIC ULTRASOUND WHI; Future documented in this encounter [facility] note* Diagnosis Supervision of high risk in first trimester (HCC)- Primary Unspecified high-risk Obesity affecting in first trimester, unspecified obesity type (HCC) 10 weeks gestation of ([facility]) state, incidental BMI 40.0-44.9, adult (HCC) Body Mass Index 40.0-44.9, adult Supervision of high risk in first trimester (HCC)- Primary Unspecified high-risk Elevated blood pressure reading without diagnosis of hypertension Chronic hypertension in (HCC) Benign essential hypertension complicating , childbirth, and the puerperium, unspecified as to episode of care 11 weeks gestation of ([facility]) state, incidental * Assessment & Plan Note - Christy Raemsh MD - 09/23/2024 11:58 AM EDTAssociated Problem(s): Chronic hypertension in Based on two elevated BP >130/80s suspect CHTN in . Increased ASA to 162mg in evening. documented in this encounter [facility] note* Diagnosis Supervision of high risk in first trimester ([facility])- Primary Unspecified high-risk Obesity affecting in first trimester, unspecified obesity type ([facility]) 10 weeks gestation of ([facility]) state, incidental BMI 40.0-44.9, adult ([facility]) Body Mass Index 40.0-44.9, adult Encounter for screening for malformation using ultrasound ([facility])- Primary 11 weeks gestation of ([facility]) state, incidental Supervision of high risk in first trimester ([facility])- Primary Unspecified high-risk Elevated blood pressure reading without diagnosis of hypertension Chronic hypertension in ([facility]) Benign essential hypertension complicating , childbirth, and the puerperium, unspecified as to episode of care 11 weeks gestation of ([facility]) state, incidental documented in this encounter [facility] note* Diagnosis Supervision of high risk in first trimester (HCC)- Primary Unspecified high-risk Obesity affecting in first trimester, unspecified obesity type ([facility]) 10 weeks gestation of ([facility]) state, incidental BMI 40.0-44.9, adult ([facility]) Body Mass Index 40.0-44.9, adult Supervision of high risk in first trimester ([facility])- Primary Unspecified high-risk Elevated blood pressure reading without diagnosis of hypertension Chronic hypertension in ([facility]) Benign essential hypertension complicating , childbirth, and the puerperium, unspecified as to episode of care 11 weeks gestation of ([facility]) state, incidental Supervision of high risk in second trimester ([facility])- Primary Unspecified high-risk 16 weeks gestation of ([facility]) state, incidental Chronic hypertension in (HCC) Benign essential hypertension complicating , childbirth, and the puerperium, unspecified as to episode of care documented in this encounter [facility] note* Diagnosis Supervision of high risk in first trimester (HCC)- Primary Unspecified high-risk Obesity affecting in first trimester, unspecified obesity type (HCC) 10 weeks gestation of ([facility]) state, incidental BMI 40.0-44.9, adult ([facility]) Body Mass Index 40.0-44.9, adult Supervision of high risk in first trimester (HCC)- Primary Unspecified high-risk Elevated blood pressure reading without diagnosis of hypertension Chronic hypertension in (HCC) Benign essential hypertension complicating , childbirth, and the puerperium, unspecified as to episode of care 11 weeks gestation of ([facility]) state, incidental Encounter for anatomic survey ([facility])- Primary Encounter for anatomic survey Obesity affecting in first trimester, unspecified obesity type ([facility]) BMI 40.0-44.9, adult ([facility]) Body Mass Index 40.0-44.9, adult 16 weeks gestation of ([facility]) state, incidental documented in this encounter [facility] note* Diagnosis Supervision of high risk in first trimester ([facility])- Primary Unspecified high-risk Obesity affecting in first trimester, unspecified obesity type ([facility]) 10 weeks gestation of ([facility]) state, incidental BMI 40.0-44.9, adult ([facility]) Body Mass Index 40.0-44.9, adult Supervision of high risk in first trimester ([facility])- Primary Unspecified high-risk Elevated blood pressure reading without diagnosis of hypertension Chronic hypertension in (HCC) Benign essential hypertension complicating , childbirth, and the puerperium, unspecified as to episode of care 11 weeks gestation of ([facility]) state, incidental Encounter for anatomic survey ([facility])- Primary Encounter for anatomic survey Obesity affecting in first trimester, unspecified obesity type ([facility]) BMI 40.0-44.9, adult ([facility]) Body Mass Index 40.0-44.9, adult 20 weeks gestation of ([facility]) state, incidental documented in this encounter [facility] note* Diagnosis Supervision of high risk in first trimester ([facility])- Primary Unspecified high-risk Obesity affecting in first trimester, unspecified obesity type (HCC) 10 weeks gestation of ([facility]) state, incidental BMI 40.0-44.9, adult ([facility]) Body Mass Index 40.0-44.9, adult Supervision of high risk in first trimester ([facility])- Primary Unspecified high-risk Elevated blood pressure reading without diagnosis of hypertension Chronic hypertension in ([facility]) Benign essential hypertension complicating , childbirth, and the puerperium, unspecified as to episode of care 11 weeks gestation of ([facility]) state, incidental Supervision of high risk in second trimester ([facility])- Primary Unspecified high-risk 20 weeks gestation of ([facility]) state, incidental Supervision of high risk in third trimester ([facility]) Unspecified high-risk Obesity affecting in third trimester, unspecified obesity type ([facility]) documented in this encounter [facility] note* Diagnosis Supervision of high risk in first trimester ([facility])- Primary Unspecified high-risk Obesity affecting in first trimester, unspecified obesity type ([facility]) 10 weeks gestation of ([facility]) state, incidental BMI 40.0-44.9, adult ([facility]) Body Mass Index 40.0-44.9, adult Supervision of high risk in first trimester ([facility])- Primary Unspecified high-risk Elevated blood pressure reading without diagnosis of hypertension Chronic hypertension in ([facility]) Benign essential hypertension complicating , childbirth, and the puerperium, unspecified as to episode of care 11 weeks gestation of ([facility]) state, incidental Screening for diabetes mellitus- Primary 24 weeks gestation of ([facility]) state, incidental Supervision of high risk in second trimester ([facility]) Unspecified high-risk Chronic hypertension complicating or reason for care during childbirth ([facility]) Benign essential hypertension complicating , childbirth, and the puerperium, unspecified as to episode of care Rh negative state in antepartum period ([facility]) Rhesus isoimmunization affecting management of mother, antepartum condition * Assessment & Plan Note - Keyon Jara MD - 12/17/2024 1:47 PM EDTAssociated Problem(s): Encounter for care in first trimester of first ([facility]) Continue aspirin Serial growth US at 28 wkes BP's normal at home [facility] Diagnosis Supervision of high risk in first trimester ([facility])- Primary Unspecified high-risk Obesity affecting in first trimester, unspecified obesity type ([facility]) 10 weeks gestation of ([facility]) state, incidental BMI 40.0-44.9, adult ([facility]) Body Mass Index 40.0-44.9, adult Supervision of high risk in first trimester ([facility])- Primary Unspecified high-risk Elevated blood pressure reading without diagnosis of hypertension Chronic hypertension in ([facility]) Benign essential hypertension complicating , childbirth, and the puerperium, unspecified as to episode of care 11 weeks gestation of ([facility]) state, incidental Screening for diabetes mellitus- Primary 24 weeks gestation of ([facility]) state, incidental Supervision of high risk in second trimester ([facility]) Unspecified high-risk Chronic hypertension complicating or reason for care during childbirth ([facility]) Benign essential hypertension complicating , childbirth, and the puerperium, unspecified as to episode of care Rh negative state in antepartum period ([facility]) Rhesus isoimmunization affecting management of mother, antepartum condition 27 weeks gestation of ([facility])- Primary state, incidental Chronic hypertension complicating or reason for care during childbirth ([facility]) Benign essential hypertension complicating , childbirth, and the puerperium, unspecified as to episode of care documented in this encounter [facility] note* Diagnosis Supervision of high risk in first trimester ([facility])- Primary Unspecified high-risk Obesity affecting in first trimester, unspecified obesity type ([facility]) 10 weeks gestation of ([facility]) state, incidental BMI 40.0-44.9, adult ([facility]) Body Mass Index 40.0-44.9, adult Supervision of high risk in first trimester ([facility])- Primary Unspecified high-risk Elevated blood pressure reading without diagnosis of hypertension Chronic hypertension in ([facility]) Benign essential hypertension complicating , childbirth, and the puerperium, unspecified as to episode of care 11 weeks gestation of ([facility]) state, incidental Screening for diabetes mellitus- Primary 24 weeks gestation of ([facility]) state, incidental Supervision of high risk in second trimester ([facility]) Unspecified high-risk Chronic hypertension complicating or reason for care during childbirth ([facility]) Benign essential hypertension complicating , childbirth, and the puerperium, unspecified as to episode of care Rh negative state in antepartum period ([facility]) Rhesus isoimmunization affecting management of mother, antepartum condition Supervision of high risk in third trimester ([facility])- Primary Unspecified high-risk Chronic hypertension complicating or reason for care during childbirth ([facility]) Benign essential hypertension complicating , childbirth, and the puerperium, unspecified as to episode of care Rh negative state in antepartum period ([facility]) Rhesus isoimmunization affecting management of mother, antepartum condition Obesity affecting in third trimester, unspecified obesity type ([facility]) 28 weeks gestation of ([facility]) state, incidental [facility] Diagnosis Supervision of high risk in first trimester ([facility])- Primary Unspecified high-risk Obesity affecting in first trimester, unspecified obesity type ([facility]) 10 weeks gestation of ([facility]) state, incidental BMI 40.0-44.9, adult ([facility]) Body Mass Index 40.0-44.9, adult Supervision of high risk in first trimester ([facility])- Primary Unspecified high-risk Elevated blood pressure reading without diagnosis of hypertension Chronic hypertension in ([facility]) Benign essential hypertension complicating , childbirth, and the puerperium, unspecified as to episode of care 11 weeks gestation of ([facility]) state, incidental Screening for diabetes mellitus- Primary 24 weeks gestation of ([facility]) state, incidental Supervision of high risk in second trimester ([facility]) Unspecified high-risk Chronic hypertension complicating or reason for care during childbirth ([facility]) Benign essential hypertension complicating , childbirth, and the puerperium, unspecified as to episode of care Rh negative state in antepartum period ([facility]) Rhesus isoimmunization affecting management of mother, antepartum condition Encounter for ultrasound to check growth ([facility])- Primary Encounter for routine screening for malformation using ultrasonics Obesity affecting in third trimester, unspecified obesity type ([facility]) 28 weeks gestation of ([facility]) state, incidental Polyhydramnios in third trimester complication, single or unspecified fetus ([facility]) documented in this encounter [facility] note* Diagnosis Supervision of high risk in first trimester ([facility])- Primary Unspecified high-risk Obesity affecting in first trimester, unspecified obesity type ([facility]) 10 weeks gestation of ([facility]) state, incidental BMI 40.0-44.9, adult ([facility]) Body Mass Index 40.0-44.9, adult Supervision of high risk in first trimester ([facility])- Primary Unspecified high-risk Elevated blood pressure reading without diagnosis of hypertension Chronic hypertension in ([facility]) Benign essential hypertension complicating , childbirth, and the puerperium, unspecified as to episode of care 11 weeks gestation of ([facility]) state, incidental Screening for diabetes mellitus- Primary 24 weeks gestation of ([facility]) state, incidental Supervision of high risk in second trimester ([facility]) Unspecified high-risk Chronic hypertension complicating or reason for care during childbirth ([facility]) Benign essential hypertension complicating , childbirth, and the puerperium, unspecified as to episode of care Rh negative state in antepartum period ([facility]) Rhesus isoimmunization affecting management of mother, antepartum condition Chronic hypertension in ([facility])- Primary Benign essential hypertension complicating , childbirth, and the puerperium, unspecified as to episode of care documented in this encounter [facility] note* Diagnosis Supervision of high risk in first trimester ([facility])- Primary Unspecified high-risk Obesity affecting in first trimester, unspecified obesity type ([facility]) 10 weeks gestation of ([facility]) state, incidental BMI 40.0-44.9, adult ([facility]) Body Mass Index 40.0-44.9, adult Supervision of high risk in first trimester ([facility])- Primary Unspecified high-risk Elevated blood pressure reading without diagnosis of hypertension Chronic hypertension in ([facility]) Benign essential hypertension complicating , childbirth, and the puerperium, unspecified as to episode of care 11 weeks gestation of ([facility]) state, incidental Screening for diabetes mellitus- Primary 24 weeks gestation of ([facility]) state, incidental Supervision of high risk in second trimester ([facility]) Unspecified high-risk Chronic hypertension complicating or reason for care during childbirth ([facility]) Benign essential hypertension complicating , childbirth, and the puerperium, unspecified as to episode of care Rh negative state in antepartum period (HCC) Rhesus isoimmunization affecting management of mother, antepartum condition 32 weeks gestation of ([facility])- Primary state, incidental Chronic hypertension in (HCC) Benign essential hypertension complicating , childbirth, and the puerperium, unspecified as to episode of care Supervision of high risk in third trimester (HCC) Unspecified high-risk Obesity affecting in third trimester, unspecified obesity type ([facility]) Chronic hypertension affecting (HCC)- Primary Obesity affecting in third trimester, unspecified obesity type ([facility]) Polyhydramnios affecting (HCC) 32 weeks gestation of ([facility]) state, incidental [facility]* Diagnosis Supervision of high risk in first trimester ([facility])- Primary Unspecified high-risk Obesity affecting in first trimester, unspecified obesity type ([facility]) 10 weeks gestation of ([facility]) state, incidental BMI 40.0-44.9, adult ([facility]) Body Mass Index 40.0-44.9, adult Supervision of high risk in first trimester ([facility])- Primary Unspecified high-risk Elevated blood pressure reading without diagnosis of hypertension Chronic hypertension in (HCC) Benign essential hypertension complicating , childbirth, and the puerperium, unspecified as to episode of care 11 weeks gestation of ([facility]) state, incidental Screening for diabetes mellitus- Primary 24 weeks gestation of ([facility]) state, incidental Supervision of high risk in second trimester ([facility]) Unspecified high-risk Chronic hypertension complicating or reason for care during childbirth ([facility]) Benign essential hypertension complicating , childbirth, and the puerperium, unspecified as to episode of care Rh negative state in antepartum period (HCC) Rhesus isoimmunization affecting management of mother, antepartum condition 32 weeks gestation of ([facility])- Primary state, incidental Chronic hypertension in ([facility]) Benign essential hypertension complicating , childbirth, and the puerperium, unspecified as to episode of care Supervision of high risk in third trimester (HCC) Unspecified high-risk Obesity affecting in third trimester, unspecified obesity type ([facility]) * Assessment & Plan Note - Keyon Jara MD - 02/11/2025 1:37 PM EDTAssociated Problem(s): Chronic hypertension in (HCC) Continue labetalol & aspirin. Monitoring BP AT Home. Growth US today. Orders: URINE OB DIP B/O [facility] Supervision of high risk in first trimester (HCC)- Primary Unspecified high-risk Obesity affecting in first trimester, unspecified obesity type (HCC) 10 weeks gestation of (HCC) state, incidental BMI 40.0-44.9, adult ([facility]) Body Mass Index 40.0-44.9, adult Supervision of high risk in first trimester (HCC)- Primary Unspecified high-risk Elevated blood pressure reading without diagnosis of hypertension Chronic hypertension in (HCC) Benign essential hypertension complicating , childbirth, and the puerperium, unspecified as to episode of care 11 weeks gestation of (HCC) state, incidental Screening for diabetes mellitus- Primary 24 weeks gestation of ([facility]) state, incidental Supervision of high risk in second trimester (HCC) Unspecified high-risk Chronic hypertension complicating or reason for care during childbirth (HCC) Benign essential hypertension complicating , childbirth, and the puerperium, unspecified as to episode of care Rh negative state in antepartum period ([facility]) Rhesus isoimmunization affecting management of mother, antepartum [...] CREATININE RATIO; Future [facility] Diagnosis Supervision of high risk in first trimester ([facility])- Primary Unspecified high-risk Obesity affecting in first trimester, unspecified obesity type ([facility]) 10 weeks gestation of ([facility]) state, incidental BMI 40.0-44.9, adult ([facility]) Body Mass Index 40.0-44.9, adult Supervision of high risk in first trimester ([facility])- Primary Unspecified high-risk Elevated blood pressure reading without diagnosis of hypertension Chronic hypertension in ([facility]) Benign essential hypertension complicating , childbirth, and the puerperium, unspecified as to episode of care 11 weeks gestation of ([facility]) state, incidental Screening for diabetes mellitus- Primary 24 weeks gestation of ([facility]) state, incidental Supervision of high risk in second trimester ([facility]) Unspecified high-risk Chronic hypertension complicating or reason for care during childbirth ([facility]) Benign essential hypertension complicating , childbirth, and the puerperium, unspecified as to episode of care Rh negative state in antepartum period ([facility]) Rhesus isoimmunization affecting management of mother, antepartum condition 32 weeks gestation of ([facility])- Primary state, incidental Chronic hypertension in ([facility]) Benign essential hypertension complicating , childbirth, and the puerperium, unspecified as to episode of care Supervision of high risk in third trimester ([facility]) Unspecified high-risk Obesity affecting in third trimester, unspecified obesity type ([facility]) 33 weeks gestation of ([facility])- Primary state, incidental Chronic hypertension in ([facility]) Benign essential hypertension complicating , childbirth, and the puerperium, unspecified as to episode of care Supervision of high risk in third trimester ([facility]) Unspecified high-risk Obesity affecting in third trimester, unspecified obesity type ([facility]) Supervision of high risk in third trimester ([facility])- Primary Unspecified high-risk 34 weeks gestation of ([facility]) state, incidental Chronic hypertension in ([facility]) Benign essential hypertension complicating , childbirth, and the puerperium, unspecified as to episode of care Obesity affecting in third trimester, unspecified obesity type ([facility]) Polyhydramnios in third trimester complication, single or unspecified fetus ([facility]) Excessive growth affecting management of in third trimester, single or unspecified fetus ([facility]) [facility] Diagnosis Supervision of high risk in first trimester ([facility])- Primary Unspecified high-risk Obesity affecting in first trimester, unspecified obesity type ([facility]) 10 weeks gestation of ([facility]) state, incidental BMI 40.0-44.9, adult ([facility]) Body Mass Index 40.0-44.9, adult Supervision of high risk in first trimester ([facility])- Primary Unspecified high-risk Elevated blood pressure reading without diagnosis of hypertension Chronic hypertension in ([facility]) Benign essential hypertension complicating , childbirth, and the puerperium, unspecified as to episode of care 11 weeks gestation of ([facility]) state, incidental Screening for diabetes mellitus- Primary 24 weeks gestation of ([facility]) state, incidental Supervision of high risk in second trimester ([facility]) Unspecified high-risk Chronic hypertension complicating or reason for care during childbirth ([facility]) Benign essential hypertension complicating , childbirth, and the puerperium, unspecified as to episode of care Rh negative state in antepartum period ([facility]) Rhesus isoimmunization affecting management of mother, antepartum condition 32 weeks gestation of ([facility])- Primary state, incidental Chronic hypertension in ([facility]) Benign essential hypertension complicating , childbirth, and the puerperium, unspecified as to episode of care Supervision of high risk in third trimester ([facility]) Unspecified high-risk Obesity affecting in third trimester, unspecified obesity type ([facility]) 33 weeks gestation of ([facility])- Primary state, incidental Chronic hypertension in ([facility]) Benign essential hypertension complicating , childbirth, and the puerperium, unspecified as to episode of care Supervision of high risk in third trimester ([facility]) Unspecified high-risk Obesity affecting in third trimester, unspecified obesity type ([facility]) Supervision of high risk in third trimester ([facility])- Primary Unspecified high-risk Chronic hypertension in ([facility]) Benign essential hypertension complicating , childbirth, and the puerperium, unspecified as to episode of care Obesity affecting in third trimester, unspecified obesity type ([facility]) Polyhydramnios in third trimester complication, single or unspecified fetus ([facility]) 35 weeks gestation of ([facility]) state, incidental [facility]* Diagnosis Supervision of high risk in first trimester ([facility])- Primary Unspecified high-risk Obesity affecting in first trimester, unspecified obesity type ([facility]) 10 weeks gestation of ([facility]) state, incidental BMI 40.0-44.9, adult ([facility]) Body Mass Index 40.0-44.9, adult Supervision of high risk in first trimester ([facility])- Primary Unspecified high-risk Elevated blood pressure reading without diagnosis of hypertension Chronic hypertension in ([facility]) Benign essential hypertension complicating , childbirth, and the puerperium, unspecified as to episode of care 11 weeks gestation of ([facility]) state, incidental Screening for diabetes mellitus- Primary 24 weeks gestation of ([facility]) state, incidental Supervision of high risk in second trimester ([facility]) Unspecified high-risk Chronic hypertension complicating or reason for care during childbirth ([facility]) Benign essential hypertension complicating , childbirth, and the puerperium, unspecified as to episode of care Rh negative state in antepartum period ([facility]) Rhesus isoimmunization affecting management of mother, antepartum condition 32 weeks gestation of ([facility])- Primary state, incidental Chronic hypertension in ([facility]) Benign essential hypertension complicating , childbirth, and the puerperium, unspecified as to episode of care Supervision of high risk in third trimester ([facility]) Unspecified high-risk Obesity affecting in third trimester, unspecified obesity type ([facility]) 33 weeks gestation of ([facility])- Primary state, incidental Chronic hypertension in ([facility]) Benign essential hypertension complicating , childbirth, and [...] affecting in third trimester, unspecified obesity type ([facility]) Polyhydramnios in third trimester complication, single or unspecified fetus ([facility]) * Assessment & Plan Note - Keyon Jara MD - 03/11/2025 3:09 PM EDTAssociated Problem(s): Chronic hypertension in (HCC) Orders: URINE OB DIP B/O * Assessment & Plan Note - Keyon Jara MD - 03/11/2025 3:09 PM EDTAssociated Problem(s): Polyhydramnios in third trimester (HCC) Orders: URINE OB DIP B/O [facility]* Diagnosis Supervision of high risk in first trimester (HCC)- Primary Unspecified high-risk Obesity affecting in first trimester, unspecified obesity type (HCC) 10 weeks gestation of ([facility]) state, incidental BMI 40.0-44.9, adult ([facility]) Body Mass Index 40.0-44.9, adult Supervision of high risk in first trimester (HCC)- Primary Unspecified high-risk Elevated blood pressure reading without diagnosis of hypertension Chronic hypertension in (HCC) Benign essential hypertension complicating , childbirth, and the puerperium, unspecified as to episode of care 11 weeks gestation of ([facility]) state, incidental Screening for diabetes mellitus- Primary 24 weeks gestation of ([facility]) state, incidental Supervision of high risk in second trimester ([facility]) Unspecified high-risk Chronic hypertension complicating or reason [...] unspecified fetus (HCC) documented in this encounter [facility] for referral (narrative)No reason for referral information [facility] Work Phone: Reason for visit Narrative* Diagnostic Procedure Only (Routine) - Closed Specialty Diagnoses / Procedures Referred By Lew madden Referred To Contact [facility] [place]NOTE 2] Diagnoses with uncertain dates, antepartum Procedures OBSTETRIC ULTRASOUND WHI US PREG UTERUS AFTER 1ST TRIMEST GESTATION Matilde Adler APRN.ESTEPHANIE [address] [place] [address] Phone: tel: fax: [facility] [address] [place] [address] Referral ID Status Reason Start Date Expiration Date V isits Requested Visits Authorized [id number] Closed Auto-Generate d Referral 08/12/2024 08/12/2025 1 1 [facility] Chief Complaint and Reason for Visit Chief Complaint Cellulitis of right finger Chief Complaint Admit Date BLEEDING December 08, 2024 1:50 pm Advance Directives No Advanced Directives Records Found Advance Directive Response Recorded Date/ Time Living Will No August 25, 2019 6:25pm Power of Apprentice Carpenter No August 24 6:25pm Summary Purpose Family History No Family History Records FoundNo Family History Records FoundNo Family History Records Found Reason for Referral Specialty Diagnoses / Procedures Referred By Lew madden Referred To Contact Neurology Diagnoses Orgasmic headache Procedures CONSULT TO NEUROLOGY OFFICE/OUTPATIENT [facility] 60-74 MINUTES Angelic Butler MD [address] [place] [address] Referral ID Status Reason Start Date Expiration Date Visits Requested Visits Authorized [id number] Authorized PCP Requested Referral 03/01/2023 02/29/2024 1 1 Specialty Diagnoses / Procedures Referred By Lew madden Referred To Contact Diagnoses Class 2 severe obesity due to excess calories with serious comorbidity and body mass index (BMI) of 38.0 to 38.9 in adult (HCC) PCOS (polycystic ovarian syndrome) Procedures CONSULT TO [facility] OFFICE/OUTPATIENT [facility] 60 MINUTES Angelic Butler MD [address] [place] [address] Referral ID Status Reason Start Date Expiration Date Visits Requested Visits Authorized [id number] Authorized PCP Requested Referral Auto-Generate d Referral 12/15/2023 12/14/2024 1 1 Additional Source Comments Source Comments (unrecognize d section and content) In the event this informatio n is protected by the Federal Confidentiality of Alcohol and Drug Abuse Patient Records regulations: The Federal rules restrict any use of the information to criminally investigate or prosecute any alcohol or drug abuse patient.[facility] the event this information is protected by the Federal Confidentiality of Alcohol and Drug Abuse Patient Records regulations: The Federal rules restrict any use of the information to criminally investigate or prosecute any alcohol or drug abuse patient.[facility] the event this information is protected by the Federal Confidentiality of Alcohol and Drug Abuse Patient Records regulations: The Federal rules restrict any use of the information to criminally investigate or prosecute any alcohol or drug abuse patient.[facility] the event this information is protected by the Federal Confidentiality of Alcohol and Drug Abuse Patient Records regulations: The Federal rules restrict any use of the information to criminally investigate or prosecute any alcohol or drug abuse patient.[facility] the event this information is protected by the Federal Confidentiality of Alcohol and Drug Abuse Patient Records regulations: The Federal rules restrict any use of the information to criminally investigate or prosecute any alcohol or drug abuse patient.[facility] the event this information is protected by the Federal Confidentiality of Alcohol and Drug Abuse Patient Records regulations: The Federal rules restrict any use of the information to criminally investigate or prosecute any alcohol or drug abuse patient.[facility]In the event this information is protected by the Federal Confidentiality of Alcohol and Drug Abuse Patient Records regulations: The Federal rules restrict any use of the information to criminally investigate or prosecute any alcohol or drug abuse patient.[facility] the event this information is protected by the Federal Confidentiality of Alcohol and Drug Abuse Patient Records regulations: The Federal rules restrict any use of the information to criminally investigate or prosecute any alcohol or drug abuse patient.[facility] the event this information is protected by the Federal Confidentiality of Alcohol and Drug Abuse Patient Records regulations: The Federal rules restrict any use of the information to criminally investigate or prosecute any alcohol or drug abuse patient.[facility] the event this information is protected by the Federal Confidentiality of Alcohol and Drug Abuse Patient Records regulations: The Federal rules restrict any use of the information to criminally investigate or prosecute any alcohol or drug abuse patient.[facility] HospitalIn the event this information is protected by the Federal Confidentiality of Alcohol and Drug Abuse Patient Records regulations: The Federal rules restrict any use of the information to criminally investigate or prosecute any alcohol or drug abuse patient.[facility] the event this information is protected by the Federal Confidentiality of Alcohol and Drug Abuse Patient Records regulations: The Federal rules restrict any use of the information to criminally investigate or prosecute any alcohol or drug abuse patient.[facility] the event this information is protected by the Federal Confidentiality of Alcohol and Drug Abuse Patient Records regulations: The Federal rules restrict any use of the information to criminally investigate or prosecute any alcohol or drug abuse patient.[facility] HospitalIn the event this information is protected by the Federal Confidentiality of Alcohol and Drug Abuse Patient Records regulations: The Federal rules restrict any use of the information to criminally investigate or prosecute any alcohol or drug abuse patient.[facility] the event this information is protected by the Federal Confidentiality of Alcohol and Drug Abuse Patient Records regulations: The Federal rules restrict any use of the information to criminally investigate or prosecute any alcohol or drug abuse patient.[facility] HospitalIn the event this information is protected by the Federal Confidentiality of Alcohol and Drug Abuse Patient Records regulations: The Federal rules restrict any use of the information to criminally investigate or prosecute any alcohol or drug abuse patient.[facility] the event this information is protected by the Federal Confidentiality of Alcohol and Drug Abuse Patient Records regulations: The Federal rules restrict any use of the information to criminally investigate or prosecute any alcohol or drug abuse patient.[facility]In the event this information is protected by the Federal Confidentiality of Alcohol and Drug Abuse Patient Records regulations: The Federal rules restrict any use of the information to criminally investigate or prosecute any alcohol or drug abuse patient.[facility] the event this information is protected by the Federal Confidentiality of Alcohol and Drug Abuse Patient Records regulations: The Federal rules restrict any use of the information to criminally investigate or prosecute any alcohol or drug abuse patient.[facility] the event this information is protected by the Federal Confidentiality of Alcohol and Drug Abuse Patient Records regulations: The Federal rules restrict any use of the information to criminally investigate or prosecute any alcohol or drug abuse patient.[facility] HospitalIn the event this information is protected by the Federal Confidentiality of Alcohol and Drug Abuse Patient Records regulations: The Federal rules restrict any use of the information to criminally investigate or prosecute any alcohol or drug abuse patient.[facility]In the event this information is protected by the Federal Confidentiality of Alcohol and Drug Abuse Patient Records regulations: The Federal rules restrict any use of the information to criminally investigate or prosecute any alcohol or drug abuse patient.[facility] HospitalIn the event this information is protected by the Federal Confidentiality of Alcohol and Drug Abuse Patient Records regulations: The Federal rules restrict any use of the information to criminally investigate or prosecute any alcohol or drug abuse patient.[facility] the event this information is protected by the Federal Confidentiality of Alcohol and Drug Abuse Patient Records regulations: The Federal rules restrict any use of the information to criminally investigate or prosecute any alcohol or drug abuse patient.[facility] the event this information is protected by the Federal Confidentiality of Alcohol and Drug Abuse Patient Records regulations: The Federal rules restrict any use of the information to criminally investigate or prosecute any alcohol or drug abuse patient.[facility]In the event this information is protected by the Federal Confidentiality of Alcohol and Drug Abuse Patient Records regulations: The Federal rules restrict any use of the information to criminally investigate or prosecute any alcohol or drug abuse patient.[facility]In the event this information is protected by the Federal Confidentiality of Alcohol and Drug Abuse Patient Records regulations: The Federal rules restrict any use of the information to criminally investigate or prosecute any alcohol or drug abuse patient.[facility] the event this information is protected by the Federal Confidentiality of Alcohol and Drug Abuse Patient Records regulations: The Federal rules restrict any use of the information to criminally investigate or prosecute any alcohol or drug abuse patient.[facility] HospitalIn the event this information is protected by the Federal Confidentiality of Alcohol and Drug Abuse Patient Records regulations: The Federal rules restrict any use of the information to criminally investigate or prosecute any alcohol or drug abuse patient.[facility] HospitalIn the event this information is protected by the Federal Confidentiality of Alcohol and Drug Abuse Patient Records regulations: The Federal rules restrict any use of the information to criminally investigate or prosecute any alcohol or drug abuse patient.[facility]In the event this information is protected by the Federal Confidentiality of Alcohol and Drug Abuse Patient Records regulations: The Federal rules restrict any use of the information to criminally investigate or prosecute any alcohol or drug abuse patient.[facility]In the event this information is protected by the Federal Confidentiality of Alcohol and Drug Abuse Patient Records regulations: The Federal rules restrict any use of the information to criminally investigate or prosecute any alcohol or drug abuse patient.[facility]In the event this information is protected by the Federal Confidentiality of Alcohol and Drug Abuse Patient Records regulations: The Federal rules restrict any use of the information to criminally investigate or prosecute any alcohol or drug abuse patient.[facility]In the event this information is protected by the Federal Confidentiality of Alcohol and Drug Abuse Patient Records regulations: The Federal rules restrict any use of the information to criminally investigate or prosecute any alcohol or drug abuse patient.[facility]In the event this information is protected by the Federal Confidentiality of Alcohol and Drug Abuse Patient Records regulations: The Federal rules restrict any use of the information to criminally investigate or prosecute any alcohol or drug abuse patient.[facility] HospitalIn the event this information is protected by the Federal Confidentiality of Alcohol and Drug Abuse Patient Records regulations: The Federal rules restrict any use of the information to criminally investigate or prosecute any alcohol or drug abuse patient.[facility] HospitalIn the event this information is protected by the Federal Confidentiality of Alcohol and Drug Abuse Patient Records regulations: The Federal rules restrict any use of the information to criminally investigate or prosecute any alcohol or drug abuse patient.[facility]In the event this information is protected by the Federal Confidentiality of Alcohol and Drug Abuse Patient Records regulations: The Federal rules restrict any use of the information to criminally investigate or prosecute any alcohol or drug abuse patient.[facility]In the event this information is protected by the Federal Confidentiality of Alcohol and Drug Abuse Patient Records regulations: The Federal rules restrict any use of the information to criminally investigate or prosecute any alcohol or drug abuse patient.[facility] HospitalIn the event this information is protected by the Federal Confidentiality of Alcohol and Drug Abuse Patient Records regulations: The Federal rules restrict any use of the information to criminally investigate or prosecute any alcohol or drug abuse patient.[facility] the event this information is protected by the Federal Confidentiality of Alcohol and Drug Abuse Patient Records regulations: The Federal rules restrict any use of the information to criminally investigate or prosecute any alcohol or drug abuse patient.[facility] the event this information is protected by the Federal Confidentiality of Alcohol and Drug Abuse Patient Records regulations: The Federal rules restrict any use of the information to criminally investigate or prosecute any alcohol or drug abuse patient.[facility] Hospital[facility] the event this information is protected by the Federal Confidentiality of Alcohol and Drug Abuse Patient Records regulations: The Federal rules restrict any use of the information to criminally investigate or prosecute any alcohol or drug abuse patient.[facility] Reason for Visit (unrecogniz ed section [...] Referred By Contac t Referred To Contact [facility] [place] 2] Diagnoses with uncertain dates, antepartum (HCC) Encounter for care in first trimester of first ([facility]) Procedures OBSTETRIC ULTRASOUND WHI US PREG UTERUS AFTER 1ST TRIMEST GESTATION Matilde Adler APRN.CN [address] [place] [address] Phone: tel: fax: [facility] [place] [address] Referral ID Status Reason Start Date Expiration Date V isits Requested Visits Authorized [id number] Closed Auto-Generate d Referral 08/12/2024 08/12/2025 1 1 Reason Onset Date Comments Refill Request 10/08/2024 Reason Comments Care Specialty Diagnoses / Procedures Referred By Contac t Referred To Contact [facility] [place]NOTE 2] Diagnoses Obesity affecting in first trimester, unspecified obesity type (HCC) 10 weeks gestation of (HCC) Supervision of high risk in first trimester (HCC) BMI 40.0-44.9, adult ([facility]) Procedures OBSTETRIC ULTRASOUND WHI OBSTETRIC ULTRASOUND WHI US PREG UTERUS AFTER 1ST TRIMEST GESTATION Angelic Butler MD [address] [place] [address] Phone: tel: fax: [facility] [email or web address] [address] Referral ID Status Reason Start Date Expiration Date V isits Requested Visits Authorized [id number] Closed Auto-Generate d Referral 09/10/2024 09/10/2025 6 1 Specialty Diagnoses / Procedures Referred By Contac t Referred To Contact [facility] [place]NOTE 2] Diagnoses Obesity affecting in first trimester, unspecified obesity type (HCC) Supervision of high risk in first trimester (HCC) BMI 40.0-44.9, adult (HCC) Procedures OBSTETRIC ULTRASOUND WHI US PREG UTERUS AFTER 1ST TRIMEST GESTATION Angelic Butler MD [address] [place] [address] Phone: tel: fax: [address] [address] Referral ID Status Reason Start Date Expiration Date V isits Requested Visits Authorized [id number] Closed Auto-Generate d Referral 09/10/2024 09/10/2025 1 1 Reason Onset Date Comments Care 11/19/2024 Reason Comments Medication Question Reason Comments Results Reason Onset Date Comments Care 12/17/2024 Reason Onset Date Comments Care 01/10/2025 Reason Onset Date Comments Care 01/15/2025 Specialty Diagnoses / Procedures Referred By Contac t Referred To Contact [facility] [place]NOTE 2] Diagnoses Supervision of high risk in third trimester (HCC) Obesity affecting in third trimester, unspecified obesity type ([facility]) Procedures OBSTETRIC ULTRASOUND WHI US PREG UTERUS AFTER 1ST TRIMEST GESTATION Jojo Saez APRN.CNM [address] [place] [address] Phone: tel: fax: [address] [address] Referral ID Status Reason Start Date Expiration Date V isits Requested Visits Authorized [id number] Closed Auto-Generate d Referral 11/19/2024 11/19/2025 3 1 Reason Onset Date Comments Care 02/11/2025 Reason Onset Date Comments Care 02/18/2025 Reason Onset Date Comments Care 02/25/2025 Reason Onset Date Comments Care 03/04/2025 Reason Comments Question (OB Question) Reason Onset Date Comments Care 03/11/2025 Care Teams (unrecognized sec tion and content) It Technician Relationship Specialty Start Date End Date Mago Wong PCP - General 01/01/09 It Technician Relationship Specialty Start Date End Date Jostuart Mago Goncalves PCP - General 01/01/09 Team Status: Active Member Role Status Dates Dr. Mago Wong MD Primary Care Provider Active Team Status: Inactive Member Role Status Dates Dr. Mago Wong MD Primary Care Prov ider, Attending Provider, Referring Provider Active It Technician Relationship Specialty Start Date End Date Leeleestuart Mago Goncalves PCP - General 01/01/09 It Technician Relationship Specialty Start Date End Date LeeleeMago davidson PCP - General 01/01/09 It Technician Relationship Specialty Start Date End Date LeeleeMago davidson PCP - General 01/01/09 It Technician Relationship Specialty Start Date End Date Mago Wong Sarah PCP - General 01/01/09 It Technician Relationship Specialty Start Date End Date JudithMago PCP - General 01/01/09 It Technician Relationship Specialty Start Date End Date LeeleeMago davidson PCP - General 01/01/09 It Technician Relationship Specialty Start Date End Date JudithMago PCP - General 01/01/09 It Technician Relationship Specialty Start Date End Date LeeleeMago davidson PCP - General 01/01/09 It Technician Relationship Specialty Start Date End Date Mago Wong PCP - General 01/01/09 It Technician Relationship Specialty Start Date End Date Mago Wong PCP - General 01/01/09 It Technician Relationship Specialty Start Date End Date Mago Wong PCP - General 01/01/09 It Technician Relationship Specialty Start Date End Date Mago Wong PCP - General 01/01/09 It Technician Relationship Specialty Start Date End Date Mago Wong PCP - General 01/01/09 It Technician Relationship Specialty Start Date End Date Mago Wong PCP - General 01/01/09 It Technician Relationship Specialty Start Date End Date Mago Wong PCP - General 01/01/09 It Technician Relationship Specialty Start Date End Date Mago Wong PCP - General 01/01/09 It Technician Relationship Specialty Start Date End Date Mago Wong PCP - General 01/01/09 It Technician Relationship Specialty Start Date End Date Mago Wong PCP - General 01/01/09 It Technician Relationship Specialty Start Date End Date Mago Wong PCP - General 01/01/09 It Technician Relationship Specialty Start Date End Date Mago Wong PCP - General 01/01/09 It Technician Relationship Specialty Start Date End Date Mago Wong PCP - General 01/01/09 Team Status: Inactive Member Role Status Dates Dr. Mago Wong MD Primary Care Provider Active Start: December 08, 2024 End: December 08, 2024 Jojo Saez CNM Attending Provider Active St art: December 08, 2024 End: December 08, 2024 It Technician Relationship Specialty Start Date End Date Leeleestuart Mago Sarah PCP - General 01/01/09 It Technician Relationship Specialty Start Date End Date Leeleestuart Mago Sarah PCP - General 01/01/09 It Technician Relationship Specialty Start Date End Date Leeleestuart Mago Sarah PCP - General 01/01/09 It Technician Relationship Specialty Start Date End Date Judith Mago Sarah PCP - General 01/01/09 It Technician Relationship Specialty Start Date End Date Judith Mago Sarah PCP - General 01/01/09 It Technician Relationship Specialty Start Date End Date Mago Wong PCP - General 01/01/09 It Technician Relationship Specialty Start Date End Date Mago Wong PCP - General 01/01/09 It Technician Relationship Specialty Start Date End Date Mago Wong PCP General 01/01/09 It Technician Relationship Specialty Start Date End Date Mago Wong PCP General 01/01/09 It Technician Relationship Specialty Start Date End Date Mago Wong PCP General 01/01/09 It Technician Relationship Specialty Start Date End Date Mago Wong PCP General 01/01/09 It Technician Relationship Specialty Start Date End Date Mago Wong PCP General 01/01/09 It Technician Relationship Specialty Start Date End Date Mago Wong PCP General 01/01/09 Goals (unrecognized section and content) Goals may be documented in a n alternate sectionGoals may be documented in an alternate section INFORMATION SOURCE (unrecogn ized section and content) DATE CREATED AUTHOR 12/16/2022 [facility] DATE CREATED AUTHOR AUTHOR'S ORGANIZ ATION 01/11/2025 [facility] DATE CREATED AUTHOR AUTHOR'S ORGANIZ ATION 03/12/2025 [facility] FOR RECORDS PERTAINING TO PATIENTS WHO ARE [...] BASED ON THE PRIMARY CLINICAL RECORDS. [facility] [facility]. provides no warranty or guarantee of the accuracy or completeness of information in this document.
[2025-03-13] VITALS (287 sets, daily range): BP systolic 77–148; BP diastolic 57–105; PULSE 69–165; RESP 16–18; TEMP 36–37.1; O2SAT 81–100; BMI 1340.0; BMI 20250918.0; BMI 2018.0; BMI 2040.0
[2025-03-13] MEDS: Magnesium Sulfate 20 GM/500 ML BAG IV ×2 (03:32→13:30)
[2025-03-13] MEDS: 0.9% Saline Lock 10 ML Syringe IV ×2 (03:40→16:37)
[2025-03-13] MEDS: 0.9% Normal Saline Single 100 ML IV.SOLN. INTRA-UTER (09:05)
[2025-03-13] MEDS: Oxytocin 15 Units/NS 250ml 15 UNITS/250 ML IV.SOLN 2 UNITS IV (13:25)
[2025-03-13] MEDS: Cefazolin 1 GM/5 ML Vial 3 GM IV (21:05)
[2025-03-13] MEDS: Azithromycin 500 MG Vial (SNAP) IV (21:06)
[2025-03-13] MEDS: TRANEXAMIC ACID 1,000 MG/10 ML ML 1000 MG IV (21:14)
[2025-03-13] MEDS: TRANEXAMIC ACID 1,000 MG in 0.9% Normal Saline (100mL Bag) 100 ML 440 MG IV (21:15)
[2025-03-13 21:42] LABS: Hematocrit 28.3 % (37-47); Hemoglobin 9.4 g/dL (12.0-15.0); Mean Corp Hgb Conc 33.2 g/dL (32-36); Mean Corpuscular Volume 87.9 fL (81-99); Mean Platelet Vol. 11.0 fl (6.2-12.0); Platelet Count 216 K/mm3 (150-450); RBC Distribution Width CV 14.0 % (11.6-14.6); RBC Distribution Width SD 43.7 fl (35.1-43.9); Red Blood Count 3.22 M/mm3 (4.2-5.4); White Blood Count 12.2 K/mm3 (4.4-11.0)
[2025-03-13 21:47] LABS: AST(SGOT) 21 U/L (<=31); Alanine Aminotransfer ALT/SGPT 14 U/L (<=34); Estimated Creatinine Clearance 120.31 ml/min (50-250); Uric Acid 6.7 mg/dL (2.6-6.0)
--- NOTE | 2025-03-13 21:50 | OP.PCM_ITS ---
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 trimester: (4) BMI 50.0-59.9, adult: (5) Non-reassuring cardiotocographic tracing: (6) Placenta abruptio: Maternal Data Information Gestational age: 36 Operative Report (OB) Procedure Details Date of Procedure: 03/13/25 Procedure Start Time: 21:08 Procedure Stop Time: 21:43 Time of Delivery: 21:10 Pre-Operative Diagnosis: Suspected Abruptio Placenta and Other Other Pre- Operative diagnosis: nonreassuring heart tracing Post-Operative Diagnosis: Same as Pre-operative diagnosis Classification: Stat Type of Anesthesia: Spinal Antibiotic Given: Ancef 3 grams IV x1 and Zithromax 500 mg/5 mL X1 Drain: Strong to straight drain Estimated Blood Loss: 800 Fluids Replaced: 100 Findings Description of surgery: The patient had a prolonged deceleration and an OB ERT was called. I was notified and was immediately entrance port to the hospital. When I arrived the patient was in the operating room and heart tones were 130 bpm and had been trending up. Decision was made to keep the heart tones on the monitor and proceed with spinal anesthetic. Spinal was placed. She was prepped and draped in the dorsal supine position. A Pfannenstiel skin incision was made approximately 2 cm above the symphysis pubis and carried through to underlying layer fascia with the scalpel. The fascia was incised incised in the midline and extended laterally with blunt dissection. The fascia was dissected off the rectus muscles with blunt dissection. The rectus muscles were in the midline and the peritoneum was entered bluntly. The peritoneal incision was stretched and the bladder blade was placed. The uterine incision was made in a low transverse fashion with the scalpel and extended superiorly and inferiorly with blunt dissection. A large amount of clot extruded from the uterus and a small amount of amniotic fluid. The infant's head was brought to the incision in the flexed position and delivered without difficulty. The remainder of the was delivered with gentle traction and fundal pressure in the standard fashion. The was not immediately vigorous. The cord was clamped and cut as the was stimulated. The infant was handed off to the waiting nursing staff. The placenta was delivered with fundal massage and gentle traction in the standard fashion. The uterus was exteriorized and cleared of all clots and debris. The uterine incision was closed with #1 Vicryl in a running locked fashion. A [id number] was needed near the left cornea to obtain hemostasis in the sinus. The incision was examined and was found to be hemostatic. Hemablast was placed over the incision prophylactically. The uterus was placed back into the peritoneal cavity and hemostasis was again confirmed. The rectus muscles were examined and any bleeding was Bovie cauterized. The parietal peritoneum and rectus muscles were closed en bloc with an 0 Vicryl running suture. Hemablast was placed over every layer. The rectus fascia was examined and any bleeding was Bovie cauterized and the rectus fascia was closed with 1 Vicryl suture in a running standard fashion. The subcutaneous tissue was examining and any bleeding was Bovie cauterized. The subcutaneous tissue was reapproximated with 3-0 Vicryl suture. The skin was closed in a subcuticular fashion. I performed the entire procedure with assistance. All sponge, lap, and needle counts were correct. The patient was taken to her room for recovery in a stable condition. 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
[2025-03-13 21:54] LABS: Prothrombin Time (Protime)PT. 13.5 SECONDS (11.7-14.9)
[2025-03-13 21:55] LABS: Partial Thromboplast Time 25.6 Seconds (24.1-36.2)
[2025-03-13 22:12] LABS: Magnesium 6.3 mg/dL (1.5-2.2)
[2025-03-13] MEDS: Oxytocin 15 Units/NS 250ml 15 UNITS/250 ML IV.SOLN 83 UNITS IV (22:12)
--- NOTE | 2025-03-13 22:17 | PLAC_PTH ---
PATIENT: OTILIA MEZA LOC: WP U#:[id number] AGE/SX: 29/F ROOM: WP006 RE03/12/[address]: Dr. Steffanie Hood MD : 1995 BED: 1 DIS: 03/16/2025 SPEC #: [id number] RECD: 03/14/25 00:27 STATUS: RONALD RELuz #: [id number] KITA: 03/13/25 22:[address]: Steffanie Hood DEPT: SURGICAL PATHOLOGY RECD BY: Ernesto Zuluaga ENTERED: 03/14/25 12:53 SP TYPE: PLACENTA OTHR DR: Dr. Mago Wong MD Tissues: A - Placenta, NOS Procedures: Surgery Specimen Level V HEADER OPERATION: Primary section PRE-OP DIAGNOSIS: Abruption, preeclampsia TISSUE SUBMITTED: A- Placenta MICROSCOPIC DIAGNOSIS A. Placenta, 36 weeks/2 days, section: * Amos 3rd trimester placenta, 545 grams (90th percentile by dates). * Mild acute chorioamnionitis. * Tri-vessel umbilical cord negative for inflammation. * Complete maternal surface with 11.7 cm tear and loosely adherent blood clot. * Focal placental fibrin clot displacing placental villi. * See note. * Note: The tear of the maternal surface could be acute vs iatrogenic. The findings are compatible with the clinical impression of acute abruption and retroplacental hemorrhage. MICROSCOPIC DESCRIPTION Slides are reviewed. GROSS DESCRIPTION A. Received in formalin labeled with the patient's name and date of is a 545 g, 18.5 x 17.8 x 3.3 cm slightly irregular, ovoid placental disc. The membranes are chatman-pink and translucent with focal opacity, inserting marginally. The attached, tri-vessel umbilical cord measures 39.1 in length by 1.2-1.4 in diameter and inserts eccentrically, 1.5 cm from the disc edge. The surface is purple-blue and glistening, with foci of subchorionic fibrin (<10%). The maternal surface is dark red-brown, with a focally torn and frayed appearance including an 11.7 x 5.0 cm tear, possibly iatrogenic; when reapproximated the maternal surface appears nearly complete, with loosely adherent blood clot along the periphery of the disc. Sectioning reveals dark red spongy parenchyma with focal hemorrhage and fibrin (10-15%). Client Account Representative sections are submitted as follows: A1: Membrane rollA2: Umbilical cordA3-A4: Placenta SC 03/14/2025 CPT:89761
[2025-03-13] MEDS: Ketorolac 30 MG/ML Syringe IV (22:50)
[2025-03-14] VITALS (97 sets, daily range): BP systolic 102–159; BP diastolic 57–84; PULSE 84–107; RESP 14–18; TEMP 36.3–37.2; O2SAT 86–100
[2025-03-14 00:29] LABS: Pathology Specimen OB SEE PATHOLOGY REPORT
[2025-03-14] MEDS: Magnesium Sulfate 20 GM/500 ML BAG IV ×3 (01:21→21:31)
[2025-03-14] MEDS: Cefazolin 1 GM/50 ML BAG IV ×2 (03:43→11:24)
[2025-03-14] MEDS: Ketorolac 30 MG/ML Syringe IV ×3 (04:56→16:23)
[2025-03-14] MEDS: 0.9% Saline Lock 10 ML Syringe IV ×5 (04:56→16:24)
[2025-03-14 06:00] LABS: Hematocrit 25.7 % (37-47); Hemoglobin 8.7 g/dL (12.0-15.0); Mean Corp Hgb Conc 33.9 g/dL (32-36); Mean Corpuscular Volume 88.3 fL (81-99); Mean Platelet Vol. 10.4 fl (6.2-12.0); Platelet Count 175 K/mm3 (150-450); RBC Distribution Width CV 14.1 % (11.6-14.6); RBC Distribution Width SD 44.9 fl (35.1-43.9); Red Blood Count 2.91 M/mm3 (4.2-5.4); White Blood Count 15.3 K/mm3 (4.4-11.0)
--- NOTE | 2025-03-14 08:43 | PCM.PN.OB ---
Subjective Subjective Doing well. Has been up. Strong in place. Mild lochia. Breast feeding. Magnesium until 24 hours . Labetalol help for low BP. Very swollen this am. Objective Data Objective Data Vital Signs: Vital Signs Temp Pulse Resp BP Pulse Ox O2 Del Method 98.6 F 91 16 135/59 H 95 Room Air 03/14/25 07:59 03/14/25 07:59 03/14/25 07:59 03/14/25 07:59 03/14/25 07:59 03/14/25 07:59 Oxygen Delivery Method Room Air Weight: 128.82 kg Body Mass Index (BMI) 50.3 Intake & Output: Intake and Output for Last 24 Hours 03/12/25 03/13/25 03/14/25 23:59 23:59 23:59 Intake Total 281.67 / 281.67 2907.41 / 2907.41 812.62 / 812.62 Output Total 1200 / 1200 4200 / 4400 1268 / 1268 Balance -918.33 / -918.33 -1292.59 / -1492.59 -455.38 / -455.38 Lab / Micro Data 03/14/25 05:40 03/13/25 21:15 Labs: Laboratory Results - last 24 hr 03/13/25 21:15: WBC 12.2 H, RBC 3.22 L, Hgb 9.4 L, Hct 28.3 L, MCV 87.9, MCH 29.2, MCHC 33.2, RDW Std Deviation 43.7, RDW Coeff of Zoila 14.0, Plt Count 216, MPV 11.0, PT 13.5, INR 1.0, APTT 25.6, Creatinine 0.92, Estim Creat Clear Calc 120.31, Est GFR (MDRD) Non-Af 88, Uric Acid 6.7 H, Magnesium 6.3 H*, AST 21, ALT 14 03/14/25 05:40: WBC 15.3 H, RBC 2.91 L, Hgb 8.7 L, Hct 25.7 L, MCV 88.3, MCH 29.9, MCHC 33.9, RDW Std Deviation 44.9 H, RDW Coeff of Zoila 14.1, Plt Count 175, MPV 10.4, Screen NEGATIVE, Baby's Blood Type O POSITIVE, Baby's LIZETTE NEGATIVE Physical Exam Const alert General Appearance: cooperative GI GI Narrative: soft, moderate distention, fundus firm, appropriately tender. Abdominal bandage clean dry and intact Assessment & Plan (1) S/P : (2) Placenta abruptio: QUALIFIERS: Trimester: third trimester Qualified Code(s): O45.93 - Premature separation of placenta, unspecified, third trimester (3) Severe pre-eclampsia affecting first : PLAN: Plan Lasix x 1. Home BP meds for now. Anticipate needing to restart after magnesium discontinued.
[2025-03-14] MEDS: Senna/Docusate Sodium 1 Tablet PO (09:22)
[2025-03-14] MEDS: Furosemide 20 MG/2 ML VIAL IV (09:52)
[2025-03-14] MEDS: Rho(D) Immune Globulin 300 MCG (1500 Unit) Syringe IV (09:52)
[2025-03-15] VITALS (8 sets, daily range): BP systolic 112–151; BP diastolic 63–83; PULSE 85–98; RESP 14–18; TEMP 36.2–37.1; O2SAT 96–100
[2025-03-15] MEDS: 0.9% Saline Lock 10 ML Syringe IV (01:23)
--- NOTE | 2025-03-15 08:15 | PCM.PN.OB ---
Subjective Subjective Doing well. Ambulating and voiding without difficulty. Mild lochia. Breast feeding. Mag stopped over night. Over 7000 of urine output in the last 24 hours. Has not needed BP meds since delivery. Objective Data Objective Data Vital Signs: Vital Signs Temp Pulse Resp BP Pulse Ox O2 Del Method 97.2 F L 93 16 117/82 H 97 Room Air 03/15/25 04:12 03/15/25 04:12 03/15/25 04:12 03/15/25 04:12 03/15/25 04:12 03/15/25 04:12 Oxygen Delivery Method Room Air Weight: 128.82 kg Body Mass Index (BMI) 50.3 Intake & Output: Intake and Output for Last 24 Hours 03/13/25 03/14/25 03/15/25 23:59 23:59 23:59 Intake Total 2907.41 / 2907.41 3330.95 / 3330.95 291.67 / 291.67 Output Total 4200 / 4400 7638 / 7638 250 / 250 Balance -1292.59 / -1492.59 -4307.05 / -4307.05 41.67 / 41.67 Lab / Micro Data 03/14/25 05:40 03/13/25 21:15 Physical Exam Const alert General Appearance: cooperative GI GI Narrative: soft, moderate distention, fundus firm, appropriately tender. Abdominal bandage clean dry and intact Assessment & Plan (1) S/P : (2) Severe pre-eclampsia affecting first : PLAN: Plan Continue to monitor BP. Ambulate in marsh[place].
[2025-03-15] MEDS: Senna/Docusate Sodium 1 Tablet PO (10:52)
[2025-03-16 03:11] VITALS: BP 128/78; PULSE 98; RESP 18; TEMP 36.2; O2SAT 98
[2025-03-16 08:18] VITALS: BP 147/76; PULSE 102; RESP 16; TEMP 36.6; O2SAT 100
--- NOTE | 2025-03-16 08:22 | PCM.PN.OB ---
Subjective Subjective Doing well. Ambulating and voiding without difficulty. Mild lochia. Breast/bottle feeding. Swelling much better. No headache Objective Data Objective Data Vital Signs: Vital Signs Temp Pulse Resp BP Pulse Ox O2 Del Method 97.2 F L 98 18 128/78 H 98 Room Air 03/16/25 03:11 03/16/25 03:11 03/16/25 03:11 03/16/25 03:11 03/16/25 03:11 03/16/25 03:11 Oxygen Delivery Method Room Air Weight: 128.82 kg Body Mass Index (BMI) 50.3 Intake & Output: Intake and Output for Last 24 Hours 03/14/25 03/15/25 03/16/25 23:59 23:59 23:59 Intake Total 3330.95 / 3330.95 291.67 / 291.67 Output Total 7638 / 7638 950 / 950 Balance -4307.05 / -4307.05 -658.33 / -658.33 Lab / Micro Data 03/14/25 05:40 03/13/25 21:15 Physical Exam Const alert General Appearance: cooperative GI GI Narrative: soft, moderate distention, fundus firm, appropriately tender. Abdominal bandage clean dry and intact Assessment & Plan (1) S/P : (2) Placenta abruptio: QUALIFIERS: Trimester: third trimester Qualified Code(s): O45.93 - Premature separation of placenta, unspecified, third trimester (3) Severe pre-eclampsia affecting first : PLAN: Plan Discharge home. BP check within 3 days
--- NOTE | 2025-03-16 08:24 | PCM.DC.SUM ---
Providers Date of Admission: 03/12/25 Date of Discharge: 03/16/25 Primary Care Physician: Dr. Mago Wong MD Reason For Visit: C SECTION Diagnosis Discharge Diagnosis (1) S/P : Status: Acute Code(s): Z98.891 - History of uterine scar from previous surgery (2) Placenta abruptio: Status: Acute Code(s): O45.90 - Premature separation of placenta, unspecified, unspecified trimester Qualifiers: Trimester: third trimester Qualified Code(s): O45.93 - Premature separation of placenta, unspecified, third trimester (3) Severe pre-eclampsia affecting first : Status: Acute Code(s): O14.10 - Severe pre-eclampsia, unspecified trimester Plan Discharge home. BP check within 3 days Medications at Discharge Home Medications vits no.130-ferrous fum 27 mg iron-folic acid 800 mcg tablet ( Vitamin) 1 tab PO DAILY 12/08/24 labetalol 100 mg tablet 100 mg PO BID #60 tabs 03/16/25 Hospital Course Operations section Procedures None Summary of Care Provided Minutes Spent on Discharge: 21 Hospital Course: Induction for severe pre-e. Placental abruption leading to STAT . No complications . BP controlled with home dose of labetalol Physical Exam Const alert General Appearance: cooperative GI GI Narrative: soft, moderate distention, fundus firm, appropriately tender. Abdominal bandage clean dry and intact Weight / BMI Weight Weight: 128.82 kg Body Mass Index (BMI) 50.3 ABG / Lab / Microbiology Data 03/14/25 05:40 03/13/25 21:15 D/C Instructions DC O2, CPAP, BIPAP Needs Home O2 Discharge instructions: No Meaningful Use Info Meaningful Use Meaningful Use Diagnoses (Choose all that apply): None applicable Discharge Plan Admission Admit Date/Time: 03/12/25 17:57 Primary Reason for Your Visit: pre e Attending Provider: Steffanie Hood Primary Care Provider: Mago Wong Discharge Orders/Prescriptions Prescriptions: New labetalol 100 mg Tablet 100 mg PO BID Qty: 60 0RF Continued Vitamin 27 mg iron- 800 mcg tablet 1 tab PO DAILY Discontinued aspirin [Children's Aspirin] 81 mg tablet,chewable 2 tab PO DAILY Referrals / Follow Up: Mago Wong MD [Primary Care Provider, Family Practice] Disposition Disposition (needs filled in before D/C Order can be placed): Home, Self Care
[2025-03-16] MEDS: Senna/Docusate Sodium 1 Tablet PO (09:58)
== END 2025-03-16 11:10 | disposition home or self-care (01) | DRG 788 ==
LOC: WP 19:07
PROVIDERS: Obstetrics & Gynecology; Admitting Provider Obstetrics & Gynecology; PCP Family Medicine; Referring Provider Obstetrics & Gynecology; Visit Provider Obstetrics & Gynecology
DX: O11.4 Pre-existing hypertension with pre-eclampsia, complicating childbirth (principal); O45.93 Premature separation of placenta, unspecified, third trimester; O99.214 Obesity complicating childbirth; O10.92 Unspecified pre-existing hypertension complicating childbirth; O76 Abnormality in fetal heart rate and rhythm complicating labor and delivery; O40.3XX0 Polyhydramnios, third trimester, not applicable or unspecified; O69.81X0 Labor and delivery complicated by cord around neck, without compression, not applicable or unspecified; Z3A.36 36 weeks gestation of pregnancy; Z37.0 Single live birth
CPT/HCPCS: 36415; 59025; 59050; 82565; 82570; 83735; 84156; 84450; 84460; 84550; 85027; 85461; 85610; 85730; 86780; 86850; 86900; 86901; 88307; 90384; 99221; A4216; G0378; J1938; J2405; J2790; J2791